=== PATIENT | female | born 1945 | race Caucasian/White ===

== ENCOUNTER 2018-04-24 11:10 | Emergency (ER) | payer MEDICARE, OTHER, SELFPAY ==
[2018-04-24 11:11] VITALS: BP 183/92; PULSE 109; RESP 24; TEMP 36.4; O2SAT 95; BMI 28.0
--- NOTE | 2018-04-24 11:41 | EKG12_ITS ---
Test Reason : ABDOMINAL PAIN Blood Pressure : / mmHG Vent. Rate : 094 BPM Atrial Rate : 094 BPM P-R Int : 154 ms QRS Dur : 078 ms QT Int : 382 ms P-R-T Axes : 061 077 064 degrees QTc Int : 477 ms Normal sinus rhythm Normal ECG Confirmed by TON GAN, ARLETH ([id number]), assistant production editor ANA WITT ([id number]) on 04/28/2018 9:15:44 AM Referred By: Confirmed By:ARLETH CAMILO MD
--- NOTE | 2018-04-24 11:41 | US_ITS ---
STUDY: ABDOMINAL ULTRASOUND - RIGHT UPPER QUADRANT REASON FOR VISIT: Female, 72 years old. Abdominal pain. TECHNIQUE: Ultrasound evaluation of the right upper quadrant was performed with real-time and static alva-scale imaging. TECHNICAL QUALITY: Limited. Examination limited due to obesity. COMPARISON: Comparison is made with prior examination dated February 26, 2012. FINDINGS: Liver: The liver measures 16.4 cm. There is increased echogenicity consistent with fatty infiltration. The bile ducts are within normal limits. There is hepatic color flow. The direction of portal flow is hepatopetal. There is no demonstrated mass lesion. Gallbladder: Normal distended gallbladder. The gallbladder wall measures 4.0 mm. There is a negative sonographic Davila's sign. There is no pericholecystic fluid. There are multiple echogenic structures within the gallbladder, consistent with multiple gallstones. Common Bile Duct (C.B.D.): The common bile duct is not well visualized due to overlying bowel gas. Pancreas: Normal size of the head, body and tail of the pancreas. There is normal echogenicity of the pancreas. There is no demonstrated pancreatic mass or cyst. Right Kidney: Normal size of the right kidney. The right kidney measures 9.8 cm x 5.1 cm x 4.5 cm. Normal renal cortex. The right cortex measures 1.4 cm. There is no demonstrated renal mass or cyst. There is no right hydronephrosis. US/Gallbladder IMPRESSION: Multiple gallstones. Fatty infiltration of the liver. Electronically Signed: Luciano Ferraro, at 14:34 EST , Service support ,
[2018-04-24] MEDS: Ondansetron 4 MG/2 ML Vial IV (12:01)
[2018-04-24] MEDS: Morphine 4 MG/ML Syringe IV (12:01)
[2018-04-24 12:33] LABS: Absolute Lymphocyte Count 1.79 X10^3/ul (0.83-4.51); Absolute Neutrophil Count 8.3 X10^3/uL (2.0-7.7); Basophil# 0.04 X10^3/uL; Basophil% 0.4 % (0-1); Eosinophil# 0.06 X10^3/uL; Eosinophils% 0.6 % (0-5); Hematocrit 48.1 % (37-47); Hemoglobin 15.3 g/dl (12.0-15.0); Lymphocyte # 1.79 X10^3/ul (4.0); Lymphocyte % 16.7 % (19-41); Mean Corp Hgb Conc 31.8 g/gl (32-36); Mean Corpuscular Hgb 28.2 pg (27.0-32.0); Mean Corpuscular Volume 88.6 fL (81-99); Monocyte# 0.55 X10^3/uL; Monocyte% 5.1 % (0-10); Neutrophil # 8.25 X10^3/uL (2.7-7.7); Neutrophil % 77.1 % (47-70); Platelet Count 325 K/mm3 (150-450); RBC Distribution Width CV 13.5 % (11.6-14.6); RBC Distribution Width SD 43.6 fl (35.1-43.9); Red Blood Count 5.43 M/mm3 (4.2-5.4); White Blood Count 10.7 K/mm3 (4.4-11.0)
[2018-04-24 12:41] LABS: POSITIVE COUNT NO; POSITIVE DIFFERENTIAL NO; POSITIVE MORPHOLOGY NO
[2018-04-24 12:43] LABS: AST(SGOT) 28 U/L (15-37); Alanine Aminotransfer ALT/SGPT 47 U/L (13-56); Albumin, Serum 3.8 g/dL (3.2-5.0); Alkaline Phosphatase 73 U/L (45-117); Anion Gap 6 (5-15); BUN 17 mg/dL (7-18); BUN/Creat Ratio 27.3 RATIO (10-20); Calcium,Total 8.3 mg/dL (8.5-10.1); Chloride 103 mmol/L (98-107); Creatinine, Serum 0.62 mg/dL (0.55-1.02); EST Glomerular Filtration Rate 100 mL/min (>60); Est Glom Filt Rate - Afr Amer 121 mL/min (>60); Estimated Creatinine Clearance 42.68 ml/min; Globulin 3.7 g/dL (2.2-4.2); Glucose 122 mg/dL (74-106); Lipase 121 U/L (73-393); Potassium 3.9 mmol/L (3.5-5.1); Protein, Total 7.5 g/dL (6.4-8.2); Sodium Level 137 mmol/L (136-145)
[2018-04-24 13:20] VITALS: BP 153/105; PULSE 88; RESP 17; O2SAT 97
--- NOTE | 2018-04-24 15:06 | ED.VIS.GEN ---
History of Present Illness Chief Complaint: Abd Pain Detail of Chief Complaint: It is my gallbladder Informant: Patient, Family Onset: Today Context: Sudden Onset Timing: Continuous, Waxes and wanes Quality: Crampy Location: Epigastric/right upper quadrant Current Severity: Severe Maximum Severity: Severe Worsened by: Unknown Relieved by: Unknown Associated Symptoms: Nausea and shortness of breath with increased pain Narrative: Patient healthy woman who presents with epigastric upper quadrant pain without radiation. Associate with nausea. She states she has known gallstones. She was seen by Dr. Denilson Garcia. He recommended cholecystectomy. Patient felt since she did not have recurrence of the pain that she did not need surgery. She denies chest pain. She denies diaphoresis. She denies change in bowels, black or maroon stool. She denies urinary symptoms. She has no history of renal ureterolithiasis. There is no history of trauma. She took ibuprofen with no relief. - Past Medical History (1) Cholelithiasis Status: Chronic Past Medical History - Allergies and Home Meds Allergies/Adverse Reactions: Allergies No Known Allergies Allergy (Verified 04/24/18 11:13) Primary Care Physician: Benigno Peguero MD [Primary Care Provider] - Prior records reviewed: Yes Past Medical History: - - Cholelithiasis Surgical History: noncontributory Lives: Alone Smoking Status: Former smoker Alcohol: None Review of Systems General: Denies: Chills, Fever, Malaise, Subjective, Sweats Eyes: Denies: Visual changes - bilaterally, Blurred Vision - bilaterally, Diplopia ENT: Denies: Bilateral ear pain, Rhinorrhea, Sore throat Cardiovascular: Denies: Chest pain, Palpitations, Heart racing Respiratory: Denies: Dyspnea, Cough, Dyspnea on exertion, Orthopnea, Paroxysmal nocturnal dyspnea Gastrointestinal: Reports: Abdominal pain, Nausea. Denies: Vomiting, Diarrhea, Melena, Hematochezia Genitourinary: Denies: Dysuria, Hematuria, Frequency Musculoskeletal: Denies: Myalgias, Arthralgias, Back pain, Extremity Pain Skin: Denies: Rash, Wounds Neurological: Denies: Headache, Weakness, Numbness Hematologic: Denies: Easy bruising, Easy bleeding Allergy: Denies: Uticaria, Swelling of the mouth Physical Exam Vital Signs/Narrative: Vital Signs Temp Pulse Resp BP Pulse Ox 04/24/18 13:20 88 17 153/105 H 97 04/24/18 11:11 97.6 F L 109 H 24 H 183/92 H 95 Inital Vital Signs reviewed: Yes General: Well developed, Acute Distress Head: Normocephalic, Atraumatic Eyes: Perrl, EOMI. Negative for: Pale conjunctiva, Scleral icterus ENT: Moist mucous membranes, No rhinorrhea, TM's clear Neck: Supple, Nontender, No lymphadenopathy, No JVD Cardiovascular: Regular rate, Regular rhythm, No murmurs, Normal S1, Normal S2 Respiratory: CTA bilaterally, Chest nontender, Decreased Air Movement, - Abdomen: Nondistended, No masses, Tender, Guarding, Hypoactive bowel sounds, Davila's sign. Negative for: Soft, Nontender, Normal bowel sounds, Ventral hernia, Inguinal hernia, Umbilical hernia Rectal: Deferred Back: Nontender, Normal Inspection. Negative for: CVA tenderness Extremities: Nontender, No edema. Negative for: Edema, Calf Tenderness Skin: Normal color, No rash. Negative for: Cyanosis, Diaphoresis, Jaundice Neurological: Alert, Oriented x3, Cranial nerves II-XII grossly intact, Normal Strength, Normal Sensation Psychological: Normal affect, Normal Mood Diagnostic/Tx/Re-eval Impressions Gallbladder Ultrasound 04/24/18 11:41 IMPRESSION: Multiple gallstones. Fatty infiltration of the liver. Electronically Signed: Luciano Ferraro, at 14:34 EST , Service support , 04/24/18 11:41 Gallbladder [US] Stat Laboratory Results 04/24/18 04/24/18 12:10 12:10 WBC 10.7 RBC 5.43 H Hgb 15.3 H Hct 48.1 H MCV 88.6 MCH 28.2 MCHC 31.8 L RDW 13.5 RDW Differential 43.6 Plt Count 325 MPV 10.0 Immature Gran % (Auto) 0.100 Neut % (Auto) 77.1 H Lymph % (Auto) 16.7 L [place] % (Auto) 5.1 Eos % (Auto) 0.6 Baso % (Auto) 0.4 Absolute Neuts (auto) 8.3 H Absolute Lymphs (auto) 1.79 Total Counted Not Reportable Sodium 137 Potassium 3.9 Chloride 103 Carbon Dioxide 28.0 Anion Gap 6 BUN 17 Creatinine 0.62 Estim Creat Clear Calc 42.68 Est GFR (MDRD) Af Amer 121 Est GFR (MDRD) Non-Af 100 BUN/Creatinine Ratio 27.3 H Glucose 122 H Calcium 8.3 L Total Bilirubin 1.00 AST 28 ALT 47 Alkaline Phosphatase 73 Total Protein 7.5 Albumin 3.8 Globulin 3.7 Albumin/Globulin Ratio 1.0 Lipase 121 - Medical Decision Making With history of cholelithiasis right upper quadrant pain and a clinical Davila sign will obtain CBC, hepatic, lipase. EKG was obtained to evaluate atypical cardiac presentation as patient tachypnic. Feel tachypnea secondary to discomfort. She was medicated with Zofran and morphine. Her nausea resolved and her pain resolved. Her respiratory rate improved. She has not been hypoxic. With normal labs, resolution of pain and no evidence of cholecystitis on ultrasound. Dr. Garcia was paged to inform him of patient for outpatient follow-up ED Disposition - Plan for ED Patient: Disposition: Home or Assisted Living Diagnosis: Biliary colic symptom, Cholelithiasis Prescriptions: Hydrocodone Bitart/Apap 5-325 [[place] 5MG-325MG] 1 tab PO Q6H PRN PRN 3 Days #10 tab PRN Reason: Pain Referrals: Benigno Peguero MD [Primary Care Provider] - Denilson Garcia MD [STAFF PHYSICIAN] - 3-5 Days Additional Instructions: Do not eat anything that is greasy, fried, or rich. No use of butter or margarine.
--- NOTE | 2018-04-24 15:10 | ED.DCSUM_ITS ---
History of Present Illness Chief Complaint: Abd Pain Detail of Chief Complaint: It is my gallbladder Informant: Patient, Family Onset: Today Context: Sudden Onset Timing: Continuous, Waxes and wanes Quality: Crampy Location: Epigastric/right upper quadrant Current Severity: Severe Maximum Severity: Severe Worsened by: Unknown Relieved by: Unknown Associated Symptoms: Nausea and shortness of breath with increased pain Narrative: Patient healthy woman who presents with epigastric upper quadrant pain without radiation. Associate with nausea. She states she has known gallstones. She was seen by Dr. Denilson Garcia. He recommended cholecystectomy. Patient felt since she did not have recurrence of the pain that she did not need surgery. She denies chest pain. She denies diaphoresis. She denies change in bowels, black or maroon stool. She denies urinary symptoms. She has no history of renal ureterolithiasis. There is no history of trauma. She took ibuprofen with no relief. - Past Medical History (1) Cholelithiasis Status: Chronic Past Medical History - Allergies and Home Meds Allergies/Adverse Reactions: Allergies No Known Allergies Allergy (Verified 04/24/18 11:13) Primary Care Physician: Benigno Peguero MD [Primary Care Provider] - Prior records reviewed: Yes Past Medical History: - - Cholelithiasis Surgical History: noncontributory Lives: Alone Smoking Status: Former smoker Alcohol: None Review of Systems General: Denies: Chills, Fever, Malaise, Subjective, Sweats Eyes: Denies: Visual changes - bilaterally, Blurred Vision - bilaterally, Diplopia ENT: Denies: Bilateral ear pain, Rhinorrhea, Sore throat Cardiovascular: Denies: Chest pain, Palpitations, Heart racing Respiratory: Denies: Dyspnea, Cough, Dyspnea on exertion, Orthopnea, Paroxysmal nocturnal dyspnea Gastrointestinal: Reports: Abdominal pain, Nausea. Denies: Vomiting, Diarrhea, Melena, Hematochezia Genitourinary: Denies: Dysuria, Hematuria, Frequency Musculoskeletal: Denies: Myalgias, Arthralgias, Back pain, Extremity Pain Skin: Denies: Rash, Wounds Neurological: Denies: Headache, Weakness, Numbness Hematologic: Denies: Easy bruising, Easy bleeding Allergy: Denies: Uticaria, Swelling of the mouth Physical Exam Vital Signs/Narrative: Vital Signs Temp Pulse Resp BP Pulse Ox 04/24/18 13:20 88 17 153/105 H 97 04/24/18 11:11 97.6 F L 109 H 24 H 183/92 H 95 Inital Vital Signs reviewed: Yes General: Well developed, Acute Distress Head: Normocephalic, Atraumatic Eyes: Perrl, EOMI. Negative for: Pale conjunctiva, Scleral icterus ENT: Moist mucous membranes, No rhinorrhea, TM's clear Neck: Supple, Nontender, No lymphadenopathy, No JVD Cardiovascular: Regular rate, Regular rhythm, No murmurs, Normal S1, Normal S2 Respiratory: CTA bilaterally, Chest nontender, Decreased Air Movement, - Abdomen: Nondistended, No masses, Tender, Guarding, Hypoactive bowel sounds, Davila's sign. Negative for: Soft, Nontender, Normal bowel sounds, Ventral hernia, Inguinal hernia, Umbilical hernia Rectal: Deferred Back: Nontender, Normal Inspection. Negative for: CVA tenderness Extremities: Nontender, No edema. Negative for: Edema, Calf Tenderness Skin: Normal color, No rash. Negative for: Cyanosis, Diaphoresis, Jaundice Neurological: Alert, Oriented x3, Cranial nerves II-XII grossly intact, Normal Strength, Normal Sensation Psychological: Normal affect, Normal Mood Diagnostic/Tx/Re-eval Impressions Gallbladder Ultrasound 04/24/18 11:41 IMPRESSION: Multiple gallstones. Fatty infiltration of the liver. Electronically Signed: Luciano Ferraro, at 14:34 EST , Service support , 04/24/18 11:41 Gallbladder [US] Stat Laboratory Results 04/24/18 04/24/18 12:10 12:10 WBC 10.7 RBC 5.43 H Hgb 15.3 H Hct 48.1 H MCV 88.6 MCH 28.2 MCHC 31.8 L RDW 13.5 RDW Differential 43.6 Plt Count 325 MPV 10.0 Immature Gran % (Auto) 0.100 Neut % (Auto) 77.1 H Lymph % (Auto) 16.7 L [place] % (Auto) 5.1 Eos % (Auto) 0.6 Baso % (Auto) 0.4 Absolute Neuts (auto) 8.3 H Absolute Lymphs (auto) 1.79 Total Counted Not Reportable Sodium 137 Potassium 3.9 Chloride 103 Carbon Dioxide 28.0 Anion Gap 6 BUN 17 Creatinine 0.62 Estim Creat Clear Calc 42.68 Est GFR (MDRD) Af Amer 121 Est GFR (MDRD) Non-Af 100 BUN/Creatinine Ratio 27.3 H Glucose 122 H Calcium 8.3 L Total Bilirubin 1.00 AST 28 ALT 47 Alkaline Phosphatase 73 Total Protein 7.5 Albumin 3.8 Globulin 3.7 Albumin/Globulin Ratio 1.0 Lipase 121 - Medical Decision Making With history of cholelithiasis right upper quadrant pain and a clinical Davila sign will obtain CBC, hepatic, lipase. EKG was obtained to evaluate atypical cardiac presentation as patient tachypnic. Feel tachypnea secondary to discomfort. She was medicated with Zofran and morphine. Her nausea resolved and her pain resolved. Her respiratory rate improved. She has not been hypoxic. With normal labs, resolution of pain and no evidence of cholecystitis on ultrasound. Dr. Garcia was paged to inform him of patient for outpatient follow- up ED Disposition - Plan for ED Patient: Disposition: Home or Assisted Living Diagnosis: Biliary colic symptom, Cholelithiasis Prescriptions: Hydrocodone Bitart/Apap 5-325 [[place] 5MG-325MG] 1 tab PO Q6H PRN PRN 3 Days #10 tab PRN Reason: Pain Referrals: Benigno Peguero MD [Primary Care Provider] - Denilson Garcia MD [STAFF PHYSICIAN] - 3-5 Days Additional Instructions: Do not eat anything that is greasy, fried, or rich. No use of butter or margarine.
[2018-04-24 15:29] VITALS: BP 159/95; PULSE 80; RESP 14; RESP 16; O2SAT 98
== END 2018-04-24 15:34 | disposition home or self-care (01) ==
PROVIDERS: Emergency Provider Emergency Medicine; Family Provider Family Medicine; PCP Family Medicine
DX: K80.70 Calculus of gallbladder and bile duct without cholecystitis without obstruction (principal); Z87.891 Personal history of nicotine dependence
CPT/HCPCS: 76705; 80053; 83690; 85025; 93005; 96374; 96375; 99283; A4216; J2405

== ENCOUNTER → 2018-04-30 12:34 | Outpatient (CLI) | payer MEDICARE, OTHER, SELFPAY ==
[2018-04-30 08:32] VITALS: BMI 28.0
--- NOTE | 2018-04-30 12:40 | RAD_ITS ---
STUDY: X-RAY CHEST REASON FOR EXAM: Female, 72 years old. Chest pain and cough TECHNIQUE: PA and lateral views of the chest. COMPARISON: 05/02/2014 FINDINGS: Chronic interstitial changes in both lung barrios with stable 2 cm nodule in the lateral mid left lung field. No change since the previous study. There is no demonstrated pleural abnormality. Normal size heart. Normal mediastinum and alfredo. Normal visualized pulmonary arteries. There is atherosclerotic calcification of the aortic arch with tortuosity. Normal visualized thoracic spine. Normal visualized ribs, clavicles, and shoulders. There is no demonstrated abnormality of the visualized soft tissue structures of the upper abdomen. RAD/Chest PA and Lateral IMPRESSION: Acute pulmonary process, no interval change Stable 2 cm nodule in the lateral mid left lung field Electronically Signed: Boris Musa MD at 17:18 EDT , Service support ,
== END ==
PROVIDERS: Family Provider Family Medicine; PCP Family Medicine; Referring Provider Family Medicine; Visit Provider Family Medicine
DX: J44.9 Chronic obstructive pulmonary disease, unspecified (principal)
CPT/HCPCS: 71046

== ENCOUNTER 2018-05-04 05:20 | Day surgery (SDC) | payer MEDICARE, OTHER, SELFPAY ==
[2018-04-30 08:32] VITALS: BMI 28.0
[2018-05-04] VITALS (7 sets, daily range): BP systolic 116–145; BP diastolic 66–122; PULSE 75–83; RESP 16; TEMP 36.3–37.1; O2SAT 93–100; BMI 27.6
--- NOTE | 2018-05-04 06:30 | COLBX_PTH ---
PATIENT: AMANDEEP REYES LOC: EN U#:[id number] AGE/SX: 72/F ROOM: RE05/04/[address]: Dr. Denilson Garcia MD : 1945 BED: DIS: 05/04/2018 SPEC #: [id number] RECD: 05/04/18 11:01 STATUS: PATT KAYLEN #: [id number] VIRAJ: 05/04/18 06:[address]: Denilson Garcia DEPT: SURGICAL PATHOLOGY RECD BY: Garrett Black ENTERED: 05/04/18 12:05 SP TYPE: COLON BX OT DR: Dr. Benigno Peguero MD Tissues: A - POLYP B - SPLENIC FLEXURE C - Sigmoid colon biopsy Procedures: Surgery Specimen Level IV HEADER OPERATION: Colonoscopy (MAC) PRE-OP DIAGNOSIS: History of tubular adenoma TISSUE SUBMITTED: A. Hepatic flexure polyps, B. Splenic flexure polyp biopsy, C. Distal sigmoid polyp biopsies MICROSCOPIC DIAGNOSIS A. Colonic polyps at hepatic flexure, biopsy: Fragments of tubular adenoma. B. Colonic polyp at splenic flexure, biopsy: Fragments of tubular adenoma. C. Distal sigmoid colon polyp, biopsy: Fragments of hyperplastic polyp. AM:mike 05/05/18 MICROSCOPIC DESCRIPTION Slides are reviewed. GROSS DESCRIPTION A - Received in fixative is one container labeled with the patient's name and designated hepatic flexure polyps. The specimen consists of multiple irregular fragments of moseley soft tissue mixed with fecal material that in aggregate measure 2.5 x 0.4 x 0.1 cm. The specimen is totally submitted in one cassette. B - Received in fixative is one container labeled with the patient's name and designated splenic flexure polyp biopsy. The specimen consists of multiple irregular fragments of light mose[place] soft tissue that in aggregate measure 0.8 x 0.6 x 0.2 cm. The specimen is totally submitted in one cassette. C - Received in fixative is one container labeled with the patient's name and designated distal sigmoid polyp biopsy. The specimen consists of multiple irregular fragments of light [place]ose[place] soft tissue that in aggregate measure 1.4 x 0.3 x 0.1 cm. The specimen is totally submitted in one cassette. / SJ:mike 05/04/18 TC:5 CPT: 22060 x3
--- NOTE | 2018-05-04 07:09 | OP.ENDO_ITS ---
05/04/2018 Benigno Peguero [address] [place] [address] Re : Colonoscopy procedure for Aide Martin Dear Dr. Peguero This procedure was performed on Friday, May 04, 2018. My impressions and recommendations are as follows: Impressions : - Preparation of the colon was fair. - Hemorrhoids found on perianal exam. - Diverticulosis in the entire examined colon. - One 11 mm polyp at the hepatic flexure, removed using injection-lift and a hot snare. Resected and retrieved. - One 4 mm polyp at the hepatic flexure, removed with a hot snare. Resected and retrieved. - One 6 mm polyp at the splenic flexure, removed with a cold biopsy forceps. Resected and retrieved. - Three polyps in the distal sigmoid colon, removed with a cold biopsy forceps. Resected and retrieved. Recommendations : - Discharge patient to home. - Resume previous diet. - Continue present medications. - Telephone my office for pathology results in 1 week. - Repeat colonoscopy in 3 years for surveillance. My findings are described in the full procedure note, which is enclosed. If I can be of further assistance, please feel free to contact me at Doctor phone number(s): Work: . Sincerely, Denilson Garcia MD 05/04/2018 7:08:27 AM This report has been signed electronically.
--- NOTE | 2018-06-03 13:24 | HP_ITS ---
HPI HPI Surgical H&P: Yes Details: 72-year-old lady who was seen by me in the hospital after she had had an elective laparoscopic cholecystectomy. She did have respiratory compromise and had to be intubated. Cardiac enzymes were obtained and were noted to be abnormal cardiology was called for evaluation. She did sustain a non-ST elevation myocardial infarction she underwent an echocardiographic evaluation which demonstrated an ejection fraction of 65% with normal wall motion abnormalities. She has had no dizziness or diaphoresis near syncope or syncope since discharge. She is been compliant with her medications. She returns today for routine follow-up visit. Her physical exam demonstrates clear lung barrios regular rate and rhythm no pedal edema her electrocardiogram demonstrates normal sinus rhythm with a rate of 64 bpm. T wave inversion is noted lead V2. Intake Vital Signs 06/03/18 Height 5 ft 3 in 06/03/18 Weight: 153 lb 06/03/18 Body Mass Index (BMI) 27.1 06/03/18 Blood Pressure 133/75 H 06/03/18 Respiratory Rate 18 06/03/18 Pulse Rate 68 06/03/18 Pulse Ox 93 Intake Visit Reasons: s/p 3-23 COPD, per PCP needs cath Allergies No Known Allergies Allergy (Verified 06/03/18 12:10) Medications mecobalamin (vitamin B12) 1,000 mcg disintegrating tablet,sublingual 1,000 mcg SUBLINGUAL DAILY 04/30/18 [History Confirmed 06/03/18] Fluticasone/Umeclidin/Vilanter [Trelegy Ellipta 100-62.5-25] 1 ea IH DAILY 05/08/18 [History Confirmed 06/03/18] Albuterol Inhaler [Ventolin Hfa] 2 puff INHALATION Q4H PRN PRN #1 inhaler 05/11/18 [Rx Confirmed 06/03/18] Aspirin [Aspirin, Baby] 81 mg PO DAILY@0800 #30 tab.chew 05/11/18 [Rx Confirmed 06/03/18] Pantoprazole Sodium [Protonix] 40 mg PO DAILY #30 tab 05/15/18 [Rx Confirmed 06/03/18] atorvastatin 20 mg tablet 20 mg PO QHS #90 tab 06/03/18 [Rx Confirmed 06/03/18] clopidogrel 75 mg tablet 75 mg PO DAILY #60 tab 06/03/18 [Rx Confirmed 06/03/18] metoprolol tartrate 25 mg tablet 25 mg PO BID #60 tab 06/03/18 [Rx Confirmed 06/03/18] [facility] Medical History Non-ST elevation (NSTEMI) myocardial infarction (Resolved 05/09/18) Frostbite of foot, left (Resolved) COPD (chronic obstructive pulmonary disease) (Chronic) Aspiration pneumonia (Resolved) Cholelithiasis with chronic cholecystitis (Resolved) Gallstones (Resolved) Surgical History Status post laparoscopic cholecystectomy (Suspected 04/2018) History of appendectomy (Resolved) History of colonoscopy (Resolved ~2012) History of esophagogastroduodenoscopy (EGD) (Resolved ~2012) History of right oophorectomy (Resolved) History of tonsillectomy (Resolved) Family History Sister Breast cancer Myocardial infarction age 61 Father Myocardial infarction father age 59 Social History Smoking Status: Former smoker quit date: 05/31/13 ROS Const Const: Positive for excessive sweating (C/O feeling over heated); negative for fatigue, weakness, headache(s), frequent falls or difficulty sleeping Eyes Eyes: Negative for loss of peripheral vision, transient loss of vision, blurry vision, double vision or tunnel vision ENT ENT: Negative for headache(s), dizziness, Nosebleed/epistaxis or balance problems Cardio Chest Pain: No Palpitations: No Edema: Left (ankle edema) Muscle aches with walking: None Resp Respiratory: Positive for wheezing (scattered) and other (Diminished lower lobes); negative for SOB with activity, SOB at rest, SOB orthopnea\SOB lying down, Cough or paroxysmal nocturnal dyspnea GI GI: Negative nausea, vomiting, heartburn or black,tarry stools : Negative for hematuria Musc Musc: Negative for muscle aches/ myalgia, muscle weakness, joint pain or balance problems Skin Skin: Negative non-healing lesions, rash or unusual bruising Neuro Neuro: Negative for dizziness, lightheadedness, near syncope, syncope, orthostatic symptoms, frequent falls, headache(s), weakness, blurry vision, double vision or lack of coordination Dandre Hematologic/Lymphatic: Negative for easy bleeding or easy bruising Endo Endo: Positive for excessive sweating (C/O feeling over heated); negative for fatigue or increased thirst/drinking Psych Psych: Negative for anxiety or depression Allergy Allergy/Immunology: Negative for hives, Negative for rash Cardiology Exam Const Appearance: cooperative, healthy appearing, no acute distress, well developed and well groomed Nutritional Appearance: average body habitus and well nourished Orientation: alert, awake and oriented x3 Head Head: normal to inspection, normocephalic and atraumatic Ears: hearing grossly normal bilaterally and external ears normal Nose: external nose normal, nares normal, nasal mucous membranes and turbinates normal, septum normal, no nasal discharge Face and Sinus: face symmetric Mouth: oral mucosae normal, tongue normal, oropharynx normal and moist mucous membranes Teeth and gingiva: dentition normal Throat: posterior oropharynx normal, tonsils normal and uvula midline Eyes General: appearance normal, both eyes and all related structures Eyelids: eyelids normal Conjunctivae: conjunctivae normal Pupils: PERRL, normal by confrontation and accommodation normal EOM: EOM intact bilaterally Neck Neck: normal visual inspection, trachea midline and no JVD JVD: +5 Carotids: normal carotid upstroke and bounding pulses Chest Chest inspection: normal inspection of the chest, symmetric chest movement and normal respiratory effort Auscultation: Bilateral: Clear to Auscultation Cardio Palpation: normal PMI Rate: regular rate Rhythm: regular rhythm Heart sounds: S1 normal, S2 normal and normal, physiologic split S2; negative rub, gallop or murmur GI GI: normal to inspection, soft, no hepatosplenomegaly and bowel sounds present Neuro General: alert, awake, oriented x3, gait normal, moves all extremities and no focal sensory deficit Skin Skin: no rashes or lesions noted Extremities Pulses: Normal: Right Femoral Pulse, Left Femoral Pulse, Right Dorsalis Pedis Pulse, Left Dorsalis Pedis Pulse, Right Posterior Tibial Pulse, Left Posterior Tibial Pulse, Right Radial Pulse, Left Radial Pulse Lower Extremity Edema: None: Bilateral Musculoskel Musculoskeletal: No joint tenderness Psych Psychological: normal affect Assessment & Plan 1. Non-ST elevation (NSTEMI) myocardial infarction I21.4 Plan She did sustain a non-ST elevation myocardial infarction post gallbladder surgery. He does suggest underlying coronary artery disease. I did discuss with her and she is agreeable to undergoing a left heart catheterization. She will remain on the aspirin clopidogrel and beta-noelle as well as high intensity statin until the above is performed. Risk benefits and alternatives have been explained to her she understands and agrees to proceed. Orders Orders: 12 Lead EKG performed by BMS Today Left Heart Cath/COR/LV Percut Today Basic Metabolic Profile (BMP) Today Plan Detail Other Orders Orders: CBC W/Diff, Automated Today R94.31 Other Medications Refilled: clopidogrel 75 mg PO DAILY 30 tabs 2RF metoprolol tartrate 25 mg PO BID 60 tabs 11RF atorvastatin 20 mg PO QHS 90 tabs 0RF clopidogrel 75 mg PO DAILY 60 tabs 2RF metoprolol tartrate 25 mg PO BID 60 tabs 11RF Follow Up 6 Months (mmm) Coding Level of Care Code Off vis,est,level 4 Diagnoses Non-ST elevation (NSTEMI) myocardial infarction I21.4 Coding Level of Care Code Off vis,est,level 4 Diagnoses Non-ST elevation (NSTEMI) myocardial infarction I21.4 Supplemental Info Supplemental Information Labs Triglycerides 92 mg/dL (-199) 05/08/18 Diagnostics Electrocardiogram 06/03/18 Echocardiogram 05/08/18 Chest X-Ray 05/15/18
== END 2018-05-04 07:41 | disposition home or self-care (01) ==
LOC: EN 05:21 → AC 05:22
PROVIDERS: Family Provider Family Medicine; PCP Family Medicine; Referring Provider Surgery; Visit Provider Surgery
PROC: 0DJD8ZZ Inspection of Lower Intestinal Tract, Via Natural or Artificial Opening Endoscopic (ICD-10-PCS; CPT 45378; principal; 2018-05-04 06:25)
DX: Z12.11 Encounter for screening for malignant neoplasm of colon (principal); D12.3 Benign neoplasm of transverse colon; K63.5 Polyp of colon; K57.30 Diverticulosis of large intestine without perforation or abscess without bleeding; K64.9 Unspecified hemorrhoids; Z86.010 Personal history of colon polyps; Z87.891 Personal history of nicotine dependence
CPT/HCPCS: 45380; 88305; J7120; A4216

== ENCOUNTER 2018-05-08 12:38 | Inpatient (IN) | payer MEDICARE, OTHER, SELFPAY ==
[2018-04-30 08:32] VITALS: BMI 28.0
[2018-05-04 05:44] VITALS: BMI 27.6
[2018-05-07 10:15] VITALS: BP 155/72; BP 248/143; PULSE 114; RESP 14; O2SAT 99
[2018-05-07 12:20] VITALS: BP 151/102; BP 155/72; PULSE 94; RESP 16; TEMP 36.8; O2SAT 96
[2018-05-08] VITALS (33 sets, daily range): BP systolic 91–257; BP diastolic 51–140; PULSE 77–133; RESP 4–21; TEMP 35.9–38.5; O2SAT 90–100; BMI 28.3; BMI 30.9
[2018-05-08] MEDS: Cefazolin 2 GM in 0.9% Normal Saline 100 ML IV (08:39)
--- NOTE | 2018-05-08 08:39 | DCINST_ITS ---
Discharge Diet: Light diet - advance as tolerated - if you have questions about your diet instructions, please talk to you doctor. Discharge Activity: May Not Drive - for 3-5 days or while taking narcotic pain medicine. May shower in (days): 1 Lifting Restrictions: 10 pounds Call your doctor if your incision/area has: Continuous Slow Oozing, Sudden Increased Bleeding, Increased Pain/ Swelling, Increased Redness, Foul Smelling Discharge Call your doctor if you observe: Fever of 101 or Higher Suture Line Care: Avoid Pulling/Pushing, Avoid Pinching/Bending Additional Dressing/Incision Instructions:: Change or remove dressing in 4 days. Leave steri-strips in place for 1 week. Allergies/Adverse Reactions: Allergies No Known Allergies Allergy (Verified 05/01/18 12:02) Medications to take at Discharge mecobalamin (vitamin B12) 1,000 mcg disintegrating tablet,sublingual 1,000 mcg SUBLINGUAL DAILY 04/30/18 Fluticasone/Umeclidin/Vilanter [Trelegy Ellipta 100-62.5-25] 1 each IH DAILY 05/08/18 Hydrocodone Bitart/Apap 5-325 [[place] 5MG-325MG] 1 tablet PO Q4H PRN PRN 2 Days #8 tablet 05/08/18 The following prescriptions were given: Hydrocodone Bitart/Apap 5-325 [[place] 5MG-325MG] 1 tablet PO Q4H PRN PRN 2 Days #8 tablet PRN Reason: Pain Primary Care Physician: Benigno Peguero MD [Primary Care Provider] - Test Results: Test results from this visit will be discussed in further detail at your follow- up appointment, if applicable. Please Follow Up With: Denilson Garcia MD - [phone] When: Call to make an appointment to be seen in about 10 days.
[2018-05-08] MEDS: Bupivacaine Mpf 0.5% 30 ML VIAL (09:00)
--- NOTE | 2018-05-08 09:00 | GALL_PTH ---
PATIENT: AMANDEEP REYES LOC: PCU U#:[id number] AGE/SX: 72/F ROOM: [facility] RE05/09/[address]: Dr. Denilson Garcia MD : 1945 BED: 1 DIS: 05/11/2018 SPEC #: [id number] RECD: 05/08/18 11:19 STATUS: PATT ABDULLAHI #: [id number] VIRAJ: 05/08/18 09:[address]: Denilson Garcia DEPT: SURGICAL PATHOLOGY RECD BY: Anirudh Dozier ENTERED: 05/08/18 12:37 SP TYPE: AVA FELDMAN DR: Dr. Benigno Peguero MD Tissues: Gallbladder, NOS Procedures: Surgery Specimen Level III HEADER OPERATION: Laparoscopic cholecystectomy with IOC PRE-OP DIAGNOSIS: Calculus of gallbladder with chronic cholecystitis without obstruction TISSUE SUBMITTED: Gallbladder MICROSCOPIC DIAGNOSIS Gallbladder, cholecystectomy: Chronic cholecystitis and cholelithiasis. AM:mike 05/11/18 MICROSCOPIC DESCRIPTION Slides are reviewed. GROSS DESCRIPTION Received is one container labeled with the patient's name and designated gallbladder. The specimen consists of a gallbladder measuring 11.5 x 4 x 3.2 cm. The external surface is smooth and glistening. Focally, it is granular, hemorrhagic and contains cautery artifact. The lumen of the gallbladder contains yellow-green mucoid bile and multiple black stone ranging in size from 0.1 to 1.2 cm. The mucosa is bile-stained and without any mass lesions. The gallbladder wall averages 0.1 cm in thickness and is free of mass lesions. Supervisor Cell Room sections of the gallbladder and the cystic duct are submitted in one cassette. / AM:mike 05/08/18 TC:3 CPT: 07753
--- NOTE | 2018-05-08 09:00 | RAD_ITS ---
PROCEDURE: INTRAOPERATIVE CHOLANGIOGRAM. REASON FOR EXAM: Female, 72 years old. Cholelithiasis, laparoscopic cholecystectomy. FLUOROSCOPY TIME (if supplied): (0:15) minutes/seconds RADIATION DOSAGE (If Supplied By Facility): ( 13.27 ) mGy TECHNIQUE: Real-time fluoroscopy was provided during intraoperative contrast infusion via the cystic duct. A cine loop comprising 97 fluoroscopic images is submitted. COMPARISON: Right upper quadrant ultrasound April 24, 2018. FINDINGS: Borderline ectasia of the central intra-and extrahepatic bile ducts. No filling defects or strictures seen. Contrast flows to the duodenum. There is minimal extravasation at the injection site. RAD/Cholangiogram/ O R,Initial IMPRESSION: No demonstrated retained common bile duct stone or bile duct obstruction. Electronically Signed: Boris Navarrete MD at 19:57 EDT , Service support ,
--- NOTE | 2018-05-08 09:44 | PCM.OPRPT ---
Problem List (1) Cholelithiasis with chronic cholecystitis Status: Chronic Qualifiers: Biliary obstruction: without biliary obstruction Report of Operation Date of Procedure: 05/08/18 Pre-Operative Diagnosis: Chronic cholecystitis cholelithiasis Post-Operative Diagnosis: Same Surgery/Procedure Performed:: Laparoscopic cholecystectomy with cholangiograms Description of Surgical Findings:: Timeout and informed consent was obtained. 72-year-old female was taken the operating placement table underwent general endotracheal intubation anesthesia. The abdomen sterilely prepped and draped. Ancef 2 g given intravenous preoperatively. 0.5% Marcaine was used as a local anesthetic. Skin sites were pre-anesthetized. A vertical infraumbilical incision was created. There was a previous incision I elliptically excised the skin scar inspected it and discarded to the skin scar. Sharp dissection carried down through the subcu tissues holding sutures of 0 Vicryl placed a varies needle inserted saline drop test performed the abdomen was insufflated with CO2 to a pressure of 10 mmHg pressure to me trocar inserted 10 mm scope inserted no evidence of intraocular injuries there were adhesions of omentum in the pelvis. The liver noted to be quite fat replaced. The gallbladder was distended. Gallbladder was distracted after 5 mm ports were placed in the epigastric mid abdomen right upper quadrant. Blunt dissection was instilled the infundibulum. The critical view was rapidly achieved. The cystic artery was clipped proximally and distally prior to transecting it. The cystic duct was clipped and then a 14-gauge Angiocath cath was inserted and a cholangiocatheter inserted and fluoroscopically controlled clench grams were obtained demonstrating normal ductal anatomy and free flow into the small bowel. The cholangiogram catheter was removed and 2 additional hemo-lock clips were placed on the cystic duct stump prior to transecting it. The gallbladder was dissected free from the liver bed. Hemostasis was intact with electrocautery. The liver bed was very fragile and careful dissection was performed. Liver bed was somewhat brought to completion. The gallbladder was placed in a retrieval bag. Liver bed was inspected a piece of fibular was additionally placed to assure hemostasis. The right upper quadrant was irrigated and aspirated free of excess fluid. The gallbladder was exited at the umbilicus. The remaining trochars were removed under visualization. The fascia at the umbilicus was approximated with a interrupted 0 Vicryl [id number] suture. Skin edges were approximated with interrupted 4 Monocryl subdermal stitches. Steri-Strips and Telfa and OpSite dressings applied. Sponge and instrument and needle counts were reported the surgeon be correct. Blood loss was minimal. Specimens gallbladder. Drains none. Blood loss minimal. Denilson Garcia M.D., F.A.C.S. Type of Anesthesia:: General Anesthesiologist: Ofelia Joyce
--- NOTE | 2018-05-08 10:08 | SUR.PHASEI ---
[id number] PT RECEIVED TO PACU, SKIN MOTTLED, ORAL AIRWAY IN PLACE. NO OBVIOUS CHEST RISE. CNRA PRESENT, STATES RESP SHALLOW AT 4/MIN. NO AIR EXCHANGE HEARD ON AUSCULTATION. JAW THRUST BEING USED TO HELP AIRWAY. O2 ON PER NRB AT 100%, PULSE OX IN 90'S, BP IN 200'S/100'S. MD UNRESPONSIVE TO STERNAL RUB. NO IMPROVEMENT, [id number] [place] AND [place] AT BEDSIDE. NARCAN GIVEN PER DR ORDER. UPON REVIEW NO REVERSAL AGENTS WERE GIVEN, ANESTHESIA ADMINISTERED REVERSAL. PT CONTINUING TO NOT IMPROVE, DECLINING, LMA TRIED, NO IMPROVEMENT, ABGS DRAWN. PT INTUBATED, PLACED ON VENT. LABETOLOL USED TO LOWER BP. AFTER ON VENT, TROPONIN AND EKG OBTAINED. DR BROUSSARD SPOKE WITH FAMILY. DR COLEMAN SPOKE WITH ICU [facility] [employer], AND HOPITALIST AND DR RODRIGUEZ. PT STABLE ONCE ON VENT. HAD DUONEB AND WAS SUCTIONED FOR COPIOUS AMOUNT OF THICK WHITE SPUTUM. 18 FR NG PLACED, CONFIRMED WITH AIR BOLUS, WITH OUTPUT OF YELLOW GASTRIC SECRETIONS. PT ABLE TO OPEN EYES AND OBEY COMMANDS TO COMMUNICATE WITH STAFF. PT TRANSPORTED TO ICU. TIMES OF MEDICATIONS ON POST ANESTHESIA PHYSICIAN ORDERS, VITAL SIGNS ON MONITOR PRINT OUT.
[2018-05-08] MEDS: Ipratropium/Albuterol Sulfate 3 ML AMPUL.NEB INHALATION ×3 (11:00→17:56)
--- NOTE | 2018-05-08 11:08 | RAD_ITS ---
STUDY: X-RAY CHEST REASON FOR EXAM: Female, 72 years old. Respiratory failure TECHNIQUE: Single AP portable view of the chest. COMPARISON: 04/30/2018 FINDINGS: EKG leads overlie the chest. Since the previous study, patient has been intubated, tip of the ET tube is 2 cm above the fozia. Lungs are expanded with diffuse airspace opacifications throughout the right lung field and left upper lung field. Findings are concerning for infiltrates though pulmonary edema can have a similar appearance. No demonstrated effusion. Normal size heart. Normal mediastinum and alfredo. Normal visualized pulmonary arteries. Normal visualized aortic arch and descending thoracic aorta. Normal visualized thoracic spine. Normal visualized ribs, clavicles, and shoulders. There is no demonstrated abnormality of the visualized soft tissue structures of the upper abdomen. RAD/Chest 1 View (Portable) IMPRESSION: Diffuse airspace opacifications throughout the visualized right lung field and left upper lobe suspicious for infiltrates though pulmonary edema can have a similar appearance. ET tube tip 2 cm above the fozia Electronically Signed: Boris Musa MD at 11:50 EDT , Service support ,
--- NOTE | 2018-05-08 11:27 | EKG12_ITS ---
Test Reason : AM EKG Blood Pressure : / mmHG Vent. Rate : 099 BPM Atrial Rate : 099 BPM P-R Int : 144 ms QRS Dur : 070 ms QT Int : 376 ms P-R-T Axes : 061 063 067 degrees QTc Int : 482 ms Sinus Rhythm Abnormal ECG When compared with ECG of 29-MAY-1996 07:44, MANUAL COMPARISON REQUIRED, DATA IS UNCONFIRMED Confirmed by TON GAN, ARLETH ([id number]), editorial assistant HOLLEY GALLAGHER ([id number]) on 05/25/2018 1:41:13 PM Referred By: Denilson Garcia Confirmed By:ARLETH CAMILO MD
[2018-05-08 11:40] LABS: Base Excess -4 mmol/L (-2 to +2); Bicarbonate 28.2 mmol/L (22-26); Blood Gas Specimen Type ART; FI02 100; PO2 63 mmHG (75-100); SITE L Radial; SO2 72 % (95-99); Time Given 1050; Total Carbon Dioxide 32 mmol/L; pCO2 127.7 mmHg (35-45); pH 6.95 (7.35-7.45)
[2018-05-08 11:40] LABS: Base Excess -3 mmol/L (-2 to +2); Bicarbonate 25.2 mmol/L (22-26); Blood Gas Specimen Type ART; FI02 100; Mode A-C; O2 Delivery Device Vent; PEEP 6; PO2 77 mmHG (75-100); RR 12; SITE L Radial; SO2 90 % (95-99); Time Given 1130; Total Carbon Dioxide 27 mmol/L; Vt 500; pH 7.18 (7.35-7.45)
--- NOTE | 2018-05-08 12:15 | RAD_ITS ---
STUDY: X-RAY - ABDOMEN/PELVIS REASON FOR EXAM: Female, 72 years old. NG tube placement TECHNIQUE: Single AP view of the abdomen / pelvis. COMPARISON: None. FINDINGS: NG tube is in place, tip is in the body the stomach Chronic interstitial changes noted in both lung barrios. There is an unremarkable bowel gas pattern. There is no demonstrated free abdominal air. The visualized liver, spleen and kidneys are grossly normal in size and morphology. Normal soft tissue structures. Normal visualized osseous structures. RAD/Abdomen Single View (Portable) IMPRESSION: NG tube tip in the body the stomach Electronically Signed: Boris Musa MD at 12:42 EDT , Service support ,
--- NOTE | 2018-05-08 12:38 | PN_ITS ---
Progress Note Instructed by Dr Parham and Dr Uribe of pts post anesthetic issues and need for re intubation and ventilation Pt will be admitted to ICU I will differ medical care to hospitalist and honing machine operator tool. This is not a post surgical complication Joe
--- NOTE | 2018-05-08 13:23 | NURSING ---
SEE VITAL SIGNS PRINT OUT FOR FURTHER VITAL SIGN RECORDINGS
[2018-05-08] MEDS: Propofol 10MG/Ml 1,000 MG/100 ML Bottle 4.344 MG CONT INF (14:00)
--- NOTE | 2018-05-08 14:08 | PCM.CON.CC ---
Problem List (1) COPD (chronic obstructive pulmonary disease) Status: Chronic Qualifiers: COPD type: unspecified COPD Qualified Code(s): J44.9 - Chronic obstructive pulmonary disease, unspecified (2) Cholelithiasis with chronic cholecystitis Status: Chronic Qualifiers: Biliary obstruction: without biliary obstruction (3) Cholelithiasis Status: Chronic Reason for Consult Date of Consultation: 05/08/18 Reason for Consultation: Acute respiratory failure History of Present Illness: The patient is a 72 year old F, with a reported history of COPD, who presented to [facility] on [facility], 2018 secondary to an elective laparoscopic cholecystectomy. Patient reportedly was seen earlier this month with complaints of epigastric pain without radiation and nausea. Patient did not require admission at that time, but presented today for elective removal of her gallbladder. Patient reportedly tolerated the surgery well. Following operative procedure, patient was reportedly extubated and transported to the PACU. Shortly thereafter, patient started to have respiratory compromise. Anesthesia was made aware. Patient reportedly did receive Narcan without improvement. Patient had an LMA placed with little improvement in respiratory status. Significant respiratory acidosis was noted on multiple ABGs, so patient was intubated and transferred to the intensive care unit for further management. Patient is currently intubated and sedated and unable to provide additional history. Patient does have a history of COPD and reportedly takes Trelegy as an outpatient. No pulmonary function tests are available for review Past Medical History Past Medical History (Chronic Problems): Chronic Problems (Last Updated 04/30/18 @ 08:28 by Beatris Polanco) COPD (chronic obstructive pulmonary disease) (Chronic) Cholelithiasis with chronic cholecystitis (Chronic) Cholelithiasis (Chronic) Medical History: Medical History (Last Updated 04/30/18 @ 08:28 by Beatris Polanco) Cholelithiasis with chronic cholecystitis (Chronic) K80.10 Gallstones K80.20 COPD (chronic obstructive pulmonary disease) J44.9 Allergies No Known Allergies Allergy (Verified 05/01/18 12:02) Home Medications: Ambulatory Orders Medication Instructions Recorded mecobalamin (vitamin B12) 1,000 1,000 mcg SUBLINGUAL DAILY 04/30/18 mcg disintegrating tablet,sublingual Fluticasone/Umeclidin/Vilanter 1 each IH DAILY 05/08/18 [Trelegy Ellipta 100-62.5-25] Hydrocodone Bitart/Apap 5-325 1 tablet PO Q4H PRN PRN 2 Days #8 05/08/18 [[place] 5MG-325MG] tablet Surgical History: Surgical History (Last Updated 04/30/18 @ 08:32 by Beatris Polanco) History of appendectomy Z90.49 History of colonoscopy Onset Date: ~2012 Z98.890 History of esophagogastroduodenoscopy (EGD) Onset Date: ~2012 Z History of right oophorectomy Z90.721 History of tonsillectomy Z.89 Surgical History: noncontributory Smoking Status: Former smoker Review of Systems Unable to obtain accurate/complete ROS d/t: Intubated and sedated Objective: CXR shows right sided infiltrate. OG is high and was advanced. - Physical Exam General: - - RASS -2. Good vent synchrony. HEENT: Atraumatic, PERRLA, EOMI, Normocephalic, - - No scleral icterus or injection. NG in place Oral: Moist Mucosa, No Gingival or Mucosal Lesions/ Ulcerations Neck: Supple, No JVD, No Nodes, Trachea Midline Lungs: No wheeze, No rales, Rhonchi - Right, - - Symmetric expansion Cardiovascular: Regular rate, Regular Rhythm, Normal S1, Normal S2, No murmurs, No rub noted, No Gallop Abdomen: Soft, Non Tender, Hypoactive Bowel Sounds, Distended - Slightly, - - Umbilical dressing saturated. Extremities: No clubbing, No cyanosis, No edema, Capillary Refill Less than 3 Seconds Skin: No breakdown, - - Hives noted in left neck Musculoskeletal: No Tenderness to Palpation of Joints or Extremities Lymphatic: No Cervical, Supraclavicular, or Inguinal Adenopathy Neurological: Cranial nerves II-XII grossly intact, Neuro grossly intact, Motor Exam 5/5 strength throughout Psych/Mental Status: Flat Affect Vital Signs Temp Pulse Resp BP Pulse Ox 36.8 C 98 21 H 140/98 H 90 05/08/18 10:08 05/08/18 10:57 05/08/18 10:57 05/08/18 10:45 05/08/18 10:30 Oxygen Delivery Method Non-Rebreather Weight: 72.4 kg Body Mass Index (BMI) 28.3 Intake and Output for Last 24 Hours 05/06/18 05/07/18 05/08/18 23:59 23:59 23:59 Intake Total 1200 / 1200 Balance 1200 / 1200 Laboratory Tests Past 24 Hrs 05/08/18 05/08/18 05/08/18 10:46 11:28 11:34 Specimen Type ART ART ART Sample Site L Radial L Radial L Radial pH 6.95 L* 7.18 L* 7.17 L* Bicarbonate Actual 28.2 H 25.2 25.7 POC Total CO2 32 27 28 Base Excess -4 L -3 L -3 L O2 Saturation 72 L 90 L 90 L O2 % 100 100 100 ABG pCO2 127.7 H* 68.0 H* 69.7 H* ABG pO2 63 L 77 76 Manjit Test NA NA NA Respiration Rate 12 12 O2 Delivery Device Ambu Vent Vent Minute Volume 5.00 5.00 Vent Mode A-C A-C Tidal Volume 500 500 POC PEEP 6 6 Blood Gas Notified Whom [facility] MD OTHER OTHER Blood Gas Notified Time 1050 1130 1130 Troponin I 05/08/18 11:44 Specimen Type Sample Site pH Bicarbonate Actual POC Total CO2 Base Excess O2 Saturation O2 % ABG pCO2 ABG pO2 Manjit Test Respiration Rate O2 Delivery Device Minute Volume Vent Mode Tidal Volume POC PEEP Blood Gas Notified Whom Blood Gas Notified Time Troponin I 0.239 H Clinical Impression(s) from Imaging Studies Chest X-Ray 05/08/18 11:08 IMPRESSION: Diffuse airspace opacifications throughout the visualized right lung field and left upper lobe suspicious for infiltrates though pulmonary edema can have a similar appearance. ET tube tip 2 cm above the fozia Electronically Signed: Boris Musa MD at 11:50 EDT , Service support , KUB X-Ray 05/08/18 12:15 IMPRESSION: NG tube tip in the body the stomach Electronically Signed: Boris Musa MD at 12:42 EDT , Service support , Assessment/Plan RECOMMENDATIONS: 1. Wean FiO2 and PEEP as tolerated 2. Recheck ABG after 1 hour 3. Keep n.p.o. for now 4. Propofol and fentanyl as needed for sedation/pain control 5. Spontaneous breathing and awakening trials per protocol 6. Cycle troponins IMPRESSIONS: 1. Acute combined respiratory failure Unclear etiology at this time. Patient may have some residual effects from anesthesia versus aspiration pneumonia versus negative pressure pulmonary edema versus acute myocardial infarction. We will continue to monitor. No active diuresis at this time. Patient did have thick secretions on presentation to the ICU, so aspiration would be a concern. Patient will be initiated on steroids and aspiration pneumonia antibiotics. Patient currently requiring high PEEP and FiO2. We will continue to wean this as tolerated over night. Spontaneous breathing and awakening trials per protocol. 2. Reported history of COPD Patient does have a known history of smoking in the past. Patient reportedly does have COPD and is on trelegy at home. No PFTs are available for review. Given obstructive lung disease, patient will be placed on bronchodilators and steroids. Will hold on mucolytic for now. 3. Cholelithiasis with chronic cholecystitis S/P cholecystectomy postop day #0 Surgery is following. No reported complications with minimal blood loss at surgery. TIME: 45 minutes critical care time spent addressing patient's acute combined respiratory failure, review of all data and collaboration with care team (12 PM to 2:30 PM) Code Visit 9xxxx: [id number] Critical care first hour
--- NOTE | 2018-05-08 14:13 | PCM.PN.HOSP ---
Subjective: Medical consult note: 72 y/o with reported PMHx of COPD, history of tubular adenoma of the rectosigmoid colon who is in the immediate postop period status post laparoscopic cholecystectomy for chronic cholecystitis/cholelithiasis. Hospital medicine was called for patient who was said to be hypoxic, in respiratory distress, with shallow breathing at 4/min and lethargic during postoperative period in PACU. Anesthesia reversal agent was then given. A LMA was inserted and patient was still with persistent hypoxia. She was subsequently re-intubated and managed on the mechanical ventilator. She was suctioned for copious amounts of thick white sputum. NG tube was placed and showed yellow gastric secretions. Patient subsequently was said to be able to open her eyes and obey commands. Patient was seen in the ICU, intubated, started on mechanical ventilator, not responsive. Vitals/I&O's: Vital Signs Temp Pulse Resp BP Pulse Ox 98.3 F 98 21 H 140/98 H 90 05/08/18 10:08 05/08/18 10:57 05/08/18 10:57 05/08/18 10:45 05/08/18 10:30 Oxygen Delivery Method Non-Rebreather Weight: 72.4 kg Body Mass Index (BMI) 28.3 Intake and Output for Last 24 Hours 05/06/18 05/07/18 05/08/18 23:59 23:59 23:59 Intake Total 1200 / 1200 Balance 1200 / 1200 General: - - intubated, on mechanical ventilation HEENT: Atraumatic, PERRLA, EOMI, Normocephalic Oral: Dry Mucosa Neck: Supple Lungs: Normal air movement, Diminished Cardiovascular: Regular rate, Regular Rhythm, Normal S1, Normal S2, Tachycardic Abdomen: Bowel Sounds Present, Soft, Non Tender, Non-Distended, - - Umbilical laparoscopic dressings were soaked with blood. BS infrequent Extremities: No edema Skin: No rashes Musculoskeletal: No Tenderness to Palpation of Joints or Extremities Lymphatic: No Cervical, Supraclavicular, or Inguinal Adenopathy Neurological: Cranial nerves II-XII grossly intact, Neuro grossly intact Psych/Mental Status: Normal Affect, Appropriate Laboratory Results 05/08/18 10:46: Specimen Type ART, Sample Site L Radial, pH 6.95 L*, Bicarbonate Actual 28.2 H, POC Total CO2 32, Base Excess -4 L, O2 Saturation 72 L, O2 % 100, ABG pCO2 127.7 H*, ABG pO2 63 L, Manjit Test NA, O2 Delivery Device Ambu, Blood Gas Notified Whom CHRISTIAN GAN, Blood Gas Notified Time 10505/08/18 11:28: Specimen Type ART, Sample Site L Radial, pH 7.18 L*, Bicarbonate Actual 25.2, POC Total CO2 27, Base Excess -3 L, O2 Saturation 90 L, O2 % 100, ABG pCO2 68.0 H*, ABG pO2 77, Manjit Test NA, Respiration Rate 12, O2 Delivery Device Vent, Minute Volume 5.00, Vent Mode A-C, Tidal Volume 500, POC PEEP 6, Blood Gas Notified Whom OTHER, Blood Gas Notified Time 112905/08/18 11:34: Specimen Type ART, Sample Site L Radial, pH 7.17 L*, Bicarbonate Actual 25.7, POC Total CO2 28, Base Excess -3 L, O2 Saturation 90 L, O2 % 100, ABG pCO2 69.7 H*, ABG pO2 76, Manjit Test NA, Respiration Rate 12, O2 Delivery Device Vent, Minute Volume 5.00, Vent Mode A-C, Tidal Volume 500, POC PEEP 6, Blood Gas Notified Whom OTHER, Blood Gas Notified Time 112905/08/18 11:44: Troponin I 0.239 H Current Medications Acetaminophen (Tylenol) 650 mg PO Q6H PRN PRN PRN Reason: PAIN Hydrocodone Bitart/Acetaminophen ([place] 5mg-325mg) 1 - 2 tablet PO Q4H PRN PRN PRN Reason: PAIN Albuterol/Ipratropium (Duoneb) 3 ml INHALATION Q4HWA.RT SANDI Enoxaparin Sodium (Lovenox) 40 mg SC DAILY@0600 SANDI Lactated Ringer's () 1,000 mls @ 50 mls/hr IV .Q20H SANDI Ampicillin Sodium/Sulbactam (Sodium 3 gm/ Sodium Chloride) 112 mls @ 150 mls/hr IV Q6 SANDI Methylprednisolone (Solu-Medrol) 40 mg IV Q8 SANDI Non-Formulary Medication (Fluticasone/Umeclidin/Vilanter [Trelegy Ellipta 100-62.5-25]) 1 each IH DAILY SANDI Non-Formulary Medication (Mecobalamin [B-12]) 1,000 mcg SUBLINGUAL DAILY SANDI Ondansetron HCl (Zofran) 4 mg IV Q8H PRN PRN PRN Reason: NAUSEA Medical Necessity - Tobacco Use Smoking Status: Former smoker Assessment/Plan 72 y/o with reported PMHx of COPD, history of tubular adenoma of the rectosigmoid colon who is in the immediate postop period status post laparoscopic cholecystectomy for chronic cholecystitis/cholelithiasis. 1. Acute hypoxic respiratory failure likely secondary to aspiration pneumonitis, possible COPD exacerbation In a patient with underlying history of COPD Status post intubation in PACU, on mechanical ventilator Continue per platinumsmith recommendations, IV unasyn, IV steroids, breathing treatments 2. Aspiration pneumonitis/pneumonia, status post laparoscopic cholecystectomy, on IV Unasyn 3. Possible COPD exacerbation, known history of COPD, will continue IV steroids and breathing treatments 4. Postop day #0, status post laparoscopic cholecystectomy for chronic cholecystitis and cholelithiasis Wound care instructions per general surgery. 5. DVT PPX - Lovenox 6. GI PPx- famotidine IV BID Code Visit Inpatient E&M: 62389 Subs Hosp L2
--- NOTE | 2018-05-08 14:16 | CON.PCM_ITS ---
Problem List (1) COPD (chronic obstructive pulmonary disease) Status: Chronic Qualifiers: COPD type: unspecified COPD Qualified Code(s): J44.9 - Chronic obstructive pulmonary disease, unspecified (2) Cholelithiasis with chronic cholecystitis Status: Chronic Qualifiers: Biliary obstruction: without biliary obstruction (3) Cholelithiasis Status: Chronic Reason for Consult Date of Consultation: 05/08/18 Reason for Consultation: Acute respiratory failure History of Present Illness: The patient is a 72 year old F, with a reported history of COPD, who presented to [facility] on May 08, 2018 secondary to an elective laparoscopic cholecystectomy. Patient reportedly was seen earlier this month with complaints of epigastric pain without radiation and nausea. Patient did not require admission at that time, but presented today for elective removal of her gallbladder. Patient reportedly tolerated the surgery well. Following operative procedure, patient was reportedly extubated and transported to the PACU. Shortly thereafter, patient started to have respiratory compromise. Anesthesia was made aware. Patient reportedly did receive Narcan without improvement. Patient had an LMA placed with little improvement in respiratory status. Significant respiratory acidosis was noted on multiple ABGs, so patient was intubated and transferred to the intensive care unit for further management. Patient is currently intubated and sedated and unable to provide additional history. Patient does have a history of COPD and reportedly takes Trelegy as an outpatient. No pulmonary function tests are available for review Past Medical History Past Medical History (Chronic Problems): Chronic Problems (Last Updated 04/30/18 @ 08:28 by Beatris Polanco) COPD (chronic obstructive pulmonary disease) (Chronic) Cholelithiasis with chronic cholecystitis (Chronic) Cholelithiasis (Chronic) Medical History: Medical History (Last Updated 04/30/18 @ 08:28 by Beatris Polanco) Cholelithiasis with chronic cholecystitis (Chronic) K80.10 Gallstones K80.20 COPD (chronic obstructive pulmonary disease) J44.9 Allergies No Known Allergies Allergy (Verified 05/01/18 12:02) Home Medications: Ambulatory Orders Medication Instructions Recorded mecobalamin (vitamin B12) 1,000 1,000 mcg SUBLINGUAL DAILY 04/30/18 mcg disintegrating tablet,sublingual Fluticasone/Umeclidin/Vilanter 1 each IH DAILY 05/08/18 [Trelegy Ellipta 100-62.5-25] Hydrocodone Bitart/Apap 5-325 1 tablet PO Q4H PRN PRN 2 Days #8 05/08/18 [[place] 5MG-325MG] tablet Surgical History: Surgical History (Last Updated 04/30/18 @ 08:32 by Beatris Polanco) History of appendectomy Z90.49 History of colonoscopy Onset Date: ~2012 Z98.890 History of esophagogastroduodenoscopy (EGD) Onset Date: ~2012 Z History of right oophorectomy Z90.721 History of tonsillectomy Z. Surgical History: noncontributory Smoking Status: Former smoker Review of Systems Unable to obtain accurate/complete ROS d/t: Intubated and sedated Objective: CXR shows right sided infiltrate. OG is high and was advanced. - Physical Exam General: - - RASS -2. Good vent synchrony. HEENT: Atraumatic, PERRLA, EOMI, Normocephalic, - - No scleral icterus or injection. NG in place Oral: Moist Mucosa, No Gingival or Mucosal Lesions/ Ulcerations Neck: Supple, No JVD, No Nodes, Trachea Midline Lungs: No wheeze, No rales, Rhonchi - Right, - - Symmetric expansion Cardiovascular: Regular rate, Regular Rhythm, Normal S1, Normal S2, No murmurs, No rub noted, No Gallop Abdomen: Soft, Non Tender, Hypoactive Bowel Sounds, Distended - Slightly, - - Umbilical dressing saturated. Extremities: No clubbing, No cyanosis, No edema, Capillary Refill Less than 3 S econds Skin: No breakdown, - - Hives noted in left neck Musculoskeletal: No Tenderness to Palpation of Joints or Extremities Lymphatic: No Cervical, Supraclavicular, or Inguinal Adenopathy Neurological: Cranial nerves II-XII grossly intact, Neuro grossly intact, Motor Exam 5/5 strength throughout Psych/Mental Status: Flat Affect Vital Signs Temp Pulse Resp BP Pulse Ox 36.8 C 98 21 H 140/98 H 90 05/08/18 10:08 05/08/18 10:57 05/08/18 10:57 05/08/18 10:45 05/08/18 10:30 Oxygen Delivery Method Non-Rebreather Weight: 72.4 kg Body Mass Index (BMI) 28.3 Intake and Output for Last 24 Hours 05/06/18 05/07/18 05/08/18 23:59 23:59 23:59 Intake Total 1200 / 1200 Balance 1200 / 1200 Laboratory Tests Past 24 Hrs 05/08/18 05/08/18 05/08/18 10:46 11:28 11:34 Specimen Type ART ART ART Sample Site L Radial L Radial L Radial pH 6.95 L* 7.18 L* 7.17 L* Bicarbonate Actual 28.2 H 25.2 25.7 POC Total CO2 32 27 28 Base Excess -4 L -3 L -3 L O2 Saturation 72 L 90 L 90 L O2 % 100 100 100 ABG pCO2 127.7 H* 68.0 H* 69.7 H* ABG pO2 63 L 77 76 Manjit Test NA NA NA Respiration Rate 12 12 O2 Delivery Device Ambu Vent Vent Minute Volume 5.00 5.00 Vent Mode A-C A-C Tidal Volume 500 500 POC PEEP 6 6 Blood Gas Notified Whom [facility] OTHER OTHER Blood Gas Notified Time 1050 1130 1130 Troponin I 05/08/18 11:44 Specimen Type Sample Site pH Bicarbonate Actual POC Total CO2 Base Excess O2 Saturation O2 % ABG pCO2 ABG pO2 Manjit Test Respiration Rate O2 Delivery Device Minute Volume Vent Mode Tidal Volume POC PEEP Blood Gas Notified Whom Blood Gas Notified Time Troponin I 0.239 H Clinical Impression(s) from Imaging Studies Chest X-Ray 05/08/18 11:08 IMPRESSION: Diffuse airspace opacifications throughout the visualized right lung field and left upper lobe suspicious for infiltrates though pulmonary edema can have a similar appearance. ET tube tip 2 cm above the fozia Electronically Signed: Boris Musa MD at 11:50 EDT , Service support , KUB X-Ray 05/08/18 12:15 IMPRESSION: NG tube tip in the body the stomach Electronically Signed: Boris Musa MD at 12:42 EDT , Service support , Assessment/Plan RECOMMENDATIONS: 1. Wean FiO2 and PEEP as tolerated 2. Recheck ABG after 1 hour 3. Keep n.p.o. for now 4. Propofol and fentanyl as needed for sedation/pain control 5. Spontaneous breathing and awakening trials per protocol 6. Cycle troponins IMPRESSIONS: 1. Acute combined respiratory failure Unclear etiology at this time. Patient may have some residual effects from anesthesia versus aspiration pneumonia versus negative pressure pulmonary edema versus acute myocardial infarction. We will continue to monitor. No active diuresis at this time. Patient did have thick secretions on presentation to the ICU, so aspiration would be a concern. Patient will be initiated on steroids and aspiration pneumonia antibiotics. Patient currently requiring high PEEP and FiO2. We will continue to wean this as tolerated over night. Spontaneous breathing and awakening trials per protocol. 2. Reported history of COPD Patient does have a known history of smoking in the past. Patient reportedly does have COPD and is on trelegy at home. No PFTs are available for review. Given obstructive lung disease, patient will be placed on bronchodilators and steroids. Will hold on mucolytic for now. 3. Cholelithiasis with chronic cholecystitis S/P cholecystectomy postop day #0 Surgery is following. No reported complications with minimal blood loss at surgery. TIME: 45 minutes critical care time spent addressing patient's acute combined respiratory failure, review of all data and collaboration with care team (12 PM to 2:30 PM) Code Visit 9xxxx: [id number] Critical care first hour
[2018-05-08 14:56] LABS: Base Excess -2 mmol/L (-2 to +2); Bicarbonate 24.4 mmol/L (22-26); Blood Gas Specimen Type ART; FI02 60; Mode A-C; O2 Delivery Device Vent; PEEP 10; PO2 87 mmHG (75-100); RR 14; SITE L Radial; SO2 95 % (95-99); Time Given 1430; Total Carbon Dioxide 26 mmol/L; Vt 450; pCO2 51.3 mmHg (35-45); pH 7.29 (7.35-7.45)
[2018-05-08] MEDS: fentaNYL drip 100 ML 2.5 MCG IV (15:20)
--- NOTE | 2018-05-08 17:03 | PCM.PN.BLA ---
Progress Note Pt reviewed Report of bagging in the PACU and gross abdominal distention re: NGT and thick white mucous from ET tube and markedly abnormal bilateral CXR, far worse on the right suggests aspiration in PACU Pt currently on 50% FIO2 and PEEP 8 I very much appreciate all medical care Joe
[2018-05-08 20:42] LABS: CPK Total, Creatine Kinase 71 U/L (26-192); Triglycerides 92 mg/dL
[2018-05-08 21:31] LABS: Absolute Neutrophil Count 19.4 X10^3/uL (2.0-7.7); Basophil# 0.01 X10^3/uL; Hematocrit 44.4 % (37-47); Hemoglobin 14.3 g/dl (12.0-15.0); Mean Corp Hgb Conc 32.2 g/gl (32-36); Mean Corpuscular Hgb 28.4 pg (27.0-32.0); Mean Corpuscular Volume 88.1 fL (81-99); Mean Platelet Vol. 9.9 fl (6.2-12.0); Monocyte# 0.44 X10^3/uL; Monocyte% 2.1 % (0-10); Neutrophil # 19.38 X10^3/uL (2.7-7.7); Neutrophil % 90.6 % (47-70); Platelet Count 344 K/mm3 (150-450); RBC Distribution Width CV 14.1 % (11.6-14.6); RBC Distribution Width SD 45.4 fl (35.1-43.9); Red Blood Count 5.04 M/mm3 (4.2-5.4); White Blood Count 21.4 K/mm3 (4.4-11.0)
[2018-05-08 21:32] LABS: POSITIVE COUNT NO; POSITIVE DIFFERENTIAL NO; POSITIVE MORPHOLOGY NO
[2018-05-08 21:37] LABS: Prothrombin Time (Protime)PT. 13.3 SECONDS (11.7-14.9)
--- NOTE | 2018-05-08 21:39 | PCM.PN.BLA ---
Progress Note Patient is a 72-year-old female with a significant history of COPD and chronic cholecystitis/Megha lithiasis postop day 0 for cholecystectomy with cholangiogram under general anesthesia with reintubation because of respiratory distress and admission to the ICU who nurse reports that her troponin has been trending up. Her initial ABG was significant for severe acidosis with severe hypercapnia and and mild hypoxemia which subsequently improved whiles on endotracheal intubation with ventilation. Her troponin initially was 0.239 and trended up to 1.40 and then 1.50. Chest x-ray showed diffuse opacity more prominent on the right side. Patient was diagnosed with aspiration pneumonia/pneumonitis for which reason patient was started on Unasyn and steroids. BNP, CBC and CMP as well as MRSA ordered. Patient was examined at bedside. On examination patient was alert while on propofol and fentanyl sedation; and on Mechanical Ventilation. Patient was breathing over the vent. Extraocular muscle movement was intact. Patient was following commands. Her lungs sounded clear. Heart sounds S1-S2 was present with no murmur gallops or rubs. Her abdomen had dry and intact incisions if no bowel sounds present. Her legs were not edematous. Elevated troponin. EKG showed QTC prolongation. Will discontinue Zofran prn; and start prn Phenergan Etiology unclear at this time. We will give patient aspirin 300 mg rectally. Case was discussed with pathologist assistant, Dr. Goldstein. Dr. Goldstein will see patient in a.m. Power Barker Operator recommend echocardiogram. Probable aspiration pneumonia Patient noted to have increasing fever. If her fever persists will consider broadening antibiotics. However due to the rapidity of her symptoms aspiration pneumonitis/aspiration pneumonia is more probable.
[2018-05-08 21:44] LABS: ALB/GLOB Ratio 0.9 RATIO (0.9-2.4); AST(SGOT) 60 U/L (15-37); Alanine Aminotransfer ALT/SGPT 84 U/L (13-56); Albumin, Serum 2.9 g/dL (3.2-5.0); Alkaline Phosphatase 67 U/L (45-117); Anion Gap 9 (5-15); BUN 21 mg/dL (7-18); BUN/Creat Ratio 23.4 RATIO (10-20); Calcium,Total 7.8 mg/dL (8.5-10.1); Chloride 107 mmol/L (98-107); EST Glomerular Filtration Rate 66 mL/min (>60); Est Glom Filt Rate - Afr Amer 79 mL/min (>60); Estimated Creatinine Clearance 45.35 ml/min; Globulin 3.1 g/dL (2.2-4.2); Glucose 153 mg/dL (74-106); Magnesium 1.6 mg/dL (1.6-2.6); Potassium 4.1 mmol/L (3.5-5.1); Sodium Level 141 mmol/L (136-145)
--- NOTE | 2018-05-08 21:49 | PN_ITS ---
Progress Note Patient is a 72-year-old female with a significant history of COPD and chronic cholecystitis/Megha lithiasis postop day 0 for cholecystectomy with cholangiogram under general anesthesia with reintubation because of respiratory distress and admission to the ICU who nurse reports that her troponin has been trending up. Her initial ABG was significant for severe acidosis with severe hypercapnia and and mild hypoxemia which subsequently improved whiles on endotracheal intubation with ventilation. Her troponin initially was 0.239 and trended up to 1.40 and then 1.50. Chest x-ray showed diffuse opacity more prominent on the right side. Patient was diagnosed with aspiration pneumonia/pneumonitis for which reason patient was started on Unasyn and steroids. BNP, CBC and CMP as well as MRSA ordered. Patient was examined at bedside. On examination patient was alert while on propofol and fentanyl sedation; and on Mechanical Ventilation. Patient was breathing over the vent. Extraocular muscle movement was intact. Patient was following commands. Her lungs sounded clear. Heart sounds S1-S2 was present with no murmur gallops or rubs. Her abdomen had dry and intact incisions if no bowel sounds present. Her legs were not edematous. Elevated troponin. EKG showed QTC prolongation. Will discontinue Zofran prn; and start prn Phenergan Etiology unclear at this time. We will give patient aspirin 300 mg rectally. Case was discussed with hander in, Dr. Goldstein. Dr. Goldstein will see patient in a.m. Corporation Officer recommend echocardiogram. Probable aspiration pneumonia Patient noted to have increasing fever. If her fever persists will consider broadening antibiotics. However due to the rapidity of her symptoms aspiration pneumonitis/aspiration pneumonia is more probable.
--- NOTE | 2018-05-08 21:50 | ECHOCS_ITS ---
Reason For Study: Dyspnea/SOB Procedure This was a 2D Doppler, Color Flow transthoracic echocardiogram. Contrast injection was performed. Exam performed portable in ICU/CCU. Left Ventricle Normal LV size. Moderate concentric left ventricular hypertrophy. Left ventricular systolic function is normal. The estimated ejection fraction is 65 %. Unable to assess diastolic dysfunction. No regional wall motion abnormalities noted. Right Ventricle Normal RV size. Normal systolic function. Atria Normal left atrium. Normal right atrium. Mitral Valve Normal mitral valve. Tricuspid Valve Normal tricuspid valve. Mild tricuspid valve insufficiency. Pulmonary artery systolic pressure is 30 mmHg. Aortic Valve The aortic valve is not well visualized. Pulmonic Valve The pulmonic valve is not well visualized. Great Vessels Normal aortic root. The pulmonary artery is normal size. Normal inferior vena cava. Pericardium/Pleural No pericardial effusion. Medication Diluted definity 4ml given slow IV push to enhance endocardial definition. MMode/2D Measurements & Calculations LVIDd: 2.9 cm IVSd: 1.6 cm Ao root diam: 3.3 cm LVIDs: 2.0 cm LVPWd: 1.7 cm FS: 30.0 % LAV(MOD-sp4): 15.9 ml LA A4 area: 8.9 cm2 Doppler Measurements & Calculations Lat Peak E' Justice: 14.4 cm/sec Med Peak E' Justice: 15.1 cm/sec Ao V2 max: 270.8 cm/sec Ao max P.6 mmHg LV V1 max: 149.1 cm/sec PA V2 max: 152.2 cm/sec TR max justice: 251.8 cm/sec LV V1 max P.9 mmHg TR max P.4 mmHg Interpretation Summary Normal LV size. Moderate concentric left ventricular hypertrophy. Left ventricular systolic function is normal. The estimated ejection fraction is 65 %. Unable to assess diastolic dysfunction. Mild tricuspid valve insufficiency. Contrast injection was performed. Ordering Physician: Jacky Fernandez Referring Physician: Denilson Garcia Performed By: Hermilo Paredes RCS
[2018-05-08 21:58] LABS: Phosphorus 4.3 mg/dL (2.5-4.9)
[2018-05-08] MEDS: Aspirin 300 MG Suppository RECTAL (22:05)
[2018-05-08 22:09] LABS: BNP,B-Type NATRIURETIC PEPTIDE 189.2 pg/mL (0-100)
[2018-05-08 22:10] LABS: Base Excess 0 mmol/L (-2 to +2); Bicarbonate 24.8 mmol/L (22-26); Blood Gas Specimen Type ART; FI02 50; Mode A-C; O2 Delivery Device Vent; PEEP 5; PO2 93 mmHG (75-100); RR 14; SITE R Radial; SO2 97 % (95-99); Time Given 2155; Total Carbon Dioxide 26 mmol/L; Vt 500; pCO2 42.9 mmHg (35-45); pH 7.37 (7.35-7.45)
[2018-05-08] MEDS: Chlorhexidine 15 ML PO (22:12)
[2018-05-09] VITALS (36 sets, daily range): BP systolic 87–133; BP diastolic 47–97; PULSE 86–123; RESP 13–35; TEMP 37.2–38.3; O2SAT 90–97
[2018-05-09 01:25] LABS: M R Staph aureus DNA By PCR Negative (Negative); Probe Check PASS; Specimen Processing Control PASS
[2018-05-09] MEDS: 0.9% Normal Saline 1,000 ML 999 ML IV ×3 (01:30→03:35)
[2018-05-09 05:18] LABS: Anion Gap 10 (5-15); BUN 24 mg/dL (7-18); BUN/Creat Ratio 28.5 RATIO (10-20); Calcium,Total 7.2 mg/dL (8.5-10.1); Chloride 112 mmol/L (98-107); Creatinine, Serum 0.84 mg/dL (0.55-1.02); EST Glomerular Filtration Rate 71 mL/min (>60); Est Glom Filt Rate - Afr Amer 86 mL/min (>60); Estimated Creatinine Clearance 48.58 ml/min; Glucose 151 mg/dL (74-106); Potassium 3.9 mmol/L (3.5-5.1); Sodium Level 146 mmol/L (136-145)
[2018-05-09 05:22] LABS: Absolute Neutrophil Count 14.6 X10^3/uL (2.0-7.7); Hematocrit 41.6 % (37-47); Hemoglobin 13.5 g/dl (12.0-15.0); Mean Corp Hgb Conc 32.5 g/gl (32-36); Mean Corpuscular Hgb 28.7 pg (27.0-32.0); Mean Corpuscular Volume 88.3 fL (81-99); Mean Platelet Vol. 9.7 fl (6.2-12.0); Monocyte# 0.57 X10^3/uL; Monocyte% 3.4 % (0-10); Neutrophil # 14.56 X10^3/uL (2.7-7.7); Neutrophil % 87.4 % (47-70); Platelet Count 309 K/mm3 (150-450); RBC Distribution Width CV 14.2 % (11.6-14.6); RBC Distribution Width SD 46.1 fl (35.1-43.9); Red Blood Count 4.71 M/mm3 (4.2-5.4); White Blood Count 16.7 K/mm3 (4.4-11.0)
[2018-05-09 05:25] LABS: POSITIVE COUNT NO; POSITIVE DIFFERENTIAL NO; POSITIVE MORPHOLOGY NO
--- NOTE | 2018-05-09 05:55 | RAD_ITS ---
STUDY: X-RAY CHEST REASON FOR EXAM: Female, 72 years old. Shortness of breath TECHNIQUE: 1 view COMPARISON: None. FINDINGS: The area of consolidation in the right lung seen in yesterday's examination has significantly improved. Consolidation is still seen in the right midlung field. An ET tube and NG tube remain in place. Normal visualized thoracic spine. Normal visualized ribs, clavicles, and shoulders. There is no demonstrated abnormality of the visualized soft tissue structures of the upper abdomen. RAD/Chest 1 View (Portable) IMPRESSION: Improvement of right lung consolidation. Remaining area of consolidation is in the right midlung field. The left lung is clear. Electronically Signed: Lawson Kitchen MD at 5:26 EDT Tel , Service support ,
--- NOTE | 2018-05-09 05:55 | EKG12_ITS ---
Test Reason : RESP. DISTRESS Blood Pressure : / mmHG Vent. Rate : 092 BPM Atrial Rate : 092 BPM P-R Int : 174 ms QRS Dur : 074 ms QT Int : 384 ms P-R-T Axes : 063 075 071 degrees QTc Int : 474 ms Normal sinus rhythm Anteroseptal infarct , age undetermined Abnormal ECG Confirmed by TON GAN, ARLETH ([id number]), graphics editor HOLLEY GALLAGHER ([id number]) on 05/11/2018 1:16:14 PM Referred By: Denilson Garcia Confirmed By:ARLETH CAMILO MD
[2018-05-09 06:11] LABS: Allen Test POS; Base Excess -4 mmol/L (-2 to +2); Bicarbonate 21.6 mmol/L (22-26); Blood Gas Specimen Type ART; FI02 40; Mode CPAP PS; O2 Delivery Device Vent; PEEP 5; PO2 74 mmHG (75-100); PS 5; SITE L Radial; SO2 94 % (95-99); Time Given 555; Total Carbon Dioxide 23 mmol/L; pCO2 39.9 mmHg (35-45); pH 7.34 (7.35-7.45)
[2018-05-09] MEDS: Enoxaparin 40 MG/0.4 ML Syringe SC (06:29)
[2018-05-09] MEDS: Ipratropium/Albuterol Sulfate 3 ML AMPUL.NEB INHALATION ×4 (06:43→20:07)
--- NOTE | 2018-05-09 06:45 | PCM.PN.INT ---
Subjective: Patient did okay overnight. Patient did have elevation of troponin, but no malignant rhythms have been noted. Patient did have a fever yesterday, but curve has improved overnight. Patient was able to pass a spontaneous breathing trial and was extubated under my direct supervision. Patient did report some sore throat and hoarseness following extubation. General: Alert, Cooperative, No apparent distress, - - Hoarse voice. HEENT: Atraumatic, PERRLA, EOMI, Normocephalic, - - No scleral icterus or injection noted. Oral: Moist Mucosa, No Gingival or Mucosal Lesions/ Ulcerations Neck: Supple, No JVD, No Nodes, Trachea Midline Lungs: No wheeze, No rales, Diminished, Rhonchi - Improved, right greater than left, - - Symmetric expansion. No dullness to percussion. Cardiovascular: Regular rate, Regular Rhythm, Normal S1, Normal S2, No murmurs, No rub noted, No Gallop Abdomen: Bowel Sounds Present, Soft, Non-Distended, Obese, Tender - Over incisions Extremities: No clubbing, No cyanosis, Edema - Trace Skin: - - All dressings are clean, dry and intact except umbilical has slight line of saturation. Musculoskeletal: No Tenderness to Palpation of Joints or Extremities Lymphatic: No Cervical, Supraclavicular, or Inguinal Adenopathy Neurological: Cranial nerves II-XII grossly intact, Neuro grossly intact, Motor Exam 5/5 strength throughout Psych/Mental Status: Anxious, Restless Vital Signs Temp Pulse Resp BP Pulse Ox 38.1 C H 106 H 22 H 122/63 H 93 05/09/18 06:00 05/09/18 06:35 05/09/18 06:35 05/09/18 06:00 05/09/18 06:35 Oxygen Flow Rate (L/min) 3 Oxygen Delivery Method Nasal Cannula Weight: 77.4 kg Body Mass Index (BMI) 30.9 Intake and Output for Last 24 Hours 05/07/18 05/08/18 05/09/18 23:59 23:59 23:59 Intake Total 1200 / 1200 2634 / 2634 3507.3 / 3507.3 Output Total 200 / 200 425 / 425 Balance 1200 / 1200 2434 / 2434 3082.3 / 3082.3 Labs (Last 48 Hours) 05/08/18 05/08/18 05/08/18 10:46 11:28 11:34 WBC RBC Hgb Hct MCV MCH MCHC RDW RDW Differential Plt Count MPV Immature Gran % (Auto) Neut % (Auto) Lymph % (Auto) Swain % (Auto) Eos % (Auto) Baso % (Auto) Absolute Neuts (auto) Absolute Lymphs (auto) Total Counted PT INR Specimen Type ART ART Cancelled Sample Site L Radial L Radial Cancelled pH 6.95 L* 7.18 L* Cancelled Bicarbonate Actual 28.2 H 25.2 Cancelled POC Total CO2 32 27 Cancelled Base Excess -4 L -3 L Cancelled O2 Saturation 72 L 90 L Cancelled O2 % 100 100 Cancelled ABG pCO2 127.7 H* 68.0 H* Cancelled ABG pO2 63 L 77 Cancelled Manjit Test NA NA Cancelled Respiration Rate 12 Cancelled O2 Delivery Device Ambu Vent Cancelled Liter Flow Cancelled Minute Volume 5.00 Cancelled Vent Mode A-C Cancelled Tidal Volume 500 Cancelled POC PEEP 6 Cancelled POC Pressure Suppt Cancelled Pressure High Cancelled Pressure Low Cancelled Time High Cancelled Time Low Cancelled EPAP Cancelled IPAP Cancelled Blood Gas Notified Whom [facility] OTHER Cancelled Blood Gas Notified Time 1050 1130 Cancelled Sodium Potassium Chloride Carbon Dioxide Anion Gap BUN Creatinine Estim Creat Clear Calc Est GFR (MDRD) Af Amer Est GFR (MDRD) Non-Af BUN/Creatinine Ratio Glucose Calcium Phosphorus Magnesium Total Bilirubin AST ALT Alkaline Phosphatase Total Creatine Kinase Troponin I B-Natriuretic Peptide Total Protein Albumin Globulin Albumin/Globulin Ratio Triglycerides MRSA (PCR) 05/08/18 05/08/18 05/08/18 11:44 14:50 16:00 WBC RBC Hgb Hct MCV MCH MCHC RDW RDW Differential Plt Count MPV Immature Gran % (Auto) Neut % (Auto) Lymph % (Auto) Swain % (Auto) Eos % (Auto) Baso % (Auto) Absolute Neuts (auto) Absolute Lymphs (auto) Total Counted PT INR Specimen Type ART Sample Site L Radial pH 7.29 L Bicarbonate Actual 24.4 POC Total CO2 26 Base Excess -2 O2 Saturation 95 O2 % 60 ABG pCO2 51.3 H ABG pO2 87 Manjit Test NA Respiration Rate 14 O2 Delivery Device Vent Liter Flow Minute Volume 6.00 Vent Mode A-C Tidal Volume 450 POC PEEP 10 POC Pressure Suppt Pressure High Pressure Low Time High Time Low EPAP IPAP Blood Gas Notified Whom ICU MD Blood Gas Notified Time 1430 Sodium Potassium Chloride Carbon Dioxide Anion Gap BUN Creatinine Estim Creat Clear Calc Est GFR (MDRD) Af Amer Est GFR (MDRD) Non-Af BUN/Creatinine Ratio Glucose Calcium Phosphorus Magnesium Total Bilirubin AST ALT Alkaline Phosphatase Total Creatine Kinase Troponin I 0.239 H 1.500 H* B-Natriuretic Peptide Total Protein Albumin Globulin Albumin/Globulin Ratio Triglycerides MRSA (PCR) 05/08/18 05/08/18 05/08/18 19:30 19:30 21:05 WBC 21.4 H RBC 5.04 Hgb 14.3 Hct 44.4 MCV 88.1 MCH 28.4 MCHC 32.2 RDW 14.1 RDW Differential 45.4 H Plt Count 344 MPV 9.9 Immature Gran % (Auto) 0.300 Neut % (Auto) 90.6 H Lymph % (Auto) 7.0 L Swain % (Auto) 2.1 Eos % (Auto) 0.0 Baso % (Auto) 0.0 Absolute Neuts (auto) 19.4 H Absolute Lymphs (auto) 1.50 Total Counted Not Reportable PT INR Specimen Type Sample Site pH Bicarbonate Actual POC Total CO2 Base Excess O2 Saturation O2 % ABG pCO2 ABG pO2 Manjit Test Respiration Rate O2 Delivery Device Liter Flow Minute Volume Vent Mode Tidal Volume POC PEEP POC Pressure Suppt Pressure High Pressure Low Time High Time Low EPAP IPAP Blood Gas Notified Whom Blood Gas Notified Time Sodium Potassium Chloride Carbon Dioxide Anion Gap BUN Creatinine Estim Creat Clear Calc Est GFR (MDRD) Af Amer Est GFR (MDRD) Non-Af BUN/Creatinine Ratio Glucose Calcium Phosphorus Magnesium Total Bilirubin AST ALT Alkaline Phosphatase Total Creatine Kinase 71 Troponin I 1.400 H* B-Natriuretic Peptide Total Protein Albumin Globulin Albumin/Globulin Ratio Triglycerides 92 MRSA (PCR) 05/08/18 05/08/18 05/08/18 21:05 21:05 21:05 WBC RBC Hgb Hct MCV MCH MCHC RDW RDW Differential Plt Count MPV Immature Gran % (Auto) Neut % (Auto) Lymph % (Auto) Swain % (Auto) Eos % (Auto) Baso % (Auto) Absolute Neuts (auto) Absolute Lymphs (auto) Total Counted PT 13.3 INR 1.0 Specimen Type Sample Site pH Bicarbonate Actual POC Total CO2 Base Excess O2 Saturation O2 % ABG pCO2 ABG pO2 Manjit Test Respiration Rate O2 Delivery Device Liter Flow Minute Volume Vent Mode Tidal Volume POC PEEP POC Pressure Suppt Pressure High Pressure Low Time High Time Low EPAP IPAP Blood Gas Notified Whom Blood Gas Notified Time Sodium 141 Potassium 4.1 Chloride 107 Carbon Dioxide 25.0 Anion Gap 9 BUN 21 H Creatinine 0.90 Estim Creat Clear Calc 45.35 Est GFR (MDRD) Af Amer 79 Est GFR (MDRD) Non-Af 66 BUN/Creatinine Ratio 23.4 H Glucose 153 H Calcium 7.8 L Phosphorus Magnesium 1.6 Total Bilirubin 0.60 AST 60 H ALT 84 H Alkaline Phosphatase 67 Total Creatine Kinase Troponin I B-Natriuretic Peptide 189.2 H Total Protein 6.0 L Albumin 2.9 L Globulin 3.1 Albumin/Globulin Ratio 0.9 Triglycerides MRSA (PCR) 05/08/18 05/08/18 05/08/18 21:05 22:00 22:03 WBC RBC Hgb Hct MCV MCH MCHC RDW RDW Differential Plt Count MPV Immature Gran % (Auto) Neut % (Auto) Lymph % (Auto) Swain % (Auto) Eos % (Auto) Baso % (Auto) Absolute Neuts (auto) Absolute Lymphs (auto) Total Counted PT INR Specimen Type ART Sample Site R Radial pH 7.37 Bicarbonate Actual 24.8 POC Total CO2 26 Base Excess 0 O2 Saturation 97 O2 % 50 ABG pCO2 42.9 ABG pO2 93 Manjit Test Respiration Rate 14 O2 Delivery Device Vent Liter Flow Minute Volume 10.00 Vent Mode A-C Tidal Volume 500 POC PEEP 5 POC Pressure Suppt Pressure High Pressure Low Time High Time Low EPAP IPAP Blood Gas Notified Whom [facility] Blood Gas Notified Time 2155 Sodium Potassium Chloride Carbon Dioxide Anion Gap BUN Creatinine Estim Creat Clear Calc Est GFR (MDRD) Af Amer Est GFR (MDRD) Non-Af BUN/Creatinine Ratio Glucose Calcium Phosphorus 4.3 Magnesium Total Bilirubin AST ALT Alkaline Phosphatase Total Creatine Kinase Troponin I B-Natriuretic Peptide Total Protein Albumin Globulin Albumin/Globulin Ratio Triglycerides MRSA (PCR) Negative 05/09/18 05/09/18 05/09/18 04:50 04:50 06:07 WBC 16.7 H RBC 4.71 Hgb 13.5 Hct 41.6 MCV 88.3 MCH 28.7 MCHC 32.5 RDW 14.2 RDW Differential 46.1 H Plt Count 309 MPV 9.7 Immature Gran % (Auto) 0.200 Neut % (Auto) 87.4 H Lymph % (Auto) 9.0 L Swain % (Auto) 3.4 Eos % (Auto) 0.0 Baso % (Auto) 0.0 Absolute Neuts (auto) 14.6 H Absolute Lymphs (auto) 1.50 Total Counted Not Reportable PT INR Specimen Type ART Sample Site L Radial pH 7.34 L Bicarbonate Actual 21.6 L POC Total CO2 23 Base Excess -4 L O2 Saturation 94 L O2 % 40 ABG pCO2 39.9 ABG pO2 74 L Manjit Test POS Respiration Rate O2 Delivery Device Vent Liter Flow Minute Volume Vent Mode CPAP PS Tidal Volume POC PEEP 5 POC Pressure Suppt 5 Pressure High Pressure Low Time High Time Low EPAP IPAP Blood Gas Notified Whom ICU Blood Gas Notified Time 555 Sodium 146 H Potassium 3.9 Chloride 112 H Carbon Dioxide 24.0 Anion Gap 10 BUN 24 H Creatinine 0.84 Estim Creat Clear Calc 48.58 Est GFR (MDRD) Af Amer 86 Est GFR (MDRD) Non-Af 71 BUN/Creatinine Ratio 28.5 H Glucose 151 H Calcium 7.2 L Phosphorus Magnesium Total Bilirubin AST ALT Alkaline Phosphatase Total Creatine Kinase Troponin I B-Natriuretic Peptide Total Protein Albumin Globulin Albumin/Globulin Ratio Triglycerides MRSA (PCR) Microbiology 05/08/18 13:00 Sputum, Induced/Lukens Gram Stain - Final Clinical Impression(s) from Imaging Studies Cholangiogram 05/08/18 09:00 IMPRESSION: No demonstrated retained common bile duct stone or bile duct obstruction. Electronically Signed: Boris Navarrete MD at 19:57 EDT , Service support , Chest X-Ray 05/08/18 11:08 IMPRESSION: Diffuse airspace opacifications throughout the visualized right lung field and left upper lobe suspicious for infiltrates though pulmonary edema can have a similar appearance. ET tube tip 2 cm above the fozia Electronically Signed: Boris Musa MD at 11:50 EDT , Service support , KUB X-Ray 05/08/18 12:15 IMPRESSION: NG tube tip in the body the stomach Electronically Signed: Boris Musa MD at 12:42 EDT , Service support , Chest X-Ray 05/09/18 05:55 IMPRESSION: Improvement of right lung consolidation. Remaining area of consolidation is in the right midlung field. The left lung is clear. Electronically Signed: Lawson Kitchen MD at 5:26 EDT Tel , Service support , Medical Necessity - Tobacco Use Smoking Status: Former smoker Assessment/Plan RECOMMENDATIONS: 1. Aggressive pulmonary toileting 2. Removal of NG per surgery 3. Initiation of diet per surgery 4. Bedside swallow eval, with possible [place] for pain control 5. Discontinue propofol and fentanyl 6. Cycle troponins IMPRESSIONS: 1. Acute combined respiratory failure Unclear etiology at this time. Patient has improved significantly overnight. Clinical course would be consistent with negative pressure pulmonary edema, but patient does have a fever overnight. Cannot exclude aspiration event, so steroids and antibiotics will be continued for now. Aggressive pulmonary toileting. Wean oxygen as tolerated. 2. Reported history of COPD Patient does have a known history of smoking in the past. Patient reportedly does have COPD and is on trelegy at home. No PFTs are available for review. Given obstructive lung disease, patient will continue bronchodilators and steroids. Will hold on mucolytic for now. 3. Cholelithiasis with chronic cholecystitis S/P cholecystectomy postop day #1 Surgery is following. No reported complications with minimal blood loss at surgery. 4. Elevated troponin Cardiology has been consulted. Clinical suspicion for elevation secondary to acute event yesterday. Echocardiogram has been ordered. Await recommendations. Patient currently on DVT prophylactic dosing of Lovenox. TIME: 32 minutes critical care time spent addressing patient's acute combined respiratory failure, troponin elevation, review of all data and collaboration with care team (5:40 AM to 6:50 AM) Code Visit [id number]: [id number] Critical care first hour
--- NOTE | 2018-05-09 06:51 | PN_ITS ---
Subjective: Patient did okay overnight. Patient did have elevation of troponin, but no malignant rhythms have been noted. Patient did have a fever yesterday, but curve has improved overnight. Patient was able to pass a spontaneous breathing trial and was extubated under my direct supervision. Patient did report some sore throat and hoarseness following extubation. General: Alert, Cooperative, No apparent distress, - - Hoarse voice. HEENT: Atraumatic, PERRLA, EOMI, Normocephalic, - - No scleral icterus or injection noted. Oral: Moist Mucosa, No Gingival or Mucosal Lesions/ Ulcerations Neck: Supple, No JVD, No Nodes, Trachea Midline Lungs: No wheeze, No rales, Diminished, Rhonchi - Improved, right greater than left, - - Symmetric expansion. No dullness to percussion. Cardiovascular: Regular rate, Regular Rhythm, Normal S1, Normal S2, No murmurs, No rub noted, No Gallop Abdomen: Bowel Sounds Present, Soft, Non-Distended, Obese, Tender - Over incisions Extremities: No clubbing, No cyanosis, Edema - Trace Skin: - - All dressings are clean, dry and intact except umbilical has slight line of saturation. Musculoskeletal: No Tenderness to Palpation of Joints or Extremities Lymphatic: No Cervical, Supraclavicular, or Inguinal Adenopathy Neurological: Cranial nerves II-XII grossly intact, Neuro grossly intact, Motor Exam 5/5 strength throughout Psych/Mental Status: Anxious, Restless Vital Signs Temp Pulse Resp BP Pulse Ox 38.1 C H 106 H 22 H 122/63 H 93 05/09/18 06:00 05/09/18 06:35 05/09/18 06:35 05/09/18 06:00 05/09/18 06:35 Oxygen Flow Rate (L/min) 3 Oxygen Delivery Method Nasal Cannula Weight: 77.4 kg Body Mass Index (BMI) 30.9 Intake and Output for Last 24 Hours 05/07/18 05/08/18 05/09/18 23:59 23:59 23:59 Intake Total 1200 / 1200 2634 / 2634 3507.3 / 3507.3 Output Total 200 / 200 425 / 425 Balance 1200 / 1200 2434 / 2434 3082.3 / 3082.3 Labs (Last 48 Hours) 05/08/18 05/08/18 05/08/18 10:46 11:28 11:34 WBC RBC Hgb Hct MCV MCH MCHC RDW RDW Differential Plt Count MPV Immature Gran % (Auto) Neut % (Auto) Lymph % (Auto) [place] % (Auto) Eos % (Auto) Baso % (Auto) Absolute Neuts (auto) Absolute Lymphs (auto) Total Counted PT INR Specimen Type ART ART Cancelled Sample Site L Radial L Radial Cancelled pH 6.95 L* 7.18 L* Cancelled Bicarbonate Actual 28.2 H 25.2 Cancelled POC Total CO2 32 27 Cancelled Base Excess -4 L -3 L Cancelled O2 Saturation 72 L 90 L Cancelled O2 % 100 100 Cancelled ABG pCO2 127.7 H* 68.0 H* Cancelled ABG pO2 63 L 77 Cancelled Manjit Test NA NA Cancelled Respiration Rate 12 Cancelled O2 Delivery Device Ambu Vent Cancelled Liter Flow Cancelled Minute Volume 5.00 Cancelled Vent Mode A-C Cancelled Tidal Volume 500 Cancelled POC PEEP 6 Cancelled POC Pressure Suppt Cancelled Pressure High Cancelled Pressure Low Cancelled Time High Cancelled Time Low Cancelled EPAP Cancelled IPAP Cancelled Blood Gas Notified Whom [facility] OTHER Cancelled Blood Gas Notified Time 1050 1130 Cancelled Sodium Potassium Chloride Carbon Dioxide Anion Gap BUN Creatinine Estim Creat Clear Calc Est GFR (MDRD) Af Amer Est GFR (MDRD) Non-Af BUN/Creatinine Ratio Glucose Calcium Phosphorus Magnesium Total Bilirubin AST ALT Alkaline Phosphatase Total Creatine Kinase Troponin I B-Natriuretic Peptide Total Protein Albumin Globulin Albumin/Globulin Ratio Triglycerides MRSA (PCR) 05/08/18 05/08/18 05/08/18 11:44 14:50 16:00 WBC RBC Hgb Hct MCV MCH MCHC RDW RDW Differential Plt Count MPV Immature Gran % (Auto) Neut % (Auto) Lymph % (Auto) [place]ver[place] % (Auto) Eos % (Auto) Baso % (Auto) Absolute Neuts (auto) Absolute Lymphs (auto) Total Counted PT INR Specimen Type ART Sample Site L Radial pH 7.29 L Bicarbonate Actual 24.4 POC Total CO2 26 Base Excess -2 O2 Saturation 95 O2 % 60 ABG pCO2 51.3 H ABG pO2 87 Manjit Test NA Respiration Rate 14 O2 Delivery Device Vent Liter Flow Minute Volume 6.00 Vent Mode A-C Tidal Volume 450 POC PEEP 10 POC Pressure Suppt Pressure High Pressure Low Time High Time Low EPAP IPAP Blood Gas Notified Whom ICU MD Blood Gas Notified Time 1430 Sodium Potassium Chloride Carbon Dioxide Anion Gap BUN Creatinine Estim Creat Clear Calc Est GFR (MDRD) Af Amer Est GFR (MDRD) Non-Af BUN/Creatinine Ratio Glucose Calcium Phosphorus Magnesium Total Bilirubin AST ALT Alkaline Phosphatase Total Creatine Kinase Troponin I 0.239 H 1.500 H* B-Natriuretic Peptide Total Protein Albumin Globulin Albumin/Globulin Ratio Triglycerides MRSA (PCR) 05/08/18 05/08/18 05/08/18 19:30 19:30 21:05 WBC 21.4 H RBC 5.04 Hgb 14.3 Hct 44.4 MCV 88.1 MCH 28.4 MCHC 32.2 RDW 14.1 RDW Differential 45.4 H Plt Count 344 MPV 9.9 Immature Gran % (Auto) 0.300 Neut % (Auto) 90.6 H Lymph % (Auto) 7.0 L [place] % (Auto) 2.1 Eos % (Auto) 0.0 Baso % (Auto) 0.0 Absolute Neuts (auto) 19.4 H Absolute Lymphs (auto) 1.50 Total Counted Not Reportable PT INR Specimen Type Sample Site pH Bicarbonate Actual POC Total CO2 Base Excess O2 Saturation O2 % ABG pCO2 ABG pO2 Manjit Test Respiration Rate O2 Delivery Device Liter Flow Minute Volume Vent Mode Tidal Volume POC PEEP POC Pressure Suppt Pressure High Pressure Low Time High Time Low EPAP IPAP Blood Gas Notified Whom Blood Gas Notified Time Sodium Potassium Chloride Carbon Dioxide Anion Gap BUN Creatinine Estim Creat Clear Calc Est GFR (MDRD) Af Amer Est GFR (MDRD) Non-Af BUN/Creatinine Ratio Glucose Calcium Phosphorus Magnesium Total Bilirubin AST ALT Alkaline Phosphatase Total Creatine Kinase 71 Troponin I 1.400 H* B-Natriuretic Peptide Total Protein Albumin Globulin Albumin/Globulin Ratio Triglycerides 92 MRSA (PCR) 05/08/18 05/08/18 05/08/18 21:05 21:05 21:05 WBC RBC Hgb Hct MCV MCH MCHC RDW RDW Differential Plt Count MPV Immature Gran % (Auto) Neut % (Auto) Lymph % (Auto) [place] % (Auto) Eos % (Auto) Baso % (Auto) Absolute Neuts (auto) Absolute Lymphs (auto) Total Counted PT 13.3 INR 1.0 Specimen Type Sample Site pH Bicarbonate Actual POC Total CO2 Base Excess O2 Saturation O2 % ABG pCO2 ABG pO2 Manjit Test Respiration Rate O2 Delivery Device Liter Flow Minute Volume Vent Mode Tidal Volume POC PEEP POC Pressure Suppt Pressure High Pressure Low Time High Time Low EPAP IPAP Blood Gas Notified Whom Blood Gas Notified Time Sodium 141 Potassium 4.1 Chloride 107 Carbon Dioxide 25.0 Anion Gap 9 BUN 21 H Creatinine 0.90 Estim Creat Clear Calc 45.35 Est GFR (MDRD) Af Amer 79 Est GFR (MDRD) Non-Af 66 BUN/Creatinine Ratio 23.4 H Glucose 153 H Calcium 7.8 L Phosphorus Magnesium 1.6 Total Bilirubin 0.60 AST 60 H ALT 84 H Alkaline Phosphatase 67 Total Creatine Kinase Troponin I B-Natriuretic Peptide 189.2 H Total Protein 6.0 L Albumin 2.9 L Globulin 3.1 Albumin/Globulin Ratio 0.9 Triglycerides MRSA (PCR) 05/08/18 05/08/18 05/08/18 21:05 22:00 22:03 WBC RBC Hgb Hct MCV MCH MCHC RDW RDW Differential Plt Count MPV Immature Gran % (Auto) Neut % (Auto) Lymph % (Auto) [place] % (Auto) Eos % (Auto) Baso % (Auto) Absolute Neuts (auto) Absolute Lymphs (auto) Total Counted PT INR Specimen Type ART Sample Site R Radial pH 7.37 Bicarbonate Actual 24.8 POC Total CO2 26 Base Excess 0 O2 Saturation 97 O2 % 50 ABG pCO2 42.9 ABG pO2 93 Manjit Test Respiration Rate 14 O2 Delivery Device Vent Liter Flow Minute Volume 10.00 Vent Mode A-C Tidal Volume 500 POC PEEP 5 POC Pressure Suppt Pressure High Pressure Low Time High Time Low EPAP IPAP Blood Gas Notified Whom [facility] Blood Gas Notified Time 2155 Sodium Potassium Chloride Carbon Dioxide Anion Gap BUN Creatinine Estim Creat Clear Calc Est GFR (MDRD) Af Amer Est GFR (MDRD) Non-Af BUN/Creatinine Ratio Glucose Calcium Phosphorus 4.3 Magnesium Total Bilirubin AST ALT Alkaline Phosphatase Total Creatine Kinase Troponin I B-Natriuretic Peptide Total Protein Albumin Globulin Albumin/Globulin Ratio Triglycerides MRSA (PCR) Negative 05/09/18 05/09/18 05/09/18 04:50 04:50 06:07 WBC 16.7 H RBC 4.71 Hgb 13.5 Hct 41.6 MCV 88.3 MCH 28.7 MCHC 32.5 RDW 14.2 RDW Differential 46.1 H Plt Count 309 MPV 9.7 Immature Gran % (Auto) 0.200 Neut % (Auto) 87.4 H Lymph % (Auto) 9.0 L [place] % (Auto) 3.4 Eos % (Auto) 0.0 Baso % (Auto) 0.0 Absolute Neuts (auto) 14.6 H Absolute Lymphs (auto) 1.50 Total Counted Not Reportable PT INR Specimen Type ART Sample Site L Radial pH 7.34 L Bicarbonate Actual 21.6 L POC Total CO2 23 Base Excess -4 L O2 Saturation 94 L O2 % 40 ABG pCO2 39.9 ABG pO2 74 L Manjit Test POS Respiration Rate O2 Delivery Device Vent Liter Flow Minute Volume Vent Mode CPAP PS Tidal Volume POC PEEP 5 POC Pressure Suppt 5 Pressure High Pressure Low Time High Time Low EPAP IPAP Blood Gas Notified Whom ICU Blood Gas Notified Time 555 Sodium 146 H Potassium 3.9 Chloride 112 H Carbon Dioxide 24.0 Anion Gap 10 BUN 24 H Creatinine 0.84 Estim Creat Clear Calc 48.58 Est GFR (MDRD) Af Amer 86 Est GFR (MDRD) Non-Af 71 BUN/Creatinine Ratio 28.5 H Glucose 151 H Calcium 7.2 L Phosphorus Magnesium Total Bilirubin AST ALT Alkaline Phosphatase Total Creatine Kinase Troponin I B-Natriuretic Peptide Total Protein Albumin Globulin Albumin/Globulin Ratio Triglycerides MRSA (PCR) Microbiology 05/08/18 13:00 Sputum, Induced/Lukens Gram Stain - Final Clinical Impression(s) from Imaging Studies Cholangiogram 05/08/18 09:00 IMPRESSION: No demonstrated retained common bile duct stone or bile duct obstruction. Electronically Signed: Boris Navarrete MD at 19:57 EDT , Service support , Chest X-Ray 05/08/18 11:08 IMPRESSION: Diffuse airspace opacifications throughout the visualized right lung field and left upper lobe suspicious for infiltrates though pulmonary edema can have a similar appearance. ET tube tip 2 cm above the fozia Electronically Signed: Boris Musa MD at 11:50 EDT , Service support , KUB X-Ray 05/08/18 12:15 IMPRESSION: NG tube tip in the body the stomach Electronically Signed: Boris Musa MD at 12:42 EDT , Service support , Chest X-Ray 05/09/18 05:55 IMPRESSION: Improvement of right lung consolidation. Remaining area of consolidation is in the right midlung field. The left lung is clear. Electronically Signed: Lawson Kitchen MD at 5:26 EDT Tel , Service support , Medical Necessity - Tobacco Use Smoking Status: Former smoker Assessment/Plan RECOMMENDATIONS: 1. Aggressive pulmonary toileting 2. Removal of NG per surgery 3. Initiation of diet per surgery 4. Bedside swallow eval, with possible [place] for pain control 5. Discontinue propofol and fentanyl 6. Cycle troponins IMPRESSIONS: 1. Acute combined respiratory failure Unclear etiology at this time. Patient has improved significantly overnight. Clinical course would be consistent with negative pressure pulmonary edema, but patient does have a fever overnight. Cannot exclude aspiration event, so steroids and antibiotics will be continued for now. Aggressive pulmonary toileting. Wean oxygen as tolerated. 2. Reported history of COPD Patient does have a known history of smoking in the past. Patient reportedly does have COPD and is on trelegy at home. No PFTs are available for review. Given obstructive lung disease, patient will continue bronchodilators and steroids. Will hold on mucolytic for now. 3. Cholelithiasis with chronic cholecystitis S/P cholecystectomy postop day #1 Surgery is following. No reported complications with minimal blood loss at surgery. 4. Elevated troponin Cardiology has been consulted. Clinical suspicion for elevation secondary to acute event yesterday. Echocardiogram has been ordered. Await recommendations. Patient currently on DVT prophylactic dosing of Lovenox. TIME: 32 minutes critical care time spent addressing patient's acute combined respi ratory failure, troponin elevation, review of all data and collaboration with care team (5:40 AM to 6:50 AM) Code Visit [id number]: [id number] Critical care first hour
--- NOTE | 2018-05-09 07:54 | PCM.PN.SRG ---
Subjective: Patient extubated this morning. Breathing without difficulty. Objective: Dressings are dry bowel sounds are present. - Physical Exam Vital Signs Temp Pulse Resp BP Pulse Ox 100.6 F H 106 H 25 H 122/63 H 93 05/09/18 06:00 05/09/18 06:35 05/09/18 06:46 05/09/18 06:00 05/09/18 06:46 Oxygen Flow Rate (L/min) 3 Oxygen Delivery Method Nasal Cannula Weight: 170 lb 10.205 oz Body Mass Index (BMI) 30.9 Intake and Output for Last 24 Hours 05/07/18 05/08/18 05/09/18 23:59 23:59 23:59 Intake Total 1200 / 1200 2634 / 2634 3507.3 / 3507.3 Output Total 200 / 200 425 / 425 Balance 1200 / 1200 2434 / 2434 3082.3 / 3082.3 Microbiology Past 72 Hours 05/08/18 13:00 Gram Stain - Final Sputum, Induced/[place] Laboratory Tests Past 24 Hrs 05/08/18 05/08/18 05/08/18 10:46 11:28 11:34 WBC RBC Hgb Hct MCV MCH MCHC RDW RDW Differential Plt Count MPV Immature Gran % (Auto) Neut % (Auto) Lymph % (Auto) Mathews % (Auto) Eos % (Auto) Baso % (Auto) Absolute Neuts (auto) Absolute Lymphs (auto) Total Counted PT INR Specimen Type ART ART Cancelled Sample Site L Radial L Radial Cancelled pH 6.95 L* 7.18 L* Cancelled Bicarbonate Actual 28.2 H 25.2 Cancelled POC Total CO2 32 27 Cancelled Base Excess -4 L -3 L Cancelled O2 Saturation 72 L 90 L Cancelled O2 % 100 100 Cancelled ABG pCO2 127.7 H* 68.0 H* Cancelled ABG pO2 63 L 77 Cancelled Manjit Test NA NA Cancelled Respiration Rate 12 Cancelled O2 Delivery Device Ambu Vent Cancelled Liter Flow Cancelled Minute Volume 5.00 Cancelled Vent Mode A-C Cancelled Tidal Volume 500 Cancelled POC PEEP 6 Cancelled POC Pressure Suppt Cancelled Pressure High Cancelled Pressure Low Cancelled Time High Cancelled Time Low Cancelled EPAP Cancelled IPAP Cancelled Blood Gas Notified Whom CHRISTIAN GAN OTHER Cancelled Blood Gas Notified Time 1050 1130 Cancelled Sodium Potassium Chloride Carbon Dioxide Anion Gap BUN Creatinine Estim Creat Clear Calc Est GFR (MDRD) Af Amer Est GFR (MDRD) Non-Af BUN/Creatinine Ratio Glucose Calcium Phosphorus Magnesium Total Bilirubin AST ALT Alkaline Phosphatase Total Creatine Kinase Troponin I B-Natriuretic Peptide Total Protein Albumin Globulin Albumin/Globulin Ratio Triglycerides MRSA (PCR) 05/08/18 05/08/18 05/08/18 11:44 14:50 16:00 WBC RBC Hgb Hct MCV MCH MCHC RDW RDW Differential Plt Count MPV Immature Gran % (Auto) Neut % (Auto) Lymph % (Auto) Mathews % (Auto) Eos % (Auto) Baso % (Auto) Absolute Neuts (auto) Absolute Lymphs (auto) Total Counted PT INR Specimen Type ART Sample Site L Radial pH 7.29 L Bicarbonate Actual 24.4 POC Total CO2 26 Base Excess -2 O2 Saturation 95 O2 % 60 ABG pCO2 51.3 H ABG pO2 87 Manjit Test NA Respiration Rate 14 O2 Delivery Device Vent Liter Flow Minute Volume 6.00 Vent Mode A-C Tidal Volume 450 POC PEEP 10 POC Pressure Suppt Pressure High Pressure Low Time High Time Low EPAP IPAP Blood Gas Notified Whom ICU Blood Gas Notified Time 1430 Sodium Potassium Chloride Carbon Dioxide Anion Gap BUN Creatinine Estim Creat Clear Calc Est GFR (MDRD) Af Amer Est GFR (MDRD) Non-Af BUN/Creatinine Ratio Glucose Calcium Phosphorus Magnesium Total Bilirubin AST ALT Alkaline Phosphatase Total Creatine Kinase Troponin I 0.239 H 1.500 H* B-Natriuretic Peptide Total Protein Albumin Globulin Albumin/Globulin Ratio Triglycerides MRSA (PCR) 05/08/18 05/08/18 05/08/18 19:30 19:30 21:05 WBC 21.4 H RBC 5.04 Hgb 14.3 Hct 44.4 MCV 88.1 MCH 28.4 MCHC 32.2 RDW 14.1 RDW Differential 45.4 H Plt Count 344 MPV 9.9 Immature Gran % (Auto) 0.300 Neut % (Auto) 90.6 H Lymph % (Auto) 7.0 L Mathews % (Auto) 2.1 Eos % (Auto) 0.0 Baso % (Auto) 0.0 Absolute Neuts (auto) 19.4 H Absolute Lymphs (auto) 1.50 Total Counted Not Reportable PT INR Specimen Type Sample Site pH Bicarbonate Actual POC Total CO2 Base Excess O2 Saturation O2 % ABG pCO2 ABG pO2 Manjit Test Respiration Rate O2 Delivery Device Liter Flow Minute Volume Vent Mode Tidal Volume POC PEEP POC Pressure Suppt Pressure High Pressure Low Time High Time Low EPAP IPAP Blood Gas Notified Whom Blood Gas Notified Time Sodium Potassium Chloride Carbon Dioxide Anion Gap BUN Creatinine Estim Creat Clear Calc Est GFR (MDRD) Af Amer Est GFR (MDRD) Non-Af BUN/Creatinine Ratio Glucose Calcium Phosphorus Magnesium Total Bilirubin AST ALT Alkaline Phosphatase Total Creatine Kinase 71 Troponin I 1.400 H* B-Natriuretic Peptide Total Protein Albumin Globulin Albumin/Globulin Ratio Triglycerides 92 MRSA (PCR) 05/08/18 05/08/18 05/08/18 21:05 21:05 21:05 WBC RBC Hgb Hct MCV MCH MCHC RDW RDW Differential Plt Count MPV Immature Gran % (Auto) Neut % (Auto) Lymph % (Auto) Mathews % (Auto) Eos % (Auto) Baso % (Auto) Absolute Neuts (auto) Absolute Lymphs (auto) Total Counted PT 13.3 INR 1.0 Specimen Type Sample Site pH Bicarbonate Actual POC Total CO2 Base Excess O2 Saturation O2 % ABG pCO2 ABG pO2 Manjit Test Respiration Rate O2 Delivery Device Liter Flow Minute Volume Vent Mode Tidal Volume POC PEEP POC Pressure Suppt Pressure High Pressure Low Time High Time Low EPAP IPAP Blood Gas Notified Whom Blood Gas Notified Time Sodium 141 Potassium 4.1 Chloride 107 Carbon Dioxide 25.0 Anion Gap 9 BUN 21 H Creatinine 0.90 Estim Creat Clear Calc 45.35 Est GFR (MDRD) Af Amer 79 Est GFR (MDRD) Non-Af 66 BUN/Creatinine Ratio 23.4 H Glucose 153 H Calcium 7.8 L Phosphorus Magnesium 1.6 Total Bilirubin 0.60 AST 60 H ALT 84 H Alkaline Phosphatase 67 Total Creatine Kinase Troponin I B-Natriuretic Peptide 189.2 H Total Protein 6.0 L Albumin 2.9 L Globulin 3.1 Albumin/Globulin Ratio 0.9 Triglycerides MRSA (PCR) 05/08/18 05/08/18 05/08/18 21:05 22:00 22:03 WBC RBC Hgb Hct MCV MCH MCHC RDW RDW Differential Plt Count MPV Immature Gran % (Auto) Neut % (Auto) Lymph % (Auto) Mathews % (Auto) Eos % (Auto) Baso % (Auto) Absolute Neuts (auto) Absolute Lymphs (auto) Total Counted PT INR Specimen Type ART Sample Site R Radial pH 7.37 Bicarbonate Actual 24.8 POC Total CO2 26 Base Excess 0 O2 Saturation 97 O2 % 50 ABG pCO2 42.9 ABG pO2 93 Manjit Test Respiration Rate 14 O2 Delivery Device Vent Liter Flow Minute Volume 10.00 Vent Mode A-C Tidal Volume 500 POC PEEP 5 POC Pressure Suppt Pressure High Pressure Low Time High Time Low EPAP IPAP Blood Gas Notified Whom HOSP MD Blood Gas Notified Time 2155 Sodium Potassium Chloride Carbon Dioxide Anion Gap BUN Creatinine Estim Creat Clear Calc Est GFR (MDRD) Af Amer Est GFR (MDRD) Non-Af BUN/Creatinine Ratio Glucose Calcium Phosphorus 4.3 Magnesium Total Bilirubin AST ALT Alkaline Phosphatase Total Creatine Kinase Troponin I B-Natriuretic Peptide Total Protein Albumin Globulin Albumin/Globulin Ratio Triglycerides MRSA (PCR) Negative 05/09/18 05/09/18 05/09/18 04:50 04:50 06:07 WBC 16.7 H RBC 4.71 Hgb 13.5 Hct 41.6 MCV 88.3 MCH 28.7 MCHC 32.5 RDW 14.2 RDW Differential 46.1 H Plt Count 309 MPV 9.7 Immature Gran % (Auto) 0.200 Neut % (Auto) 87.4 H Lymph % (Auto) 9.0 L Mathews % (Auto) 3.4 Eos % (Auto) 0.0 Baso % (Auto) 0.0 Absolute Neuts (auto) 14.6 H Absolute Lymphs (auto) 1.50 Total Counted Not Reportable PT INR Specimen Type ART Sample Site L Radial pH 7.34 L Bicarbonate Actual 21.6 L POC Total CO2 23 Base Excess -4 L O2 Saturation 94 L O2 % 40 ABG pCO2 39.9 ABG pO2 74 L Manjit Test POS Respiration Rate O2 Delivery Device Vent Liter Flow Minute Volume Vent Mode CPAP PS Tidal Volume POC PEEP 5 POC Pressure Suppt 5 Pressure High Pressure Low Time High Time Low EPAP IPAP Blood Gas Notified Whom ICU MD Blood Gas Notified Time 555 Sodium 146 H Potassium 3.9 Chloride 112 H Carbon Dioxide 24.0 Anion Gap 10 BUN 24 H Creatinine 0.84 Estim Creat Clear Calc 48.58 Est GFR (MDRD) Af Amer 86 Est GFR (MDRD) Non-Af 71 BUN/Creatinine Ratio 28.5 H Glucose 151 H Calcium 7.2 L Phosphorus Magnesium Total Bilirubin AST ALT Alkaline Phosphatase Total Creatine Kinase Troponin I B-Natriuretic Peptide Total Protein Albumin Globulin Albumin/Globulin Ratio Triglycerides MRSA (PCR) Medical Necessity - Tobacco Use Smoking Status: Former smoker Assessment/Plan Okay to remove NG tube at this time. May start clear liquids whenever the patient feels ready. [place] as tolerated.
--- NOTE | 2018-05-09 08:01 | PCM.CONS.C ---
Reason for Consult Date of Consultation: 05/09/18 Reason for Consultation: Abnormal cardiac enzymes History of Present Illness: The patient is a 72 year old F, with a reported history of COPD, who presented to [facility] on May 08, 2018 secondary to an elective laparoscopic cholecystectomy. Patient reportedly was seen earlier this month with complaints of epigastric pain without radiation and nausea. Patient did not require admission at that time, but presented for elective removal of her gallbladder.Patient reportedly tolerated the surgery well. Following operative procedure, patient was reportedly extubated and transported to the PACU. Shortly thereafter, patient started to have respiratory compromise. Anesthesia was made aware. Patient reportedly did receive Narcan without improvement. Patient had an LMA placed with little improvement in respiratory status. Significant respiratory acidosis was noted on multiple ABGs, so patient was intubated and transferred to the intensive care unit for further management. Chest x-ray demonstrated evidence of possible aspiration. Cardiac enzymes were obtained and were noted to be abnormal. No obvious EKG changes other than nonspecific changes were noted. Cardiology was called for further evaluation. Patient has had no previous history of cardiac disease, chest pain or paroxysmal nocturnal dyspnea or pedal edema or cardiac surgery of peripheral vascular surgery. Past Medical History Allergies/Adverse Reactions: Allergies No Known Allergies Allergy (Verified 05/01/18 12:02) Home Medications: Ambulatory Orders Medication Instructions Recorded mecobalamin (vitamin B12) 1,000 1,000 mcg SUBLINGUAL DAILY 04/30/18 mcg disintegrating tablet,sublingual Fluticasone/Umeclidin/Vilanter 1 each IH DAILY 05/08/18 [Trelegy Ellipta 100-62.5-25] Hydrocodone Bitart/Apap 5-325 1 tablet PO Q4H PRN PRN 2 Days #8 05/08/18 [[place] 5MG-325MG] tablet Past Medical History (Chronic Problems): Chronic Problems (Last Updated 04/30/18 @ 08:28 by Beatris Polanco) COPD (chronic obstructive pulmonary disease) (Chronic) Cholelithiasis with chronic cholecystitis (Chronic) Cholelithiasis (Chronic) Surgical History: noncontributory Smoking Status: Former smoker Alcohol: None Drugs: None Review of Systems - Review of Systems General: Denies: Fever, Night Sweats, Fatigue HEENT: Denies: Vision Change Cardiovascular: Denies: Chest Discomfort, Shortness of Breath, Orthopnea, PND, Peripheral Edema, Palpitations, Lightheadedness, Dizziness, Near Syncope, Syncope Respiratory: Denies: Cough, Sputum Production, Hemoptysis Gastrointestinal: Denies: Hematemesis, Hematochezia, Melena Genitourinary: Denies: Dysuria, Hematuria Skin: Denies: Rash Neurological: Denies: Dizziness Psychiatric: Denies: Anxiety Endocrine: Denies: Unexplained Weight Loss Hematologic/ Lymphatic: Denies: Anemia Subjectve: Pleasant lady in no distress with an NG tube in place status post recent extubation Objective: Vital Signs Temp Pulse Resp BP Pulse Ox 100.6 F H 100 25 H 122/63 H 93 05/09/18 06:00 05/09/18 06:45 05/09/18 06:46 05/09/18 06:00 05/09/18 06:46 Oxygen Flow Rate (L/min) 3 Oxygen Delivery Method Nasal Cannula Weight: 170 lb 10.205 oz Body Mass Index (BMI) 30.9 Intake and Output for Last 24 Hours 05/07/18 05/08/18 05/09/18 23:59 23:59 23:59 Intake Total 1200 / 1200 2634 / 2634 3507.3 / 3507.3 Output Total 200 / 200 425 / 425 Balance 1200 / 1200 2434 / 2434 3082.3 / 3082.3 General: Awake, Alert, Oriented x 3 HEENT: PERRL, EOMI, Sclera Non Icteric Neck: Supple, Good ROM, No Lymph Node Enlargement Lungs: Clear to auscultation Cardiovascular: Regular Rhythm, Normal S1, Normal S2, No Murmurs, No Rubs, No Gallops Vascular: No Carotid Bruits, Normal Femoral Pulses, Normal Radial Pulses, Normal Dorsalis Pedal Pulse, Normal Posterior Tibial Pulses Abdomen: Bowel Sounds Present, Soft, Non Tender, No HSM, No Organomegaly Extremities: No Cyanosis, No Clubbing, No edema Skin: No Rashes Lymphatic: No Lymph Node Enlargement Neurological: No Focal Motor or Sensory Deficit Psych/Mental Status: Appropriate 05/08/18 10:46: pH 6.95 L*, Bicarbonate Actual 28.2 H, POC Total CO2 32, Base Excess -4 L, O2 Saturation 72 L, ABG pCO2 127.7 H*, ABG pO2 63 L, Manjit Test NA 05/08/18 11:28: pH 7.18 L*, Bicarbonate Actual 25.2, POC Total CO2 27, Base Excess -3 L, O2 Saturation 90 L, ABG pCO2 68.0 H*, ABG pO2 77, Manjit Test NA 05/08/18 11:34: pH Cancelled, Bicarbonate Actual Cancelled, POC Total CO2 Cancelled, Base Excess Cancelled, O2 Saturation Cancelled, ABG pCO2 Cancelled, ABG pO2 Cancelled, Manjit Test Cancelled 05/08/18 11:44: Troponin I 0.239 H 05/08/18 14:50: pH 7.29 L, Bicarbonate Actual 24.4, POC Total CO2 26, Base Excess -2, O2 Saturation 95, ABG pCO2 51.3 H, ABG pO2 87, Manjit Test NA 05/08/18 16:00: Troponin I 1.500 H* 05/08/18 19:30: Troponin I 1.400 H* 05/08/18 19:30: Triglycerides 92 05/08/18 21:05: WBC 21.4 H, RBC 5.04, Hgb 14.3, Hct 44.4, MCV 88.1, MCH 28.4, MCHC 32.2, RDW 14.1, RDW Differential 45.4 H, Plt Count 344, MPV 9.9, Immature Gran % (Auto) 0.300, Neut % (Auto) 90.6 H, Lymph % (Auto) 7.0 L, [place] % (Auto) 2.1, Eos % (Auto) 0.0, Baso % (Auto) 0.0, Absolute Neuts (auto) 19.4 H, Total Counted Not Reportable 05/08/18 21:05: PT 13.3, INR 1.0 05/08/18 21:05: Sodium 141, Potassium 4.1, Chloride 107, Carbon Dioxide 25.0, Anion Gap 9, BUN 21 H, Creatinine 0.90, Est GFR (MDRD) Af Amer 79, Est GFR (MDRD) Non-Af 66, BUN/Creatinine Ratio 23.4 H, Glucose 153 H, Calcium 7.8 L, Magnesium 1.6, Total Bilirubin 0.60 05/08/18 21:05: B-Natriuretic Peptide 189.2 H 05/08/18 21:05: Phosphorus 4.3 05/08/18 22:03: pH 7.37, Bicarbonate Actual 24.8, POC Total CO2 26, Base Excess 0, O2 Saturation 97, ABG pCO2 42.9, ABG pO2 93 05/09/18 04:50: WBC 16.7 H, RBC 4.71, Hgb 13.5, Hct 41.6, MCV 88.3, MCH 28.7, MCHC 32.5, RDW 14.2, RDW Differential 46.1 H, Plt Count 309, MPV 9.7, Immature Gran % (Auto) 0.200, Neut % (Auto) 87.4 H, Lymph % (Auto) 9.0 L, [place] % (Auto) 3.4, Eos % (Auto) 0.0, Baso % (Auto) 0.0, Absolute Neuts (auto) 14.6 H, Total Counted Not Reportable 05/09/18 04:50: Sodium 146 H, Potassium 3.9, Chloride 112 H, Carbon Dioxide 24.0, Anion Gap 10, BUN 24 H, Creatinine 0.84, Est GFR (MDRD) Af Amer 86, Est GFR (MDRD) Non-Af 71, BUN/Creatinine Ratio 28.5 H, Glucose 151 H, Calcium 7.2 L 05/09/18 06:07: pH 7.34 L, Bicarbonate Actual 21.6 L, POC Total CO2 23, Base Excess -4 L, O2 Saturation 94 L, ABG pCO2 39.9, ABG pO2 74 L, Manjit Test POS Rhythm: EKG: Normal sinus rhythm with nonspecific ST-T wave changes ECHO: Stress Test: Cardiac Cath: PCI: CT Surgery: Holter monitor: EPS: PPM: CXR: Chest CT Scan: Assessment/Plan 1. Non-ST elevation myocardial infarction Patient appears to have had an acute respiratory acidosis and aspiration pneumonia post surgery. This likely resulted in demand ischemia and a non-ST elevation myocardial infarction. Recommendation at this time will be to treat her conservatively Aspirin Statins Low-dose beta-noelle Will consider Plavix prior to discharge and likely outpatient cardiac catheterization. At this time it does not appear that a stress test will be useful as patient has already declared that she likely has underlying coronary artery disease. Her echocardiogram done today demonstrates preserved left ventricular systolic function with concentric left ventricular hypertrophy. Thank you for allowing me to participate in the care of your patient. Please don't hesitate to call if any issues arise
--- NOTE | 2018-05-09 08:06 | CON.PCM_ITS ---
Reason for Consult Date of Consultation: 05/09/18 Reason for Consultation: Abnormal cardiac enzymes History of Present Illness: The patient is a 72 year old F, with a reported history of COPD, who presented to [facility] on May 08, 2018 secondary to an elective lapar oscopic cholecystectomy. Patient reportedly was seen earlier this month with complaints of epigastric pain without radiation and nausea. Patient did not require admission at that time, but presented for elective removal of her gallbladder.Patient reportedly tolerated the surgery well. Following operative procedure, patient was reportedly extubated and transported to the PACU. Shortly thereafter, patient started to have respiratory compromise. Anesthesia was made aware. Patient reportedly did receive Narcan without improvement. Patient had an LMA placed with little improvement in respiratory status. Significant respiratory acidosis was noted on multiple ABGs, so patient was intubated and transferred to the intensive care unit for further management. Chest x-ray demonstrated evidence of possible aspiration. Cardiac enzymes were obtained and were noted to be abnormal. No obvious EKG changes other than nonspecific changes were noted. Cardiology was called for further evaluation. Patient has had no previous history of cardiac disease, chest pain or paroxysmal nocturnal dyspnea or pedal edema or cardiac surgery of peripheral vascular surgery. Past Medical History Allergies/Adverse Reactions: Allergies No Known Allergies Allergy (Verified 05/01/18 12:02) Home Medications: Ambulatory Orders Medication Instructions Recorded mecobalamin (vitamin B12) 1,000 1,000 mcg SUBLINGUAL DAILY 04/30/18 mcg disintegrating tablet,sublingual Fluticasone/Umeclidin/Vilanter 1 each IH DAILY 05/08/18 [Trelegy Ellipta 100-62.5-25] Hydrocodone Bitart/Apap 5-325 1 tablet PO Q4H PRN PRN 2 Days #8 05/08/18 [[place] 5MG-325MG] tablet Past Medical History (Chronic Problems): Chronic Problems (Last Updated 04/30/18 @ 08:28 by Beatris Polanco) COPD (chronic obstructive pulmonary disease) (Chronic) Cholelithiasis with chronic cholecystitis (Chronic) Cholelithiasis (Chronic) Surgical History: noncontributory Smoking Status: Former smoker Alcohol: None Drugs: None Review of Systems - Review of Systems General: Denies: Fever, Night Sweats, Fatigue HEENT: Denies: Vision Change Cardiovascular: Denies: Chest Discomfort, Shortness of Breath, Orthopnea, PND, Peripheral Edema, Palpitations, Lightheadedness, Dizziness, Near Syncope, Syncop e Respiratory: Denies: Cough, Sputum Production, Hemoptysis Gastrointestinal: Denies: Hematemesis, Hematochezia, Melena Genitourinary: Denies: Dysuria, Hematuria Skin: Denies: Rash Neurological: Denies: Dizziness Psychiatric: Denies: Anxiety Endocrine: Denies: Unexplained Weight Loss Hematologic/ Lymphatic: Denies: Anemia Subjectve: Pleasant lady in no distress with an NG tube in place status post recent extubation Objective: Vital Signs Temp Pulse Resp BP Pulse Ox 100.6 F H 100 25 H 122/63 H 93 05/09/18 06:00 05/09/18 06:45 05/09/18 06:46 05/09/18 06:00 05/09/18 06:46 Oxygen Flow Rate (L/min) 3 Oxygen Delivery Method Nasal Cannula Weight: 170 lb 10.205 oz Body Mass Index (BMI) 30.9 Intake and Output for Last 24 Hours 05/07/18 05/08/18 05/09/18 23:59 23:59 23:59 Intake Total 1200 / 1200 2634 / 2634 3507.3 / 3507.3 Output Total 200 / 200 425 / 425 Balance 1200 / 1200 2434 / 2434 3082.3 / 3082.3 General: Awake, Alert, Oriented x 3 HEENT: PERRL, EOMI, Sclera Non Icteric Neck: Supple, Good ROM, No Lymph Node Enlargement Lungs: Clear to auscultation Cardiovascular: Regular Rhythm, Normal S1, Normal S2, No Murmurs, No Rubs, No Gallops Vascular: No Carotid Bruits, Normal Femoral Pulses, Normal Radial Pulses, Normal Dorsalis Pedal Pulse, Normal Posterior Tibial Pulses Abdomen: Bowel Sounds Present, Soft, Non Tender, No HSM, No Organomegaly Extremities: No Cyanosis, No Clubbing, No edema Skin: No Rashes Lymphatic: No Lymph Node Enlargement Neurological: No Focal Motor or Sensory Deficit Psych/Mental Status: Appropriate 05/08/18 10:46: pH 6.95 L*, Bicarbonate Actual 28.2 H, POC Total CO2 32, Base Excess -4 L, O2 Saturation 72 L, ABG pCO2 127.7 H*, ABG pO2 63 L, Manjit Test NA 05/08/18 11:28: pH 7.18 L*, Bicarbonate Actual 25.2, POC Total CO2 27, Base Excess -3 L, O2 Saturation 90 L, ABG pCO2 68.0 H*, ABG pO2 77, Manjit Test NA 05/08/18 11:34: pH Cancelled, Bicarbonate Actual Cancelled, POC Total CO2 Cancelled, Base Excess Cancelled, O2 Saturation Cancelled, ABG pCO2 Cancelled, ABG pO2 Cancelled, Manjit Test Cancelled 05/08/18 11:44: Troponin I 0.239 H 05/08/18 14:50: pH 7.29 L, Bicarbonate Actual 24.4, POC Total CO2 26, Base Excess -2, O2 Saturation 95, ABG pCO2 51.3 H, ABG pO2 87, Manjit Test NA 05/08/18 16:00: Troponin I 1.500 H* 05/08/18 19:30: Troponin I 1.400 H* 05/08/18 19:30: Triglycerides 92 05/08/18 21:05: WBC 21.4 H, RBC 5.04, Hgb 14.3, Hct 44.4, MCV 88.1, MCH 28.4, MCHC 32.2, RDW 14.1, RDW Differential 45.4 H, Plt Count 344, MPV 9.9, Immature Gran % (Auto) 0.300, Neut % (Auto) 90.6 H, Lymph % (Auto) 7.0 L, [place] % (Auto) 2.1, Eos % (Auto) 0.0, Baso % (Auto) 0.0, Absolute Neuts (auto) 19.4 H, Total Counted Not Reportable 05/08/18 21:05: PT 13.3, INR 1.0 05/08/18 21:05: Sodium 141, Potassium 4.1, Chloride 107, Carbon Dioxide 25.0, Anion Gap 9, BUN 21 H, Creatinine 0.90, Est GFR (MDRD) Af Amer 79, Est GFR (MDRD) Non-Af 66, BUN/Creatinine Ratio 23.4 H, Glucose 153 H, Calcium 7.8 L, Magnesium 1.6, Total Bilirubin 0.60 05/08/18 21:05: B-Natriuretic Peptide 189.2 H 05/08/18 21:05: Phosphorus 4.3 05/08/18 22:03: pH 7.37, Bicarbonate Actual 24.8, POC Total CO2 26, Base Excess 0, O2 Saturation 97, ABG pCO2 42.9, ABG pO2 93 05/09/18 04:50: WBC 16.7 H, RBC 4.71, Hgb 13.5, Hct 41.6, MCV 88.3, MCH 28.7, MCHC 32.5, RDW 14.2, RDW Differential 46.1 H, Plt Count 309, MPV 9.7, Immature Gran % (Auto) 0.200, Neut % (Auto) 87.4 H, Lymph % (Auto) 9.0 L, [place] % (Auto) 3.4, Eos % (Auto) 0.0, Baso % (Auto) 0.0, Absolute Neuts (auto) 14.6 H, Total Counted Not Reportable 05/09/18 04:50: Sodium 146 H, Potassium 3.9, Chloride 112 H, Carbon Dioxide 24.0, Anion Gap 10, BUN 24 H, Creatinine 0.84, Est GFR (MDRD) Af Amer 86, Est GFR (MDRD) Non-Af 71, BUN/Creatinine Ratio 28.5 H, Glucose 151 H, Calcium 7.2 L 05/09/18 06:07: pH 7.34 L, Bicarbonate Actual 21.6 L, POC Total CO2 23, Base Excess -4 L, O2 Saturation 94 L, ABG pCO2 39.9, ABG pO2 74 L, Manjit Test POS Rhythm: EKG: Normal sinus rhythm with nonspecific ST-T wave changes ECHO: Stress Test: Cardiac Cath: PCI: CT Surgery: Holter monitor: EPS: PPM: CXR: Chest CT Scan: Assessment/Plan 1. Non-ST elevation myocardial infarction * Patient appears to have had an acute respiratory acidosis and aspiration pneumonia post surgery. This likely resulted in demand ischemia and a non-ST elevation myocardial infarction. * Recommendation at this time will be to treat her conservatively * Aspirin * Statins * Low-dose beta-noelle * Will consider Plavix prior to discharge and likely outpatient cardiac catheterization. At this time it does not appear that a stress test will be useful as patient has already declared that she likely has underlying coronary artery disease. * Her echocardiogram done today demonstrates preserved left ventricular systolic function with concentric left ventricular hypertrophy. * Thank you for allowing me to participate in the care of your patient. Please don't hesitate to call if any issues arise
[2018-05-09] MEDS: Ketorolac 15 MG/ML Vial IV (08:19)
--- NOTE | 2018-05-09 08:19 | NURSING ---
toradol 15mg IV slow push given. verified Jermain Evangelista RN
--- NOTE | 2018-05-09 08:44 | PCM.PN.HOSP ---
Subjective: Patient was extubated today. Denies abdominal pain. She did not pass flatus. Sitting on the chair. T-max 100.9 Fahrenheit. Most recent, 100.6 Fahrenheit. On 3 L of oxygen through nasal cannula Vitals/I&O's: Vital Signs Temp Pulse Resp BP Pulse Ox 100.6 F H 100 25 H 122/63 H 93 05/09/18 06:00 05/09/18 06:45 05/09/18 06:46 05/09/18 06:00 05/09/18 06:46 Oxygen Flow Rate (L/min) 3 Oxygen Delivery Method Nasal Cannula Weight: 170 lb 10.205 oz Body Mass Index (BMI) 30.9 Intake and Output for Last 24 Hours 05/07/18 05/08/18 05/09/18 23:59 23:59 23:59 Intake Total 1200 / 1200 2634 / 2634 3507.3 / 3507.3 Output Total 200 / 200 425 / 425 Balance 1200 / 1200 2434 / 2434 3082.3 / 3082.3 General: Alert, Oriented x3, Cooperative HEENT: Atraumatic, PERRLA, EOMI, Normocephalic Neck: Supple, No JVD, Negative Carotid Bruits Lungs: Diminished - Air entry is diminished on the right basal side, Rhonchi Cardiovascular: Regular rate, Regular Rhythm, Normal S1, Normal S2, No murmurs Abdomen: Soft, Non Tender, Non-Distended, Hypoactive Bowel Sounds, - - Surgical dressing site is dry. Extremities: No edema, Capillary Refill Less than 3 Seconds Skin: No rashes, No breakdown Musculoskeletal: No Tenderness to Palpation of Joints or Extremities, Arthritic Changes Neurological: Cranial nerves II-XII grossly intact, Deep Tendon Reflexes 2+/4 and Symmetrical, Neuro grossly intact Psych/Mental Status: Normal Affect, Appropriate Microbiology Past 72 Hours 05/08/18 13:00 Sputum, Induced/Lukens Gram Stain - Final Laboratory Results 05/08/18 10:46: Specimen Type ART, Sample Site L Radial, pH 6.95 L*, Bicarbonate Actual 28.2 H, POC Total CO2 32, Base Excess -4 L, O2 Saturation 72 L, O2 % 100, ABG pCO2 127.7 H*, ABG pO2 63 L, Manjit Test NA, O2 Delivery Device Ambu, Blood Gas Notified Whom HOSP , Blood Gas Notified Time 1050 05/08/18 11:28: Specimen Type ART, Sample Site L Radial, pH 7.18 L*, Bicarbonate Actual 25.2, POC Total CO2 27, Base Excess -3 L, O2 Saturation 90 L, O2 % 100, ABG pCO2 68.0 H*, ABG pO2 77, Manjit Test NA, Respiration Rate 12, O2 Delivery Device Vent, Minute Volume 5.00, Vent Mode A-C, Tidal Volume 500, POC PEEP 6, Blood Gas Notified Whom OTHER, Blood Gas Notified Time 1130 05/08/18 11:34: Specimen Type Cancelled, Sample Site Cancelled, pH Cancelled, Bicarbonate Actual Cancelled, POC Total CO2 Cancelled, Base Excess Cancelled, O2 Saturation Cancelled, O2 % Cancelled, ABG pCO2 Cancelled, ABG pO2 Cancelled, Manjit Test Cancelled, Respiration Rate Cancelled, O2 Delivery Device Cancelled, Liter Flow Cancelled, Minute Volume Cancelled, Vent Mode Cancelled, Tidal Volume Cancelled, POC PEEP Cancelled, POC Pressure Suppt Cancelled, Pressure High Cancelled, Pressure Low Cancelled, Time High Cancelled, Time Low Cancelled, EPAP Cancelled, IPAP Cancelled, Blood Gas Notified Whom Cancelled, Blood Gas Notified Time Cancelled 05/08/18 11:44: Troponin I 0.239 H 05/08/18 14:50: Specimen Type ART, Sample Site L Radial, pH 7.29 L, Bicarbonate Actual 24.4, POC Total CO2 26, Base Excess -2, O2 Saturation 95, O2 % 60, ABG pCO2 51.3 H, ABG pO2 87, Manjit Test NA, Respiration Rate 14, O2 Delivery Device Vent, Minute Volume 6.00, Vent Mode A-C, Tidal Volume 450, POC PEEP 10, Blood Gas Notified Whom ICU , Blood Gas Notified Time 1430 05/08/18 16:00: Troponin I 1.500 H* 05/08/18 19:30: Troponin I 1.400 H* 05/08/18 19:30: Total Creatine Kinase 71, Triglycerides 92 05/08/18 21:05: WBC 21.4 H, RBC 5.04, Hgb 14.3, Hct 44.4, MCV 88.1, MCH 28.4, MCHC 32.2, RDW 14.1, RDW Differential 45.4 H, Plt Count 344, MPV 9.9, Immature Gran % (Auto) 0.300, Neut % (Auto) 90.6 H, Lymph % (Auto) 7.0 L, [place] % (Auto) 2.1, Eos % (Auto) 0.0, Baso % (Auto) 0.0, Absolute Neuts (auto) 19.4 H, Absolute Lymphs (auto) 1.50, Total Counted Not Reportable 05/08/18 21:05: PT 13.3, INR 1.0 05/08/18 21:05: Sodium 141, Potassium 4.1, Chloride 107, Carbon Dioxide 25.0, Anion Gap 9, BUN 21 H, Creatinine 0.90, Estim Creat Clear Calc 45.35, Est GFR (MDRD) Af Amer 79, Est GFR (MDRD) Non-Af 66, BUN/Creatinine Ratio 23.4 H, Glucose 153 H, Calcium 7.8 L, Magnesium 1.6, Total Bilirubin 0.60, AST 60 H, ALT 84 H, Alkaline Phosphatase 67, Total Protein 6.0 L, Albumin 2.9 L, Globulin 3.1, Albumin/Globulin Ratio 0.9 05/08/18 21:05: B-Natriuretic Peptide 189.2 H 05/08/18 21:05: Phosphorus 4.3 05/08/18 22:00: MRSA (PCR) Negative 05/08/18 22:03: Specimen Type ART, Sample Site R Radial, pH 7.37, Bicarbonate Actual 24.8, POC Total CO2 26, Base Excess 0, O2 Saturation 97, O2 % 50, ABG pCO2 42.9, ABG pO2 93, Respiration Rate 14, O2 Delivery Device Vent, Minute Volume 10.00, Vent Mode A-C, Tidal Volume 500, POC PEEP 5, Blood Gas Notified Whom CHRISTIAN GAN, Blood Gas Notified Time 0708 05/09/18 04:50: WBC 16.7 H, RBC 4.71, Hgb 13.5, Hct 41.6, MCV 88.3, MCH 28.7, MCHC 32.5, RDW 14.2, RDW Differential 46.1 H, Plt Count 309, MPV 9.7, Immature Gran % (Auto) 0.200, Neut % (Auto) 87.4 H, Lymph % (Auto) 9.0 L, [place] % (Auto) 3.4, Eos % (Auto) 0.0, Baso % (Auto) 0.0, Absolute Neuts (auto) 14.6 H, Absolute Lymphs (auto) 1.50, Total Counted Not Reportable 05/09/18 04:50: Sodium 146 H, Potassium 3.9, Chloride 112 H, Carbon Dioxide 24.0, Anion Gap 10, BUN 24 H, Creatinine 0.84, Estim Creat Clear Calc 48.58, Est GFR (MDRD) Af Amer 86, Est GFR (MDRD) Non-Af 71, BUN/Creatinine Ratio 28.5 H, Glucose 151 H, Calcium 7.2 L 05/09/18 06:07: Specimen Type ART, Sample Site L Radial, pH 7.34 L, Bicarbonate Actual 21.6 L, POC Total CO2 23, Base Excess -4 L, O2 Saturation 94 L, O2 % 40, ABG pCO2 39.9, ABG pO2 74 L, Manjit Test POS, O2 Delivery Device Vent, Vent Mode CPAP PS, POC PEEP 5, POC Pressure Suppt 5, Blood Gas Notified Whom ICU MD, Blood Gas Notified Time 555 Current Medications Acetaminophen (Tylenol) 650 mg RECTAL Q6H PRN PRN PRN Reason: FEVER Hydrocodone Bitart/Acetaminophen (Advance 5mg-325mg) 1 - 2 tablet PO Q4H PRN PRN PRN Reason: PAIN Albuterol/Ipratropium (Duoneb) 3 ml INHALATION Q4HWA.RT [facility] Last Admin: 05/09/18 06:43 Dose: 3 ml Bisacodyl (Dulcolax) 10 mg RECTAL DAILY [facility] Chlorhexidine Gluconate () 15 ml PO BID [facility] Last Admin: 05/08/18 22:12 Dose: 15 ml Enoxaparin Sodium (Lovenox) 40 mg SC DAILY@0600 [facility] Last Admin: 05/09/18 06:29 Dose: 40 mg Lactated Ringer's () 1,000 mls @ 50 mls/hr IV .Q20H [facility] Last Admin: 05/08/18 14:23 Dose: Not Given Ampicillin Sodium/Sulbactam (Sodium 3 gm/ Sodium Chloride) 112 mls @ 150 mls/hr IV Q6 [facility] Last Admin: 05/09/18 06:29 Dose: 150 mls/hr Famotidine 20 mg/ Sodium (Chloride) 10 mls @ 300 mls/hr IV Q12 [facility] Last Admin: 05/08/18 22:19 Dose: 300 mls/hr Sodium Chloride () 250 mls @ 15 mls/hr IV .[id number] PRN PRN Reason: SALINE FLUSH Sodium Chloride () 500 mls @ 15 mls/hr IV .[id number] PRN PRN Reason: SALINE FLUSH Influenza Virus Vaccine Quadrival (Fluarix/Fluzone) 0.5 ml IM .ONCE ONE Stop: 05/09/18 12:01 Magnesium Hydroxide (Milk Of Magnesia) 30 ml PO DAILY PRN PRN PRN Reason: Constipation Methylprednisolone (Solu-Medrol) 40 mg IV Q8 [facility] Last Admin: 05/09/18 06:29 Dose: 40 mg Metoprolol Tartrate (Lopressor (Beta Sriram)) 12.5 mg PO BID [facility] Morphine Sulfate () 1 mg IV Q4H PRN PRN PRN Reason: SEVERE PAIN (6-10/10) Promethazine HCl (Phenergan) 6.25 mg IV Q6H PRN PRN PRN Reason: NAUSEA/VOMITING Sodium Chloride () 5 - 15 ml IV UD PRN PRN Reason: SALINE FLUSH Medical Necessity - Tobacco Use Smoking Status: Former smoker Assessment/Plan This is a 72 y/o with reported PMHx of COPD, history of tubular adenoma of the rectosigmoid colon who had laparoscopic cholecystectomy for chronic cholecystitis/cholelithiasis on 05/08/2018 1. Acute hypoxic respiratory failure likely secondary to aspiration pneumonitis, possible COPD exacerbation History of COPD. Patient was intubated and then extubated on 05/09/2018. Discussed with stage settings painter Continue IV unasyn, IV steroids, breathing treatments 2. Aspiration pneumonitis/pneumonia, multifocal/multilobar in the right middle lobe and left upper lobe status post laparoscopic cholecystectomy, on IV Unasyn 3. Possible COPD exacerbation, known history of COPD, continue IV steroids and breathing treatments 4. status post laparoscopic cholecystectomy on 05/08/2018 for chronic cholecystitis and cholelithiasis NG tube was removed. Started on clear liquid. Clinically, follow-up for flatus passage/bowel sound 5. DVT PPX - Lovenox 6. GI PPx- famotidine IV BID Clinical Impression(s) from Imaging Studies Cholangiogram 05/08/18 09:00 IMPRESSION: No demonstrated retained common bile duct stone or bile duct obstruction. Chest X-Ray 05/08/18 11:08 IMPRESSION: Diffuse airspace opacifications throughout the visualized right lung field and left upper lobe suspicious for infiltrates though pulmonary edema can have a similar appearance. ET tube tip 2 cm above the fozia Chest X-Ray 05/09/18 05:55 IMPRESSION: Improvement of right lung consolidation. Remaining area of consolidation is in the right midlung field. The left lung is clear. Code Visit Inpatient E&M: 92053 Subs Hosp L3
--- NOTE | 2018-05-09 09:07 | PN.SURG_ITS ---
Subjective: Pt is extubated and c/o ngt discomfort No flatus No nausea No abdominal pain - Physical Exam Lungs: - - coarse on right Abdomen: Bowel Sounds Present, Soft, Non Tender, - - wounds clean Vital Signs Temp Pulse Resp BP Pulse Ox 100.6 F H 100 25 H 122/63 H 93 05/09/18 06:00 05/09/18 06:45 05/09/18 06:46 05/09/18 06:00 05/09/18 06:46 Oxygen Flow Rate (L/min) 3 Oxygen Delivery Method Nasal Cannula Weight: 170 lb 10.205 oz Body Mass Index (BMI) 30.9 Intake and Output for Last 24 Hours 05/07/18 05/08/18 05/09/18 23:59 23:59 23:59 Intake Total 1200 / 1200 2634 / 2634 3507.3 / 3507.3 Output Total 200 / 200 425 / 425 Balance 1200 / 1200 2434 / 2434 3082.3 / 3082.3 Microbiology Past 72 Hours 05/08/18 13:00 Gram Stain - Final Sputum, Induced/Lukens Laboratory Tests Past 24 Hrs 05/08/18 05/08/18 05/08/18 10:46 11:28 11:34 WBC RBC Hgb Hct MCV MCH MCHC RDW RDW Differential Plt Count MPV Immature Gran % (Auto) Neut % (Auto) Lymph % (Auto) [place] % (Auto) Eos % (Auto) Baso % (Auto) Absolute Neuts (auto) Absolute Lymphs (auto) Total Counted PT INR Specimen Type ART ART Cancelled Sample Site L Radial L Radial Cancelled pH 6.95 L* 7.18 L* Cancelled Bicarbonate Actual 28.2 H 25.2 Cancelled POC Total CO2 32 27 Cancelled Base Excess -4 L -3 L Cancelled O2 Saturation 72 L 90 L Cancelled O2 % 100 100 Cancelled ABG pCO2 127.7 H* 68.0 H* Cancelled ABG pO2 63 L 77 Cancelled Manjit Test NA NA Cancelled Respiration Rate 12 Cancelled O2 Delivery Device Ambu Vent Cancelled Liter Flow Cancelled Minute Volume 5.00 Cancelled Vent Mode A-C Cancelled Tidal Volume 500 Cancelled POC PEEP 6 Cancelled POC Pressure Suppt Cancelled Pressure High Cancelled Pressure Low Cancelled Time High Cancelled Time Low Cancelled EPAP Cancelled IPAP Cancelled Blood Gas Notified Whom CHRISTIAN GAN OTHER Cancelled Blood Gas Notified Time 1050 1130 Cancelled Sodium Potassium Chloride Carbon Dioxide Anion Gap BUN Creatinine Estim Creat Clear Calc Est GFR (MDRD) Af Amer Est GFR (MDRD) Non-Af BUN/Creatinine Ratio Glucose Calcium Phosphorus Magnesium Total Bilirubin AST ALT Alkaline Phosphatase Total Creatine Kinase Troponin I B-Natriuretic Peptide Total Protein Albumin Globulin Albumin/Globulin Ratio Triglycerides MRSA (PCR) 05/08/18 05/08/18 05/08/18 11:44 14:50 16:00 WBC RBC Hgb Hct MCV MCH MCHC RDW RDW Differential Plt Count MPV Immature Gran % (Auto) Neut % (Auto) Lymph % (Auto) [place] % (Auto) Eos % (Auto) Baso % (Auto) Absolute Neuts (auto) Absolute Lymphs (auto) Total Counted PT INR Specimen Type ART Sample Site L Radial pH 7.29 L Bicarbonate Actual 24.4 POC Total CO2 26 Base Excess -2 O2 Saturation 95 O2 % 60 ABG pCO2 51.3 H ABG pO2 87 Manjit Test NA Respiration Rate 14 O2 Delivery Device Vent Liter Flow Minute Volume 6.00 Vent Mode A-C Tidal Volume 450 POC PEEP 10 POC Pressure Suppt Pressure High Pressure Low Time High Time Low EPAP IPAP Blood Gas Notified Whom ICU MD Blood Gas Notified Time 1430 Sodium Potassium Chloride Carbon Dioxide Anion Gap BUN Creatinine Estim Creat Clear Calc Est GFR (MDRD) Af Amer Est GFR (MDRD) Non-Af BUN/Creatinine Ratio Glucose Calcium Phosphorus Magnesium Total Bilirubin AST ALT Alkaline Phosphatase Total Creatine Kinase Troponin I 0.239 H 1.500 H* B-Natriuretic Peptide Total Protein Albumin Globulin Albumin/Globulin Ratio Triglycerides MRSA (PCR) 05/08/18 05/08/18 05/08/18 19:30 19:30 21:05 WBC 21.4 H RBC 5.04 Hgb 14.3 Hct 44.4 MCV 88.1 MCH 28.4 MCHC 32.2 RDW 14.1 RDW Differential 45.4 H Plt Count 344 MPV 9.9 Immature Gran % (Auto) 0.300 Neut % (Auto) 90.6 H Lymph % (Auto) 7.0 L [place] % (Auto) 2.1 Eos % (Auto) 0.0 Baso % (Auto) 0.0 Absolute Neuts (auto) 19.4 H Absolute Lymphs (auto) 1.50 Total Counted Not Reportable PT INR Specimen Type Sample Site pH Bicarbonate Actual POC Total CO2 Base Excess O2 Saturation O2 % ABG pCO2 ABG pO2 Manjit Test Respiration Rate O2 Delivery Device Liter Flow Minute Volume Vent Mode Tidal Volume POC PEEP POC Pressure Suppt Pressure High Pressure Low Time High Time Low EPAP IPAP Blood Gas Notified Whom Blood Gas Notified Time Sodium Potassium Chloride Carbon Dioxide Anion Gap BUN Creatinine Estim Creat Clear Calc Est GFR (MDRD) Af Amer Est GFR (MDRD) Non-Af BUN/Creatinine Ratio Glucose Calcium Phosphorus Magnesium Total Bilirubin AST ALT Alkaline Phosphatase Total Creatine Kinase 71 Troponin I 1.400 H* B-Natriuretic Peptide Total Protein Albumin Globulin Albumin/Globulin Ratio Triglycerides 92 MRSA (PCR) 05/08/18 05/08/18 05/08/18 21:05 21:05 21:05 WBC RBC Hgb Hct MCV MCH MCHC RDW RDW Differential Plt Count MPV Immature Gran % (Auto) Neut % (Auto) Lymph % (Auto) [place] % (Auto) Eos % (Auto) Baso % (Auto) Absolute Neuts (auto) Absolute Lymphs (auto) Total Counted PT 13.3 INR 1.0 Specimen Type Sample Site pH Bicarbonate Actual POC Total CO2 Base Excess O2 Saturation O2 % ABG pCO2 ABG pO2 Manjit Test Respiration Rate O2 Delivery Device Liter Flow Minute Volume Vent Mode Tidal Volume POC PEEP POC Pressure Suppt Pressure High Pressure Low Time High Time Low EPAP IPAP Blood Gas Notified Whom Blood Gas Notified Time Sodium 141 Potassium 4.1 Chloride 107 Carbon Dioxide 25.0 Anion Gap 9 BUN 21 H Creatinine 0.90 Estim Creat Clear Calc 45.35 Est GFR (MDRD) Af Amer 79 Est GFR (MDRD) Non-Af 66 BUN/Creatinine Ratio 23.4 H Glucose 153 H Calcium 7.8 L Phosphorus Magnesium 1.6 Total Bilirubin 0.60 AST 60 H ALT 84 H Alkaline Phosphatase 67 Total Creatine Kinase Troponin I B-Natriuretic Peptide 189.2 H Total Protein 6.0 L Albumin 2.9 L Globulin 3.1 Albumin/Globulin Ratio 0.9 Triglycerides MRSA (PCR) 05/08/18 05/08/18 05/08/18 21:05 22:00 22:03 WBC RBC Hgb Hct MCV MCH MCHC RDW RDW Differential Plt Count MPV Immature Gran % (Auto) Neut % (Auto) Lymph % (Auto) [place] % (Auto) Eos % (Auto) Baso % (Auto) Absolute Neuts (auto) Absolute Lymphs (auto) Total Counted PT INR Specimen Type ART Sample Site R Radial pH 7.37 Bicarbonate Actual 24.8 POC Total CO2 26 Base Excess 0 O2 Saturation 97 O2 % 50 ABG pCO2 42.9 ABG pO2 93 Manjit Test Respiration Rate 14 O2 Delivery Device Vent Liter Flow Minute Volume 10.00 Vent Mode A-C Tidal Volume 500 POC PEEP 5 POC Pressure Suppt Pressure High Pressure Low Time High Time Low EPAP IPAP Blood Gas Notified Whom HOSP MD Blood Gas Notified Time 2155 Sodium Potassium Chloride Carbon Dioxide Anion Gap BUN Creatinine Estim Creat Clear Calc Est GFR (MDRD) Af Amer Est GFR (MDRD) Non-Af BUN/Creatinine Ratio Glucose Calcium Phosphorus 4.3 Magnesium Total Bilirubin AST ALT Alkaline Phosphatase Total Creatine Kinase Troponin I B-Natriuretic Peptide Total Protein Albumin Globulin Albumin/Globulin Ratio Triglycerides MRSA (PCR) Negative 05/09/18 05/09/18 05/09/18 04:50 04:50 06:07 WBC 16.7 H RBC 4.71 Hgb 13.5 Hct 41.6 MCV 88.3 MCH 28.7 MCHC 32.5 RDW 14.2 RDW Differential 46.1 H Plt Count 309 MPV 9.7 Immature Gran % (Auto) 0.200 Neut % (Auto) 87.4 H Lymph % (Auto) 9.0 L [place] % (Auto) 3.4 Eos % (Auto) 0.0 Baso % (Auto) 0.0 Absolute Neuts (auto) 14.6 H Absolute Lymphs (auto) 1.50 Total Counted Not Reportable PT INR Specimen Type ART Sample Site L Radial pH 7.34 L Bicarbonate Actual 21.6 L POC Total CO2 23 Base Excess -4 L O2 Saturation 94 L O2 % 40 ABG pCO2 39.9 ABG pO2 74 L Manjit Test POS Respiration Rate O2 Delivery Device Vent Liter Flow Minute Volume Vent Mode CPAP PS Tidal Volume POC PEEP 5 POC Pressure Suppt 5 Pressure High Pressure Low Time High Time Low EPAP IPAP Blood Gas Notified Whom ICU MD Blood Gas Notified Time 555 Sodium 146 H Potassium 3.9 Chloride 112 H Carbon Dioxide 24.0 Anion Gap 10 BUN 24 H Creatinine 0.84 Estim Creat Clear Calc 48.58 Est GFR (MDRD) Af Amer 86 Est GFR (MDRD) Non-Af 71 BUN/Creatinine Ratio 28.5 H Glucose 151 H Calcium 7.2 L Phosphorus Magnesium Total Bilirubin AST ALT Alkaline Phosphatase Total Creatine Kinase Troponin I B-Natriuretic Peptide Total Protein Albumin Globulin Albumin/Globulin Ratio Triglycerides MRSA (PCR) Medical Necessity - Tobacco Use Smoking Status: Former smoker Assessment/Plan Very much appreciate medical assistance Will dc ngt and cohn and minimize IVF and start clears
--- NOTE | 2018-05-09 09:55 | CM.UR ---
Participated in interdisciplinary rounds this am. Patient was extubated this am. On NC o2. Up in chair with daughter at bedside during rounds. If doing well will transfer out of ICU by the end of the day. Changed to IP status. Dinorah Michel RN, CCM.
--- NOTE | 2018-05-09 10:09 | CM.UR ---
RN CM Assessment Met face to face with patient for initial transition planning/care coordination assessment. Introduced myself and my role. Verb understanding and agreement for assessment. Presentation: Came in for OP rub[place] n[place] PCP: Dr. Benigno Peguero Specialists: None Preferred Pharmacy: [facility] Insurance: [facility] Prescription Benefit: States no RX coverage. Previously wasn't on any medications. LNOK: Daughter Jacquelin Home: 2 story home. one step to enter. first floor master and bathroom. She doesn't go to 2nd floor. ADLs: previously independent Transportation: drives DME: None SNF/HHC: None Passport/waiver welding inspector: NA Advance Directives: none. Booklet given. DC PLAN: Home, no needs anticipated as long as can wean from o2. Dinorah Michel RN, CCM.
[2018-05-09] MEDS: Famotidine 20 MG Tablet PO ×2 (11:15→21:21)
[2018-05-09] MEDS: Metoprolol Tartrate 25 MG Tablet 12.5 MG PO ×2 (11:16→21:21)
[2018-05-09] MEDS: Bisacodyl 10 MG Suppository RECTAL (11:30)
[2018-05-09] MEDS: 0.9% NaCl Peripheral Flush Adult/Peds IV ×2 (13:59→21:21)
[2018-05-09] MEDS: Atorvastatin Calcium 20 MG Tablet PO (21:21)
[2018-05-10] VITALS (19 sets, daily range): BP systolic 130–153; BP diastolic 67–83; PULSE 82–97; RESP 16–20; TEMP 36.7–36.8; O2SAT 86–95
[2018-05-10] MEDS: Enoxaparin 40 MG/0.4 ML Syringe SC (06:42)
[2018-05-10 06:45] LABS: Absolute Lymphocyte Count 1.49 X10^3/ul (0.83-4.51); Absolute Neutrophil Count 15.7 X10^3/uL (2.0-7.7); Hematocrit 37.8 % (37-47); Hemoglobin 12.1 g/dl (12.0-15.0); Lymphocyte # 1.49 X10^3/ul (4.0); Lymphocyte % 8.2 % (19-41); Mean Corpuscular Hgb 28.5 pg (27.0-32.0); Mean Corpuscular Volume 89.2 fL (81-99); Mean Platelet Vol. 9.5 fl (6.2-12.0); Monocyte# 0.98 X10^3/uL; Monocyte% 5.4 % (0-10); Neutrophil # 15.74 X10^3/uL (2.7-7.7); Neutrophil % 86.1 % (47-70); Platelet Count 259 K/mm3 (150-450); RBC Distribution Width CV 14.5 % (11.6-14.6); RBC Distribution Width SD 47.5 fl (35.1-43.9); Red Blood Count 4.24 M/mm3 (4.2-5.4); White Blood Count 18.3 K/mm3 (4.4-11.0)
[2018-05-10 06:58] LABS: POSITIVE COUNT NO; POSITIVE DIFFERENTIAL NO; POSITIVE MORPHOLOGY NO
[2018-05-10] MEDS: Ipratropium/Albuterol Sulfate 3 ML AMPUL.NEB INHALATION ×4 (07:11→19:05)
[2018-05-10 07:14] LABS: Anion Gap 1 (5-15); BUN 23 mg/dL (7-18); BUN/Creat Ratio 47.8 RATIO (10-20); Calcium,Total 7.6 mg/dL (8.5-10.1); Chloride 112 mmol/L (98-107); Creatinine, Serum 0.48 mg/dL (0.55-1.02); EST Glomerular Filtration Rate 135 mL/min (>60); Est Glom Filt Rate - Afr Amer 163 mL/min (>60); Estimated Creatinine Clearance 40.81 ml/min; Glucose 119 mg/dL (74-106); Potassium 4.1 mmol/L (3.5-5.1); Sodium Level 142 mmol/L (136-145)
--- NOTE | 2018-05-10 08:11 | PN_ITS ---
Subjective: Patient feels subjectively improved compared to previous. Patient does report productive cough overnight. Patient feels her dyspnea on exertion and coughing frequency is improving. Patient is still requiring minimal nasal cannula oxygen to maintain saturations. - Physical Exam General: Alert, Oriented x3, Cooperative, No apparent distress, Well developed, Well nourished, - - No conversational dyspnea noted. HEENT: Atraumatic, PERRLA, EOMI, Normocephalic, - - No scleral icterus or injection noted. Oral: Moist Mucosa, No Gingival or Mucosal Lesions/ Ulcerations Neck: Supple, No JVD, No Nodes, Trachea Midline Lungs: No wheeze, Diminished, Rales - Right greater than left, bilateral bases, - - Symmetric expansion. Cardiovascular: Regular rate, Regular Rhythm, Normal S1, Normal S2, No murmurs, No rub noted, No Gallop Abdomen: Bowel Sounds Present, Soft, Non-Distended, Obese, Tender - Minimal at surgical site Extremities: No clubbing, No cyanosis, Edema - Trace lower extremity Skin: Incision - Clean, dry and intact Musculoskeletal: No Tenderness to Palpation of Joints or Extremities Lymphatic: No Cervical, Supraclavicular, or Inguinal Adenopathy Neurological: Cranial nerves II-XII grossly intact, Neuro grossly intact, Motor Exam 5/5 strength throughout Psych/Mental Status: Alert and oriented to time, place, person, mood and affect Vital Signs Temp Pulse Resp BP Pulse Ox 36.8 C 89 16 137/67 H 93 05/10/18 08:02 05/10/18 08:02 05/10/18 08:02 05/10/18 08:02 05/10/18 08:02 Oxygen Flow Rate (L/min) 2 Oxygen Delivery Method Nasal Cannula Weight: 78.5 kg Body Mass Index (BMI) 30.9 Intake and Output for Last 24 Hours 05/08/18 05/09/18 05/10/18 23:59 23:59 23:59 Intake Total 2634 / 2634 3898.3 / 3898.3 679 / 679 Output Total 200 / 200 700 / 700 Balance 2434 / 2434 3198.3 / 3198.3 679 / 679 Microbiology Past 72 Hours 05/08/18 13:00 Gram Stain - Final Sputum, Induced/Lukens Respiratory Culture - Preliminary Culture exhibits no growth. Laboratory Tests Past 24 Hrs 05/10/18 05/10/18 06:30 06:30 WBC 18.3 H RBC 4.24 Hgb 12.1 Hct 37.8 MCV 89.2 MCH 28.5 MCHC 32.0 RDW 14.5 RDW Differential 47.5 H Plt Count 259 MPV 9.5 Immature Gran % (Auto) 0.300 Neut % (Auto) 86.1 H Lymph % (Auto) 8.2 L [place] % (Auto) 5.4 Eos % (Auto) 0.0 Baso % (Auto) 0.0 Absolute Neuts (auto) 15.7 H Absolute Lymphs (auto) 1.49 Total Counted Not Reportable Sodium 142 Potassium 4.1 Chloride 112 H Carbon Dioxide 29.0 Anion Gap 1 L BUN 23 H Creatinine 0.48 L Estim Creat Clear Calc 40.81 Est GFR (MDRD) Af Amer 163 Est GFR (MDRD) Non-Af 135 BUN/Creatinine Ratio 47.8 H Glucose 119 H Calcium 7.6 L Medical Necessity - Tobacco Use Smoking Status: Former smoker Assessment/Plan RECOMMENDATIONS: 1. Aggressive pulmonary toileting 2. Advancement of diet per surgery 3. Wean oxygen as tolerated 4. Likely okay to discharge once off of supplemental oxygen 5. Follow-up in our office in 2 weeks after discharge for PFT and optimization 6. Anticipate 7 days of antibiotics and 14-day taper of prednisone at [facility] IMPRESSIONS: 1. Acute combined respiratory failure Unclear etiology at this time. Patient has improved significantly overnight. Given patient's continued productive cough, right-sided infiltrates and decreased mental status, coverage for aspiration pneumonia is likely indicated. Patient can be transitioned to Augmentin and prednisone therapy if okay with surgery from my perspective. Recommendations above on duration of therapy. Patient can likely be discharged home on supplemental oxygen is no longer required. 2. Reported history of COPD Patient does have a known history of smoking in the past. Patient reportedly does have COPD and is on trelegy at home. No PFTs are available for review. Given obstructive lung disease, patient will continue bronchodilators and steroids. 3. Cholelithiasis with chronic cholecystitis S/P cholecystectomy postop day #2 Surgery is following. No reported complications with minimal blood loss at surgery. 4. Elevated troponin Cardiology has been consulted. Clinical suspicion for elevation secondary to acute event yesterday. Echocardiogram has been ordered. Await recommendations. Patient currently on DVT prophylactic dosing of Lovenox. Code Visit Inpatient E&M: 86103 Subs Hosp L2
[2018-05-10] MEDS: Famotidine 20 MG Tablet PO ×2 (09:02→21:00)
[2018-05-10] MEDS: Metoprolol Tartrate 25 MG Tablet 12.5 MG PO (09:02)
[2018-05-10] MEDS: Aspirin 81 MG TAB.CHEW PO (09:02)
--- NOTE | 2018-05-10 09:20 | PCM.PN.HOSP ---
Subjective: Patient is still has cough and needs oxygen. No fever. Walking pulse oximetry was done. She passed flatus and had bowel movement. Vitals/I&O's: Vital Signs Temp Pulse Resp BP Pulse Ox 98.3 F 95 16 137/67 H 89 05/10/18 08:02 05/10/18 09:02 05/10/18 08:02 05/10/18 08:02 05/10/18 08:49 Oxygen Flow Rate (L/min) [ 2 AMBULATION with Oxygen] Oxygen Flow Rate (L/min) [ 0 AMBULATING on Room Air] Oxygen Flow Rate (L/min) [At 0 REST on Room Air] Oxygen Flow Rate (L/min) 2 Oxygen Delivery Method Nasal Cannula Weight: 173 lb 1.006 oz Body Mass Index (BMI) 30.9 Intake and Output for Last 24 Hours 05/08/18 05/09/18 05/10/18 23:59 23:59 23:59 Intake Total 2634 / 2634 3898.3 / 3898.3 679 / 679 Output Total 200 / 200 700 / 700 Balance 2434 / 2434 3198.3 / 3198.3 679 / 679 General: Alert, Oriented x3, Cooperative HEENT: Atraumatic, PERRLA, EOMI, Normocephalic Neck: Supple, No JVD, Negative Carotid Bruits Lungs: Diminished, Rhonchi, Short of Breath Cardiovascular: Regular rate, Regular Rhythm, Normal S1, Normal S2, No murmurs Abdomen: Bowel Sounds Present, Soft, Non Tender, Non-Distended Extremities: No edema, Capillary Refill Less than 3 Seconds Skin: No rashes, No breakdown Musculoskeletal: No Tenderness to Palpation of Joints or Extremities, Arthritic Changes, Muscle Wasting Neurological: Cranial nerves II-XII grossly intact, Deep Tendon Reflexes 2+/4 and Symmetrical, Neuro grossly intact Psych/Mental Status: Normal Affect, Appropriate Microbiology Past 72 Hours 05/08/18 13:00 Sputum, Induced/Lukens Gram Stain - Final 05/08/18 13:00 Sputum, Induced/Lukens Respiratory Culture - Preliminary Culture exhibits no growth. Laboratory Results 05/10/18 06:30: WBC 18.3 H, RBC 4.24, Hgb 12.1, Hct 37.8, MCV 89.2, MCH 28.5, MCHC 32.0, RDW 14.5, RDW Differential 47.5 H, Plt Count 259, MPV 9.5, Immature Gran % (Auto) 0.300, Neut % (Auto) 86.1 H, Lymph % (Auto) 8.2 L, [place] % (Auto) 5.4, Eos % (Auto) 0.0, Baso % (Auto) 0.0, Absolute Neuts (auto) 15.7 H, Absolute Lymphs (auto) 1.49, Total Counted Not Reportable 05/10/18 06:30: Sodium 142, Potassium 4.1, Chloride 112 H, Carbon Dioxide 29.0, Anion Gap 1 L, BUN 23 H, Creatinine 0.48 L, Estim Creat Clear Calc 40.81, Est GFR (MDRD) Af Amer 163, Est GFR (MDRD) Non-Af 135, BUN/Creatinine Ratio 47.8 H, Glucose 119 H, Calcium 7.6 L Current Medications Acetaminophen (Tylenol) 650 mg RECTAL Q6H PRN PRN PRN Reason: FEVER Albuterol/Ipratropium (Duoneb) 3 ml INHALATION Q4HWA.RT [facility] Last Admin: 05/10/18 07:11 Dose: 3 ml Aspirin (Aspirin, Baby) 81 mg PO DAILY@0800 [facility] Last Admin: 05/10/18 09:02 Dose: 81 mg Atorvastatin Calcium (Lipitor) 20 mg PO QHS [facility] Last Admin: 05/09/18 21:21 Dose: 20 mg Bisacodyl (Dulcolax) 10 mg RECTAL DAILY [facility] Last Admin: 05/10/18 08:16 Dose: Not Given Enoxaparin Sodium (Lovenox) 40 mg SC DAILY@0600 [facility] Last Admin: 05/10/18 06:42 Dose: 40 mg Famotidine (Pepcid) 20 mg PO BID [facility] Last Admin: 05/10/18 09:02 Dose: 20 mg Ampicillin Sodium/Sulbactam (Sodium 3 gm/ Sodium Chloride) 112 mls @ 150 mls/hr IV Q6 [facility] Last Admin: 05/10/18 06:43 Dose: 150 mls/hr Sodium Chloride () 250 mls @ 15 mls/hr IV .[id number] PRN PRN Reason: SALINE FLUSH Sodium Chloride () 500 mls @ 15 mls/hr IV .[id number] PRN PRN Reason: SALINE FLUSH Influenza Virus Vaccine Quadrival (Fluarix/Fluzone) 0.5 ml IM .ONCE ONE Stop: 05/10/18 10:01 Last Admin: 05/10/18 09:04 Dose: 0.5 ml Ketorolac Tromethamine (Toradol) 15 mg IV Q8H PRN PRN Reason: PAIN Stop: 05/14/18 09:31 Magnesium Hydroxide (Milk Of Magnesia) 30 ml PO DAILY PRN PRN PRN Reason: Constipation Methylprednisolone (Solu-Medrol) 40 mg IV Q8 [facility] Last Admin: 05/10/18 06:42 Dose: 40 mg Metoprolol Tartrate (Lopressor (Beta Sriram)) 12.5 mg PO BID [facility] Last Admin: 05/10/18 09:02 Dose: 12.5 mg Promethazine HCl (Phenergan) 6.25 mg IV Q6H PRN PRN PRN Reason: NAUSEA/VOMITING Sodium Chloride () 5 - 15 ml IV UD PRN PRN Reason: SALINE FLUSH Last Admin: 05/09/18 21:21 Dose: 10 ml Medical Necessity - Tobacco Use Smoking Status: Former smoker Assessment/Plan This is a 72 y/o with reported PMHx of COPD, history of tubular adenoma of the rectosigmoid colon who had laparoscopic cholecystectomy for chronic cholecystitis/cholelithiasis on 05/08/2018 1. Acute hypoxic respiratory failure likely secondary to aspiration pneumonitis, possible COPD exacerbation History of COPD. Patient was intubated and then extubated on 05/09/2018. Discussed with industrial therapist Walking pulse oximetry noted. 86% on room air on walking and 91% requires 2 L of oxygen. At rest, 89% on room air Antibiotics Unasyn changed to oral Augmentin and Solu-Medrol changed to prednisone. On Mucinex. 2. Aspiration pneumonitis/pneumonia, multifocal/multilobar in the right middle lobe and left upper lobe status post laparoscopic cholecystectomy. 3. Possible COPD exacerbation, known history of COPD, continue IV steroids and breathing treatments 4. status post laparoscopic cholecystectomy on 05/08/2018 for chronic cholecystitis and cholelithiasis NG tube was removed. Started on clear liquid. Clinically, follow-up for flatus passage/bowel sound 5. DVT PPX - Lovenox 6. GI PPx- famotidine IV BID Possible discharge tomorrow morning Clinical Impression(s) from Imaging Studies Cholangiogram 05/08/18 09:00 IMPRESSION: No demonstrated retained common bile duct stone or bile duct obstruction. Chest X-Ray 05/08/18 11:08 IMPRESSION: Diffuse airspace opacifications throughout the visualized right lung field and left upper lobe suspicious for infiltrates though pulmonary edema can have a similar appearance. ET tube tip 2 cm above the fozia Chest X-Ray 05/09/18 05:55 IMPRESSION: Improvement of right lung consolidation. Remaining area of consolidation is in the right midlung field. The left lung is clear.
--- NOTE | 2018-05-10 09:24 | PN_ITS ---
Subjective: Patient is still has cough and needs oxygen. No fever. Walking pulse oximetry was done. She passed flatus and had bowel movement. Vitals/I&O's: Vital Signs Temp Pulse Resp BP Pulse Ox 98.3 F 95 16 137/67 H 89 05/10/18 08:02 05/10/18 09:02 05/10/18 08:02 05/10/18 08:02 05/10/18 08:49 Oxygen Flow Rate (L/min) [ 2 AMBULATION with Oxygen] Oxygen Flow Rate (L/min) [ 0 AMBULATING on Room Air] Oxygen Flow Rate (L/min) [At 0 REST on Room Air] Oxygen Flow Rate (L/min) 2 Oxygen Delivery Method Nasal Cannula Weight: 173 lb 1.006 oz Body Mass Index (BMI) 30.9 Intake and Output for Last 24 Hours 05/08/18 05/09/18 05/10/18 23:59 23:59 23:59 Intake Total 2634 / 2634 3898.3 / 3898.3 679 / 679 Output Total 200 / 200 700 / 700 Balance 2434 / 2434 3198.3 / 3198.3 679 / 679 General: Alert, Oriented x3, Cooperative HEENT: Atraumatic, PERRLA, EOMI, Normocephalic Neck: Supple, No JVD, Negative Carotid Bruits Lungs: Diminished, Rhonchi, Short of Breath Cardiovascular: Regular rate, Regular Rhythm, Normal S1, Normal S2, No murmurs Abdomen: Bowel Sounds Present, Soft, Non Tender, Non-Distended Extremities: No edema, Capillary Refill Less than 3 Seconds Skin: No rashes, No breakdown Musculoskeletal: No Tenderness to Palpation of Joints or Extremities, Arthritic Changes, Muscle Wasting Neurological: Cranial nerves II-XII grossly intact, Deep Tendon Reflexes 2+/4 and Symmetrical, Neuro grossly intact Psych/Mental Status: Normal Affect, Appropriate Microbiology Past 72 Hours 05/08/18 13:00 Sputum, Induced/Lukens Gram Stain - Final 05/08/18 13:00 Sputum, Induced/Lukens Respiratory Culture - Preliminary Culture exhibits no growth. Laboratory Results 05/10/18 06:30: WBC 18.3 H, RBC 4.24, Hgb 12.1, Hct 37.8, MCV 89.2, MCH 28.5, MCHC 32.0, RDW 14.5, RDW Differential 47.5 H, Plt Count 259, MPV 9.5, Immature Gran % (Auto) 0.300, Neut % (Auto) 86.1 H, Lymph % (Auto) 8.2 L, [place] % (Auto) 5.4, Eos % (Auto) 0.0, Baso % (Auto) 0.0, Absolute Neuts (auto) 15.7 H, Absolute Lymphs (auto) 1.49, Total Counted Not Reportable 05/10/18 06:30: Sodium 142, Potassium 4.1, Chloride 112 H, Carbon Dioxide 29.0, Anion Gap 1 L, BUN 23 H, Creatinine 0.48 L, Estim Creat Clear Calc 40.81, Est GFR (MDRD) Af Amer 163, Est GFR (MDRD) Non-Af 135, BUN/Creatinine Ratio 47.8 H, Glucose 119 H, Calcium 7.6 L Current Medications Acetaminophen (Tylenol) 650 mg RECTAL Q6H PRN PRN PRN Reason: FEVER Albuterol/Ipratropium (Duoneb) 3 ml INHALATION Q4HWA.RT [facility] Last Admin: 05/10/18 07:11 Dose: 3 ml Aspirin (Aspirin, Baby) 81 mg PO DAILY@0800 [facility] Last Admin: 05/10/18 09:02 Dose: 81 mg Atorvastatin Calcium (Lipitor) 20 mg PO QHS [facility] Last Admin: 05/09/18 21:21 Dose: 20 mg Bisacodyl (Dulcolax) 10 mg RECTAL DAILY [facility] Last Admin: 05/10/18 08:16 Dose: Not Given Enoxaparin Sodium (Lovenox) 40 mg SC DAILY@0600 [facility] Last Admin: 05/10/18 06:42 Dose: 40 mg Famotidine (Pepcid) 20 mg PO BID [facility] Last Admin: 05/10/18 09:02 Dose: 20 mg Ampicillin Sodium/Sulbactam (Sodium 3 gm/ Sodium Chloride) 112 mls @ 150 mls/hr IV Q6 [facility] Last Admin: 05/10/18 06:43 Dose: 150 mls/hr Sodium Chloride () 250 mls @ 15 mls/hr IV .[id number] PRN PRN Reason: SALINE FLUSH Sodium Chloride () 500 mls @ 15 mls/hr IV .[id number] PRN PRN Reason: SALINE FLUSH Influenza Virus Vaccine Quadrival (Fluarix/Fluzone) 0.5 ml IM .ONCE ONE Stop: 05/10/18 10:01 Last Admin: 05/10/18 09:04 Dose: 0.5 ml Ketorolac Tromethamine (Toradol) 15 mg IV Q8H PRN PRN Reason: PAIN Stop: 05/14/18 09:31 Magnesium Hydroxide (Milk Of Magnesia) 30 ml PO DAILY PRN PRN PRN Reason: Constipation Methylprednisolone (Solu-Medrol) 40 mg IV Q8 [facility] Last Admin: 05/10/18 06:42 Dose: 40 mg Metoprolol Tartrate (Lopressor (Beta Sriram)) 12.5 mg PO BID [facility] Last Admin: 05/10/18 09:02 Dose: 12.5 mg Promethazine HCl (Phenergan) 6.25 mg IV Q6H PRN PRN PRN Reason: NAUSEA/VOMITING Sodium Chloride () 5 - 15 ml IV UD PRN PRN Reason: SALINE FLUSH Last Admin: 05/09/18 21:21 Dose: 10 ml Medical Necessity - Tobacco Use Smoking Status: Former smoker Assessment/Plan This is a 72 y/o with reported PMHx of COPD, history of tubular adenoma of the rectosigmoid colon who had laparoscopic cholecystectomy for chronic cholecystitis/cholelithiasis on 05/08/2018 1. Acute hypoxic respiratory failure likely secondary to aspiration pneumonitis, possible COPD exacerbation History of COPD. Patient was intubated and then extubated on 05/09/2018. Discussed with wood caulker Walking pulse oximetry noted. 86% on room air on walking and 91% requires 2 L of oxygen. At rest, 89% on room air Antibiotics Unasyn changed to oral Augmentin and Solu-Medrol changed to prednisone. On Mucinex. 2. Aspiration pneumonitis/pneumonia, multifocal/multilobar in the right middle lobe and left upper lobe status post laparoscopic cholecystectomy. 3. Possible COPD exacerbation, known history of COPD, continue IV steroids and breathing treatments 4. status post laparoscopic cholecystectomy on 05/08/2018 for chronic ch olecystitis and cholelithiasis NG tube was removed. Started on clear liquid. Clinically, follow-up for flatus passage/bowel sound 5. DVT PPX - Lovenox 6. GI PPx- famotidine IV BID Possible discharge tomorrow morning Clinical Impression(s) from Imaging Studies Cholangiogram 05/08/18 09:00 IMPRESSION: No demonstrated retained common bile duct stone or bile duct obstruction. Chest X-Ray 05/08/18 11:08 IMPRESSION: Diffuse airspace opacifications throughout the visualized right lung field and left upper lobe suspicious for infiltrates though pulmonary edema can have a similar appearance. ET tube tip 2 cm above the fozia Chest X-Ray 05/09/18 05:55 IMPRESSION: Improvement of right lung consolidation. Remaining area of consolidation is in the right midlung field. The left lung is clear.
--- NOTE | 2018-05-10 09:27 | PN.CARD_ITS ---
Subjectve: Patient seen and evaluated. Looks much better today sitting and eating breakfast Objective: Vital Signs Temp Pulse Resp BP Pulse Ox 98.3 F 95 16 137/67 H 89 05/10/18 08:02 05/10/18 09:02 05/10/18 08:02 05/10/18 08:02 05/10/18 08:49 Oxygen Flow Rate (L/min) [ 2 AMBULATION with Oxygen] Oxygen Flow Rate (L/min) [ 0 AMBULATING on Room Air] Oxygen Flow Rate (L/min) [At 0 REST on Room Air] Oxygen Flow Rate (L/min) 2 Oxygen Delivery Method Nasal Cannula Weight: 173 lb 1.006 oz Body Mass Index (BMI) 30.9 Intake and Output for Last 24 Hours 05/08/18 05/09/18 05/10/18 23:59 23:59 23:59 Intake Total 2634 / 2634 3898.3 / 3898.3 679 / 679 Output Total 200 / 200 700 / 700 Balance 2434 / 2434 3198.3 / 3198.3 679 / 679 General: Awake, Alert, Oriented x 3 HEENT: PERRL, EOMI, Sclera Non Icteric Neck: Supple, Good ROM, No Lymph Node Enlargement Lungs: Diminished Mihir Bases Cardiovascular: Regular Rhythm, Normal S1, Normal S2, No Murmurs, No Rubs, No Gallops Vascular: No Carotid Bruits, Normal Femoral Pulses, Normal Radial Pulses, Normal Dorsalis Pedal Pulse, Normal Posterior Tibial Pulses Abdomen: Bowel Sounds Present, Soft, Non Tender, No HSM, No Organomegaly Extremities: No Cyanosis, No Clubbing, No edema Musculoskeletal: No Erythema Skin: No Rashes Lymphatic: No Lymph Node Enlargement Neurological: No Focal Motor or Sensory Deficit Psych/Mental Status: Appropriate 05/10/18 06:30: WBC 18.3 H, RBC 4.24, Hgb 12.1, Hct 37.8, MCV 89.2, MCH 28.5, MCHC 32.0, RDW 14.5, RDW Differential 47.5 H, Plt Count 259, MPV 9.5, Immature Gran % (Auto) 0.300, Neut % (Auto) 86.1 H, Lymph % (Auto) 8.2 L, [place] % (Auto) 5.4, Eos % (Auto) 0.0, Baso % (Auto) 0.0, Absolute Neuts (auto) 15.7 H, Total Counted Not Reportable 05/10/18 06:30: Sodium 142, Potassium 4.1, Chloride 112 H, Carbon Dioxide 29.0, Anion Gap 1 L, BUN 23 H, Creatinine 0.48 L, Est GFR (MDRD) Af Amer 163, Est GFR (MDRD) Non-Af 135, BUN/Creatinine Ratio 47.8 H, Glucose 119 H, Calcium 7.6 L Rhythm: EKG: ECHO: Stress Test: Cardiac Cath: PCI: CT Surgery: Holter monitor: EPS: PPM: CXR: Chest CT Scan: Medical Necessity - Tobacco Use Smoking Status: Former smoker Assessment/Plan 1. Non-ST elevation myocardial infarction * Patient appears to have had an acute respiratory acidosis and aspiration pneumonia post surgery. This likely resulted in demand ischemia and a non-ST elevation myocardial infarction. * Recommendation at this time will be to treat her conservatively * Aspirin * Statins * Low-dose beta-noelle which will be increased today * Will consider Plavix prior to discharge and likely outpatient cardiac catheterization. At this time it does not appear that a stress test will be useful as patient has already declared that she likely has underlying coronary artery disease. * Her echocardiogram done today demonstrates preserved left ventricular systolic function with concentric left ventricular hypertrophy. * * She will be seen as an outpatient and further recommendations made. * Thank you for allowing me to participate in the care of your patient. Please don't hesitate to call if any issues arise
--- NOTE | 2018-05-10 09:40 | PN.SURG_ITS ---
Subjective: Patient doing remarkably well this morning. She sitting up into a chair she tolerated her diet but stated that it was not very tasty. Objective: Abdomen is soft nondistended nontender except for incisional sites dressings are dry. - Physical Exam Vital Signs Temp Pulse Resp BP Pulse Ox 98.3 F 95 16 137/67 H 89 05/10/18 08:02 05/10/18 09:02 05/10/18 08:02 05/10/18 08:02 05/10/18 08:49 Oxygen Flow Rate (L/min) [ 2 AMBULATION with Oxygen] Oxygen Flow Rate (L/min) [ 0 AMBULATING on Room Air] Oxygen Flow Rate (L/min) [At 0 REST on Room Air] Oxygen Flow Rate (L/min) 2 Oxygen Delivery Method Nasal Cannula Weight: 173 lb 1.006 oz Body Mass Index (BMI) 30.9 Intake and Output for Last 24 Hours 05/08/18 05/09/18 05/10/18 23:59 23:59 23:59 Intake Total 2634 / 2634 3898.3 / 3898.3 679 / 679 Output Total 200 / 200 700 / 700 Balance 2434 / 2434 3198.3 / 3198.3 679 / 679 Microbiology Past 72 Hours 05/08/18 13:00 Gram Stain - Final Sputum, Induced/Lukens Respiratory Culture - Preliminary Culture exhibits no growth. Laboratory Tests Past 24 Hrs 05/10/18 05/10/18 06:30 06:30 WBC 18.3 H RBC 4.24 Hgb 12.1 Hct 37.8 MCV 89.2 MCH 28.5 MCHC 32.0 RDW 14.5 RDW Differential 47.5 H Plt Count 259 MPV 9.5 Immature Gran % (Auto) 0.300 Neut % (Auto) 86.1 H Lymph % (Auto) 8.2 L [place] % (Auto) 5.4 Eos % (Auto) 0.0 Baso % (Auto) 0.0 Absolute Neuts (auto) 15.7 H Absolute Lymphs (auto) 1.49 Total Counted Not Reportable Sodium 142 Potassium 4.1 Chloride 112 H Carbon Dioxide 29.0 Anion Gap 1 L BUN 23 H Creatinine 0.48 L Estim Creat Clear Calc 40.81 Est GFR (MDRD) Af Amer 163 Est GFR (MDRD) Non-Af 135 BUN/Creatinine Ratio 47.8 H Glucose 119 H Calcium 7.6 L Medical Necessity - Tobacco Use Smoking Status: Former smoker Assessment/Plan Postoperative day #2 Son was in with the patient today he asked me questions regarding her lungs and her heart status. I informed him that Dr. Goldstein and Dr. Broussard would be better appropriate to answer these questions. Currently the patient does have some wheezing which they are trying to correct with aerosols and trying to wean her down from oxygen as best they can. Overall significant improvement in the patient however she is not ready for discharge yet.
[2018-05-10] MEDS: Amox/Clavulanate 875 MG Tablet PO ×2 (10:34→21:00)
[2018-05-10] MEDS: guaiFENesin 1,200 MG Tablet 1200 MG PO ×2 (10:34→21:00)
[2018-05-10] MEDS: Metoprolol Tartrate 25 MG Tablet PO ×2 (10:34→21:00)
[2018-05-10] MEDS: Clopidogrel Bisulfate 75 MG Tablet PO (10:35)
[2018-05-10] MEDS: Atorvastatin Calcium 20 MG Tablet PO (21:00)
[2018-05-11] VITALS (13 sets, daily range): BP systolic 117–156; BP diastolic 65–84; PULSE 77–97; RESP 16–28; TEMP 36.6–37.3; O2SAT 87–94
[2018-05-11] MEDS: Ipratropium/Albuterol Sulfate 3 ML AMPUL.NEB INHALATION ×3 (05:23→14:32)
--- NOTE | 2018-05-11 06:31 | PN.SURG_ITS ---
Subjective: Pt denies abdominal pain Loose stools - Physical Exam Lungs: Tachypneic Abdomen: Bowel Sounds Present - wounds clean, Soft, Non Tender Vital Signs Temp Pulse Resp BP Pulse Ox 97.8 F 88 24 H 138/81 H 94 05/11/18 01:40 05/11/18 05:23 05/11/18 05:23 05/11/18 01:40 05/11/18 01:40 Oxygen Flow Rate (L/min) [ 2 AMBULATION with Oxygen] Oxygen Flow Rate (L/min) [ 0 AMBULATING on Room Air] Oxygen Flow Rate (L/min) [At 0 REST on Room Air] Oxygen Flow Rate (L/min) 2 Oxygen Delivery Method Nasal Cannula Weight: 170 lb 3.15 oz Body Mass Index (BMI) 30.9 Intake and Output for Last 24 Hours 05/09/18 05/10/18 05/11/18 23:59 23:59 23:59 Intake Total 3898.3 / 3898.3 679 / 679 240 / 240 Output Total 700 / 700 Balance 3198.3 / 3198.3 679 / 679 240 / 240 Microbiology Past 72 Hours 05/08/18 13:00 Gram Stain - Final Sputum, Induced/Lukens Respiratory Culture - Preliminary GNR Poss Pseudomonas sp Laboratory Tests Past 24 Hrs 05/10/18 05/10/18 06:30 06:30 WBC 18.3 H RBC 4.24 Hgb 12.1 Hct 37.8 MCV 89.2 MCH 28.5 MCHC 32.0 RDW 14.5 RDW Differential 47.5 H Plt Count 259 MPV 9.5 Immature Gran % (Auto) 0.300 Neut % (Auto) 86.1 H Lymph % (Auto) 8.2 L [place] % (Auto) 5.4 Eos % (Auto) 0.0 Baso % (Auto) 0.0 Absolute Neuts (auto) 15.7 H Absolute Lymphs (auto) 1.49 Total Counted Not Reportable Sodium 142 Potassium 4.1 Chloride 112 H Carbon Dioxide 29.0 Anion Gap 1 L BUN 23 H Creatinine 0.48 L Estim Creat Clear Calc 40.81 Est GFR (MDRD) Af Amer 163 Est GFR (MDRD) Non-Af 135 BUN/Creatinine Ratio 47.8 H Glucose 119 H Calcium 7.6 L Medical Necessity - Tobacco Use Smoking Status: Former smoker Assessment/Plan Ongoing medical management
[2018-05-11] MEDS: Enoxaparin 40 MG/0.4 ML Syringe SC (06:42)
--- NOTE | 2018-05-11 06:55 | PCM.PROGNOTE ---
Subjective: The patient was seen and examined at the bedside this morning. Events from the last 24 hours have been reviewed. The patient is currently afebrile, hemodynamically stable and maintaining appropriate oxygen saturations on 2 L/min via nasal cannula. Objective: The patient's most recent lab work, culture data and imaging studies have all been personally reviewed. C. difficile was pending. Blood cultures have revealed no growth to date. Sputum culture is currently growing a gram-negative bri. Surface echocardiogram dated May 09 revealed moderate concentric LVH with an ejection fraction of 65%. Pulmonary artery systolic pressure was estimated to be 30 mmHg. - Physical Exam General: Alert, Cooperative, No apparent distress HEENT: Atraumatic, PERRLA, Normocephalic Oral: No Gingival or Mucosal Lesions/ Ulcerations Neck: Supple, No Nodes, Trachea Midline Lungs: No rhonchi, No wheeze, Diminished, Rales Cardiovascular: Regular rate, Regular Rhythm, Normal S1, Normal S2, No murmurs Abdomen: Bowel Sounds Present, Soft, Non Tender, Obese Extremities: No clubbing, No cyanosis, No edema Skin: Incision - C/D/I Musculoskeletal: No Tenderness to Palpation of Joints or Extremities Lymphatic: No Cervical, Supraclavicular, or Inguinal Adenopathy Neurological: Neuro grossly intact Psych/Mental Status: Normal Affect, Appropriate Vital Signs Temp Pulse Resp BP Pulse Ox 36.8 C 90 20 H 156/72 H 94 05/11/18 06:50 05/11/18 06:50 05/11/18 06:50 05/11/18 06:50 05/11/18 06:50 Oxygen Flow Rate (L/min) [ 2 AMBULATION with Oxygen] Oxygen Flow Rate (L/min) [ 0 AMBULATING on Room Air] Oxygen Flow Rate (L/min) [At 0 REST on Room Air] Oxygen Flow Rate (L/min) 2 Oxygen Delivery Method Nasal Cannula Weight: 170 lb 3.15 oz Body Mass Index (BMI) 30.9 Intake and Output for Last 24 Hours 05/09/18 05/10/18 05/11/18 23:59 23:59 23:59 Intake Total 3898.3 / 3898.3 679 / 679 480 / 480 Output Total 700 / 700 Balance 3198.3 / 3198.3 679 / 679 480 / 480 Microbiology Past 72 Hours 05/08/18 13:00 Gram Stain - Final Sputum, Induced/Lukens Respiratory Culture - Preliminary GNR Poss Pseudomonas sp Laboratory Tests Past 24 Hrs 05/10/18 05/10/18 06:30 06:30 WBC 18.3 H RBC 4.24 Hgb 12.1 Hct 37.8 MCV 89.2 MCH 28.5 MCHC 32.0 RDW 14.5 RDW Differential 47.5 H Plt Count 259 MPV 9.5 Immature Gran % (Auto) 0.300 Neut % (Auto) 86.1 H Lymph % (Auto) 8.2 L [place] % (Auto) 5.4 Eos % (Auto) 0.0 Baso % (Auto) 0.0 Absolute Neuts (auto) 15.7 H Absolute Lymphs (auto) 1.49 Total Counted Not Reportable Sodium 142 Potassium 4.1 Chloride 112 H Carbon Dioxide 29.0 Anion Gap 1 L BUN 23 H Creatinine 0.48 L Estim Creat Clear Calc 40.81 Est GFR (MDRD) Af Amer 163 Est GFR (MDRD) Non-Af 135 BUN/Creatinine Ratio 47.8 H Glucose 119 H Calcium 7.6 L Clinical Impression(s) from Imaging Studies Cholangiogram 05/08/18 09:00 IMPRESSION: No demonstrated retained common bile duct stone or bile duct obstruction. Electronically Signed: Boris Navarrete MD at 19:57 EDT , Service support , Chest X-Ray 05/08/18 11:08 IMPRESSION: Diffuse airspace opacifications throughout the visualized right lung field and left upper lobe suspicious for infiltrates though pulmonary edema can have a similar appearance. ET tube tip 2 cm above the fozia Electronically Signed: Boris Musa MD at 11:50 EDT , Service support , KUB X-Ray 05/08/18 12:15 IMPRESSION: NG tube tip in the body the stomach Electronically Signed: Boris Musa MD at 12:42 EDT , Service support , Chest X-Ray 05/09/18 05:55 IMPRESSION: Improvement of right lung consolidation. Remaining area of consolidation is in the right midlung field. The left lung is clear. Electronically Signed: Lawson Kitchen MD at 5:26 EDT Tel , Service support , Medical Necessity - Tobacco Use Smoking Status: Former smoker Assessment/Plan RECOMMENDATIONS: 1. Continue aggressive bronchopulmonary hygiene. 2. Wean supplemental oxygen to maintain saturations at or above 90%. 3. Continue antibiotics with plans to complete a 7-day treatment course. 4. Continue bronchodilators. 5. Continue prednisone with plans for a prolonged taper at discharge. 6. Perform walking oximetry study prior to consideration for discharge from the hospital. 7. Recommend outpatient pulmonary follow-up within 2 weeks of discharge from the hospital. IMPRESSIONS: 1. Acute combined respiratory failure Likely secondary to underlying gram-negative pneumonia. Recommend continuing antibiotics to complete a 7-day treatment course. Continue bronchodilators as ordered. Would recommend weaning the patient's prednisone by 10 mg every 3 days. Continue to wean supplemental oxygen to maintain saturations at or above 90%. Encourage incentive spirometer use and mobilize patient as tolerated. Perform walking oximetry study prior to consideration for discharge home. I would recommend that the patient follow-up in the pulmonary medicine clinic within 2 weeks of her discharge from the hospital. 2. Self-reported history of COPD of unknown severity Continue scheduled bronchodilators and steroids as above. Recommend outpatient pulmonary follow-up, along with baseline pulmonary function testing. 3. Cholelithiasis with chronic cholecystitis status post cholecystostomy Continue routine postoperative care. 4. Elevated troponin/NSTEMI Cardiology is currently following. Continue medical management per recommendations. This note was generated with [employer] dictation software. It may contain incorrect words, spelling, and punctuation that were not noted in checking the note before signing. Code Visit Inpatient E&M: 94938 Subs Hosp L2
--- NOTE | 2018-05-11 07:00 | PN_ITS ---
Subjective: The patient was seen and examined at the bedside this morning. Events from the last 24 hours have been reviewed. The patient is currently afebrile, hemodynamically stable and maintaining appropriate oxygen saturations on 2 L/min via nasal cannula. Objective: The patient's most recent lab work, culture data and imaging studies have all been personally reviewed. C. difficile was pending. Blood cultures have revealed no growth to date. Sputum culture is currently growing a gram-negative bri. Surface echocardiogram dated May 09 revealed moderate concentric LVH with an ejection fraction of 65%. Pulmonary artery systolic pressure was estimated to be 30 mmHg. - Physical Exam General: Alert, Cooperative, No apparent distress HEENT: Atraumatic, PERRLA, Normocephalic Oral: No Gingival or Mucosal Lesions/ Ulcerations Neck: Supple, No Nodes, Trachea Midline Lungs: No rhonchi, No wheeze, Diminished, Rales Cardiovascular: Regular rate, Regular Rhythm, Normal S1, Normal S2, No murmurs Abdomen: Bowel Sounds Present, Soft, Non Tender, Obese Extremities: No clubbing, No cyanosis, No edema Skin: Incision - C/D/I Musculoskeletal: No Tenderness to Palpation of Joints or Extremities Lymphatic: No Cervical, Supraclavicular, or Inguinal Adenopathy Neurological: Neuro grossly intact Psych/Mental Status: Normal Affect, Appropriate Vital Signs Temp Pulse Resp BP Pulse Ox 36.8 C 90 20 H 156/72 H 94 05/11/18 06:50 05/11/18 06:50 05/11/18 06:50 05/11/18 06:50 05/11/18 06:50 Oxygen Flow Rate (L/min) [ 2 AMBULATION with Oxygen] Oxygen Flow Rate (L/min) [ 0 AMBULATING on Room Air] Oxygen Flow Rate (L/min) [At 0 REST on Room Air] Oxygen Flow Rate (L/min) 2 Oxygen Delivery Method Nasal Cannula Weight: 170 lb 3.15 oz Body Mass Index (BMI) 30.9 Intake and Output for Last 24 Hours 05/09/18 05/10/18 05/11/18 23:59 23:59 23:59 Intake Total 3898.3 / 3898.3 679 / 679 480 / 480 Output Total 700 / 700 Balance 3198.3 / 3198.3 679 / 679 480 / 480 Microbiology Past 72 Hours 05/08/18 13:00 Gram Stain - Final Sputum, Induced/Lukens Respiratory Culture - Preliminary GNR Poss Pseudomonas sp Laboratory Tests Past 24 Hrs 05/10/18 05/10/18 06:30 06:30 WBC 18.3 H RBC 4.24 Hgb 12.1 Hct 37.8 MCV 89.2 MCH 28.5 MCHC 32.0 RDW 14.5 RDW Differential 47.5 H Plt Count 259 MPV 9.5 Immature Gran % (Auto) 0.300 Neut % (Auto) 86.1 H Lymph % (Auto) 8.2 L [place] % (Auto) 5.4 Eos % (Auto) 0.0 Baso % (Auto) 0.0 Absolute Neuts (auto) 15.7 H Absolute Lymphs (auto) 1.49 Total Counted Not Reportable Sodium 142 Potassium 4.1 Chloride 112 H Carbon Dioxide 29.0 Anion Gap 1 L BUN 23 H Creatinine 0.48 L Estim Creat Clear Calc 40.81 Est GFR (MDRD) Af Amer 163 Est GFR (MDRD) Non-Af 135 BUN/Creatinine Ratio 47.8 H Glucose 119 H Calcium 7.6 L Clinical Impression(s) from Imaging Studies Cholangiogram 05/08/18 09:00 IMPRESSION: No demonstrated retained common bile duct stone or bile duct obstruction. Electronically Signed: Boris Navarrete MD at 19:57 EDT , Service support , Chest X-Ray 05/08/18 11:08 IMPRESSION: Diffuse airspace opacifications throughout the visualized right lung field and left upper lobe suspicious for infiltrates though pulmonary edema can have a similar appearance. ET tube tip 2 cm above the fozia Electronically Signed: Boris Musa MD at 11:50 EDT , Service support , KUB X-Ray 05/08/18 12:15 IMPRESSION: NG tube tip in the body the stomach Electronically Signed: Boris Musa MD at 12:42 EDT , Service support , Chest X-Ray 05/09/18 05:55 IMPRESSION: Improvement of right lung consolidation. Remaining area of consolidation is in the right midlung field. The left lung is clear. Electronically Signed: Lawson Kitchen MD at 5:26 EDT Tel , Service support , Medical Necessity - Tobacco Use Smoking Status: Former smoker Assessment/Plan RECOMMENDATIONS: 1. Continue aggressive bronchopulmonary hygiene. 2. Wean supplemental oxygen to maintain saturations at or above 90%. 3. Continue antibiotics with plans to complete a 7-day treatment course. 4. Continue bronchodilators. 5. Continue prednisone with plans for a prolonged taper at discharge. 6. Perform walking oximetry study prior to consideration for discharge from the hospital. 7. Recommend outpatient pulmonary follow-up within 2 weeks of discharge from the hospital. IMPRESSIONS: 1. Acute combined respiratory failure Likely secondary to underlying gram-negative pneumonia. Recommend continuing antibiotics to complete a 7-day treatment course. Continue bronchodilators as ordered. Would recommend weaning the patient's prednisone by 10 mg every 3 days. Continue to wean supplemental oxygen to maintain saturations at or above 90%. Encourage incentive spirometer use and mobilize patient as tolerated. Perform walking oximetry study prior to consideration for discharge home. I would recommend that the patient follow-up in the pulmonary medicine clinic within 2 weeks of her discharge from the hospital. 2. Self-reported history of COPD of unknown severity Continue scheduled bronchodilators and steroids as above. Recommend outpatient pulmonary follow-up, along with baseline pulmonary function testing. 3. Cholelithiasis with chronic cholecystitis status post cholecystostomy Continue routine postoperative care. 4. Elevated troponin/NSTEMI Cardiology is currently following. Continue medical management per recommenda tions. This note was generated with [employer] dictation software. It may contain incorrect words, spelling, and punctuation that were not noted in checking the note before signing. Code Visit Inpatient E&M: 70186 Subs Hosp L2
[2018-05-11] MEDS: predniSONE 20 MG Tablet 40 MG PO (08:58)
[2018-05-11] MEDS: Aspirin 81 MG TAB.CHEW PO (08:58)
[2018-05-11] MEDS: Amox/Clavulanate 875 MG Tablet PO (09:00)
[2018-05-11] MEDS: Famotidine 20 MG Tablet PO (09:00)
[2018-05-11] MEDS: guaiFENesin 1,200 MG Tablet 1200 MG PO (09:00)
[2018-05-11] MEDS: Clopidogrel Bisulfate 75 MG Tablet PO (09:00)
[2018-05-11] MEDS: Metoprolol Tartrate 25 MG Tablet PO (09:02)
--- NOTE | 2018-05-11 09:30 | CASEMGMT ---
SW spoke with patient's son and daughter per their request. They spoke with SW in the hallway. They are concerned with patient's living conditions. Her home is not clean, she has 8-9 cats. They have been trying to get patient to move into patient's daughter's home. She has an apartment attached to her home. Patient would have privacy, but she will not move. SW told them that patient is alert and oriented and she has the right to live the way she wants and where she wants. SW empathized with them that this can be frustrating. SW understands they just want what is best for their mom and they are concerned about her. SW told them staff here could encourage patient to stay with her daughter for a little while since she just had surgery. They thanked SW for listening. Fouzia ZUNIGA
--- NOTE | 2018-05-11 11:30 | CASEMGMT ---
RN WILFREDO BOAT WRAPPER CM to room to meet with patient for initial transition planning/care coordination assessment. SINDI VILLALOBOS introduced self and role at [facility]. Pt voices understanding and consents to assessment at this time. Pt sitting up in chair in no distress at this time. Son sitting beside her. Pt is A/O at this time and answers all questions appropriately. Care providers, pharmacy, and demographics verified/updated at this time. PCP: Sudhir Specialists: None current. Preferred Pharmacy: [facility] Insurance: [place], [employer] Prescription Benefit: Pt unsure if she has prescription coverage. Call placed to [facility]. They stated they do not have any records/info indicating that she has prescription coverage. Pt made aware. is concerned about her [id number] cost for medications. Will notify SW. Living Will/HPOA: States does not have LW or HCPOA . Interested in more information but states does not want to talk with SW at this time to complete paperwork. Provided information on advanced directives and given Social Service rac card with number to call if chooses in the future to utilize [facility] social work for advanced directive completion. Educated patient that, if patient so chooses, can come back to [facility] and meet with a SW as an outpatient to complete health care advanced directives. Patient expresses understanding. LNOK: SonCarrington. Daughter, Jacquelin Living Arrangements: Lives alone in 2-story home. [employer]. 3 steps to enter home. States is independent @ home. 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 Transportation: Pt states drives self and states no transportation concerns at this time. DME: Denies using any DME and denies needs. Has a cane available if she would need it. Denies having Home O2, nebulizer, BIPAP/CPAP. States no preference of DME company. Will need Home Oxygen qualification testing completed prior to d/c. HHC/SNF: Has never used HHC or been to a SNF. Pt states may be interested in HHC. Discussed HHC and MCR criteria for being homebound. Pt is currently not homebound. Discussed Out-pt therapy and pt is agreeable. States prefers [facility]. Script obtained from Dr Canales and faxed to [facility] @ [phone]. Pt states concern of cost of therapy and advised her to contact [facility] to discuss upt-if-[id number] cost. Provided pt with their phone number: [phone]. Pt states she will make her own appts. Pt wishes to return home and states has no concerns with going home at time of discharge. Pt states does not currently smoke or drink ETOH. States used to smoke but quit about 4 yrs ago. CM to follow for home oxygen needs and any further discharge planning/needs. Pt voices no further concerns/needs at this time. Advised pt to ask for CM if any further questions/concerns/needs arise. Voices understanding. Referral made to [facility] Fragoso, re: pt's financial concerns and [id number] cost of medications. PLAN: Home with out-pt therapy: PT/OT. May need Home O2. Florence VILLARREAL RN CM
--- NOTE | 2018-05-11 11:33 | PCM.PN.HOSP ---
Subjective: Patient had 3 loose bowel movements last night and one today. Patient is on Levaquin. C. difficile is ordered. Patient is still on 2 L of oxygen. At rest, patient is not short of breath or tachypneic but on ambulation get short of breath and tachypneic Vitals/I&O's: Vital Signs Temp Pulse Resp BP Pulse Ox 98.8 F 92 17 117/74 94 05/11/18 09:03 05/11/18 09:03 05/11/18 09:03 05/11/18 09:03 05/11/18 09:03 Oxygen Flow Rate (L/min) [ 2 AMBULATION with Oxygen] Oxygen Flow Rate (L/min) [ 0 AMBULATING on Room Air] Oxygen Flow Rate (L/min) [At 0 REST on Room Air] Oxygen Flow Rate (L/min) 2 Oxygen Delivery Method Nasal Cannula Weight: 170 lb 3.15 oz Body Mass Index (BMI) 30.9 Intake and Output for Last 24 Hours 05/09/18 05/10/18 05/11/18 23:59 23:59 23:59 Intake Total 3898.3 / 3898.3 679 / 679 480 / 480 Output Total 700 / 700 Balance 3198.3 / 3198.3 679 / 679 480 / 480 General: Alert, Oriented x3, Cooperative HEENT: Atraumatic, PERRLA, EOMI, Normocephalic Neck: Supple, No JVD, Negative Carotid Bruits Lungs: Diminished - Air entry is diminished., Rhonchi Cardiovascular: Regular rate, Normal S1, Normal S2, No murmurs Abdomen: Bowel Sounds Present, Soft, Non Tender, Non-Distended Extremities: No edema, Capillary Refill Less than 3 Seconds Skin: No rashes, No breakdown Musculoskeletal: No Tenderness to Palpation of Joints or Extremities, Arthritic Changes Lymphatic: No Cervical, Supraclavicular, or Inguinal Adenopathy Neurological: Cranial nerves II-XII grossly intact, Deep Tendon Reflexes 2+/4 and Symmetrical, Neuro grossly intact, Motor Exam 5/5 strength throughout Psych/Mental Status: Normal Affect, Appropriate Microbiology Past 72 Hours 05/08/18 13:00 Sputum, Induced/Lukens Gram Stain - Final 05/08/18 13:00 Sputum, Induced/Lukens Respiratory Culture - Final Pseudomonas aeroginosa Current Medications Acetaminophen (Tylenol) 650 mg RECTAL Q6H PRN PRN PRN Reason: FEVER Albuterol/Ipratropium (Duoneb) 3 ml INHALATION Q4HWA.RT [facility] Last Admin: 05/11/18 10:42 Dose: 3 ml Aspirin (Aspirin, Baby) 81 mg PO DAILY@0800 [facility] Last Admin: 05/11/18 08:58 Dose: 81 mg Atorvastatin Calcium (Lipitor) 20 mg PO QHS [facility] Last Admin: 05/10/18 21:00 Dose: 20 mg Bisacodyl (Dulcolax) 10 mg RECTAL DAILY [facility] Last Admin: 05/11/18 08:56 Dose: Not Given Clopidogrel Bisulfate (Plavix) 75 mg PO DAILY [facility] Last Admin: 05/11/18 09:00 Dose: 75 mg Enoxaparin Sodium (Lovenox) 40 mg SC DAILY@0600 [facility] Last Admin: 05/11/18 06:42 Dose: 40 mg Famotidine (Pepcid) 20 mg PO BID [facility] Last Admin: 05/11/18 09:00 Dose: 20 mg Guaifenesin (Mucinex) 1,200 mg PO BID [facility] Last Admin: 05/11/18 09:00 Dose: 1,200 mg Sodium Chloride () 250 mls @ 15 mls/hr IV .[id number] PRN PRN Reason: SALINE FLUSH Sodium Chloride () 500 mls @ 15 mls/hr IV .[id number] PRN PRN Reason: SALINE FLUSH Ketorolac Tromethamine (Toradol) 15 mg IV Q8H PRN PRN Reason: PAIN Stop: 05/14/18 09:31 Levofloxacin (Levaquin Tablet) 500 mg PO DAILY@0600 [facility] Stop: 05/15/18 06:01 Magnesium Hydroxide (Milk Of Magnesia) 30 ml PO DAILY PRN PRN PRN Reason: Constipation Metoprolol Tartrate (Lopressor (Beta Sriram)) 25 mg PO BID [facility] Last Admin: 05/11/18 09:02 Dose: 25 mg Prednisone () 40 mg PO DAILY@0800 [facility] Last Admin: 05/11/18 08:58 Dose: 40 mg Promethazine HCl (Phenergan) 6.25 mg IV Q6H PRN PRN PRN Reason: NAUSEA/VOMITING Simethicone (Mylicon) 40 mg PO Q6H PRN PRN PRN Reason: BLOATING Last Admin: 05/11/18 03:09 Dose: 40 mg Sodium Chloride () 5 - 15 ml IV UD PRN PRN Reason: SALINE FLUSH Last Admin: 05/09/18 21:21 Dose: 10 ml Medical Necessity - Tobacco Use Smoking Status: Former smoker Assessment/Plan This is a 72 y/o with reported PMHx of COPD, history of tubular adenoma of the rectosigmoid colon who had laparoscopic cholecystectomy for chronic cholecystitis/cholelithiasis on 05/08/2018 1. Acute hypoxic respiratory failure likely secondary to aspiration pneumonitis, possible COPD exacerbation History of COPD. Patient was intubated and then extubated on 05/09/2018. Discussed with television parts tester Walking pulse oximetry noted. 86% on room air on walking and 91% requires 2 L of oxygen. At rest, 89% on room air 2. Aspiration pneumonitis/pneumonia, multifocal/multilobar in the right middle lobe and left upper lobe status post laparoscopic cholecystectomy. Sputum culture shows rare pseudomonas aeruginosa sensitive to Levaquin. Augmentin is discontinued and started on Levaquin. She will need a total of 7 days. 3. COPD exacerbation, known history of COPD, continue breathing treatments. On prednisone and Mucinex. 4. status post laparoscopic cholecystectomy on 05/08/2018 for chronic cholecystitis and cholelithiasis NG tube was removed. Diet was advanced to regular. 5. DVT PPX - Lovenox 6. GI PPx- famotidine IV BID Diarrhea with suspicion for possible C. difficile: C. difficile result which is pending. Clinical Impression(s) from Imaging Studies Cholangiogram 05/08/18 09:00 IMPRESSION: No demonstrated retained common bile duct stone or bile duct obstruction. Chest X-Ray 05/08/18 11:08 IMPRESSION: Diffuse airspace opacifications throughout the visualized right lung field and left upper lobe suspicious for infiltrates though pulmonary edema can have a similar appearance. ET tube tip 2 cm above the fozia Chest X-Ray 05/09/18 05:55 IMPRESSION: Improvement of right lung consolidation. Remaining area of consolidation is in the right midlung field. The left lung is clear. Microbiology Past 72 Hours 05/08/18 13:00 Sputum, Induced/Lukens Gram Stain - Final 05/08/18 13:00 Sputum, Induced/Lukens Respiratory Culture - Final Pseudomonas aeroginosa Code Visit Inpatient E&M: 02149 Subs Hosp L3
--- NOTE | 2018-05-11 11:40 | PN_ITS ---
Subjective: Patient had 3 loose bowel movements last night and one today. Patient is on Levaquin. C. difficile is ordered. Patient is still on 2 L of oxygen. At rest, patient is not short of breath or tachypneic but on ambulation get short of breath and tachypneic Vitals/I&O's: Vital Signs Temp Pulse Resp BP Pulse Ox 98.8 F 92 17 117/74 94 05/11/18 09:03 05/11/18 09:03 05/11/18 09:03 05/11/18 09:03 05/11/18 09:03 Oxygen Flow Rate (L/min) [ 2 AMBULATION with Oxygen] Oxygen Flow Rate (L/min) [ 0 AMBULATING on Room Air] Oxygen Flow Rate (L/min) [At 0 REST on Room Air] Oxygen Flow Rate (L/min) 2 Oxygen Delivery Method Nasal Cannula Weight: 170 lb 3.15 oz Body Mass Index (BMI) 30.9 Intake and Output for Last 24 Hours 05/09/18 05/10/18 05/11/18 23:59 23:59 23:59 Intake Total 3898.3 / 3898.3 679 / 679 480 / 480 Output Total 700 / 700 Balance 3198.3 / 3198.3 679 / 679 480 / 480 General: Alert, Oriented x3, Cooperative HEENT: Atraumatic, PERRLA, EOMI, Normocephalic Neck: Supple, No JVD, Negative Carotid Bruits Lungs: Diminished - Air entry is diminished., Rhonchi Cardiovascular: Regular rate, Normal S1, Normal S2, No murmurs Abdomen: Bowel Sounds Present, Soft, Non Tender, Non-Distended Extremities: No edema, Capillary Refill Less than 3 Seconds Skin: No rashes, No breakdown Musculoskeletal: No Tenderness to Palpation of Joints or Extremities, Arthritic Changes Lymphatic: No Cervical, Supraclavicular, or Inguinal Adenopathy Neurological: Cranial nerves II-XII grossly intact, Deep Tendon Reflexes 2+/4 and Symmetrical, Neuro grossly intact, Motor Exam 5/5 strength throughout Psych/Mental Status: Normal Affect, Appropriate Microbiology Past 72 Hours 05/08/18 13:00 Sputum, Induced/Lukens Gram Stain - Final 05/08/18 13:00 Sputum, Induced/Lukens Respiratory Culture - Final Pseudomonas aeroginosa Current Medications Acetaminophen (Tylenol) 650 mg RECTAL Q6H PRN PRN PRN Reason: FEVER Albuterol/Ipratropium (Duoneb) 3 ml INHALATION Q4HWA.RT [facility] Last Admin: 05/11/18 10:42 Dose: 3 ml Aspirin (Aspirin, Baby) 81 mg PO DAILY@0800 [facility] Last Admin: 05/11/18 08:58 Dose: 81 mg Atorvastatin Calcium (Lipitor) 20 mg PO QHS [facility] Last Admin: 05/10/18 21:00 Dose: 20 mg Bisacodyl (Dulcolax) 10 mg RECTAL DAILY [facility] Last Admin: 05/11/18 08:56 Dose: Not Given Clopidogrel Bisulfate (Plavix) 75 mg PO DAILY [facility] Last Admin: 05/11/18 09:00 Dose: 75 mg Enoxaparin Sodium (Lovenox) 40 mg SC DAILY@0600 [facility] Last Admin: 05/11/18 06:42 Dose: 40 mg Famotidine (Pepcid) 20 mg PO BID [facility] Last Admin: 05/11/18 09:00 Dose: 20 mg Guaifenesin (Mucinex) 1,200 mg PO BID [facility] Last Admin: 05/11/18 09:00 Dose: 1,200 mg Sodium Chloride () 250 mls @ 15 mls/hr IV .[id number] PRN PRN Reason: SALINE FLUSH Sodium Chloride () 500 mls @ 15 mls/hr IV .[id number] PRN PRN Reason: SALINE FLUSH Ketorolac Tromethamine (Toradol) 15 mg IV Q8H PRN PRN Reason: PAIN Stop: 05/14/18 09:31 Levofloxacin (Levaquin Tablet) 500 mg PO DAILY@0600 [facility] Stop: 05/15/18 06:01 Magnesium Hydroxide (Milk Of Magnesia) 30 ml PO DAILY PRN PRN PRN Reason: Constipation Metoprolol Tartrate (Lopressor (Beta Sriram)) 25 mg PO BID [facility] Last Admin: 05/11/18 09:02 Dose: 25 mg Prednisone () 40 mg PO DAILY@0800 [facility] Last Admin: 05/11/18 08:58 Dose: 40 mg Promethazine HCl (Phenergan) 6.25 mg IV Q6H PRN PRN PRN Reason: NAUSEA/VOMITING Simethicone (Mylicon) 40 mg PO Q6H PRN PRN PRN Reason: BLOATING Last Admin: 05/11/18 03:09 Dose: 40 mg Sodium Chloride () 5 - 15 ml IV UD PRN PRN Reason: SALINE FLUSH Last Admin: 05/09/18 21:21 Dose: 10 ml Medical Necessity - Tobacco Use Smoking Status: Former smoker Assessment/Plan This is a 72 y/o with reported PMHx of COPD, history of tubular adenoma of the rectosigmoid colon who had laparoscopic cholecystectomy for chronic cholecystitis/cholelithiasis on 05/08/2018 1. Acute hypoxic respiratory failure likely secondary to aspiration pneumonitis, possible COPD exacerbation History of COPD. Patient was intubated and then extubated on 05/09/2018. Discussed with center sales and service associate Walking pulse oximetry noted. 86% on room air on walking and 91% requires 2 L of oxygen. At rest, 89% on room air 2. Aspiration pneumonitis/pneumonia, multifocal/multilobar in the right middle lobe and left upper lobe status post laparoscopic cholecystectomy. Sputum culture shows rare pseudomonas aeruginosa sensitive to Levaquin. Augmentin is discontinued and started on Levaquin. She will need a total of 7 days. 3. COPD exacerbation, known history of COPD, continue breathing treatments. On prednisone and Mucinex. 4. status post laparoscopic cholecystectomy on 05/08/2018 for chronic cholecystitis and cholelithiasis NG tube was removed. Diet was advanced to regular. 5. DVT PPX - Lovenox 6. GI PPx- famotidine IV BID Diarrhea with suspicion for possible C. difficile: C. difficile result which is pending. Clinical Impression(s) from Imaging Studies Cholangiogram 05/08/18 09:00 IMPRESSION: No demonstrated retained common bile duct stone or bile duct obstruction. Chest X-Ray 05/08/18 11:08 IMPRESSION: Diffuse airspace opacifications throughout the visualized right lung field and left upper lobe suspicious for infiltrates though pulmonary edema can have a similar appearance. ET tube tip 2 cm above the fozia Chest X-Ray 05/09/18 05:55 IMPRESSION: Improvement of right lung consolidation. Remaining area of consolidation is in the right midlung field. The left lung is clear. Microbiology Past 72 Hours 05/08/18 13:00 Sputum, Induced/Lukens Gram Stain - Final 05/08/18 13:00 Sputum, Induced/Lukens Respiratory Culture - Final Pseudomonas aeroginosa Code Visit Inpatient E&M: 13381 Subs Hosp L3
[2018-05-11] MEDS: levoFLOXacin 500 MG Tablet PO (12:03)
--- NOTE | 2018-05-11 13:54 | CASEMGMT ---
Addendum entered by Humaira Shah 05/11/18 14:27: Referral faxed to [facility] and call to Damaris at [facility] at this time, voices understanding. Damaris is aware of pt discharge today, voices understanding. Stefania DELONG CM Original Note: Per Jaylen DELONG, pt now qualifies for home oxygen at this time. Pt states no preference for DME company at this time. Referral to be faxed to [facility] once obtained from Dr. Canales. Stefania DELONG CM
--- NOTE | 2018-05-11 14:16 | CASEMGMT ---
JOI was asked to talk with patient regarding financial concerns. JOI went over Medicare Savings Programs. Patient may qualify for help. JOI gave her the application to apply for help with Medicare costs. JOI also gave her information on help with Medicare D. SW explained this application is only online. She said her son could do it. JOI also told her that because she has a secondary insurance she should not have any co-pays as her secondary picks up what is left over after Medicare pays its share. JOI told patient that if she wants JOI to come back when her son is here to explain these programs to just ask for JOI. She thanked JOI for the information. Fouzia BENJAMIN MSW
--- NOTE | 2018-05-11 15:10 | CHAPLAIN ---
Type of Pastoral Visit _x__ Initial Visit ___ Follow-up Visit ___ On-call Visit ___ General Patient Visit ___ Spiritual Assessment ___ Family Conference ___ Bereavement ___ Rapid Response ___ Code Blue ___ Other (describe below) Pastoral Care Referral From _x__ Patient ___ Family ___ Nurse ___ Physician ___ Manager Account Management ___ Electro Plater ___ Other (describe below) Sacrament/Intervention _x__ Active listening ___ Anointing ___ Sabianism ___ Bereavement ___ Communion ___ Damaris exploration ___ ___ Life review _x__ Prayer ___ Reconciliation ___ Sacrament of Sick _x__ Supportive presence ___ Wedding ___ Other (describe below) Pastoral Comments son is at bedside; pt is alert but curled up in bed; pt is not on O2 at this time which son accounts as test to she how she does without it and if she qualifies to have O2 on discharge; pt has heavy breathing but speaks to me; gave calm presence and offer of support; pt states she does not have a baptism affiliation but is accepting of support through presence and prayer; son states that other family members are coming to see pt today; brief and casual conversation with son with affirmation of support and care availability;
--- NOTE | 2018-05-11 15:15 | PCM.DC.GB ---
Discharge Diet: Light diet - advance as tolerated - if you have questions about your diet instructions, please talk to you doctor. Discharge Activity: May Not Drive - for 3-5 days or while taking narcotic pain medicine. May shower in (days): 1 Call your doctor if your incision/area has: Continuous Slow Oozing, Sudden Increased Bleeding, Increased Pain/ Swelling, Increased Redness, Foul Smelling Discharge Call your doctor if you observe: Fever of 101 or Higher Suture Line Care: Avoid Pulling/Pushing, Avoid Pinching/Bending Additional Dressing/Incision Instructions:: Change or remove dressing in 4 days. Leave steri-strips in place for 1 week. Allergies/Adverse Reactions: Allergies No Known Allergies Allergy (Verified 05/01/18 12:02) Medications to take at Discharge mecobalamin (vitamin B12) 1,000 mcg disintegrating tablet,sublingual 1,000 mcg SUBLINGUAL DAILY 04/30/18 Fluticasone/Umeclidin/Vilanter [Trelegy Ellipta 100-62.5-25] 1 each IH DAILY 05/08/18 Guaifenesin [Mucinex] 1,200 mg PO BID #14 tab.er.12h 05/10/18 Prednisone 10 mg PO UD #33 tablet 05/10/18 Albuterol Inhaler [Ventolin Hfa] 2 puff INHALATION Q4H PRN PRN #1 inhaler 05/11/18 Aspirin [Aspirin, Baby] 81 mg PO DAILY@0800 #30 tab.chew 05/11/18 Atorvastatin Calcium [Lipitor] 20 mg PO QHS #30 tablet 05/11/18 Clopidogrel Bisulfate [Plavix] 75 mg PO DAILY #30 tablet 05/11/18 Metoprolol Tartrate [Lopressor (beta noelle)] 25 mg PO BID #60 tablet 05/11/18 SimETHICONE [Mylicon] 40 mg PO Q6H PRN PRN tablet 05/11/18 levoFLOXacin tablet [Levaquin tablet] 500 mg PO DAILY@0600 #6 tablet 05/11/18 The following prescriptions were given: Albuterol Inhaler [Ventolin Hfa] 2 puff INHALATION Q4H PRN PRN #1 inhaler PRN Reason: Shortness of breath/wheezing Aspirin [Aspirin, Baby] 81 mg PO DAILY@0800 #30 tab.chew Atorvastatin Calcium [Lipitor] 20 mg PO QHS #30 tablet Clopidogrel Bisulfate [Plavix] 75 mg PO DAILY #30 tablet levoFLOXacin tablet [Levaquin tablet] 500 mg PO DAILY@0600 #6 tablet Prednisone 10 mg PO UD #33 tablet Guaifenesin [Mucinex] 1,200 mg PO BID #14 tab.er.12h Metoprolol Tartrate [Lopressor (beta noelle)] 25 mg PO BID #60 tablet Primary Care Physician: Benigno Peguero MD [Primary Care Provider] - Test Results: Test results from this visit will be discussed in further detail at your follow-up appointment, if applicable. Please Follow Up With: Barbara Noonan PA-Abe - [phone] When: 10 days Proposed Discharge Date: 05/11/18
--- NOTE | 2018-05-11 15:18 | DS.PCM_ITS ---
Discharge Date and Diagnosis Date of Admission: 05/08/18 Date of Discharge: 05/11/18 - Primary Discharge Diagnosis S/p laparoscopic cholecystectomy Respiratory distress Aspiration pneumonia Non-ST elevation myocardial infarction - Secondary Discharge Diagnosis Chronic Problems (Last Updated 04/30/18 @ 08:28 by Beatris Polanco) COPD (chronic obstructive pulmonary disease) (Chronic) Cholelithiasis with chronic cholecystitis (Chronic) Cholelithiasis (Chronic) Hospital Course and Treatment Operations: cholecystecomy Procedures: EKG, Intubation Summary of Care Provided: The patient is a 72 year old F who presented for an elective laparoscopic cholecystectomy. Dr. Garcia performed a laparoscopic cholecystectomy with cholangiograms on 05/08. Patient had respiratory compromise following the procedure. Patient was given Narcan without response and anesthesia had to re- intubate the patient. NG tube was also placed. CXR demonstrated infiltrates in the left upper lobe and right lung field. Patient was transferred to ICU post- operatively. [employer] Finisher Helper and Medicine was consulted. Patient was noted to have increased respiratory secretions with concerns for aspiration pneumonia. 05/08- ECHO was completed EF 65%. Unable to assess diastolic dysfunction. Otherwise unremarkable. Cardiology was consulted. Non-ST NV was diagnosed. Initiate Plavix. Cardiac cath was recommended as an outpatient. 05/09- repeat CXR demonstrated improvement in the right lung infiltrate. On 05/09, patient was extubated. 05/10- patient was transferred to the progressive care unit on supplemental oxygen. Patient continued to improve. Upon discharge, patient notes minimal amount of abdominal discomfort. She denies nausea, vomiting. Test for C. difficile is negative. Patient still needs 2 L of oxygen and get short of breath on ambulation. Patient was advised to use Trelegy inhaler daily. Patient is discharged on tapering dose of prednisone for 14 days, Levaquin to complete a total of 7 days, aspirin, Plavix, Mucinex, metoprolol and atorvastatin. Albuterol inhaler as needed for shortness of breath. Patient is to follow-up with agricultural research engineer Dr. mckinney in 3-4 weeks. Follow-up pulmonary clinic, Dr. Broussard in 2 weeks. Follow-up surgeon, Dr. Garcia as instructed. Patient is medically stable to be discharged. Follow-up PCP 1-2 weeks. - Physical Exam General: Alert, Oriented x3, Cooperative Lungs: Clear to auscultation Cardiovascular: Regular rate, No murmurs Abdomen: Bowel Sounds Present, Soft, Distended, Tender - generalized., - - Incisions c/d/i. No erythema or infection noted. Vital Signs Temp Pulse Resp BP Pulse Ox 99.2 F H 81 16 144/65 H 90 05/11/18 12:40 05/11/18 14:32 05/11/18 14:32 05/11/18 12:40 05/11/18 13:29 Oxygen Flow Rate (L/min) [ 2 AMBULATION with Oxygen] Oxygen Flow Rate (L/min) [ 0 AMBULATING on Room Air] Oxygen Flow Rate (L/min) [At 0 REST on Room Air] Oxygen Flow Rate (L/min) 2 Oxygen Delivery Method Room Air Weight: 170 lb 3.15 oz Body Mass Index (BMI) 30.9 Intake and Output for Last 24 Hours 05/09/18 05/10/18 05/11/18 23:59 23:59 23:59 Intake Total 3898.3 / 3898.3 679 / 679 1100 / 1100 Output Total 700 / 700 Balance 3198.3 / 3198.3 679 / 679 1100 / 1100 Microbiology Past 72 Hours 05/08/18 22:00 Blood Culture - Preliminary Blood Culture (Wb) - Right Hand No growth in 48 hours. 05/08/18 21:55 Blood Culture - Preliminary Blood Culture (Wb) - Left Hand No growth in 48 hours. 05/11/18 06:40 C. difficile DNA Amplification - Final Stool 05/08/18 13:00 Gram Stain - Final Sputum, Induced/Lukens Respiratory Culture - Final Pseudomonas aeroginosa Discharge Diet: Light diet - advance as tolerated - if you have questions about your diet instructions, please talk to you doctor. Discharge Activity: May Not Drive - for 3-5 days or while taking narcotic pain medicine. May shower in (days): 1 Call your doctor if your incision/area has: Continuous Slow Oozing, Sudden Increased Bleeding, Increased Pain/ Swelling, Increased Redness, Foul Smelling Discharge Call your doctor if you observe: Fever of 101 or Higher Suture Line Care: Avoid Pulling/Pushing, Avoid Pinching/Bending Additional Dressing/Incision Instructions:: Change or remove dressing in 4 days. Leave steri-strips in place for 1 week. Home Medications: Medications to take at Discharge mecobalamin (vitamin B12) 1,000 mcg disintegrating tablet,sublingual 1,000 mcg SUBLINGUAL DAILY 04/30/18 Fluticasone/Umeclidin/Vilanter [Trelegy Ellipta 100-62.5-25] 1 each IH DAILY 05/08/18 Guaifenesin [Mucinex] 1,200 mg PO BID #14 tab.er.12h 05/10/18 Prednisone 10 mg PO UD #33 tab 05/10/18 Albuterol Inhaler [Ventolin Hfa] 2 puff INHALATION Q4H PRN PRN #1 inhaler 05/11/18 Aspirin [Aspirin, Baby] 81 mg PO DAILY@0800 #30 tab.chew 05/11/18 Atorvastatin Calcium [Lipitor] 20 mg PO QHS #30 tablet 05/11/18 Clopidogrel Bisulfate [Plavix] 75 mg PO DAILY #30 tablet 05/11/18 Metoprolol Tartrate [Lopressor (beta noelle)] 25 mg PO BID #60 tablet 05/11/18 SimETHICONE [Mylicon] 40 mg PO Q6H PRN PRN tablet 05/11/18 levoFLOXacin tablet [Levaquin tablet] 500 mg PO DAILY@0600 #6 tablet 05/11/18 Pantoprazole Sodium [Protonix] 40 mg PO DAILY #30 tablet 05/15/18 Following Prescrptions Were Given to Patient: Albuterol Inhaler [Ventolin Hfa] 2 puff INHALATION Q4H PRN PRN #1 inhaler PRN Reason: Shortness of breath/wheezing Aspirin [Aspirin, Baby] 81 mg PO DAILY@0800 #30 tab.chew Atorvastatin Calcium [Lipitor] 20 mg PO QHS #30 tablet Clopidogrel Bisulfate [Plavix] 75 mg PO DAILY #30 tablet levoFLOXacin tablet [Levaquin tablet] 500 mg PO DAILY@0600 #6 tablet Prednisone 10 mg PO UD #33 tab Guaifenesin [Mucinex] 1,200 mg PO BID #14 tab.er.12h Metoprolol Tartrate [Lopressor (beta noelle)] 25 mg PO BID #60 tablet Primary Care Physician: Benigno Peguero MD [Primary Care Provider] - Please Follow Up With: Barbara Noonan PA-C - [phone] When: 10 days Disposition: Home Patient Condition:: Stable Medical Necessity - Tobacco Use Smoking Status: Former smoker Meaningful Use Info Meaningful Use Diagnoses (Choose all that apply): None applicable Code Visit Inpatient E&M: 25759 Disch Hosp - No charge/ Post-op
== END 2018-05-11 18:16 | disposition home or self-care (01) | DRG 987 ==
LOC: ICU 13:06 → SDC 13:06 → ICU 05-09 10:04 → PCU 05-10 09:25 → ICU 05-11 06:54 → PCU 05-11 06:54
PROVIDERS: Anesthesiology; Hospitalist; Internal Medicine; Internal Medicine Critical Care Medicine; Admitting Provider Surgery; Family Provider Family Medicine; PCP Family Medicine; Referring Provider Surgery; Visit Provider Surgery
PROC: (CPT 47610; principal; 2018-05-08 08:40)
DX: J96.01 Acute respiratory failure with hypoxia (principal); I21.A1 Myocardial infarction type 2; J69.0 Pneumonitis due to inhalation of food and vomit; K80.10 Calculus of gallbladder with chronic cholecystitis without obstruction; J96.02 Acute respiratory failure with hypercapnia; Z87.891 Personal history of nicotine dependence; Z23 Encounter for immunization; J44.9 Chronic obstructive pulmonary disease, unspecified
CPT/HCPCS: 31720; 36415; 36600; 71045; 74018; 74300; 76000; 80048; 80053; 82550; 82803; 83735; 83880; 84100; 84478; 84484; 85025; 85610; 87040; 87070; 87077; 87184; 87186; 87205; 87493; 87641; 88304; 93005; 93306; 94002; 94003; 94640; 94660; 94770; 95831; 97110; 97162; 97166; 97530; 97802; J7030; J7120; Q9957; 90686; A4216; C8929; J0295; J2310; J2405; J3490

== ENCOUNTER 2018-05-15 06:39 | Emergency (ER) | payer MEDICARE, OTHER, SELFPAY ==
[2018-05-08 12:30] VITALS: BMI 30.9
[2018-05-15 06:40] VITALS: BP 189/112; PULSE 65; RESP 27; TEMP 37.2; O2SAT 93; BMI 29.2
[2018-05-15 06:44] VITALS: BP 189/112; PULSE 60; PULSE 65; RESP 26; RESP 27; TEMP 37.2; O2SAT 93; O2SAT 96
--- NOTE | 2018-05-15 07:30 | ED.DCSUM_ITS ---
History of Present Illness Chief Complaint: Abd Pain Informant: Patient Onset: Today - about 3-4 hrs FRONT OFFICE ATTENDANT Context: Sudden Onset - relatively, soon after eating Timing: Continuous Quality: ache Location: upper abd / periumbilical Current Severity: Mild Maximum Severity: Severe Worsened by: nothing Relieved by: nothing -- gradually improved. no treatments FRONT OFFICE ATTENDANT. Associated Symptoms: nausea once she arrived to ED. no vtg. no rad to back. nml BM yest. Narrative: Patient has a history of COPD and had a laparoscopic cholecystectomy last week, she had an extended hospital stay with time in the ICU, the course was complicated by aspiration pneumonitis and some heart damage according to the patient. She was discharged home 3 days ago. She was not on oxygen prior to surgery but she was discharged home on it, and has been using it. She states h er breathing has been good, and there has been no respiratory issues this morning since this abdominal discomfort started. She had a minor nosebleed yesterday but has had no other bleeding. There has been no discharge from any of the abdominal incisions. No fevers since she has been home. - Past Medical History (1) COPD (chronic obstructive pulmonary disease) Status: Chronic Past Medical History - Allergies and Home Meds Allergies/Adverse Reactions: Allergies No Known Allergies Allergy (Verified 05/01/18 12:02) Primary Care Physician: Benigno Peguero MD [Primary Care Provider] - Doctors: Stuart Garcia Surgical History: cholecystectomy Smoking Status: Former smoker Review of Systems General: Denies: Chills, Fever Eyes: Denies: Visual changes - bilaterally, Diplopia ENT: Reports: - - epistaxis - resolved. Denies: Bilateral ear pain, Sore throat Cardiovascular: Denies: Chest pain, Heart racing Respiratory: Reports: Cough. Denies: Dyspnea, Sputum Gastrointestinal: Reports: Abdominal pain, Nausea. Denies: Vomiting, Diarrhea, Melena, Hematochezia Genitourinary: Denies: Dysuria, Hematuria Musculoskeletal: Denies: Back pain, Extremity Pain Skin: Reports: Wounds - surgical. doing well per pt.. Denies: Rash, Abscess Neurological: Denies: Headache, Weakness, Numbness Physical Exam Vital Signs/Narrative: Vital Signs Temp Pulse Resp BP Pulse Ox 05/15/18 06:44 98.9 F 65 27 H 189/112 H 93 05/15/18 06:40 98.9 F 65 27 H 189/112 H 93 Inital Vital Signs reviewed: Yes General: Well nourished, Well developed, No Acute Distress Head: Normocephalic, Atraumatic Eyes: Perrl, EOMI ENT: Moist mucous membranes, No rhinorrhea Neck: Supple, Nontender Cardiovascular: Regular rate, Regular rhythm, No murmurs, Normal S1, Normal S2 Respiratory: No distress, CTA bilaterally, Chest nontender, Diminished - throughout, but clear Abdomen: Soft, Nondistended, Normal bowel sounds, Tender - epigastrium < LUQ. also mildly tender around umbilicus. no tenderness RUQ, lower abd. , Guarding - LUQ only. voluntary.. Negative for: Rebound tenderness Back: Nontender, Normal Inspection. Negative for: CVA tenderness Extremities: Nontender, No edema Skin: Normal color, No rash Neurological: Alert, Oriented x3, Cranial nerves II-XII grossly intact, Normal Strength, Normal Sensation Psychological: Normal affect, Normal Mood Diagnostic/Tx/Re-eval Laboratory Tests 05/15/18 05/15/18 Range/Units 06:50 06:50 WBC 20.7 H (4.4-11.0) K/mm3 RBC 5.00 (4.2-5.4) M/mm3 Hgb 14.3 (12.0-15.0) g/dl Hct 43.9 (37-47) % MCV 87.8 (81-99) fL MCH 28.6 (27.0-32.0) pg MCHC 32.6 (32-36) g/gl RDW 13.8 (11.6-14.6) % RDW Differential 43.6 (35.1-43.9) fl Plt Count 429 (150-450) K/mm3 MPV 10.5 (6.2-12.0) fl Immature Gran % (Auto) 0.600 (0.0-0.9) % Neut % (Auto) 69.7 (47-70) % Lymph % (Auto) 23.7 (19-41) % [place] % (Auto) 5.6 (0-10) % Eos % (Auto) 0.3 (0-5) % Baso % (Auto) 0.1 (0-1) % Absolute Neuts (auto) 14.4 H (2.0-7.7) X10^3/uL Absolute Lymphs (auto) 4.92 H (0.83-4.51) X10^3/ul Total Counted Not Reportable Sodium 138 (136-145) mmol/L Potassium 4.6 (3.5-5.1) mmol/L Chloride 103 (98-107) mmol/L Carbon Dioxide 34.0 H (21.0-32.0) mmol/L Anion Gap 1 L (5-15) BUN 20 H (7-18) mg/dL Creatinine 0.65 (0.55-1.02) mg/dL Estim Creat Clear Calc 42.68 ml/min Est GFR (MDRD) Af Amer 115 (>60) mL/min Est GFR (MDRD) Non-Af 95 (>60) mL/min BUN/Creatinine Ratio 30.6 H (10-20) RATIO Glucose 101 (74-106) mg/dL Calcium 8.8 (8.5-10.1) mg/dL Total Bilirubin 0.80 (0.20-1.00) mg/dL AST 37 (15-37) U/L ALT 73 H (13-56) U/L Alkaline Phosphatase 60 (45-117) U/L Total Protein 7.0 (6.4-8.2) g/dL Albumin 3.6 (3.2-5.0) g/dL Globulin 3.4 (2.2-4.2) g/dL Albumin/Globulin Ratio 1.1 (0.9-2.4) RATIO Lipase 181 (73-393) U/L - Medical Decision Making Given the history, she was treated with a GI cocktail, she states it resolved her pain and she feels much better. I reexamined her abdomen. She is nontender throughout except for minor soreness around incisions that would be expected. I discussed with Dr. Garcia through one of the OR nurses. He said that the cholecystectomy was quick and very straightforward, uncomplicated. However he voiced concern that afterwards, when she aspirated and required reintubation in the PACU, she was extremely ill. Therefore I think it is alvarado to use caution. I will monitor the patient in the ER a little longer, and obtain a 2 view chest x-ray to check on progression of her pneumonia. Her lungs are clear, she has had no respiratory symptoms even while she was in significant abdominal pain, but I think this is reasonable. He stated that we may remove her surgical incisional dressings which were slated to be taken off today. Discussed with the patient and family. Discussed with Dr. Garcia who advises making sure the patient is on an H2 noelle or PPI, she is not on either one. She was given a dose here as well as a prescription to cover her for stress gastritis. No evidence of bleeding at this time. Her dressings were removed and all of her incisions look good, Steri- Strips remain. Given appropriate discharge instructions and follow-up instructions. Patient is comfortable with the overall plan and feels better. ED Disposition - Plan for ED Patient: Disposition: Home or Assisted Living Diagnosis: Acute gastritis without bleeding Instructions: ED Gastritis Prescriptions: Pantoprazole Sodium [Protonix] 40 mg PO DAILY #30 tablet Referrals: Benigno Peguero MD [Primary Care Provider] - 3-5 Days if not improving
[2018-05-15 07:39] LABS: Absolute Lymphocyte Count 4.92 X10^3/ul (0.83-4.51); Absolute Neutrophil Count 14.4 X10^3/uL (2.0-7.7); Basophil# 0.03 X10^3/uL; Basophil% 0.1 % (0-1); Eosinophil# 0.07 X10^3/uL; Eosinophils% 0.3 % (0-5); Hematocrit 43.9 % (37-47); Hemoglobin 14.3 g/dl (12.0-15.0); Lymphocyte # 4.92 X10^3/ul (4.0); Lymphocyte % 23.7 % (19-41); Mean Corp Hgb Conc 32.6 g/gl (32-36); Mean Corpuscular Hgb 28.6 pg (27.0-32.0); Mean Corpuscular Volume 87.8 fL (81-99); Mean Platelet Vol. 10.5 fl (6.2-12.0); Monocyte# 1.17 X10^3/uL; Monocyte% 5.6 % (0-10); Neutrophil # 14.41 X10^3/uL (2.7-7.7); Neutrophil % 69.7 % (47-70); POSITIVE COUNT NO; POSITIVE DIFFERENTIAL NO; POSITIVE MORPHOLOGY NO; Platelet Count 429 K/mm3 (150-450); RBC Distribution Width CV 13.8 % (11.6-14.6); RBC Distribution Width SD 43.6 fl (35.1-43.9); White Blood Count 20.7 K/mm3 (4.4-11.0)
[2018-05-15] MEDS: 0.9% Normal Saline 1,000 ML 100 ML IV (07:42)
[2018-05-15] MEDS: Ondansetron 4 MG/2 ML Vial IV (07:43)
[2018-05-15] MEDS: Mag Hydrox/Al Hydrox/Simeth 30 ML UDC PO (07:43)
[2018-05-15 07:45] VITALS: BP 180/91; PULSE 63; RESP 18; TEMP 37.3; O2SAT 98
[2018-05-15 07:56] LABS: ALB/GLOB Ratio 1.1 RATIO (0.9-2.4); AST(SGOT) 37 U/L (15-37); Alanine Aminotransfer ALT/SGPT 73 U/L (13-56); Albumin, Serum 3.6 g/dL (3.2-5.0); Alkaline Phosphatase 60 U/L (45-117); Anion Gap 1 (5-15); BUN 20 mg/dL (7-18); BUN/Creat Ratio 30.6 RATIO (10-20); Calcium,Total 8.8 mg/dL (8.5-10.1); Chloride 103 mmol/L (98-107); Creatinine, Serum 0.65 mg/dL (0.55-1.02); EST Glomerular Filtration Rate 95 mL/min (>60); Est Glom Filt Rate - Afr Amer 115 mL/min (>60); Estimated Creatinine Clearance 42.68 ml/min; Globulin 3.4 g/dL (2.2-4.2); Glucose 101 mg/dL (74-106); Lipase 181 U/L (73-393); Potassium 4.6 mmol/L (3.5-5.1); Sodium Level 138 mmol/L (136-145)
[2018-05-15 08:10] VITALS: BP 138/72; PULSE 62; RESP 18; TEMP 37.3; O2SAT 97
--- NOTE | 2018-05-15 08:34 | RAD_ITS ---
STUDY: X-RAY CHEST REASON FOR EXAM: Female, 72 years old. Abdominal pain. History of recent pneumonia. TECHNIQUE: PA and lateral views of the chest. COMPARISON: Comparison is made with prior study dated May 09, 2018. FINDINGS: EKG electrodes are seen. The previously seen right upper lobe pneumonia has resolved. There now is evidence of left pleural thickening with underlying atelectasis and/or infiltrate. Stable 2.5 cm x 2.4 cm nodule in the peripheral aspect of the left mid lung. Normal size heart. Normal mediastinum and alfredo. Normal visualized pulmonary arteries. There is atherosclerotic calcification of the aortic arch with tortuosity. Normal visualized thoracic spine. There is degenerative osteoarthritis of the bilateral shoulders. There is no demonstrated abnormality of the visualized soft tissue structures of the upper abdomen. RAD/Chest PA and Lateral IMPRESSION: There has been resolution of the right upper lobe infiltrate. Stable 2.5 cm x 2.4 cm peripheral based nodule in the left midlung. Electronically Signed: Luciano Ferraro, at 9:06 EDT , Service support ,
[2018-05-15 08:41] VITALS: BP 138/72; PULSE 65; RESP 18; TEMP 37.3; O2SAT 97
[2018-05-15 09:05] VITALS: BP 138/72; PULSE 64; RESP 18; TEMP 37.3; O2SAT 98
== END 2018-05-15 09:51 | disposition home or self-care (01) ==
PROVIDERS: Emergency Provider Emergency Medicine; Family Provider Family Medicine; PCP Family Medicine
DX: K29.00 Acute gastritis without bleeding (principal); J44.9 Chronic obstructive pulmonary disease, unspecified; Z99.81 Dependence on supplemental oxygen; Z87.891 Personal history of nicotine dependence; Z79.51 Long term (current) use of inhaled steroids
CPT/HCPCS: 71046; 80053; 83690; 85025; 96361; 96374; 99285; J7030; A4216; J2405

== ENCOUNTER → 2018-06-03 | Outpatient (CLI) | payer MEDICARE, OTHER, SELFPAY ==
[2018-06-03 12:54] VITALS: BMI 27.1
[2018-06-03 15:11] LABS: Absolute Lymphocyte Count 2.85 X10^3/ul (0.83-4.51); Absolute Neutrophil Count 3.2 X10^3/uL (2.0-7.7); Basophil# 0.04 X10^3/uL; Basophil% 0.5 % (0-1); Eosinophils% 7.9 % (0-5); Hematocrit 41.4 % (37-47); Hemoglobin 13.5 g/dl (12.0-15.0); Lymphocyte # 2.85 X10^3/ul (4.0); Lymphocyte % 37.4 % (19-41); Mean Corp Hgb Conc 32.6 g/gl (32-36); Mean Corpuscular Hgb 28.1 pg (27.0-32.0); Mean Corpuscular Volume 86.1 fL (81-99); Mean Platelet Vol. 10.2 fl (6.2-12.0); Monocyte# 0.94 X10^3/uL; Monocyte% 12.3 % (0-10); Neutrophil # 3.18 X10^3/uL (2.7-7.7); Neutrophil % 41.8 % (47-70); Platelet Count 268 K/mm3 (150-450); RBC Distribution Width CV 14.5 % (11.6-14.6); RBC Distribution Width SD 45.8 fl (35.1-43.9); Red Blood Count 4.81 M/mm3 (4.2-5.4); White Blood Count 7.6 K/mm3 (4.4-11.0)
[2018-06-03 15:12] LABS: POSITIVE COUNT NO; POSITIVE DIFFERENTIAL NO; POSITIVE MORPHOLOGY NO
[2018-06-03 15:35] LABS: Anion Gap 4 (5-15); BUN 24 mg/dL (7-18); BUN/Creat Ratio 39.5 RATIO (10-20); Chloride 107 mmol/L (98-107); Creatinine, Serum 0.61 mg/dL (0.55-1.02); EST Glomerular Filtration Rate 103 mL/min (>60); Est Glom Filt Rate - Afr Amer 125 mL/min (>60); Glucose 93 mg/dL (74-106); Potassium 3.9 mmol/L (3.5-5.1); Sodium Level 142 mmol/L (136-145)
== END | disposition home or self-care (01) ==
LOC: LAB 13:42
PROVIDERS: Family Provider Family Medicine; PCP Family Medicine; Referring Provider Internal Medicine Cardiovascular Disease; Visit Provider Internal Medicine Cardiovascular Disease
DX: I21.4 Non-ST elevation (NSTEMI) myocardial infarction (principal); R94.31 Abnormal electrocardiogram [ECG] [EKG]
CPT/HCPCS: 36415; 80048; 85025

== ENCOUNTER 2018-06-30 06:30 | Day surgery (SDC) | payer MEDICARE, OTHER, SELFPAY ==
[2018-06-03 12:54] VITALS: BMI 27.1
--- NOTE | 2018-06-03 13:24 | HP_ITS ---
HPI HPI Surgical H&P: Yes Details: 72-year-old lady who was seen by me in the hospital after she had had an elective laparoscopic cholecystectomy. She did have respiratory compromise and had to be intubated. Cardiac enzymes were obtained and were noted to be abnormal cardiology was called for evaluation. She did sustain a non-ST elevation myocardial infarction she underwent an echocardiographic evaluation which demonstrated an ejection fraction of 65% with normal wall motion abnormalities. She has had no dizziness or diaphoresis near syncope or syncope since discharge. She is been compliant with her medications. She returns today for routine follow-up visit. Her physical exam demonstrates clear lung barrios regular rate and rhythm no pedal edema her electrocardiogram demonstrates normal sinus rhythm with a rate of 64 bpm. T wave inversion is noted lead V2. Intake Vital Signs 06/03/18 Height 5 ft 3 in 06/03/18 Weight: 153 lb 06/03/18 Body Mass Index (BMI) 27.1 06/03/18 Blood Pressure 133/75 H 06/03/18 Respiratory Rate 18 06/03/18 Pulse Rate 68 06/03/18 Pulse Ox 93 Intake Visit Reasons: s/p 3-23 COPD, per PCP needs cath Allergies No Known Allergies Allergy (Verified 06/03/18 12:10) Medications mecobalamin (vitamin B12) 1,000 mcg disintegrating tablet,sublingual 1,000 mcg SUBLINGUAL DAILY 04/30/18 [History Confirmed 06/03/18] Fluticasone/Umeclidin/Vilanter [Trelegy Ellipta 100-62.5-25] 1 ea IH DAILY 05/08/18 [History Confirmed 06/03/18] Albuterol Inhaler [Ventolin Hfa] 2 puff INHALATION Q4H PRN PRN #1 inhaler 05/11/18 [Rx Confirmed 06/03/18] Aspirin [Aspirin, Baby] 81 mg PO DAILY@0800 #30 tab.chew 05/11/18 [Rx Confirmed 06/03/18] Pantoprazole Sodium [Protonix] 40 mg PO DAILY #30 tab 05/15/18 [Rx Confirmed 06/03/18] atorvastatin 20 mg tablet 20 mg PO QHS #90 tab 06/03/18 [Rx Confirmed 06/03/18] clopidogrel 75 mg tablet 75 mg PO DAILY #60 tab 06/03/18 [Rx Confirmed 06/03/18] metoprolol tartrate 25 mg tablet 25 mg PO BID #60 tab 06/03/18 [Rx Confirmed 06/03/18] [facility] Medical History Non-ST elevation (NSTEMI) myocardial infarction (Resolved 05/09/18) Frostbite of foot, left (Resolved) COPD (chronic obstructive pulmonary disease) (Chronic) Aspiration pneumonia (Resolved) Cholelithiasis with chronic cholecystitis (Resolved) Gallstones (Resolved) Surgical History Status post laparoscopic cholecystectomy (Suspected 04/2018) History of appendectomy (Resolved) History of colonoscopy (Resolved ~2012) History of esophagogastroduodenoscopy (EGD) (Resolved ~2012) History of right oophorectomy (Resolved) History of tonsillectomy (Resolved) Family History Sister Breast cancer Myocardial infarction age 61 Father Myocardial infarction father age 59 Social History Smoking Status: Former smoker quit date: 05/31/13 ROS Const Const: Positive for excessive sweating (C/O feeling over heated); negative for fatigue, weakness, headache(s), frequent falls or difficulty sleeping Eyes Eyes: Negative for loss of peripheral vision, transient loss of vision, blurry vision, double vision or tunnel vision ENT ENT: Negative for headache(s), dizziness, Nosebleed/epistaxis or balance problems Cardio Chest Pain: No Palpitations: No Edema: Left (ankle edema) Muscle aches with walking: None Resp Respiratory: Positive for wheezing (scattered) and other (Diminished lower lobes); negative for SOB with activity, SOB at rest, SOB orthopnea\SOB lying down, Cough or paroxysmal nocturnal dyspnea GI GI: Negative nausea, vomiting, heartburn or black,tarry stools : Negative for hematuria Musc Musc: Negative for muscle aches/ myalgia, muscle weakness, joint pain or balance problems Skin Skin: Negative non-healing lesions, rash or unusual bruising Neuro Neuro: Negative for dizziness, lightheadedness, near syncope, syncope, orthostatic symptoms, frequent falls, headache(s), weakness, blurry vision, double vision or lack of coordination Dandre Hematologic/Lymphatic: Negative for easy bleeding or easy bruising Endo Endo: Positive for excessive sweating (C/O feeling over heated); negative for fatigue or increased thirst/drinking Psych Psych: Negative for anxiety or depression Allergy Allergy/Immunology: Negative for hives, Negative for rash Cardiology Exam Const Appearance: cooperative, healthy appearing, no acute distress, well developed and well groomed Nutritional Appearance: average body habitus and well nourished Orientation: alert, awake and oriented x3 Head Head: normal to inspection, normocephalic and atraumatic Ears: hearing grossly normal bilaterally and external ears normal Nose: external nose normal, nares normal, nasal mucous membranes and turbinates normal, septum normal, no nasal discharge Face and Sinus: face symmetric Mouth: oral mucosae normal, tongue normal, oropharynx normal and moist mucous membranes Teeth and gingiva: dentition normal Throat: posterior oropharynx normal, tonsils normal and uvula midline Eyes General: appearance normal, both eyes and all related structures Eyelids: eyelids normal Conjunctivae: conjunctivae normal Pupils: PERRL, normal by confrontation and accommodation normal EOM: EOM intact bilaterally Neck Neck: normal visual inspection, trachea midline and no JVD JVD: +5 Carotids: normal carotid upstroke and bounding pulses Chest Chest inspection: normal inspection of the chest, symmetric chest movement and normal respiratory effort Auscultation: Bilateral: Clear to Auscultation Cardio Palpation: normal PMI Rate: regular rate Rhythm: regular rhythm Heart sounds: S1 normal, S2 normal and normal, physiologic split S2; negative rub, gallop or murmur GI GI: normal to inspection, soft, no hepatosplenomegaly and bowel sounds present Neuro General: alert, awake, oriented x3, gait normal, moves all extremities and no focal sensory deficit Skin Skin: no rashes or lesions noted Extremities Pulses: Normal: Right Femoral Pulse, Left Femoral Pulse, Right Dorsalis Pedis Pulse, Left Dorsalis Pedis Pulse, Right Posterior Tibial Pulse, Left Posterior Tibial Pulse, Right Radial Pulse, Left Radial Pulse Lower Extremity Edema: None: Bilateral Musculoskel Musculoskeletal: No joint tenderness Psych Psychological: normal affect Assessment & Plan 1. Non-ST elevation (NSTEMI) myocardial infarction I21.4 Plan She did sustain a non-ST elevation myocardial infarction post gallbladder surgery. He does suggest underlying coronary artery disease. I did discuss with her and she is agreeable to undergoing a left heart catheterization. She will remain on the aspirin clopidogrel and beta-noelle as well as high intensity statin until the above is performed. Risk benefits and alternatives have been explained to her she understands and agrees to proceed. Orders Orders: 12 Lead EKG performed by [facility] Today Left Heart Cath/COR/LV Percut Today Basic Metabolic Profile (BMP) Today Plan Detail Other Orders Orders: CBC W/Diff, Automated Today R94.31 Other Medications Refilled: clopidogrel 75 mg PO DAILY 30 tabs 2RF metoprolol tartrate 25 mg PO BID 60 tabs 11RF atorvastatin 20 mg PO QHS 90 tabs 0RF clopidogrel 75 mg PO DAILY 60 tabs 2RF metoprolol tartrate 25 mg PO BID 60 tabs 11RF Follow Up 6 Months (mmm) Coding Level of Care Code Off vis,est,level 4 Diagnoses Non-ST elevation (NSTEMI) myocardial infarction I21.4 Coding Level of Care Code Off vis,est,level 4 Diagnoses Non-ST elevation (NSTEMI) myocardial infarction I21.4 Supplemental Info Supplemental Information Labs Triglycerides 92 mg/dL (-199) 05/08/18 Diagnostics Electrocardiogram 06/03/18 Echocardiogram 05/08/18 Chest X-Ray 05/15/18
[2018-06-25 13:13] VITALS: BMI 27.1
--- NOTE | 2018-06-30 08:10 | CL.D_ITS ---
Patient Name: AMANDEEP REYES Study Date: 06/30/2018 Performing: Arie Goldstein MD Ht: 62.99 inches 160 cm : 1945 Wt: 152.12 lbs 69 kg Age: 72 Gender: female BSA: 1.72 PROCEDURE(S) PERFORMED [id number]/LV CLINICAL PROFILE AND INDICATIONS Indications: Suspected CAD Heart Failure: None Stress/Imaging Stress/Image Study Performed: No CONCLUSIONS Non obstructive coronary arteries Normal LV size, wall motion,and systolic function RECOMMENDATIONS Medical therapy DESCRIPTION OF PROCEDURE The patient arrived to the procedure lab. The risks and benefits of the procedure as well as a full d escription of our services here and current unavailability of surgical backup were fully explained to the patient and/or their significant other prior to the catheterization. The Timeout was completed, verifying the correct patient and procedure. The patient's procedural site was prepped and draped in the usual fashion. Local anesthetic was given subcutaneously to right radial region with Lidocaine 2% . Using a modified Seldinger technique, arterial access was obtained via the right radial artery, a 6 Fr sheath was inserted. Left Coronary Artery selective angiography was performed in multiple views u sing a 5 Fr. 4.0 [place] catheter. Right Coronary Artery selective angiography was then performed in mu ltiple views using a 5 Fr. 4.0 [place] catheter. Left Ventriculography was performed in [place]IS projection using a 5 Fr. [place] catheter. LV to AO pullback pressures were then recorded.The arterial sheath was pulled and a TR Band was applied for hemostasis w/12ml air CORONARY ANGIOGRAPHY DOMINANCE: Right Dominant LEFT HEART ASSESSMENT Left Ventricular Ejection Fraction: by LV Gram 70 % Normal LV wall motion Normal Left Ventricular systolic function LEFT MAIN: Mild calcification, No significant disease noted LEFT ANTERIOR DESCENDING ARTERY: PROX LAD: Mild luminal irregularities less than 30% CIRCUMFLEX ARTERY: No significant disease noted RIGHT CORONARY ARTERY: No significant disease noted COMPLICATIONS No Complications PROCEDURE MEDICATIONS Versed 1 mg IV Fentanyl 50 mcg IV Oxygen: 2 L/min via nasal cannula Heparin diluted in 23cc Heparinized saline. Patient given 10cc IA of this solution. 06/30/2018 07:50: 12 Verapamil 2.5mg, Ntg 100mcgs, 2000 units of Heparin diluted in 23cc Heparinized saline. Patient give n 10cc IA of this solution. 06/30/2018 07:50:12 SUMMARY OF HEMODYNAMIC DATA Time AIR REST ECG 07:04:26 AO 121/61 (85) SA 07:51:09 LV 139/0, 6 07:58:17 LV 159/0, 16 07:58:23 LV 126/4, 17 07:59:51 LVp 138/5, 17 08:00:00 AOp 150/61 (96) 08:00:05 Signed By Arie Goldstein MD On 06/30/2018 08:09:21 Arie Goldstein MD
== END 2018-06-30 10:30 | disposition home or self-care (01) ==
LOC: CLSP 06:32
PROVIDERS: Family Provider Family Medicine; PCP Family Medicine; Referring Provider Internal Medicine Cardiovascular Disease; Visit Provider Internal Medicine Cardiovascular Disease
DX: I21.4 Non-ST elevation (NSTEMI) myocardial infarction (principal); J44.9 Chronic obstructive pulmonary disease, unspecified; Z87.891 Personal history of nicotine dependence; Z79.82 Long term (current) use of aspirin
CPT/HCPCS: 93458; 99152; 99153; J7040; Q9967; C1769; C1894

== ENCOUNTER 2021-11-16 00:30 | Emergency (ER) | payer MEDICARE, MEDICAID, SELFPAY ==
[2021-11-16 00:32] VITALS: BP 201/99; PULSE 97; RESP 26; TEMP 36.6; O2SAT 93; BMI 31.8
--- NOTE | 2021-11-16 00:34 | RAD_ITS ---
EXAM: XR CHEST, 1 VIEW CLINICAL INDICATION: Neuro deficit, acute, stroke suspected TECHNIQUE: Frontal view of the chest. This report was created using [employer] report generation technology. COMPARISON: Chest radiographs of 05/15/2018 and 04/30/2018. FINDINGS: LUNGS AND PLEURAL SPACES: The 2.5 cm circumscribed lobulated nodule within the left midlung laterally is again noted, unchanged, consistent with a benign lesion such as pulmonary granuloma or hamartoma. No acute pulmonary infiltrates or pleural effusions are identified. The heart noted left basilar infiltrate and left pleural effusion have resolved. The pulmonary alfredo are stable. There is stable biapical pleural thickening. HEART: Heart size and pulmonary vasculature remain within normal limits. MEDIASTINUM: Stable pulmonary alfredo. Thoracic aorta remains calcific and minimally elongated. BONES/JOINTS: No acute osseous abnormality. SOFT TISSUES: Unremarkable. RAD/Chest 1 View IMPRESSION: No acute cardiopulmonary disease process identified. Electronically Signed: Haim Silverman MD at 1:25 EDT ,
--- NOTE | 2021-11-16 00:34 | CT_ITS ---
EXAM: CT HEAD WITHOUT INTRAVENOUS CONTRAST CLINICAL INDICATION: Neuro deficit, acute, stroke suspected TECHNIQUE: Multiple axial images were obtained of the head without intravenous contrast. This CT exam was performed using one or more of the following dose reduction techniques: automated exposure control, adjustment of the mA and/or kV according to patient size, and/or use of iterative reconstruction technique. This report was created using [employer] report generation technology. RADIATION DOSE: Total DLP: 829.85 mGy-cm. COMPARISON: None. FINDINGS: BRAIN AND EXTRA-AXIAL SPACES: An acute lobulated parenchymal hematoma is seen arising within the left thalamus, with this thalamic hematoma measuring 2 x 1.4 x 1.6 cm in diameter. There is lateral extension of the hematoma into the medial left temporal lobe, with this additional focus of parenchymal hemorrhage measuring 2 x 1.2 x 0.8 cm in diameter. A thin halo of vasogenic edema is noted about these areas of hemorrhage. There is no associated intraventricular extension of the parenchymal hematoma. Minimal age-related cortical atrophy is present, with minimal prominence of the cortical sulci. There is moderate dilatation of the lateral and third ventricles. Moderate patchy diminished attenuation noted within the deep and subcortical white matter tracts due to chronic small vessel ischemic changes and/or transependymal resorption of CSF. Minimal cerebellar atrophy is present. Basal cisterns are patent. BONES/JOINTS: Unremarkable. No discrete lytic or blastic abnormalities. VASCULATURE: Atherosclerotic vascular calcification is present. The middle cerebral arteries are not hyperdense. SINUSES: Unremarkable as visualized. Clear. MASTOID AIR CELLS: Unremarkable. Clear. ORBITS: Visualized globes, extraocular muscles, optic nerves and retrobulbar fat appear unremarkable. CT/STROKE Brain/Head without Cont IMPRESSION: Acute left thalamic parenchymal hematoma with lateral extension of the parenchymal hemorrhage into the medial left temporal lobe. No interventricular extension of the hematoma identified. Disproportionate enlargement of the ventricles in relation to the degree of atrophy, raising the possibility of communicating hydrocephalus. No midline shift. Nonstandard communication protocol initiated and completed. N.B. : The above Results were Read Back by Haim Silverman MD to ANDREA Knowles, and understanding confirmed on 11/16/2021 00:52:13 (ET). Electronically Signed: Haim Silverman MD at 0:58 EDT ,
--- NOTE | 2021-11-16 00:34 | EKG12_ITS ---
Test Reason : DYSRHYTHMIA Blood Pressure : / mmHG Vent. Rate : 094 BPM Atrial Rate : 094 BPM P-R Int : 156 ms QRS Dur : 080 ms QT Int : 400 ms P-R-T Axes : 052 077 066 degrees QTc Int : 500 ms Normal sinus rhythm Prolonged QT Abnormal ECG Confirmed by TON GAN, ARLETH ([id number]), non linear editor HOLLEY GALLAGHER ([id number]) on 11/16/2021 10:40:29 AM Referred By: ELAYNE Confirmed By:ARLETH CAMILO MD
[2021-11-16 00:43] LABS: Absolute Lymphocyte Count 2.76 X10^3/uL (0.83-4.51); Absolute Neutrophil Count 4.5 X10^3/uL (2.0-7.7); Basophil# 0.06 X10^3/uL; Basophil% 0.7 % (0-1); Eosinophil# 0.19 X10^3/uL; Eosinophils% 2.4 % (0-5); Hematocrit 44.1 % (37-47); Hemoglobin 14.8 g/dL (12.0-15.0); Lymphocyte # 2.76 X10^3/ul (0.83-4.51); Lymphocyte % 34.2 % (19-41); Mean Corp Hgb Conc 33.6 g/dL (32-36); Mean Corpuscular Hgb 31.1 pg (27.0-32.0); Mean Corpuscular Volume 92.6 fL (81-99); Mean Platelet Vol. 9.3 fl (6.2-12.0); Monocyte# 0.55 X10^3/uL; Monocyte% 6.8 % (0-10); NRBC Flagged by Analyzer 0 % (0-5); Neutrophil # 4.51 X10^3/uL (2.7-7.7); Neutrophil % 55.8 % (47-70); Platelet Count 197 K/mm3 (150-450); RBC Distribution Width SD 44.6 fl (35.1-43.9); Red Blood Count 4.76 M/mm3 (4.2-5.4); White Blood Count 8.1 K/mm3 (4.4-11.0)
[2021-11-16 00:52] LABS: International Normalized Ratio 1.1; Prothrombin Time (Protime)PT. 14.2 SECONDS (11.7-14.9)
[2021-11-16 00:53] VITALS: BMI 31.8
[2021-11-16 00:53] LABS: Partial Thromboplast Time 29.8 Seconds (24.1-36.2)
[2021-11-16 00:59] VITALS: BP 189/90; PULSE 97; RESP 18
[2021-11-16 01:01] LABS: Anion Gap 7 (5-15); BUN 19 mg/dL (7-18); BUN/Creat Ratio 32.2 RATIO (10-20); Calcium,Total 8.9 mg/dL (8.5-10.1); Chloride 107 mmol/L (98-107); Creatinine, Serum 0.59 mg/dL (0.55-1.02); EST Glomerular Filtration Rate 106 mL/min (>60); Est Glom Filt Rate - Afr Amer 128 mL/min (>60); Estimated Creatinine Clearance 41.97 ml/min; Glucose 134 mg/dL (74-106); Potassium 3.7 mmol/L (3.5-5.1); Sodium Level 143 mmol/L (136-145); Troponin-I HS 14 pg/mL (3.0-54.0)
--- NOTE | 2021-11-16 01:09 | EDS_ITS ---
HPI History of Present Illness Chief Complaint: Neuro S/Sx Narrative Narrative: Is a 76-year-old female with past medical history of CAD and hypertension. She states she was watching TV approximately an hour and a half ago and then suddenly noticed that she had weakness in her right arm and right leg secondary to this EMS was called. EMS states patient's been awake and alert and protecting her airway but has had persistent weakness to the arm and leg. Patient states she is only on a baby aspirin and denies any blood thinner or recent trauma. [facility] Medical History Aspiration pneumonia Cholelithiasis with chronic cholecystitis COPD (chronic obstructive pulmonary disease) Frostbite of foot, left Gallstones Heart attack Non-ST elevation (NSTEMI) myocardial infarction (05/09/18) Nonobstructive atherosclerosis of coronary artery Home Medications aspirin 81 mg chewable tablet 81 mg PO DAILY@0800 ##30 05/11/18 [Rx Last Taken 06/30/18] Allergy/AdvReac Type Severity Reaction Status Date / Time No Known Allergies Allergy Verified 11/16/21 00:49 Family History Sister Breast cancer Myocardial infarction age 61 Father Myocardial infarction father age 59 Surgical History (Updated 06/30/18 @ 17:44 by Sharita Esqueda) History of appendectomy History of colonoscopy (~2012) History of esophagogastroduodenoscopy (EGD) (~2012) History of left heart catheterization (06/30/18) History of right oophorectomy History of tonsillectomy Status post laparoscopic cholecystectomy (04/2018) Social History (Updated 06/03/18 @ 13:[address] Arie Goldstein MD) Smoking Status: Former smoker quit date: 05/31/13 ROS ROS ED Constitutional Constitutional ED: Denies chills or fever(s) Eyes Eyes: Reports change in vision ENT ENT ED: Denies sore throat Cardiovascular Cardiovascular: Denies chest pain Respiratory/Chest Respiratory/Chest: Denies cough or dyspnea Gastrointestinal Gastrointestinal: Denies abdominal pain, diarrhea, nausea or vomiting Genitourinary Genitourinary ED: Denies dysuria Musculoskeletal Musculoskeletal: Reports other Details: Positive right arm and leg weakness ; Denies myalgias Integumentary Denies rash Neurologic Neurologic: Reports weakness; Denies headache(s) Hematologic/Lymphatic Hematologic/Lymphatic: Denies easy bleeding or easy bruising EXAM Physical Exam Const Vital Signs: 11/16/21 00:32 11/16/21 00:56 11/16/21 00:59 Temperature 97.8 F Temperature Source Temporal Pulse Rate 97 97 Respiratory Rate 26 H 18 Blood Pressure 201/99 H 189/90 H Blood Pressure Mean 133 123 Pulse Ox 93 Oxygen Delivery Method Room Air Room Air 11/16/21 01:29 Temperature Temperature Source Pulse Rate 98 Respiratory Rate 26 H Blood Pressure Blood Pressure Mean Pulse Ox 96 Oxygen Delivery Method Room Air Positive well nourished and well developed General Appearance ED: well developed HEENT Reports moist mucous membranes Eyes PERRL and EOMs intact bilaterally Neck supple and no JVD Chest Wall palpation of chest normal Resp normal respiratory effort Resp Narrative: Breath sounds are diminished throughout with faint rhonchi in bilateral bases Cardio regular rate and regular rhythm Rate: other Other Details: Radial pulses are plus 2 out of 4 bilaterally they are equal and symmetric GI normal to inspection, nondistended, normoactive bowel sounds, non-tender and non-distended GI Narrative: No voluntary guarding or rigidity no pulsatile mass Auscultation: normoactive bowel sounds Palpation: soft Extremity normal to inspection Neuro Neuro Narrative: Patient is awake and alert but is unsure of the month. She received an NIH stroke scale score of 10 secondary to right arm and leg drift/weakness, mild dysarthria and dysphagia, hemianopsia of the right, and dysmetria of the right arm and leg. Sensorium / Orientation: alert Psych mental status grossly normal Skin no rashes or lesions noted MDM MDM MDM Narrative Medical decision making narrative: Patient presented to the ER hypertensive she was awake and alert to person and place but disoriented to time. She had focal deficits consistent with an acute stroke. Secondary to this a stroke alert was activated and elected to order a CT and a CTA. The patient CT showed a hemorrhagic stroke in the left thalamus. Therefore there is no need to perform a CTA. Patient was started on a Cardene drip secondary to the hypertension. She reports she is only on a baby aspirin and adamantly denies that she is taking Plavix and therefore there is no need for DDAVP. At this time as she is a hemorrhagic stroke she is not fit to be kept at our facility. [facility] was contacted and agreed to accept the patient. We attempted to [facility] the patient but secondary to weather no one was flying and therefore patient will be transported by ground. The Cardene reduce blood pressure to a systolic of 140. The patient's neurologic exam remained stable throughout her entire ER stay. Lab Data Attestation: I reviewed the patient's lab results. Labs: Laboratory Results - last 24 hr 11/16/21 11/16/21 11/16/21 00:25 00:25 00:25 WBC 8.1 RBC 4.76 Hgb 14.8 Hct 44.1 MCV 92.6 MCH 31.1 MCHC 33.6 RDW Std Deviation 44.6 H RDW Coeff of Tomeka 13.0 Plt Count 197 MPV 9.3 Immature Gran % (Auto) 0.100 Neut % (Auto) 55.8 Lymph % (Auto) 34.2 [place] % (Auto) 6.8 Eos % (Auto) 2.4 Baso % (Auto) 0.7 Absolute Neuts (auto) 4.5 Absolute Lymphs (auto) 2.76 Nucleated RBC % 0 PT 14.2 INR 1.1 APTT 29.8 Sodium 143 Potassium 3.7 Chloride 107 Carbon Dioxide 29.0 Anion Gap 7 BUN 19 H Creatinine 0.59 Estim Creat Clear Calc 41.97 Est GFR (MDRD) Af Amer 128 Est GFR (MDRD) Non-Af 106 BUN/Creatinine Ratio 32.2 H Glucose 134 H Calcium 8.9 Troponin I High Sens 14 Radiography Diagnostic Testing: Clinical Impression(s) from Imaging Studies Brain CT 11/16/21 00:34 IMPRESSION: Acute left thalamic parenchymal hematoma with lateral extension of the parenchymal hemorrhage into the medial left temporal lobe. No interventricular extension of the hematoma identified. Disproportionate enlargement of the ventricles in relation to the degree of atrophy, raising the possibility of communicating hydrocephalus. No midline shift. Nonstandard communication protocol initiated and completed. N.B. : The above Results were Read Back by Haim Silverman MD to ANDREA Knowles, and understanding confirmed on 11/16/2021 00:52:13 (ET). Electronically Signed: Haim Silverman MD at 0:58 EDT , ADDENDUM: 11/16/21 0105 IMPRESSION: Acute left thalamic parenchymal hematoma with lateral extension of the parenchymal hemorrhage into the medial left temporal lobe. No interventricular extension of the hematoma identified. Disproportionate enlargement of the ventricles in relation to the degree of atrophy, raising the possibility of communicating hydrocephalus. No midline shift. Nonstandard communication protocol initiated and completed. N.B. : The above Results were Read Back by Haim Silverman MD to Dr. Rafael Chadwick, AA, and understanding confirmed on 11/16/2021 00:52:13 (ET). Electronically Signed: Haim Silverman MD at 0:58 EDT , Chest X-Ray 11/16/21 00:34 IMPRESSION: No acute cardiopulmonary disease process identified. Electronically Signed: Haim Silverman MD at 1:25 EDT , Chest x-ray as interpreted by the emergency medicine physician reveals no acute infiltrate pneumothorax or pleural effusion Critical Care Time Critical Care Time: Yes Critical care time (excluding procedures): - (Please note critical care time of 33 minutes) Discharge Plan Triage Chief Complaint: Neuro S/Sx ED Provider: Rafael Chadwick Dx/Rx/DC Orders Clinical Impression: Hemorrhagic stroke, Hypertension, CAD (coronary artery disease) Prescriptions: No Action aspirin 81 MG tablet,chewable 81 mg PO DAILY@0800 Qty: 30 0RF Primary Care Provider: Benigno Peguero Referrals: Benigno Peguero MD [Primary Care Provider] - Disposition Disposition: Acute Care Hospital Discharge Location: [facility]
[2021-11-16 01:29] VITALS: PULSE 98; RESP 26; O2SAT 96
--- NOTE | 2021-11-16 01:34 | ED.RN ---
0117 crardene started at 5m/hr or 50cc/hr. [id number]
--- NOTE | 2021-11-16 01:36 | ED.RN ---
[id number], cardene increased to 7.5mg/hr or 75cc/hr.
--- NOTE | 2021-11-16 01:37 | ED.RN ---
0127 [id number], cardene increased to 10mg/hr or 100cc.
--- NOTE | 2021-11-16 01:39 | ED.RN ---
[id number], cardene maintained at 10mg/hr.
--- NOTE | 2021-11-16 01:57 | ED.RN ---
0141 ems at bedside recieving report and preparing pt for transfer.
[2021-11-16 02:00] VITALS: BP 141/60; PULSE 100; RESP 30; TEMP 36.7; O2SAT 96
[2021-11-16 02:04] VITALS: RESP 30
== END 2021-11-16 02:00 | disposition short-term general hospital (02) ==
PROVIDERS: Emergency Provider Emergency Medicine; PCP Family Medicine; Visit Provider Emergency Medicine
DX: I63.9 Cerebral infarction, unspecified (principal); J44.9 Chronic obstructive pulmonary disease, unspecified; R41.0 Disorientation, unspecified; I25.10 Atherosclerotic heart disease of native coronary artery without angina pectoris; I10 Essential (primary) hypertension; Z87.891 Personal history of nicotine dependence; Z79.82 Long term (current) use of aspirin
CPT/HCPCS: 70450; 71045; 80048; 84484; 85025; 85610; 85730; 93005; 99285; A4216

== ENCOUNTER → 2021-11-27 | Outpatient (REF) | payer MEDICARE, MEDICAID, SELFPAY ==
[2021-11-27 08:59] LABS: Cholesterol 89 mg/dL (200); High Density Lipoprotein 46 mg/dL; Triglycerides 56 mg/dL; Very Low Density Lipoprotein 11 mg/dL (5-40)
== END ==
LOC: OLS.SW1020 05:00
PROVIDERS: PCP Family Medicine; Visit Provider Internal Medicine
DX: E78.5 Hyperlipidemia, unspecified (principal); I61.0 Nontraumatic intracerebral hemorrhage in hemisphere, subcortical; J44.9 Chronic obstructive pulmonary disease, unspecified; I25.10 Atherosclerotic heart disease of native coronary artery without angina pectoris
CPT/HCPCS: 36415; 80061

== ENCOUNTER 2021-12-01 16:41 | Emergency (ER) | payer MEDICARE, MEDICAID, SELFPAY ==
[2021-12-01 16:42] VITALS: BP 174/84; PULSE 89; RESP 18; TEMP 36.7; O2SAT 95; BMI 31.8
--- NOTE | 2021-12-01 16:52 | EKG12_ITS ---
Test Reason : CP Blood Pressure : / mmHG Vent. Rate : 088 BPM Atrial Rate : 088 BPM P-R Int : 148 ms QRS Dur : 080 ms QT Int : 388 ms P-R-T Axes : 055 072 062 degrees QTc Int : 469 ms Normal sinus rhythm Normal ECG Confirmed by TANGELA GNA, RAVINDRA ([id number]), supervising editor news reel HOLLEY GALLAGHER ([id number]) on 12/04/2021 8:13:08 AM Referred By: ANDREA/PHILIPPE Confirmed By:RAVINDRA HONEYCUTT MD
--- NOTE | 2021-12-01 16:54 | EDS_ITS ---
HPI History of Present Illness Chief Complaint: Chest Pain Detail of Chief Complaint: Chest pain that started initially 2 days ago but then resolved. Onset/Context/Timing Maximum Severity: 05/27 Narrative Narrative: Patient presents the emergency department with complaint of chest pain that started initially 2 days ago. Patient states the pain initially resolved but then returned about 2 hours ago. Patient describes a aching soreness like a pulled muscle in her left chest. There is no radiation of the pain. She denies shortness of breath. She denies diaphoresis. She denies nausea or vomiting. Patient states she is had similar pain in the past when she is pulled a muscle. Patient denies any injury to her chest although she is currently rehabilitating at a facility after having a stroke 2 weeks ago. Patient currently rates her pain a 4 out of 10. Patient tells me she had a heart attack about 3 years ago after surgery but when she had a heart catheterization there is no evidence of any blockages. Prior Similar Symptoms: Yes PFSH PFS Medical History Aspiration pneumonia Cholelithiasis with chronic cholecystitis COPD (chronic obstructive pulmonary disease) Frostbite of foot, left Gallstones Heart attack Non-ST elevation (NSTEMI) myocardial infarction (05/09/18) Nonobstructive atherosclerosis of coronary artery Home Medications aspirin 81 mg chewable tablet 81 mg PO DAILY@0800 ##30 05/11/18 [Rx Last Taken 06/30/18] Allergy/AdvReac Type Severity Reaction Status Date / Time No Known Allergies Allergy Verified 11/16/21 00:49 Family History Sister Breast cancer Myocardial infarction age 61 Father Myocardial infarction father age 59 Surgical History History of appendectomy History of colonoscopy (~2012) History of esophagogastroduodenoscopy (EGD) (~2012) History of left heart catheterization (06/30/18) History of right oophorectomy History of tonsillectomy Status post laparoscopic cholecystectomy (04/2018) Social History (Updated 06/03/18 @ 13:[address] Arie Goldstein MD) Smoking Status: Former smoker quit date: 05/31/13 ROS ROS ED Review of Systems ROS Unobtainable: other Constitutional Constitutional ED: Reports lethargy; Denies chills, fever(s), sweats or weight loss Eyes Eyes: Denies blurry vision, change in vision or diplopia ENT ENT ED: Denies rhinorrhea or sore throat Cardiovascular Cardiovascular: Reports chest pain; Denies orthopnea or racing heartbeat Respiratory/Chest Respiratory/Chest: Denies cough, dyspnea, dyspnea on exertion, orthopnea or sputum Gastrointestinal Gastrointestinal: Denies abdominal pain, diarrhea, nausea or vomiting Genitourinary Genitourinary ED: Denies dysuria, hematuria or urinary frequency Musculoskeletal Musculoskeletal: Denies arthralgias, back pain, myalgias or neck pain Integumentary Denies abscess, Abrasions or rash Neurologic Neurologic: Denies headache(s) or weakness Psychiatric Psychiatric: Denies anxiety, depression or suicidal thoughts Endocrine Endocrinology: Denies polydipsia, polyphagia or polyuria Hematologic/Lymphatic Hematologic/Lymphatic: Denies easy bleeding, easy bruising or lymphadenopathy Allergic/Immunologic Allergic/Immunologic ED: Denies mouth swelling, tongue swelling or urticaria EXAM Physical Exam Const Vital Signs: 12/01/21 16:42 12/01/21 17:00 12/01/21 18:00 Temperature 98.1 F Temperature Source Oral Pulse Rate 89 85 Respiratory Rate 18 22 H Blood Pressure 174/84 H 130/85 H Blood Pressure Mean 114 100 Pulse Ox 95 97 Oxygen Delivery Method Nasal Cannula Nasal Cannula Nasal Cannula Oxygen Flow Rate (L/min) 4 4 4 12/01/21 19:04 Temperature Temperature Source Pulse Rate 85 Respiratory Rate 22 H Blood Pressure 139/99 H Blood Pressure Mean 112 Pulse Ox 97 Oxygen Delivery Method Nasal Cannula Oxygen Flow Rate (L/min) 4 Positive well nourished and well developed General Appearance ED: well developed and NAD HEENT Reports TM's clear and moist mucous membranes normocephalic and atraumatic; Negative for trauma or tenderness Tympanic Membrane ED: Yes TM's clear Eyes PERRL and EOMs intact bilaterally General Eye ED: Negative for pale conjunctiva or scleral icterus Neck no lymphadenopathy, supple and no JVD General: Negative for tenderness Chest Wall inspection of chest normal and palpation of chest normal Chest: Negative for tenderness Resp normal respiratory effort and clear to auscultation bilaterally Effort and Inspection: Negative for respiratory distress or pain with movement Auscultation: Negative for rhonchi, wheezes or diminished lung sounds Cardio regular rate, regular rhythm, S1 normal heart sound, S2 normal heart sound and no murmurs Peripheral Pulses: pulses 2+ throughout GI normal to inspection, nondistended, normoactive bowel sounds, soft to palpation, non-tender, non-distended and no masses Back/Spine no CVA tenderness and no thoracic nor lumbar tenderness Extremity normal to inspection General Extremety ED: Negative for edema General Extremity: Negative for edema Neuro oriented x3, CN's II-XII intact bilaterally, no sensory deficits noted and gait normal Sensorium / Orientation: awake, alert, oriented to person, oriented to place and oriented to time Motor Exam: strength 5/5 throughout and strength abnormal Psych mental status grossly normal Skin no rashes or lesions noted and no wounds Heart Score History: Slightly/Non-Suspicious ECG: Normal Age: >/= 65 years Risk Factors: >/= 3 Risk Factors or History of CAD Troponin: </= Normal Limit Score: 4 MDM MDM Lab Data Attestation: I reviewed the patient's lab results. Lab results narrative: Patient placed on benefits sales consultant on arrival and IV line established. EKG obtained showed sinus rhythm with a ventricular rate of 88 bpm with no acute ST segment changes. Lab work-up was normal. Initial troponin was normal. D-dimer was elevated 0.[address] of the chest was obtained which was negative for PE or dissection. Patient had a delta troponin that also was normal. At this point I suspect patient likely with musculoskeletal chest pain. Her heart score is a 4 mostly due to the fact that in the records I see she has had a non-STEMI after some sort of surgical procedure but patient has never had any type of intervention. I feel patient is low risk for acute coronary syndrome. She will be discharged back to her rehab facility. She is advised to return if increasing shortness of breath, worsening chest pain, or condition should worsen anyway. Labs: Laboratory Results - last 24 hr 12/01/21 12/01/21 12/01/21 16:46 16:46 16:46 WBC 10.4 RBC 4.73 Hgb 15.0 Hct 44.8 MCV 94.7 MCH 31.7 MCHC 33.5 RDW Std Deviation 45.9 H RDW Coeff of Tomeka 13.2 Plt Count 239 MPV 10.3 Immature Gran % (Auto) 0.400 Neut % (Auto) 57.8 Lymph % (Auto) 26.8 [place] % (Auto) 7.9 Eos % (Auto) 6.3 H Baso % (Auto) 0.8 Absolute Neuts (auto) 6.0 Absolute Lymphs (auto) 2.78 Nucleated RBC % 0 D-Dimer Quant (PE/DVT) 0.82 H* Sodium 141 Potassium 4.0 Chloride 107 Carbon Dioxide 30.0 Anion Gap 4 L BUN 16 Creatinine 0.54 L Estim Creat Clear Calc 40.21 Est GFR (MDRD) Af Amer 140 Est GFR (MDRD) Non-Af 116 BUN/Creatinine Ratio 29.4 H Glucose 82 Calcium 9.4 Troponin I High Sens 9 12/01/21 18:45 WBC RBC Hgb Hct MCV MCH MCHC RDW Std Deviation RDW Coeff of Tomeka Plt Count MPV Immature Gran % (Auto) Neut % (Auto) Lymph % (Auto) [place] % (Auto) Eos % (Auto) Baso % (Auto) Absolute Neuts (auto) Absolute Lymphs (auto) Nucleated RBC % D-Dimer Quant (PE/DVT) Sodium Potassium Chloride Carbon Dioxide Anion Gap BUN Creatinine Estim Creat Clear Calc Est GFR (MDRD) Af Amer Est GFR (MDRD) Non-Af BUN/Creatinine Ratio Glucose Calcium Troponin I High Sens 10 Radiography Diagnostic Testing: Clinical Impression(s) from Imaging Studies Chest X-Ray 12/01/21 17:25 IMPRESSION: Emphysema without pneumonia or atelectasis. Electronically Signed: Mac Raymond MD at 17:46 EDT Reading Location ID and State: [employer] [facility] Tel , Service support , Chest CTA 12/01/21 17:28 IMPRESSION: Normal CTA chest examination, without a demonstrated pulmonary embolism or arterial dissection. Electronically Signed: Mac Raymond MD at 18:06 EDT Reading Location ID and State: [id number] / [facility] Tel , Service support , 1 view chest x-ray obtained interpreted by myself no acute disease process. Radiologist felt there was emphysema without pneumonia or atelectasis. EKG Initial EKG: Attestation: I personally reviewed and interpreted this EKG as follows: Comments: Sinus rhythm with a ventricular rate of 88 bpm with no acute ST segment changes Discharge Plan Triage Chief Complaint: Chest Pain ED Provider: Clau Mancia Dx/Rx/DC Orders Clinical Impression: Chest pain Instructions: ED Chest Pain, Uncertain Cause Prescriptions: No Action aspirin 81 MG tablet,chewable 81 mg PO DAILY@0800 Qty: 30 0RF Primary Care Provider: Benigno Peguero Referrals: Benigno Peguero MD [Primary Care Provider] - 3-5 Days Disposition Disposition: Home, Self Care
[2021-12-01 17:04] LABS: Absolute Lymphocyte Count 2.78 X10^3/uL (0.83-4.51); Basophil# 0.08 X10^3/uL; Basophil% 0.8 % (0-1); Eosinophil# 0.65 X10^3/uL; Eosinophils% 6.3 % (0-5); Hematocrit 44.8 % (37-47); Lymphocyte # 2.78 X10^3/ul (0.83-4.51); Lymphocyte % 26.8 % (19-41); Mean Corp Hgb Conc 33.5 g/dL (32-36); Mean Corpuscular Hgb 31.7 pg (27.0-32.0); Mean Corpuscular Volume 94.7 fL (81-99); Mean Platelet Vol. 10.3 fl (6.2-12.0); Monocyte# 0.82 X10^3/uL; Monocyte% 7.9 % (0-10); NRBC Flagged by Analyzer 0 % (0-5); Neutrophil # 6.02 X10^3/uL (2.7-7.7); Neutrophil % 57.8 % (47-70); Platelet Count 239 K/mm3 (150-450); RBC Distribution Width CV 13.2 % (11.6-14.6); RBC Distribution Width SD 45.9 fl (35.1-43.9); Red Blood Count 4.73 M/mm3 (4.2-5.4); White Blood Count 10.4 K/mm3 (4.4-11.0)
[2021-12-01] MEDS: 0.9% Normal Saline 1,000 ML 150 ML IV (17:04)
[2021-12-01] MEDS: Aspirin 81 MG TAB.CHEW 324 MG PO (17:04)
[2021-12-01 17:12] LABS: D-Dimer Quantitative (DVT/PE) 0.82 FEU/ug/m (0.27-0.49)
[2021-12-01 17:17] LABS: Anion Gap 4 (5-15); BUN 16 mg/dL (7-18); BUN/Creat Ratio 29.4 RATIO (10-20); Calcium,Total 9.4 mg/dL (8.5-10.1); Chloride 107 mmol/L (98-107); Creatinine, Serum 0.54 mg/dL (0.55-1.02); EST Glomerular Filtration Rate 116 mL/min (>60); Est Glom Filt Rate - Afr Amer 140 mL/min (>60); Estimated Creatinine Clearance 40.21 ml/min; Glucose 82 mg/dL (74-106); Sodium Level 141 mmol/L (136-145); Troponin-I HS (w/2H Reflex) 9 pg/mL (3.0-54.0)
--- NOTE | 2021-12-01 17:25 | RAD_ITS ---
STUDY: X-RAY CHEST REASON FOR EXAM: Female, 76 years old. chest pain TECHNIQUE: Single AP portable view of the chest. COMPARISON: 11/16/2021 FINDINGS: There is hyperinflation of the lungs consistent with chronic obstructive lung disease (COPD). No change in a 2 cm dense nodule in the periphery of the left lung. This is unchanged dating back to 05/02/2014 likely consistent with a calcified granuloma. There is no demonstrated pleural abnormality. Normal size heart. Normal mediastinum and alfredo. Normal visualized pulmonary arteries. Normal visualized aortic arch and descending thoracic aorta. Normal visualized thoracic spine. Normal visualized ribs, clavicles, and shoulders. There is no demonstrated abnormality of the visualized soft tissue structures of the upper abdomen. RAD/Chest 1 View (Portable) IMPRESSION: Emphysema without pneumonia or atelectasis. Electronically Signed: Mac Raymond MD at 17:46 EDT ,
--- NOTE | 2021-12-01 17:28 | CT_ITS ---
STUDY: CTA CHEST REASON FOR EXAM: Female, 76 years old. chest pain RADIATION DOSAGE (If Supplied By Facility): CTDIvol = ( 10.55 ) mGy, DLP = ( 398.46 ) mGycm TECHNIQUE: The examination was performed with the intravenous administration of IV 100mL [id number]-370. Post-processing of the angiographic images was performed, with multiplanar reformation and 3D reconstruction. Individualized dose optimization techniques were used for this CT. COMPARISON: 03/18/2012, chest x-ray earlier today FINDINGS: Normal enhancement of the main pulmonary artery and right and left pulmonary arteries. Normal enhancement of the bilateral peripheral pulmonary arteries. There is no demonstrated pulmonary embolism. Normal thoracic aorta and visualized great vessels. There is no demonstrated aortic dissection. Normal heart and pericardium. There are calcifications of the coronary arteries. Normal mediastinum. Normal hilar regions. Normal visualized trachea and bronchi. The lungs are well expanded. Moderate bilateral apical scarring. Mild emphysema. 2 cm calcified granuloma in the periphery the left upper lobe. No noncalcified nodule or mass. Normal pleura. Normal chest wall structures. Normal osseous structures. Irregular contour to the liver consistent with cirrhosis. CT/CTA Chest W/WO Contrast IMPRESSION: Normal CTA chest examination, without a demonstrated pulmonary embolism or arterial dissection. Electronically Signed: Mac Raymond MD at 18:06 EDT ,
[2021-12-01 18:00] VITALS: BP 130/85; PULSE 85; RESP 22; O2SAT 97
[2021-12-01 18:56] LABS: Reflex Troponin-HS? (from REC) Y
[2021-12-01 19:04] VITALS: BP 139/99; PULSE 85; RESP 22; O2SAT 97
[2021-12-01 19:25] LABS: Troponin-I HS 10 pg/mL (3.0-54.0)
== END 2021-12-01 20:15 | disposition home or self-care (01) ==
PROVIDERS: Emergency Provider Emergency Medicine; PCP Family Medicine; Visit Provider Emergency Medicine
DX: R07.9 Chest pain, unspecified (principal); J44.9 Chronic obstructive pulmonary disease, unspecified; I25.10 Atherosclerotic heart disease of native coronary artery without angina pectoris; Z87.891 Personal history of nicotine dependence
CPT/HCPCS: 71045; 71275; 80048; 84484; 85025; 85379; 93005; 96360; 96361; 99285; Q9967; A4216

== ENCOUNTER → 2021-12-24 | Outpatient (REF) | payer MEDICARE, MEDICAID, SELFPAY ==
[2021-12-24 08:28] LABS: Squamous Epithelial Cells - UA 0 SEEN /hpf (5-10)
[2021-12-24 08:58] LABS: Absolute Lymphocyte Count 2.25 X10^3/uL (0.83-4.51); Absolute Neutrophil Count 7.6 X10^3/uL (2.0-7.7); Basophil# 0.03 X10^3/uL; Basophil% 0.3 % (0-1); Eosinophils% 3.5 % (0-5); Hematocrit 40.9 % (37-47); Hemoglobin 13.7 g/dL (12.0-15.0); Lymphocyte # 2.25 X10^3/ul (0.83-4.51); Lymphocyte % 19.8 % (19-41); Mean Corp Hgb Conc 33.5 g/dL (32-36); Mean Corpuscular Hgb 31.6 pg (27.0-32.0); Mean Corpuscular Volume 94.5 fL (81-99); Monocyte# 1.01 X10^3/uL; Monocyte% 8.9 % (0-10); NRBC Flagged by Analyzer 0 % (0-5); Neutrophil # 7.64 X10^3/uL (2.7-7.7); Neutrophil % 67.1 % (47-70); Platelet Count 221 K/mm3 (150-450); RBC Distribution Width CV 14.2 % (11.6-14.6); RBC Distribution Width SD 48.9 fl (35.1-43.9); Red Blood Count 4.33 M/mm3 (4.2-5.4); White Blood Count 11.4 K/mm3 (4.4-11.0)
[2021-12-24 09:02] LABS: Color, Urine Yellow (Yellow); Glucose, Dipstick Normal (Normal); Ketone-Dipstick Negative (Negative); Leukocyte Esterase-Dipstick 500 /ul (Negative); Nitrite-Dipstick Positive (Negative); Occult Blood-Urine 150 /ul (Negative); Protein-Dipstick 100 mg/dl (Negative); Urine Bilirubin Dipstick Negative (Negative); Urine Clarity Sl. Cloudy (Clear); Urine Urobilinogen Normal (Normal)
[2021-12-24 09:09] LABS: Bacteria 3+ /hpf (None Seen); Mucous, Urine 2+ /hpf (<or=2+); Red Blood Cells-Urine 25-50 SEEN /hpf (0-5); White Blood Cells 25-50 SEEN /hpf (0-5)
[2021-12-24 09:34] LABS: Anion Gap 6 (5-15); BUN 31 mg/dL (7-18); BUN/Creat Ratio 51.8 RATIO (10-20); Calcium,Total 8.8 mg/dL (8.5-10.1); Chloride 105 mmol/L (98-107); EST Glomerular Filtration Rate 104 mL/min (>60); Est Glom Filt Rate - Afr Amer 126 mL/min (>60); Glucose 103 mg/dL (74-106); Potassium 3.9 mmol/L (3.5-5.1); Sodium Level 140 mmol/L (136-145)
== END ==
LOC: OLS.SW 05:00
PROVIDERS: PCP Family Medicine; Visit Provider Internal Medicine
DX: U07.1 COVID-19 (principal); I61.0 Nontraumatic intracerebral hemorrhage in hemisphere, subcortical; I25.10 Atherosclerotic heart disease of native coronary artery without angina pectoris; N39.0 Urinary tract infection, site not specified
CPT/HCPCS: 36415; 80048; 81001; 85025; 86140; 87077; 87086; 87088; 87186

== ENCOUNTER → 2021-12-27 | Outpatient (REF) | payer MEDICARE, MEDICAID, SELFPAY ==
[2021-12-27 09:16] LABS: Absolute Neutrophil Count 7.3 X10^3/uL (2.0-7.7); Basophil# 0.04 X10^3/uL; Basophil% 0.4 % (0-1); Eosinophil# 0.39 X10^3/uL; Eosinophils% 3.5 % (0-5); Hematocrit 43.8 % (37-47); Hemoglobin 14.4 g/dL (12.0-15.0); Lymphocyte % 21.8 % (19-41); Mean Corp Hgb Conc 32.9 g/dL (32-36); Mean Corpuscular Hgb 31.5 pg (27.0-32.0); Mean Corpuscular Volume 95.8 fL (81-99); Mean Platelet Vol. 10.9 fl (6.2-12.0); Monocyte% 8.2 % (0-10); NRBC Flagged by Analyzer 0 % (0-5); Neutrophil # 7.25 X10^3/uL (2.7-7.7); Neutrophil % 65.8 % (47-70); Platelet Count 197 K/mm3 (150-450); RBC Distribution Width CV 14.2 % (11.6-14.6); RBC Distribution Width SD 49.9 fl (35.1-43.9); Red Blood Count 4.57 M/mm3 (4.2-5.4)
[2021-12-27 09:54] LABS: Anion Gap 7 (5-15); BUN 21 mg/dL (7-18); BUN/Creat Ratio 33.5 RATIO (10-20); Calcium,Total 9.2 mg/dL (8.5-10.1); Chloride 106 mmol/L (98-107); Creatinine, Serum 0.63 mg/dL (0.55-1.02); EST Glomerular Filtration Rate 98 mL/min (>60); Est Glom Filt Rate - Afr Amer 119 mL/min (>60); Glucose 88 mg/dL (74-106); Magnesium 2.1 mg/dL (1.6-2.6); Potassium 4.8 mmol/L (3.5-5.1); Sodium Level 140 mmol/L (136-145)
== END ==
LOC: OLS.SW 05:00
PROVIDERS: PCP Family Medicine; Visit Provider Internal Medicine
DX: J44.9 Chronic obstructive pulmonary disease, unspecified (principal)
CPT/HCPCS: 36415; 80048; 83735; 85025

== ENCOUNTER → 2022-01-03 | Outpatient (REF) | payer MEDICARE, MEDICAID, SELFPAY ==
[2022-01-03 09:11] LABS: Absolute Lymphocyte Count 1.81 X10^3/uL (0.83-4.51); Absolute Neutrophil Count 5.2 X10^3/uL (2.0-7.7); Basophil# 0.06 X10^3/uL; Basophil% 0.7 % (0-1); Eosinophil# 0.31 X10^3/uL; Eosinophils% 3.9 % (0-5); Hematocrit 39.7 % (37-47); Hemoglobin 13.5 g/dL (12.0-15.0); Lymphocyte # 1.81 X10^3/ul (0.83-4.51); Lymphocyte % 22.5 % (19-41); Mean Corpuscular Hgb 32.7 pg (27.0-32.0); Mean Corpuscular Volume 96.1 fL (81-99); Mean Platelet Vol. 10.7 fl (6.2-12.0); Monocyte# 0.68 X10^3/uL; Monocyte% 8.5 % (0-10); NRBC Flagged by Analyzer 0 % (0-5); Neutrophil # 5.16 X10^3/uL (2.7-7.7); Neutrophil % 64.2 % (47-70); Platelet Count 162 K/mm3 (150-450); RBC Distribution Width CV 14.4 % (11.6-14.6); RBC Distribution Width SD 50.6 fl (35.1-43.9); Red Blood Count 4.13 M/mm3 (4.2-5.4)
[2022-01-03 09:31] LABS: Anion Gap 5 (5-15); BUN 18 mg/dL (7-18); BUN/Creat Ratio 44.4 RATIO (10-20); Calcium,Total 8.8 mg/dL (8.5-10.1); Chloride 108 mmol/L (98-107); EST Glomerular Filtration Rate 163 mL/min (>60); Est Glom Filt Rate - Afr Amer 197 mL/min (>60); Glucose 86 mg/dL (74-106); Potassium 4.2 mmol/L (3.5-5.1); Sodium Level 142 mmol/L (136-145)
== END ==
LOC: OLS.SW 05:00
PROVIDERS: PCP Family Medicine; Visit Provider Internal Medicine
DX: R68.89 Other general symptoms and signs (principal); Z13.228 Encounter for screening for other metabolic disorders
CPT/HCPCS: 36415; 80048; 83735; 85025

== ENCOUNTER → 2022-01-11 | Outpatient (REF) | payer MEDICARE, MEDICAID, SELFPAY ==
[2022-01-11 07:38] LABS: Absolute Lymphocyte Count 2.76 X10^3/uL (0.83-4.51); Absolute Neutrophil Count 4.8 X10^3/uL (2.0-7.7); Basophil# 0.05 X10^3/uL; Basophil% 0.6 % (0-1); Eosinophil# 0.44 X10^3/uL; Lymphocyte # 2.76 X10^3/ul (0.83-4.51); Lymphocyte % 31.4 % (19-41); Mean Corp Hgb Conc 32.5 g/dL (32-36); Mean Corpuscular Hgb 32.3 pg (27.0-32.0); Mean Corpuscular Volume 99.3 fL (81-99); Mean Platelet Vol. 11.2 fl (6.2-12.0); Monocyte# 0.71 X10^3/uL; Monocyte% 8.1 % (0-10); NRBC Flagged by Analyzer 0 % (0-5); Neutrophil # 4.81 X10^3/uL (2.7-7.7); Neutrophil % 54.7 % (47-70); Platelet Count 156 K/mm3 (150-450); RBC Distribution Width CV 15.1 % (11.6-14.6); RBC Distribution Width SD 55.7 fl (35.1-43.9); Red Blood Count 4.03 M/mm3 (4.2-5.4); White Blood Count 8.8 K/mm3 (4.4-11.0)
[2022-01-11 07:47] LABS: Anion Gap 5 (5-15); BUN 16 mg/dL (7-18); BUN/Creat Ratio 32.8 RATIO (10-20); Calcium,Total 8.8 mg/dL (8.5-10.1); Chloride 106 mmol/L (98-107); Creatinine, Serum 0.49 mg/dL (0.55-1.02); EST Glomerular Filtration Rate 131 mL/min (>60); Est Glom Filt Rate - Afr Amer 159 mL/min (>60); Glucose 82 mg/dL (74-106); Sodium Level 141 mmol/L (136-145)
== END ==
LOC: OLS.SW 04:00
PROVIDERS: PCP Family Medicine; Referring Provider Internal Medicine; Visit Provider Internal Medicine
DX: I10 Essential (primary) hypertension (principal); J44.9 Chronic obstructive pulmonary disease, unspecified
CPT/HCPCS: 36415; 80048; 83735; 85025

== ENCOUNTER → 2022-01-17 | Outpatient (REF) | payer MEDICARE, MEDICAID, SELFPAY ==
[2022-01-17 10:02] LABS: Absolute Lymphocyte Count 2.71 X10^3/uL (0.83-4.51); Absolute Neutrophil Count 3.6 X10^3/uL (2.0-7.7); Basophil# 0.06 X10^3/uL; Basophil% 0.8 % (0-1); Eosinophil# 0.39 X10^3/uL; Eosinophils% 5.2 % (0-5); Hematocrit 40.9 % (37-47); Hemoglobin 13.1 g/dL (12.0-15.0); Lymphocyte # 2.71 X10^3/ul (0.83-4.51); Lymphocyte % 36.4 % (19-41); Mean Corpuscular Volume 99.8 fL (81-99); Mean Platelet Vol. 11.8 fl (6.2-12.0); Monocyte# 0.65 X10^3/uL; Monocyte% 8.7 % (0-10); NRBC Flagged by Analyzer 0 % (0-5); Neutrophil # 3.61 X10^3/uL (2.7-7.7); Neutrophil % 48.6 % (47-70); Platelet Count 176 K/mm3 (150-450); RBC Distribution Width CV 15.5 % (11.6-14.6); RBC Distribution Width SD 56.6 fl (35.1-43.9); White Blood Count 7.4 K/mm3 (4.4-11.0)
[2022-01-17 10:15] LABS: Anion Gap 5 (5-15); BUN 23 mg/dL (7-18); BUN/Creat Ratio 37.3 RATIO (10-20); Calcium,Total 9.2 mg/dL (8.5-10.1); Chloride 109 mmol/L (98-107); Creatinine, Serum 0.62 mg/dL (0.55-1.02); EST Glomerular Filtration Rate 100 mL/min (>60); Est Glom Filt Rate - Afr Amer 121 mL/min (>60); Glucose 96 mg/dL (74-106); Magnesium 2.1 mg/dL (1.6-2.6); Potassium 4.2 mmol/L (3.5-5.1); Sodium Level 143 mmol/L (136-145)
== END ==
LOC: OLS.SW 05:00
PROVIDERS: PCP Family Medicine; Visit Provider Internal Medicine
DX: I10 Essential (primary) hypertension (principal)
CPT/HCPCS: 36415; 80048; 83735; 85025

== ENCOUNTER → 2022-01-24 | Outpatient (REF) | payer MEDICARE, MEDICAID, SELFPAY ==
[2022-01-24 09:09] LABS: Absolute Lymphocyte Count 2.58 X10^3/uL (0.83-4.51); Absolute Neutrophil Count 4.3 X10^3/uL (2.0-7.7); Basophil# 0.03 X10^3/uL; Basophil% 0.4 % (0-1); Eosinophil# 0.25 X10^3/uL; Eosinophils% 3.2 % (0-5); Hematocrit 39.1 % (37-47); Hemoglobin 12.8 g/dL (12.0-15.0); Lymphocyte # 2.58 X10^3/ul (0.83-4.51); Lymphocyte % 33.3 % (19-41); Mean Corp Hgb Conc 32.7 g/dL (32-36); Mean Corpuscular Hgb 32.2 pg (27.0-32.0); Mean Corpuscular Volume 98.2 fL (81-99); Mean Platelet Vol. 10.8 fl (6.2-12.0); Monocyte# 0.57 X10^3/uL; Monocyte% 7.4 % (0-10); NRBC Flagged by Analyzer 0 % (0-5); Neutrophil % 55.4 % (47-70); Platelet Count 157 K/mm3 (150-450); RBC Distribution Width CV 14.8 % (11.6-14.6); Red Blood Count 3.98 M/mm3 (4.2-5.4); White Blood Count 7.8 K/mm3 (4.4-11.0)
[2022-01-24 09:14] LABS: Anion Gap 6 (5-15); BUN 16 mg/dL (7-18); BUN/Creat Ratio 31.5 RATIO (10-20); Calcium,Total 8.8 mg/dL (8.5-10.1); Chloride 109 mmol/L (98-107); Creatinine, Serum 0.51 mg/dL (0.55-1.02); EST Glomerular Filtration Rate 125 mL/min (>60); Est Glom Filt Rate - Afr Amer 152 mL/min (>60); Glucose 90 mg/dL (74-106); Sodium Level 143 mmol/L (136-145)
== END ==
LOC: OLS.SW 05:00
PROVIDERS: PCP Family Medicine; Visit Provider Internal Medicine
DX: R68.89 Other general symptoms and signs (principal); Z13.228 Encounter for screening for other metabolic disorders
CPT/HCPCS: 36415; 80048; 83735; 85025

== ENCOUNTER → 2022-01-28 | Outpatient (CLI) | payer MEDICARE, MEDICAID, SELFPAY ==
--- NOTE | 2022-01-28 14:35 | CT_ITS ---
INDICATION: Follow-up nontraumatic thalamic hemorrhage EXAMINATION: CT BRAIN - CT Head or Brain W/O Contrast Injection TECHNIQUE: Multiple axial images were obtained of the head without intravenous contrast. A radiation dose optimization technique was used for this scan. IV Contrast dosage and agent: None. COMPARISON: 11/16/2021 FINDINGS: BRAIN PARENCHYMA: Interval resolution of the acute left thalamic parenchymal hematoma. No acute intracranial hemorrhage present. No evidence of acute infarct. No intracranial mass or mass effect. There is preservation of the alva/white matter interface. Posterior fossa structures are unremarkable. Volume loss with low attenuation of the periventricular white matter typical of chronic small vessel disease. CSF SPACES: Appropriate for age. No hydrocephalus. Basal cisterns are patent. CALVARIUM, SKULL BASE, PARANASAL SINUSES AND MASTOID AIR CELLS: Clear. No discrete lytic or blastic abnormalities. CT/Brain/Head without Contrast IMPRESSION: Volume loss with chronic white matter changes. Interval resolution of the left thalamic hemorrhage. No acute intracranial findings. Electronically Signed: Donovan Berger MD at 15:27 EST ,
== END | disposition home or self-care (01) ==
LOC: CT 14:32
PROVIDERS: PCP Family Medicine; Referring Provider Psychiatry & Neurology Neurology; Visit Provider Psychiatry & Neurology Neurology
DX: I61.9 Nontraumatic intracerebral hemorrhage, unspecified (principal)
CPT/HCPCS: 70450

== ENCOUNTER 2022-03-05 12:09 | Inpatient (IN) | payer MEDICARE, MEDICAID, SELFPAY ==
[2022-03-05 12:10] VITALS: BP 112/67; PULSE 78; RESP 16; TEMP 36.9; O2SAT 91; BMI 28.9
--- NOTE | 2022-03-05 13:36 | RAD_ITS ---
STUDY: X-RAY CHEST REASON FOR EXAM: Female, 76 years old. Chest pain TECHNIQUE: Single AP portable view of the chest. COMPARISON: Comparison is made with prior study dated 12/02/1999 and FINDINGS: EKG electrodes are seen. Hyperinflation. Stable 2.5 cm x 1.9 cm well-defined nodule in the peripheral lateral aspect of the left mid lung. This was demonstrated to be a calcified granuloma on prior CT scanning of the chest. There is no demonstrated pleural abnormality. Normal size heart. Normal mediastinum and alfredo. Normal visualized pulmonary arteries. There is atherosclerotic calcification of the aortic arch with tortuosity. Mild dextroscoliosis with degenerative changes. Normal visualized ribs, clavicles, and shoulders. There is no demonstrated abnormality of the visualized soft tissue structures of the upper abdomen. RAD/Chest 1 View (Portable) IMPRESSION: Hyperinflation. Stable appearance of the nodular density in the peripheral lateral aspect of the left midlung. No acute abnormality is seen. Electronically Signed: Luciano Ferraro MD at 14:16 EST ,
--- NOTE | 2022-03-05 13:36 | EKG12_ITS ---
Test Reason : Blood Pressure : / mmHG Vent. Rate : 078 BPM Atrial Rate : 078 BPM P-R Int : 162 ms QRS Dur : 078 ms QT Int : 400 ms P-R-T Axes : 056 075 063 degrees QTc Int : 456 ms Normal sinus rhythm Normal ECG Confirmed by TON GAN, ARLETH ([id number]), photo editor HOLLEY GALLAGHER ([id number]) on 03/06/2022 2:45:56 PM Referred By: Confirmed By:ARLETH CAMILO MD
--- NOTE | 2022-03-05 13:37 | CT_ITS ---
STUDY: CT BRAIN WITHOUT CONTRAST REASON FOR EXAM: Female, 76 years old. Weakness and frequent falls. History of prior hemorrhagic stroke. RADIATION DOSAGE (If Supplied By Facility): CTDIvol = ( 44.99 ) mGy, DLP = ( 796.11 ) mGycm TECHNIQUE: Transaxial CT imaging of the brain was performed without administration of intravenous contrast material. Individualized dose optimization techniques were used for this CT. COMPARISON: Comparison is made with prior study 01/28/2022. FINDINGS: Normal soft tissue structures. Normal calvarium. There is disproportionate enlargement of the lateral and third ventricles, as compared to the extra-axial spaces. The findings suggest normal pressure hydrocephalus (NPH). There are areas of decreased attenuation within the white matter tracts of the supratentorial brain, consistent with microvascular disease changes. Tiny old lacunar infarcts seen in the basal ganglia. Normal brainstem. Normal cerebellum. There is no intracranial hemorrhage. There are no findings of an acute ischemic infarction. Atherosclerotic calcific plaques of the vertebral arteries and cavernous portions of the internal carotid arteries bilaterally. Normal visualized paranasal sinuses. CT/Brain/Head without Contrast IMPRESSION: Findings suggestive of a normal pressure hydrocephalus. Electronically Signed: Luciano Ferraro MD at 14:22 EST ,
--- NOTE | 2022-03-05 13:38 | EDS_ITS ---
HPI History of Present Illness Chief Complaint: Weakness Narrative Narrative: 76-year-old female presenting with chief complaint of cough. She states she is producing sputum. She states has been ongoing since about Friday. She denies fever, chills, body aches. She denies shortness of breath. She denies nausea or vomiting. She denies chest pain. She does report that she has been falling more frequently. She states that when she bends over she loses her balance. She denies any head injury. She denies injury elsewhere. She does relate that she recently had a nontraumatic hemorrhagic stroke in October. She is currently living at [facility] post rehab from her stroke. [facility] Medical History Aspiration pneumonia Cholelithiasis with chronic cholecystitis COPD (chronic obstructive pulmonary disease) Frostbite of foot, left Gallstones Heart attack Non-ST elevation (NSTEMI) myocardial infarction (05/09/18) Nonobstructive atherosclerosis of coronary artery Home Medications atorvastatin 40 mg tablet 40 mg PO QHS 03/05/22 [History Last Taken Unknown] fluticasone fur. 100 mcg-umeclid 62.5 mcg-vilant 25 mcg inhalat.powder (Trelegy Ellipta) 1 ea inhalation QHS 03/05/22 [History Last Taken Unknown] fluticasone furoate 200 mcg-vilanterol 25 mcg/dose inhalation powder (Breo Ellipta) 1 ea inhalation DAILY 03/05/22 [History Last Taken Unknown] lisinopril 10 mg tablet 10 mg PO DAILY 03/05/22 [History Last Taken Unknown] metoprolol tartrate 25 mg tablet 12.5 mg PO DAILY 03/05/22 [History Last Taken Unknown] potassium chloride 20 mEq tablet,extended release(part/cryst) 20 meq PO DAILY 03/05/22 [History Last Taken Unknown] tiotropium bromide 2.5 mcg/actuation mist for inhalation (Spiriva Respimat) 2 puff inhalation DAILY 03/05/22 [History Last Taken Unknown] Allergy/AdvReac Type Severity Reaction Status Date / Time No Known Allergies Allergy Verified 03/05/22 12:14 Family History Sister Breast cancer Myocardial infarction age 61 Father Myocardial infarction father age 59 Surgical History History of appendectomy History of colonoscopy (~2012) History of esophagogastroduodenoscopy (EGD) (~2012) History of left heart catheterization (06/30/18) History of right oophorectomy History of tonsillectomy Status post laparoscopic cholecystectomy (04/2018) Social History Smoking Status: Former smoker quit date: 05/31/13 ROS ROS ED Constitutional Constitutional ED: Denies chills or fever(s) Eyes Eyes: Denies change in vision or diplopia ENT ENT ED: Denies rhinorrhea or sore throat Cardiovascular Cardiovascular: Denies chest pain or palpitations Respiratory/Chest Respiratory/Chest: Reports cough and sputum Gastrointestinal Gastrointestinal: Denies abdominal pain, melena, nausea or vomiting Genitourinary Genitourinary ED: Denies dysuria or hematuria Musculoskeletal Musculoskeletal: Denies arthralgias Integumentary Denies abscess Neurologic Neurologic: Denies headache(s) or paresthesias Psychiatric Psychiatric: Denies anxiety or depression EXAM Physical Exam Const Vital Signs: 03/05/22 12:10 03/05/22 12:15 03/05/22 13:44 Temperature 98.5 F Temperature Source Oral Pulse Rate 78 Respiratory Rate 16 Respiratory Effort Normal Non-Labored Respiratory Pattern Normal Blood Pressure 112/67 Blood Pressure Mean 82 Pulse Ox 91 91 Oxygen Delivery Method Room Air Room Air 03/05/22 14:12 03/05/22 17:26 Temperature Temperature Source Pulse Rate 84 Respiratory Rate 30 H 33 H Respiratory Effort Respiratory Pattern Blood Pressure Blood Pressure Mean Pulse Ox Oxygen Delivery Method Positive well nourished General Appearance ED: NAD HEENT Reports moist mucous membranes Eyes PERRL and EOMs intact bilaterally Neck no lymphadenopathy Chest Wall inspection of chest normal Resp normal respiratory effort Auscultation: diminished lung sounds right Cardio regular rate and regular rhythm GI normal to inspection, nondistended, normoactive bowel sounds Neuro oriented x3 and CN's II-XII intact bilaterally Sensorium / Orientation: alert Psych mental status grossly normal Skin no rashes or lesions noted and no wounds MDM MDM MDM Narrative Medical decision making narrative: Patient presenting with cough. Initially went into the room her heart rate was reading at 170 and appeared to be sinus. It appeared that the monitor was double counting and this was addressed. Her heart rate is now 78 bpm. I obtained an EKG which on my interpretation shows sinus rhythm at a ventricular to 78 bpm. Parable 160 ms, QRS duration 70 ms, QTC 436 ms. Chest x-rayOff and on my interpretation there is no acute cardiopulmonary process. Radiologist represents and agree. CBC was obtained to assess her H&H and differential. This is essentially normal. No leukocytosis. Renal function electrolytes were obtained and are within normal limits. She did have a CT of the brain due to her history of nontraumatic head bleed. This is interpreted as normal pressure hydrocephalus. It looks like on her previous CT they did not interpret this way but previously she had interpreted dilated ventricles on her CTs. This was discussed with Dr. Benigno Peguero who felt we could not emergently get her a neurologic consult. I did also tell him that it looked like she has a urinary tract infection which would explain her symptoms. He recommended starting the patient on Bactrim. Urine culture was sent. Bactrim was provided. Discussed with the family is initially wanted her to go back to [facility] but there was not any indication that she needed to. Patient discharged in stable condition. Impression: 1. Falls 1. UTI 3. History of Hydrocephalus Lab Data Attestation: I reviewed the patient's lab results. Labs: Laboratory Results - last 24 hr 03/05/22 03/05/22 03/05/22 13:50 13:50 16:20 WBC 9.3 RBC 4.15 L Hgb 13.3 Hct 40.0 MCV 96.4 MCH 32.0 MCHC 33.3 RDW Std Deviation 48.0 H RDW Coeff of Tomeka 13.4 Plt Count 288 MPV 9.3 Immature Gran % (Auto) 0.200 Neut % (Auto) 59.0 Lymph % (Auto) 24.4 [place] % (Auto) 13.3 H Eos % (Auto) 2.5 Baso % (Auto) 0.6 Absolute Neuts (auto) 5.5 Absolute Lymphs (auto) 2.26 Nucleated RBC % 0 Sodium 137 Potassium 4.2 Chloride 103 Carbon Dioxide 30.0 Anion Gap 4 L BUN 22 H Creatinine 0.67 Estim Creat Clear Calc 38.44 Est GFR (MDRD) Af Amer 109 Est GFR (MDRD) Non-Af 91 BUN/Creatinine Ratio 32.6 H Glucose 112 H Calcium 9.5 Troponin I High Sens 7 Urine Color Yellow Urine Clarity Sl. Cloudy Urine pH 5.0 Ur Specific [place] 1.025 Urine Protein Negative Urine Glucose (UA) Normal Urine Ketones Negative Urine Occult Blood Negative Urine Nitrite Positive H Urine Bilirubin Negative Urine Urobilinogen 4 H Ur Leukocyte Esterase 100 H Urine RBC 0 SEEN Urine WBC 5-10 SEEN Ur Squamous Epith Cells 0-5 SEEN Amorphous Sediment 1+ Urine Bacteria 2+ Urine Mucus 0 SEEN Radiography Diagnostic Testing: Clinical Impression(s) from Imaging Studies Chest X-Ray 03/05/22 13:36 IMPRESSION: Hyperinflation. Stable appearance of the nodular density in the peripheral lateral aspect of the left midlung. No acute abnormality is seen. Electronically Signed: Luciano Ferraro MD at 14:16 EST , Brain CT 03/05/22 13:37 IMPRESSION: Findings suggestive of a normal pressure hydrocephalus. Electronically Signed: Luciano Ferraro MD at 14:22 EST , Discharge Plan Triage Chief Complaint: Weakness ED Provider: Julio C Mario Dx/Rx/DC Orders Prescriptions: No Action atorvastatin 40 mg tablet 40 mg PO QHS potassium chloride 20 mEq tablet,ER particles/crystals 20 meq PO DAILY lisinopril 10 mg tablet 10 mg PO DAILY metoprolol tartrate 25 mg tablet 12.5 mg PO DAILY Spiriva Respimat 2.5 mcg/actuation mist 2 puff INHALATION DAILY fluticasone furoate-vilanterol [Breo Ellipta] 200-25 mcg/dose blister with device 1 ea INHALATION DAILY Trelegy Ellipta 100-62.5-25 mcg blister with device 1 ea INHALATION QHS Primary Care Provider: Benigno Peguero Referrals: Benigno Peguero MD [Primary Care Provider] -
[2022-03-05 13:44] VITALS: O2SAT 91
[2022-03-05] MEDS: 0.9% Normal Saline 1,000 ML 1000 ML IV (13:52)
[2022-03-05 13:58] LABS: Absolute Lymphocyte Count 2.26 X10^3/uL (0.83-4.51); Absolute Neutrophil Count 5.5 X10^3/uL (2.0-7.7); Basophil# 0.06 X10^3/uL; Basophil% 0.6 % (0-1); Eosinophil# 0.23 X10^3/uL; Eosinophils% 2.5 % (0-5); Hemoglobin 13.3 g/dL (12.0-15.0); Lymphocyte # 2.26 X10^3/ul (0.83-4.51); Lymphocyte % 24.4 % (19-41); Mean Corp Hgb Conc 33.3 g/dL (32-36); Mean Corpuscular Volume 96.4 fL (81-99); Mean Platelet Vol. 9.3 fl (6.2-12.0); Monocyte# 1.23 X10^3/uL; Monocyte% 13.3 % (0-10); NRBC Flagged by Analyzer 0 % (0-5); Neutrophil # 5.48 X10^3/uL (2.7-7.7); Platelet Count 288 K/mm3 (150-450); RBC Distribution Width CV 13.4 % (11.6-14.6); Red Blood Count 4.15 M/mm3 (4.2-5.4); White Blood Count 9.3 K/mm3 (4.4-11.0)
[2022-03-05 14:12] VITALS: RESP 30
[2022-03-05 14:12] LABS: Anion Gap 4 (5-15); BUN 22 mg/dL (7-18); BUN/Creat Ratio 32.6 RATIO (10-20); Calcium,Total 9.5 mg/dL (8.5-10.1); Chloride 103 mmol/L (98-107); Creatinine, Serum 0.67 mg/dL (0.55-1.02); EST Glomerular Filtration Rate 91 mL/min (>60); Est Glom Filt Rate - Afr Amer 109 mL/min (>60); Estimated Creatinine Clearance 38.44 ml/min; Glucose 112 mg/dL (74-106); Potassium 4.2 mmol/L (3.5-5.1); Sodium Level 137 mmol/L (136-145); Troponin-I HS (w/2H Reflex) 7 pg/mL (3.0-54.0)
--- NOTE | 2022-03-05 15:10 | CASEMGMT ---
SINDI CM: Call received from pt's community health promoter Sonia. Per Sonia, pt has been at [facility] for the past 3 months for rehab and returned to [facility] on Friday03/01/22. Sonia reports pt's daughter to have contacted her with concerns of pt needing further rehabilitation. ED SW notified of communication. Vazquez Villatoro RN CM
--- NOTE | 2022-03-05 15:22 | CM.ED ---
CM Director Courtney Villatoro called this filing writer and said that patient's [facility] [employer] Helper Sonia [phone] called regarding patient. Per Sonia patient is from [facility] but had been at [facility] and recently moved back to [facility]. Daughter called Sonia regarding patient and voiced that patient may need to return to [facility]. JOI updated SINDI Lowe regarding this contact. Mai PATTEN
[2022-03-05 15:52] LABS: Reflex Troponin-HS? (from REC) Y
--- NOTE | 2022-03-05 15:52 | ED.RN ---
[facility] [phone]
[2022-03-05 16:35] LABS: Mucous, Urine 0 SEEN /hpf (<or=2+); Red Blood Cells-Urine 0 SEEN /hpf (0-5)
[2022-03-05 16:39] LABS: Color, Urine Yellow (Yellow); Glucose, Dipstick Normal (Normal); Ketone-Dipstick Negative (Negative); Leukocyte Esterase-Dipstick 100 /ul (Negative); Nitrite-Dipstick Positive (Negative); Occult Blood-Urine Negative /ul (Negative); Protein-Dipstick Negative (Negative); Specific Gravity, Urine 1.025 (1.002-1.030); Urine Bilirubin Dipstick Negative (Negative); Urine Clarity Sl. Cloudy (Clear); Urine Urobilinogen 4 mg/dl (Normal)
[2022-03-05 16:46] LABS: Amorphous Sediment 1+; Bacteria 2+ /hpf (None Seen); Squamous Epithelial Cells - UA 0-5 SEEN /hpf (5-10); White Blood Cells 5-10 SEEN /hpf (0-5)
--- NOTE | 2022-03-05 16:49 | CM.ED ---
Addendum entered by Mai Suh 03/05/22 18:01: JOI met with patient and her children. Son and daughter were explained about patient's medical condition and that her medical condition can cause confusion and weakness. advised that MD Peguero will follow with patient. Son voiced if MD Peguero will follow up with patient and can manage patient's needs will he stay with the patient tonight at her apartment? RN called report to [facility] and spoke to RN. Patient is very adament that she wants to go to [facility] and not return to [facility]. Patient does not want to share room at [facility]. Family voiced concern that patient is not eating and had fallen 6 times and patient said that she fell two times this weekend. JOI updated Abaegal at [facility]. Mai PATTEN Original Note: JOI called patient's son Carrington Stearns [phone]. Carrington stated that he and his are working with [facility] and they want patient to return to [facility] as opposed to go to [facility] upon return. Carrington said that he and his have spoken to [facility] and [facility] has started the process of patient going to [facility]. Carrington said that his mother does not want to return to [facility]. JOI called Johanne at [facility]. She said that patient was out of it and unsteady and oriented x1 today and sent to the ED. JOI called [facility] and sent email to Darline at [facility]. They need referral and PT notes and insurance precertification as well as a PAS. JOI met with patient and patient's daughter, Millie. JOI updated them that patient had a UTI and the MD had spoken to MD Peguero and he will follow up with patient. Patient does not want to return to [facility]. Patient said that she does not have a [facility] family caseworker. JOI left voice mail for Sonia at [facility] [phone]. Mai BENJAMIN
[2022-03-05] MEDS: Smz/Tmp Ds Tablet 1 TABLET PO (16:51)
[2022-03-05 17:26] VITALS: PULSE 84; RESP 33
--- NOTE | 2022-03-05 17:47 | ED.RN ---
REPORT GIVEN TO RAY. [phone]
--- NOTE | 2022-03-05 18:20 | CM.ED ---
Addendum entered by Mai Suh 03/05/22 20:06: JOI was advised by patient's son that patient has agreed to go to [facility]. JOI spoke to patient and she agreed to go to [facility]. JOI called Maxim at [facility] and updated her regarding patient. She agreed that she will do the PASSR for the patient. Maxim said that patient does not need a LOC as she has [facility] insurance and that patient can return to [facility]. JOI confirmed that Patient's PAS is complete. JOI called ED and advised patient can go to [facility]. Room 103. JOI called Johanne at [facility] and advised that patient is not going back to [facility]. Family and patient have been advised that patient is going to [facility] tonight. Mai Patten Original Note: JOI spoke to London at [facility] and she said that since patient was recently discharged from [facility] they can bill through her policy and they do not need a level of care and can get the PT evaluation when patien is seen there and she can do the PASSR. JOI advised that patient's concern is the semi private room and London said that she has a room that is semi private with no one in the room. JOI spoke to patient and updated her about the room without a roommate and patient said that she does not want to go to [facility]. Patient is her own decision maker at this time and thus can make the decision. JOI updated Carlton and she said that she can follow up at [facility] tomorrow but voiced that if patient is her own decision maker she can make this decision. JOI called patient's son and updated him. Plan: Return to [facility] Mai PATTEN
--- NOTE | 2022-03-05 20:12 | CM.ED ---
JOI called Sonia at [facility] and advised her that plan changed and patient was going to [facility]. Mai PATTEN
[2022-03-05 21:10] VITALS: BP 150/104; PULSE 99; RESP 20; O2SAT 86
--- NOTE | 2022-03-05 21:42 | ED.RN ---
CARE FOR PATIENT TAKEN OVER AT 1999. Rosalind SCHWARTZ RN
--- NOTE | 2022-03-05 21:47 | RAD_ITS ---
INDICATION: Hypoxia EXAMINATION/TECHNIQUE: X-RAY - XR Chest 1 View COMPARISON: 11/16/2021, 12/01/2021, 03/05/2022 FINDINGS: LINES/DEVICES: None. LUNGS: No consolidation, edema or effusion. No pneumothorax. Partially calcified lateral left lung mass redemonstrated. Chronically coarsened lung markings MEDIASTINUM AND CARDIOVASCULAR STRUCTURES: Cardiac silhouette not enlarged. Central airways and mediastinal contour are unremarkable. BONES AND SOFT TISSUES: Unremarkable. RAD/Chest 1 View (Portable) IMPRESSION: No radiographic evidence of acute cardiopulmonary disease. Electronically Signed: Attila Nick MD at 22:08 EST ,
--- NOTE | 2022-03-05 21:55 | ED.RN ---
[facility] [phone]
[2022-03-05 22:05] LABS: Allen Test Positive; Base Excess -1 mmol/L (-2 to +2); Bicarbonate 24.2 mmol/L (22-26); Blood Gas Specimen Type ART; O2 Delivery Device Cannula; PO2 68 mmHG (75-100); SITE L Radial; SO2 93 % (95-99); Total Carbon Dioxide 25 mmol/L
--- NOTE | 2022-03-05 22:38 | CT_ITS ---
STUDY: CTA CHEST REASON FOR EXAM: Female, 76 years old. Hypoxia evaluate pulmonary embolus RADIATION DOSAGE (If Supplied By Facility): CTDIvol = ( 12.65 ) mGy, DLP = ( 483.09 ) mGycm TECHNIQUE: The examination was performed with the intravenous administration of IV 100mL Isovue-370. Post-processing of the angiographic images was performed, with multiplanar reformation and 3D reconstruction. Individualized dose optimization techniques were used for this CT. COMPARISON: 12/01/2021 FINDINGS: Normal enhancement of the main pulmonary artery and right and left pulmonary arteries. Suboptimal enhancement of the bilateral peripheral pulmonary arteries. Vague filling defect in the segmental artery to the right middle lobe. There is no demonstrated central or proximal segmental pulmonary embolism. Normal thoracic aorta and visualized great vessels. There is no demonstrated aortic dissection. Normal heart and pericardium. Normal mediastinum. Normal hilar regions. Normal visualized trachea and bronchi. The lungs are well expanded. Posterior left lung base atelectasis/infiltrate. Calcified left upper lobe nodular redemonstrated. Normal pleura. Normal chest wall structures. Degenerative change of the thoracic spine. 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 Liver cirrhosis and portosystemic varices redemonstrated. CT/CTA Chest W/WO Contrast IMPRESSION: Suspect right middle lobe segmental pulmonary artery embolus. Posterior left lung base atelectasis/infiltrate. Electronically Signed: Attila Nick MD at 23:39 EST ,
[2022-03-05 23:19] VITALS: BP 132/66; PULSE 94; RESP 24; O2SAT 97
--- NOTE | 2022-03-05 23:22 | ED.RN ---
O2 placed turned off at dr request. stefano cardona rn [id number]
--- NOTE | 2022-03-05 23:59 | HP.PCM.HOS_ITS ---
HPI - General General Date of Admission: 03/05/22 Date of Service: 03/06/22 Chief Complaint: Weakness HPI Narrative AMANDEEP REYES, is a 76 F with a significant history of hypertension and COPD (previously on oxygen but not currently) and who currently lives at assisted senior living presents emergency department with at least 2-day history of weakness. Reportedly she is too weak that she is unable to stand. Also she reports falling 2 times 4 days before presentation. Her symptoms have been progressively worsening. Of note patient has a history of aspiration pneumonia as well. She reports mild cough. Her cough is occasionally dry; and occasionally productive for green sputum. She reports shortness of breath. At the emergency department patient was treated and she was about to be discharged. However it was noted that she was hypoxic. Patient CTA chest showed infiltrate and pulmonary emboli. [facility] Medical History Aspiration pneumonia Cholelithiasis with chronic cholecystitis COPD (chronic obstructive pulmonary disease) Frostbite of foot, left Gallstones Heart attack Non-ST elevation (NSTEMI) myocardial infarction (05/09/18) Nonobstructive atherosclerosis of coronary artery Home Medications atorvastatin 40 mg tablet 40 mg PO QHS 03/05/22 [History Last Taken Unknown] fluticasone fur. 100 mcg-umeclid 62.5 mcg-vilant 25 mcg inhalat.powder (Trelegy Ellipta) 1 ea inhalation QHS 03/05/22 [History Last Taken Unknown] fluticasone furoate 200 mcg-vilanterol 25 mcg/dose inhalation powder (Breo Ellipta) 1 ea inhalation DAILY 03/05/22 [History Last Taken Unknown] lisinopril 10 mg tablet 10 mg PO DAILY 03/05/22 [History Last Taken Unknown] metoprolol tartrate 25 mg tablet 12.5 mg PO DAILY 03/05/22 [History Last Taken Unknown] potassium chloride 20 mEq tablet,extended release(part/cryst) 20 meq PO DAILY 03/05/22 [History Last Taken Unknown] sulfamethoxazole 800 mg-trimethoprim 160 mg tablet (Bactrim DS) 1 tab PO BID #13 tabs 03/05/22 [Rx Last Taken Unknown] tiotropium bromide 2.5 mcg/actuation mist for inhalation (Spiriva Respimat) 2 puff inhalation DAILY 03/05/22 [History Last Taken Unknown] Allergy/AdvReac Type Severity Reaction Status Date / Time No Known Allergies Allergy Verified 03/05/22 12:14 Family History Sister Breast cancer Myocardial infarction age 61 Father Myocardial infarction father age 59 Surgical History History of appendectomy History of colonoscopy (~2012) History of esophagogastroduodenoscopy (EGD) (~2012) History of left heart catheterization (06/30/18) History of right oophorectomy History of tonsillectomy Status post laparoscopic cholecystectomy (04/2018) Social History Smoking Status: Former smoker quit date: 05/31/13 ROS ROS Narrative Pertinent positives and pertinent negatives as noted in HPI. All other systems were reviewed and are negative Vital Signs Vital Signs Vital Signs: 03/05/22 12:10 03/05/22 12:15 03/05/22 13:44 Temperature 98.5 F Temperature Source Oral Pulse Rate 78 Respiratory Rate 16 Respiratory Effort Normal Non-Labored Respiratory Pattern Normal Blood Pressure 112/67 Blood Pressure Mean 82 Pulse Ox 91 91 Oxygen Delivery Method Room Air Room Air Oxygen Flow Rate (L/min) 03/05/22 14:12 03/05/22 17:26 03/05/22 21:10 Temperature Temperature Source Pulse Rate 84 99 Respiratory Rate 30 H 33 H 20 H Respiratory Effort Respiratory Pattern Blood Pressure 150/104 H Blood Pressure Mean Pulse Ox 86 Oxygen Delivery Method Oxygen Flow Rate (L/min) 03/05/22 23:19 Temperature Temperature Source Pulse Rate 94 Respiratory Rate 24 H Respiratory Effort Respiratory Pattern Blood Pressure 132/66 H Blood Pressure Mean 88 Pulse Ox 97 Oxygen Delivery Method Nasal Cannula Oxygen Flow Rate (L/min) 2 Weight Weight: 71.8 kg Body Mass Index (BMI) 28.9 Physical Exam Narrative Physical exam: General: Well-nourished, well-developed. Head: Normocephalic, atraumatic, no tenderness Eyes: Vision is grossly intact. EOMI ENT, no trauma, moist mucous membranes, no rhinorrhea Neck: Nontender, No thyromegaly. CVS: Regular rate and rhythm. S1-S2 present. No murmur, gallop or rub. Respiratory : clear to auscultation bilaterally, chest wall nontender, no wheezing Abdomen: Soft, nontender, nondistended, normal bowel sounds, no masses : Deferred Back: Nontender, no CVA tenderness, no midline spinal tenderness, deformities, step-offs Extremities: Nontender full range of motion, no trauma Skin: Normal color, no trauma, abrasions Neuro: Alert, oriented, cranial nerves II through XII grossly intact. Psychiatry: Normal mood. Normal affect. Not depressed. Not anxious. Results Lab / Micro Data Result Diagrams: 03/05/22 13:50 03/05/22 13:50 Labs: Laboratory Results - last 24 hr 03/05/22 13:50: WBC 9.3, RBC 4.15 L, Hgb 13.3, Hct 40.0, MCV 96.4, MCH 32.0, MCHC 33.3, RDW Std Deviation 48.0 H, RDW Coeff of [place] 13.4, Plt Count 288, MPV 9.3, Immature Gran % (Auto) 0.200, Neut % (Auto) 59.0, Lymph % (Auto) 24.4, [place] % (Auto) 13.3 H, Eos % (Auto) 2.5, Baso % (Auto) 0.6, Absolute Neuts (auto) 5.5, Absolute Lymphs (auto) 2.26, Nucleated RBC % 0 03/05/22 13:50: Sodium 137, Potassium 4.2, Chloride 103, Carbon Dioxide 30.0, Anion Gap 4 L, BUN 22 H, Creatinine 0.67, Estim Creat Clear Calc 38.44, Est GFR (MDRD) Af Amer 109, Est GFR (MDRD) Non-Af 91, BUN/Creatinine Ratio 32.6 H, Glucose 112 H, Calcium 9.5, Troponin I High Sens 7 03/05/22 16:20: Urine Color Yellow, Urine Clarity Sl. Cloudy, Urine pH 5.0, Ur Specific [place] 1.025, Urine Protein Negative, Urine Glucose (UA) Normal, Urine Ketones Negative, Urine Occult Blood Negative, Urine Nitrite Positive H, Urine Bilirubin Negative, Urine Urobilinogen 4 H, Ur Leukocyte Esterase 100 H, Urine RBC 0 SEEN, Urine WBC 5-10 SEEN, Ur Squamous Epith Cells 0-5 SEEN, Amorphous Sediment 1+, Urine Bacteria 2+, Urine Mucus 0 SEEN Micro: Microbiology 03/05/22 13:49 Nasal Secretion SARS-CoV-2 & FLU Antigen (Rapid) - Final ABG Data ABG results: ABG 03/05/22 21:59 Specimen Type ART Sample Site L Radial pH 7.40 Bicarbonate Actual 24.2 Total CO2 25 Base Excess -1 O2 Saturation 93 L ABG pCO2 39.0 ABG pO2 68 L Manjit Test Positive O2 Delivery Device Cannula Liter Flow 2.0 Radiology Impression Chest X-Ray 03/05/22 13:36 IMPRESSION: Hyperinflation. Stable appearance of the nodular density in the peripheral lateral aspect of the left midlung. No acute abnormality is seen. Electronically Signed: Luciano Ferraro MD at 14:16 EST , Brain CT 03/05/22 13:37 IMPRESSION: Findings suggestive of a normal pressure hydrocephalus. Electronically Signed: Luciano Ferraro MD at 14:22 EST , Chest X-Ray 03/05/22 21:47 IMPRESSION: No radiographic evidence of acute cardiopulmonary disease. Electronically Signed: Attila Nick MD at 22:08 EST , Chest CTA 03/05/22 22:38 IMPRESSION: Suspect right middle lobe segmental pulmonary artery embolus. Posterior left lung base atelectasis/infiltrate. Electronically Signed: Attila Nick MD at 23:39 EST , Assessment & Plan Assessment/Plan (1) Pulmonary embolus: (2) Pneumonia: (3) Debility: PLAN: Plan Acute Pulmonary embolus with hypoxia ABG on 2 L showed PO2 of 68. Chest CTA interpreted by radiologist as: Suspect right middle lobe segmental pulmonary artery embolus. Posterior left lung base atelectasis/infiltrate. Ultra chest CTA was visualized and independently interpreted and I agree with direct interpretation. Patient was not on Eliquis at the emergency department. I agree and will continue. Will get an echocardiogram. Acute pneumonia with hypoxia Gram-positive or gram-negative. Chest x-ray with partially calcified lateral left lung mass which is unchanged. CBC showed normal white count of 9.3, trend. Received Levaquin the emergency department. Start patient on ceftriaxone and azithromycin. Strep pneumonia antigen and Legionella urine antigen ordered COPD Home inhalers continued. Antibiotics as above. Stable. Debility PT and OT to work with patient. Case management consult for disposition. Hypotension Blood pressure is stable Lisinopril and metoprolol continue DVT prophylaxis: Not indicated as patient has been started on therapeutic Eliquis for acute PE. Charges/Coding Visit Charges Inpatient E&M: 98964 Init Hosp L3
[2022-03-06] VITALS (10 sets, daily range): BP systolic 105–150; BP diastolic 42–85; PULSE 78–105; RESP 20–21; TEMP 36.3–37.2; O2SAT 94–97; BMI 27.5
[2022-03-06] MEDS: levoFLOXacin IV 750 MG/150 ML BAG 100 MG IV (00:06)
[2022-03-06] MEDS: APIXABAN 5 MG TABLET 10 MG PO ×2 (00:06→10:52)
--- NOTE | 2022-03-06 00:23 | ECHOCS_ITS ---
Reason For Study: Emboli Procedure This was a 2D Doppler, Color Flow transthoracic echocardiogram. Myocardial strain analysis was performed in this exam to aid in the assessment of cardiac function. The study was technically difficult. Contrast injection was performed. Exam performed portable in patient room. Left Ventricle Normal left ventricle. Left ventricular systolic function is hyperdynamic. The estimated ejection fraction is 70 %. Stage 1 diastolic dysfunction. There appears to be a dynamic gradient in the left ventricular outflow tract of approximately 71 mmHg. No regional wall motion abnormalities noted. Right Ventricle Normal RV size. Normal systolic function. Atria Normal left atrium. Normal right atrium. Mitral Valve Normal mitral valve. Tricuspid Valve Normal tricuspid valve. Mild (1+) tricuspid valve insufficiency. Pulmonary artery systolic pressure is 34 mmHg. Aortic Valve Trisinus/trileaflet aortic valve. Pulmonic Valve Normal pulmonic valve. Great Vessels Normal aortic root. The pulmonary artery is normal size. Normal inferior vena cava. Pericardium/Pleural No pericardial effusion. Medication Diluted definity 2ml given slow IV push to enhance endocardial definition. MMode/2D Measurements & Calculations LVIDd: 4.1 cm IVSd: 1.1 cm Ao root diam: 3.2 cm LVIDs: 2.3 cm LVPWd: 1.1 cm LA dimension: 3.1 cm RVDd: 3.0 cm FS: 43.8 % LAV(MOD-bp): 37.9 ml LVAd ap4: 23.9 cm2 SV(MOD-sp4): 46.2 ml LAV(MOD-bp) Indexed: 22.4 ml/m2 LVLd ap4: 7.5 cm LAV(MOD-sp2): 42.7 ml EDV(MOD-sp4): 62.4 ml LAV(MOD-sp4): 32.0 ml EDV(sp4-el): 64.6 ml LVAs ap4: 10.4 cm2 LVLs ap4: 5.4 cm ESV(MOD-sp4): 16.2 ml ESV(sp4-el): 16.9 ml EF(MOD-sp4): 74.1 % EF(sp4-el): 73.8 % SV(sp4-el): 47.6 ml LA A4 area: 14.4 cm2 RA A4 area: 12.4 cm2 Time Measurements MV dec time: 0.21 sec Doppler Measurements & Calculations MV E max justice: 95.2 cm/sec Lat Peak E' Justice: 8.7 cm/sec Med Peak E' Justice: 8.2 cm/sec MV A max justice: 156.8 cm/sec E/E' lat: 10.9 E/E' med: 11.6 MV E/A: 0.61 MV V2 max: 176.0 cm/sec Ao V2 max: 281.8 cm/sec MV max P.4 mmHg MV dec slope: 455.2 cm/sec2 Ao max P.8 mmHg MV V2 mean: 100.8 cm/sec Ao V2 mean: 206.1 cm/sec MV mean P.7 mmHg Ao mean P.2 mmHg MV V2 VTI: 30.8 cm Ao V2 VTI: 58.7 cm PA V2 max: 148.4 cm/sec TR max justice: 276.7 cm/sec TR max P.6 mmHg ECHO/Echo Complete W/ Contrast Interpretation Summary Left ventricular systolic function is hyperdynamic. Normal left ventricle. The estimated ejection fraction is 70 %. Stage 1 diastolic dysfunction. There appears to be a dynamic gradient in the left ventricular outflow tract of approximately 71 mmHg Pulmonary artery systolic pressure is 34 mmHg. The global longitudinal strain is normal. Ordering Physician: Jacky Fernandez Referring Physician: Benigno Peguero Performed By: Hermilo Paredes RCS
--- NOTE | 2022-03-06 00:33 | NURSING ---
pt states had taken COVID vaccinations unable to provide any administration information
[2022-03-06 06:08] LABS: Absolute Neutrophil Count 4.1 X10^3/uL (2.0-7.7); Basophil# 0.04 X10^3/uL; Basophil% 0.5 % (0-1); Eosinophil# 0.25 X10^3/uL; Eosinophils% 3.3 % (0-5); Hematocrit 36.5 % (37-47); Hemoglobin 11.8 g/dL (12.0-15.0); Mean Corp Hgb Conc 32.3 g/dL (32-36); Mean Corpuscular Hgb 31.8 pg (27.0-32.0); Mean Corpuscular Volume 98.4 fL (81-99); Mean Platelet Vol. 9.3 fl (6.2-12.0); Monocyte% 13.3 % (0-10); NRBC Flagged by Analyzer 0 % (0-5); Neutrophil % 54.6 % (47-70); Platelet Count 220 K/mm3 (150-450); RBC Distribution Width CV 13.3 % (11.6-14.6); RBC Distribution Width SD 47.6 fl (35.1-43.9); Red Blood Count 3.71 M/mm3 (4.2-5.4); White Blood Count 7.5 K/mm3 (4.4-11.0)
[2022-03-06 06:46] LABS: Anion Gap 6 (5-15); BUN 16 mg/dL (7-18); BUN/Creat Ratio 26.4 RATIO (10-20); Calcium,Total 8.2 mg/dL (8.5-10.1); Chloride 106 mmol/L (98-107); Creatinine, Serum 0.61 mg/dL (0.55-1.02); EST Glomerular Filtration Rate 102 mL/min (>60); Est Glom Filt Rate - Afr Amer 124 mL/min (>60); Estimated Creatinine Clearance 38.44 ml/min; Glucose 89 mg/dL (74-106); Potassium 4.3 mmol/L (3.5-5.1); Sodium Level 139 mmol/L (136-145)
[2022-03-06] MEDS: Budesonide Respules 0.5 MG/2 ML AMPUL.NEB. INHALATION (07:05)
[2022-03-06] MEDS: Ipratropium/Albuterol Sulfate 3 ML AMPUL.NEB INHALATION (07:05)
--- NOTE | 2022-03-06 07:42 | PCM.PN.HOSP ---
Subjective Subjective Breathing ok on oxygen. Too weak to get up. Just discharged from [facility] Friday. Objective Data Objective Data Vital Signs: Vital Signs Temp Pulse Resp BP Pulse Ox O2 Del Method O2 Flow Rate 36.9 C 90 20 H 121/42 H 96 Nasal Cannula 2 03/06/22 05:52 03/06/22 05:52 03/06/22 05:52 03/06/22 05:52 03/06/22 05:52 03/06/22 06:38 03/06/22 06:38 Oxygen Flow Rate (L/min) 2 Oxygen Delivery Method Nasal Cannula Weight: 68.2 kg Body Mass Index (BMI) 27.5 Intake & Output: Intake and Output for Last 24 Hours 03/04/22 03/05/22 03/06/22 23:59 23:59 23:59 Intake Total 1000 / 1000 390 / 390 Output Total 150 / 150 Balance 1000 / 1000 240 / 240 Lab / Micro Data Result Diagrams: 03/06/22 05:30 03/06/22 05:30 Labs: Laboratory Results - last 24 hr 03/05/22 13:50: WBC 9.3, RBC 4.15 L, Hgb 13.3, Hct 40.0, MCV 96.4, MCH 32.0, MCHC 33.3, RDW Std Deviation 48.0 H, RDW Coeff of [place] 13.4, Plt Count 288, MPV 9.3, Immature Gran % (Auto) 0.200, Neut % (Auto) 59.0, Lymph % (Auto) 24.4, [place] % (Auto) 13.3 H, Eos % (Auto) 2.5, Baso % (Auto) 0.6, Absolute Neuts (auto) 5.5, Absolute Lymphs (auto) 2.26, Nucleated RBC % 0 03/05/22 13:50: Sodium 137, Potassium 4.2, Chloride 103, Carbon Dioxide 30.0, Anion Gap 4 L, BUN 22 H, Creatinine 0.67, Estim Creat Clear Calc 38.44, Est GFR (MDRD) Af Amer 109, Est GFR (MDRD) Non-Af 91, BUN/Creatinine Ratio 32.6 H, Glucose 112 H, Calcium 9.5, Troponin I High Sens 7 03/05/22 16:20: Urine Color Yellow, Urine Clarity Sl. Cloudy, Urine pH 5.0, Ur Specific [place] 1.025, Urine Protein Negative, Urine Glucose (UA) Normal, Urine Ketones Negative, Urine Occult Blood Negative, Urine Nitrite Positive H, Urine Bilirubin Negative, Urine Urobilinogen 4 H, Ur Leukocyte Esterase 100 H, Urine RBC 0 SEEN, Urine WBC 5-10 SEEN, Ur Squamous Epith Cells 0-5 SEEN, Amorphous Sediment 1+, Urine Bacteria 2+, Urine Mucus 0 SEEN 03/06/22 05:30: WBC 7.5, RBC 3.71 L, Hgb 11.8 L, Hct 36.5 L, MCV 98.4, MCH 31.8, MCHC 32.3, RDW Std Deviation 47.6 H, RDW Coeff of [place] 13.3, Plt Count 220, MPV 9.3, Immature Gran % (Auto) 0.300, Neut % (Auto) 54.6, Lymph % (Auto) 28.0, [place] % (Auto) 13.3 H, Eos % (Auto) 3.3, Baso % (Auto) 0.5, Absolute Neuts (auto) 4.1, Absolute Lymphs (auto) 2.10, Nucleated RBC % 0 03/06/22 05:30: Sodium 139, Potassium 4.3, Chloride 106, Carbon Dioxide 27.0, Anion Gap 6, BUN 16, Creatinine 0.61, Estim Creat Clear Calc 38.44, Est GFR (MDRD) Af Amer 124, Est GFR (MDRD) Non-Af 102, BUN/Creatinine Ratio 26.4 H, Glucose 89, Calcium 8.2 L Micro: Microbiology 03/05/22 16:20 Urine, Random Legionella Antigen - Final 03/05/22 16:20 Urine, Random Streptococcus pneumoniae Antigen (M - Final 03/05/22 13:49 Nasal Secretion SARS-CoV-2 & FLU Antigen (Rapid) - Final ABG Data ABG results: ABG 03/05/22 21:59 Specimen Type ART Sample Site L Radial pH 7.40 Bicarbonate Actual 24.2 Total CO2 25 Base Excess -1 O2 Saturation 93 L ABG pCO2 39.0 ABG pO2 68 L Manjit Test Positive O2 Delivery Device Cannula Liter Flow 2.0 Radiography Diagnostic Testing: Radiology Impression Chest X-Ray 03/05/22 13:36 IMPRESSION: Hyperinflation. Stable appearance of the nodular density in the peripheral lateral aspect of the left midlung. No acute abnormality is seen. Electronically Signed: Luciano Ferraro MD at 14:16 EST , Brain CT 03/05/22 13:37 IMPRESSION: Findings suggestive of a normal pressure hydrocephalus. Electronically Signed: Luciano Ferraro MD at 14:22 EST , Chest X-Ray 03/05/22 21:47 IMPRESSION: No radiographic evidence of acute cardiopulmonary disease. Electronically Signed: Attila Nick MD at 22:08 EST , Chest CTA 03/05/22 22:38 IMPRESSION: Suspect right middle lobe segmental pulmonary artery embolus. Posterior left lung base atelectasis/infiltrate. Electronically Signed: Attila Nick MD at 23:39 EST , Physical Exam Const alert and no apparent distress HEENT head/scalp atraumatic and moist oral mucous membranes Resp normal respiratory effort, no retractions, no use of accessory muscles and clear to auscultation bilaterally Cardio regular rate, regular rhythm, S1 normal heart sound and S2 normal heart sound GI normal to inspection, nondistended, normoactive bowel sounds and soft to palpation Assessment & Plan Assessment/Plan (1) Pulmonary embolus: PLAN: Continue apixaban. Treat for minimum of 6 months. (2) Pneumonia: PLAN: Ruled out. Pt has a rounded area on CT that was present in November. Low suspicion for malignancy, but requires follow up. Follow up with pulmonary. (3) Debility: PLAN: 2 person assist today. To [facility] PLAN: Plan COPD Home inhalers continued. Stable. Hypotension Blood pressure is stable Lisinopril and metoprolol continue DVT prophylaxis: Not indicated as patient has been started on therapeutic Eliquis for acute PE.
[2022-03-06] MEDS: Potassium Chloride Oral Tablet 20 MEQ PO (10:25)
[2022-03-06] MEDS: Lisinopril 10 MG Tablet PO (10:26)
[2022-03-06] MEDS: Metoprolol Tartrate 25 MG Tablet 12.5 MG PO (10:26)
--- NOTE | 2022-03-06 11:48 | CASEMGMT ---
JOI communicated with Dilcia at [facility] via [facility]. Patient is okay to come to them today whenever ready. Dilcia completed the PASRR already. JOI notified physician. Plan: d/c to [facility] under skilled level of care. Fouzia BENJAMIN
--- NOTE | 2022-03-06 12:02 | PCM.TXEXTCAR ---
Diet Diet Order/Speech Therapy: 03/06/22 00:24 Diet: Cardiac - Heart Healthy Food consistency:: Regular Liquid Consistency:: Regular/Thin Routine Orders/Code Status O2 Liters per Minute: 2 O2 Frequency: Continuous Keep PO Greater than or Equal to (%): 90 Code Status: DNRCC-A Therapies Physical Therapy: Eval and Treat Occupational Therapy: Eval and Treat Problem/Diagnosis (1) Pulmonary embolus: Status: Acute Code(s): I26.99 - Other pulmonary embolism without acute cor pulmonale Plan: Continue apixaban. Treat for minimum of 6 months. (2) Pneumonia: Status: Acute Code(s): J18.9 - Pneumonia, unspecified organism Plan: Ruled out. Pt has a rounded area on CT that was present in November. Low suspicion for malignancy, but requires follow up. Follow up with pulmonary. (3) Debility: Status: Acute Code(s): R53.81 - Other malaise Plan: 2 person assist today. To [facility] Plan COPD Home inhalers continued. Stable. Hypotension Blood pressure is stable Lisinopril and metoprolol continue DVT prophylaxis: Not indicated as patient has been started on therapeutic Eliquis for acute PE. Allergies/Procedures Done in Hospital Allergies No Known Allergies Allergy (Verified 03/05/22 12:14) Procedures: None Type of Care/Length of Stay Estimated LOS: Convalescent Care Less Than 30 days Type of Care Needed: Skilled Rehab Potential: Fair Prognosis: Good Additional Orders/Day of Discharge Day of Discharge: 03/06/22 Dietary and Speech Recommendations Dietitian Recommendations/Changes: Continue Cardiac diet to manage medical conditions. RD will order 120mL EPHP 4x with medpass to provide supplemental energy. Discharge Plan Admission Admit Date/Time: 03/05/22 23:50 Primary Reason for Your Visit: pulmonary embolism Attending Provider: Benigno Sullivan Primary Care Provider: Benigno Peguero Consulting Providers: Jacky Fernandez Instructions Patient Instructions: ED Cystitis Female Adult, ED Fall Prevention Additional Instructions / Restrictions: Your CT scan indicated that you might have normal pressure hydrocephalus. Looking at previous CTs this does not appear to be a new issue. Her blood work was otherwise normal except she had to have a urinary tract infection today. I spoke with Dr. Benigno Peguero who recommended starting on antibiotics for home. Discharge Orders/Prescriptions Prescriptions: New Ensure Plus High Protein 0.08 gram-1.5 kcal/mL Liquid 120 ml PO 4X/DAY Qty: 0 0RF benzonatate 100 mg Capsule 100 mg PO Q4H PRN PRN (Reason: COUGH) Qty: 0 0RF apixaban 5 mg tablet 10 mg PO BID Qty: 60 0RF Rx Instructions: 2 tabs BID for 1 weeek, then 1 tab BID Continued atorvastatin 40 mg tablet 40 mg PO QHS potassium chloride 20 mEq tablet,ER particles/crystals 20 meq PO DAILY lisinopril 10 mg tablet 10 mg PO DAILY metoprolol tartrate 25 mg tablet 12.5 mg PO DAILY Spiriva Respimat 2.5 mcg/actuation mist 2 puff INHALATION DAILY fluticasone furoate-vilanterol [Breo Ellipta] 200-25 mcg/dose blister with device 1 ea INHALATION DAILY Trelegy Ellipta 100-62.5-25 mcg blister with device 1 ea INHALATION QHS Referrals / Follow Up: Benigno Peguero MD [Primary Care Provider] - Within 2 Weeks Disposition Disposition (needs filled in before D/C Order can be placed): [facility]
--- NOTE | 2022-03-06 12:11 | DS.PCM_ITS ---
Providers Date of Admission: 03/05/22 Primary Care Physician: Dr. Benigno Peguero MD Reason For Visit: PULMONARY EMBOLISM Diagnosis Discharge Diagnosis (1) Pulmonary embolus: Status: Acute Code(s): I26.99 - Other pulmonary embolism without acute cor pulmonale Plan: Continue apixaban. Treat for minimum of 6 months. (2) Pneumonia: Status: Acute Code(s): J18.9 - Pneumonia, unspecified organism Plan: Ruled out. Pt has a rounded area on CT that was present in November. Low suspicion for malignancy, but requires follow up. Follow up with pulmonary. (3) Debility: Status: Acute Code(s): R53.81 - Other malaise Plan: 2 person assist today. To [facility] Plan COPD Home inhalers continued. Stable. Hypotension Blood pressure is stable Lisinopril and metoprolol continue DVT prophylaxis: Not indicated as patient has been started on therapeutic Eliquis for acute PE. Medications at Discharge Home Medications atorvastatin 40 mg tablet 40 mg PO QHS 03/05/22 fluticasone fur. 100 mcg-umeclid 62.5 mcg-vilant 25 mcg inhalat.powder (Trelegy Ellipta) 1 ea inhalation QHS 03/05/22 fluticasone furoate 200 mcg-vilanterol 25 mcg/dose inhalation powder (Breo Ellipta) 1 ea inhalation DAILY 03/05/22 lisinopril 10 mg tablet 10 mg PO DAILY 03/05/22 metoprolol tartrate 25 mg tablet 12.5 mg PO DAILY 03/05/22 potassium chloride 20 mEq tablet,extended release(part/cryst) 20 meq PO DAILY 03/05/22 tiotropium bromide 2.5 mcg/actuation mist for inhalation (Spiriva Respimat) 2 puff inhalation DAILY 03/05/22 apixaban 5 mg tablet 10 mg PO BID #60 tabs 03/06/22 benzonatate 100 mg capsule 100 mg PO Q4H PRN PRN COUGH #0 caps 03/06/22 food supplemt, lactose-reduced 0.08 gram-1.5 kcal/mL oral liquid (Ensure Plus High Protein) 120 ml PO 4X/DAY #0 mL 03/06/22 Hospital Course Operations None Procedures None Summary of Care Provided Minutes Spent on Discharge: 28 Weight / BMI Weight Weight: 68.2 kg Body Mass Index (BMI) 27.5 ABG / Lab / Microbiology Data Result Diagrams: 03/06/22 05:30 03/06/22 05:30 Laboratory: Laboratory Results - last 24 hr 03/05/22 13:50: WBC 9.3, RBC 4.15 L, Hgb 13.3, Hct 40.0, MCV 96.4, MCH 32.0, MCHC 33.3, RDW Std Deviation 48.0 H, RDW Coeff of [place] 13.4, Plt Count 288, MPV 9.3, Immature Gran % (Auto) 0.200, Neut % (Auto) 59.0, Lymph % (Auto) 24.4, [place] % (Auto) 13.3 H, Eos % (Auto) 2.5, Baso % (Auto) 0.6, Absolute Neuts (auto) 5.5, Absolute Lymphs (auto) 2.26, Nucleated RBC % 0 03/05/22 13:50: Sodium 137, Potassium 4.2, Chloride 103, Carbon Dioxide 30.0, Anion Gap 4 L, BUN 22 H, Creatinine 0.67, Estim Creat Clear Calc 38.44, Est GFR (MDRD) Af Amer 109, Est GFR (MDRD) Non-Af 91, BUN/Creatinine Ratio 32.6 H, Glucose 112 H, Calcium 9.5, Troponin I High Sens 7 03/05/22 16:20: Urine Color Yellow, Urine Clarity Sl. Cloudy, Urine pH 5.0, Ur Specific [place] 1.025, Urine Protein Negative, Urine Glucose (UA) Normal, Urine Ketones Negative, Urine Occult Blood Negative, Urine Nitrite Positive H, Urine Bilirubin Negative, Urine Urobilinogen 4 H, Ur Leukocyte Esterase 100 H, Urine RBC 0 SEEN, Urine WBC 5-10 SEEN, Ur Squamous Epith Cells 0-5 SEEN, Amorphous Sediment 1+, Urine Bacteria 2+, Urine Mucus 0 SEEN 03/06/22 05:30: WBC 7.5, RBC 3.71 L, Hgb 11.8 L, Hct 36.5 L, MCV 98.4, MCH 31.8, MCHC 32.3, RDW Std Deviation 47.6 H, RDW Coeff of [place] 13.3, Plt Count 220, MPV 9.3, Immature Gran % (Auto) 0.300, Neut % (Auto) 54.6, Lymph % (Auto) 28.0, [place] % (Auto) 13.3 H, Eos % (Auto) 3.3, Baso % (Auto) 0.5, Absolute Neuts (auto) 4.1, Absolute Lymphs (auto) 2.10, Nucleated RBC % 0 03/06/22 05:30: Sodium 139, Potassium 4.3, Chloride 106, Carbon Dioxide 27.0, Anion Gap 6, BUN 16, Creatinine 0.61, Estim Creat Clear Calc 38.44, Est GFR (MDRD) Af Amer 124, Est GFR (MDRD) Non-Af 102, BUN/Creatinine Ratio 26.4 H, Glucose 89, Calcium 8.2 L Microbiology: Microbiology 03/05/22 16:20 Urine, Random Urine Culture - Preliminary GNR lactose crime scene evidence technician 03/05/22 16:20 Urine, Random Legionella Antigen - Final 03/05/22 16:20 Urine, Random Streptococcus pneumoniae Antigen (M - Final 03/05/22 13:49 Nasal Secretion SARS-CoV-2 & FLU Antigen (Rapid) - Final ABG: ABG 03/05/22 21:59 Specimen Type ART Sample Site L Radial pH 7.40 Bicarbonate Actual 24.2 Total CO2 25 Base Excess -1 O2 Saturation 93 L ABG pCO2 39.0 ABG pO2 68 L Manjit Test Positive O2 Delivery Device Cannula Liter Flow 2.0 Radiography Diagnostic Testing: Radiology Impression Chest X-Ray 03/05/22 13:36 IMPRESSION: Hyperinflation. Stable appearance of the nodular density in the peripheral lateral aspect of the left midlung. No acute abnormality is seen. Electronically Signed: Luciano Ferraro MD at 14:16 EST , Brain CT 03/05/22 13:37 IMPRESSION: Findings suggestive of a normal pressure hydrocephalus. Electronically Signed: Lucinao Ferraro MD at 14:22 EST , Chest X-Ray 03/05/22 21:47 IMPRESSION: No radiographic evidence of acute cardiopulmonary disease. Electronically Signed: Attila Nick MD at 22:08 EST , Chest CTA 03/05/22 22:38 IMPRESSION: Suspect right middle lobe segmental pulmonary artery embolus. Posterior left lung base atelectasis/infiltrate. Electronically Signed: Attila Nick MD at 23:39 EST , Echocardiogram 03/06/22 00:23 Interpretation Summary Left ventricular systolic function is hyperdynamic. Normal left ventricle. The estimated ejection fraction is 70 %. Stage 1 diastolic dysfunction. There appears to be a dynamic gradient in the left ventricular outflow tract of approximately 71 mmHg Pulmonary artery systolic pressure is 34 mmHg. The global longitudinal strain is normal. Ordering Physician: Jacky Fernandez Referring Physician: Benigno Peguero Performed By: Hermilo Paredes RCS Meaningful Use Info Meaningful Use Diagnoses (Choose all that apply): VTE VTE Anticoag overlap given w/in hospital stay or rx'd at dc?: No Pt receive overlap for 5 days?: No Reason overlap not ordered, prescribed, or given for 5 days: Treatment Not Indicated Discharge Plan Admission Admit Date/Time: 03/05/22 23:50 Primary Reason for Your Visit: pulmonary embolism Attending Provider: Benigno Sullivan Primary Care Provider: Benigno Peguero Consulting Providers: Jacky Fernandez Instructions Patient Instructions: ED Cystitis Female Adult, ED Fall Prevention Additional Instructions / Restrictions: Your CT scan indicated that you might have normal pressure hydrocephalus. Looking at previous CTs this does not appear to be a new issue. Her blood work was otherwise normal except she had to have a urinary tract infection today. I spoke with Dr. Benigno Peguero who recommended starting on antibiotics for home. Discharge Orders/Prescriptions Prescriptions: New Ensure Plus High Protein 0.08 gram-1.5 kcal/mL Liquid 120 ml PO 4X/DAY Qty: 0 0RF benzonatate 100 mg Capsule 100 mg PO Q4H PRN PRN (Reason: COUGH) Qty: 0 0RF apixaban 5 mg tablet 10 mg PO BID Qty: 60 0RF Rx Instructions: 2 tabs BID for 1 weeek, then 1 tab BID Continued atorvastatin 40 mg tablet 40 mg PO QHS potassium chloride 20 mEq tablet,ER particles/crystals 20 meq PO DAILY lisinopril 10 mg tablet 10 mg PO DAILY metoprolol tartrate 25 mg tablet 12.5 mg PO DAILY Spiriva Respimat 2.5 mcg/actuation mist 2 puff INHALATION DAILY fluticasone furoate-vilanterol [Breo Ellipta] 200-25 mcg/dose blister with device 1 ea INHALATION DAILY Trelegy Ellipta 100-62.5-25 mcg blister with device 1 ea INHALATION QHS Referrals / Follow Up: Benigno Peguero MD [Primary Care Provider] - Within 2 Weeks Disposition Disposition (needs filled in before D/C Order can be placed): [facility] Facility Charges/Coding Visit Charges Inpatient E&M: 59094 Disch Hosp
--- NOTE | 2022-03-06 13:19 | PHA.DC.MR ---
Pharmacy Service has performed discharge medication reconciliation for this patient. The patient's discharge medication list was reviewed for discrepancies and discrepancies were resolved. Home Medications atorvastatin 40 mg tablet 40 mg PO QHS 03/05/22 fluticasone fur. 100 mcg-umeclid 62.5 mcg-vilant 25 mcg inhalat.powder (Trelegy Ellipta) 1 ea inhalation QHS 03/05/22 fluticasone furoate 200 mcg-vilanterol 25 mcg/dose inhalation powder (Breo Ellipta) 1 ea inhalation DAILY 03/05/22 lisinopril 10 mg tablet 10 mg PO DAILY 03/05/22 metoprolol tartrate 25 mg tablet 12.5 mg PO DAILY 03/05/22 potassium chloride 20 mEq tablet,extended release(part/cryst) 20 meq PO DAILY 03/05/22 tiotropium bromide 2.5 mcg/actuation mist for inhalation (Spiriva Respimat) 2 puff inhalation DAILY 03/05/22 apixaban 5 mg tablet 10 mg PO BID #60 tabs 03/06/22 benzonatate 100 mg capsule 100 mg PO Q4H PRN PRN COUGH #0 caps 03/06/22 food supplemt, lactose-reduced 0.08 gram-1.5 kcal/mL oral liquid (Ensure Plus High Protein) 120 ml PO 4X/DAY #0 mL 03/06/22
--- NOTE | 2022-03-06 13:22 | CASEMGMT ---
Patient is ready for discharge. JOI sent orders to [facility] via [facility]. JOI called [facility] and spoke with Jacquelin. SW requested wheelchair transport. SW notified Jacquelin patient will need a wheelchair provided as well as 2L of oxygen. JOI also let Jacquelin know that [facility] preferred provider is [facility]. The confirmation number is: [id number]. Await call for transport time. Plan: d/c to [facility] under intermediate level of care. [facility] completed a PASRR. Fouzia BENJAMIN
--- NOTE | 2022-03-06 14:14 | CASEMGMT ---
[facility] called [facility] and [facility] Joh[facility] Patient will be picked up at 3p via wheelchair van. Plan: d/c to [facility] under intermediate level of care. [facility] via [facility] van at 3p. Fouzia BENJAMIN
--- NOTE | 2022-03-06 14:17 | CASEMGMT ---
JOI called patient's son and left him a voice mail letting him know patient will be discharged to [facility] today and picked up at 3p. Fouzia Peralta [employer]
[2022-03-06] MEDS: Ensure Plus High Protein 120 ML LIQUID PO (14:43)
== END 2022-03-06 15:25 | DRG 176 ==
LOC: ED 23:47 → PCU 03-06 00:02
PROVIDERS: Admitting Provider Hospitalist; Emergency Provider Student in an Organized Health Care Education/Training Program; PCP Family Medicine
DX: I26.99 Other pulmonary embolism without acute cor pulmonale (principal); J44.0 Chronic obstructive pulmonary disease with (acute) lower respiratory infection; I95.9 Hypotension, unspecified; I25.10 Atherosclerotic heart disease of native coronary artery without angina pectoris; I25.2 Old myocardial infarction; Z20.822 Contact with and (suspected) exposure to COVID-19; R09.02 Hypoxemia; Z66 Do not resuscitate; Z79.899 Other long term (current) drug therapy; Z87.891 Personal history of nicotine dependence; Z86.73 Personal history of transient ischemic attack (TIA), and cerebral infarction without residual deficits; R29.6 Repeated falls
CPT/HCPCS: 36415; 36600; 70450; 71045; 71275; 80048; 81001; 82803; 84484; 85025; 87077; 87086; 87088; 87186; 87428; 87449; 93005; 93306; 94640; 99285; J7030; Q9957; Q9967; A4216; C8929

== ENCOUNTER → 2022-03-29 | Outpatient (REF) | payer MEDICAID, SELFPAY ==
[2022-03-29 09:35] LABS: Absolute Neutrophil Count 5.2 X10^3/uL (2.0-7.7); Basophil# 0.03 X10^3/uL; Basophil% 0.4 % (0-1); Eosinophil# 0.23 X10^3/uL; Eosinophils% 2.8 % (0-5); Hematocrit 36.5 % (37-47); Hemoglobin 11.8 g/dL (12.0-15.0); Lymphocyte % 24.3 % (19-41); Mean Corp Hgb Conc 32.3 g/dL (32-36); Mean Corpuscular Hgb 31.8 pg (27.0-32.0); Mean Corpuscular Volume 98.4 fL (81-99); Monocyte# 0.74 X10^3/uL; NRBC Flagged by Analyzer 0 % (0-5); Neutrophil # 5.21 X10^3/uL (2.7-7.7); Neutrophil % 63.1 % (47-70); Platelet Count 171 K/mm3 (150-450); RBC Distribution Width CV 13.9 % (11.6-14.6); RBC Distribution Width SD 50.1 fl (35.1-43.9); Red Blood Count 3.71 M/mm3 (4.2-5.4); White Blood Count 8.2 K/mm3 (4.4-11.0)
[2022-03-29 09:52] LABS: Vitamin B12 461 pg/mL (211-911); Vitamin D,25 Hydroxy 51.2 ng/mL
[2022-03-29 10:00] LABS: Thyroid Stim Hormone (TSH) 1.42 uIU/mL (0.358-3.74)
[2022-03-29 10:23] LABS: Hemoglobin A1c 5.2 % (3.8-5.6)
== END | disposition home or self-care (01) ==
LOC: OLS.SW 05:00
PROVIDERS: PCP Family Medicine; Visit Provider Internal Medicine
DX: Z13.228 Encounter for screening for other metabolic disorders (principal)
CPT/HCPCS: 36415; 82306; 82607; 83036; 84443; 85025

== ENCOUNTER → 2022-04-05 | Outpatient (REF) | payer MEDICARE, MEDICAID, SELFPAY ==
[2022-04-05 08:26] LABS: Absolute Lymphocyte Count 1.61 X10^3/uL (0.83-4.51); Absolute Neutrophil Count 5.2 X10^3/uL (2.0-7.7); Basophil# 0.03 X10^3/uL; Basophil% 0.4 % (0-1); Eosinophil# 0.21 X10^3/uL; Eosinophils% 2.7 % (0-5); Hematocrit 36.8 % (37-47); Hemoglobin 12.1 g/dL (12.0-15.0); Lymphocyte # 1.61 X10^3/ul (0.83-4.51); Lymphocyte % 20.9 % (19-41); Mean Corp Hgb Conc 32.9 g/dL (32-36); Mean Corpuscular Hgb 32.5 pg (27.0-32.0); Mean Corpuscular Volume 98.9 fL (81-99); Mean Platelet Vol. 11.1 fl (6.2-12.0); Monocyte# 0.64 X10^3/uL; Monocyte% 8.3 % (0-10); NRBC Flagged by Analyzer 0 % (0-5); Neutrophil # 5.19 X10^3/uL (2.7-7.7); Neutrophil % 67.3 % (47-70); Platelet Count 161 K/mm3 (150-450); RBC Distribution Width CV 13.9 % (11.6-14.6); RBC Distribution Width SD 50.3 fl (35.1-43.9); Red Blood Count 3.72 M/mm3 (4.2-5.4); White Blood Count 7.7 K/mm3 (4.4-11.0)
[2022-04-05 08:39] LABS: Thyroid Stim Hormone (TSH) 1.17 uIU/mL (0.358-3.74)
[2022-04-05 08:59] LABS: Vitamin B12 368 pg/mL (211-911); Vitamin D,25 Hydroxy 47.5 ng/mL
[2022-04-05 09:48] LABS: Hemoglobin A1c 5.2 % (3.8-5.6)
== END ==
LOC: OLS.SW 05:00
PROVIDERS: PCP Family Medicine; Visit Provider Internal Medicine
DX: R68.89 Other general symptoms and signs (principal); Z13.228 Encounter for screening for other metabolic disorders
CPT/HCPCS: 36415; 82306; 82607; 83036; 84443; 85025

== ENCOUNTER → 2022-05-15 | Outpatient (CLI) | payer MEDICARE, MEDICAID, SELFPAY ==
--- NOTE | 2022-05-15 08:08 | CT_ITS ---
INDICATION: Left upper lobe mass, COPD, hypertension EXAMINATION: CT Chest WO/W Contrast Injection TECHNIQUE: Helically acquired images were obtained of the chest with and without IV contrast. 2-D reconstructions reviewed. A radiation dose optimization technique was used for this scan. IV Contrast dosage and agent: 100 cc Isovue-300 COMPARISON: CTA chest from 03/05/2022 FINDINGS: LUNGS, PLEURA AND LARGE AIRWAYS: Slightly hyperexpanded lungs with mild centrilobular emphysematous changes and mild biapical scarring again noted. Ovoid, benign 2.2 cm calcified lesion again noted within lateral left upper lobe. No pulmonary edema or consolidation. No pneumothorax or pleural effusion. HEART AND PERICARDIUM: Normal size heart with coronary arterial calcifications. No significant pericardial effusion. VESSELS: Moderate atherosclerosis. No thoracic aortic aneurysm or dissection. No obvious central pulmonary embolism although this study was not performed with the pulmonary embolism protocol. MEDIASTINUM AND ANTONI: No mediastinal or hilar adenopathy. Esophagus is unremarkable. BONES: Mild chronic L1 superior endplate compression deformity. No acute osseous abnormality. CHEST WALL: No chest wall mass or acute findings. THYROID: Unremarkable as visualized. UPPER ABDOMEN: Nodular and cirrhotic liver morphology again noted with incompletely imaged slightly enlarged spleen. CT/Chest W/WO Contrast IMPRESSION: 1. COPD with stable benign calcified left upper lobe pulmonary nodule. 2. Cirrhosis and splenomegaly again noted. Electronically Signed: Neo Meehan MD at 23:16 EDT ,
[2022-05-15 08:35] LABS: CREATININE FINGERSTICK < 0.9 mg/dL (0.55-1.02); EGFR FINGERSTICK > 60.0000 mL/min (>60)
== END | disposition home or self-care (01) ==
PROVIDERS: PCP Family Medicine; Visit Provider Internal Medicine
DX: R91.8 Other nonspecific abnormal finding of lung field (principal); J44.9 Chronic obstructive pulmonary disease, unspecified; I10 Essential (primary) hypertension
CPT/HCPCS: 71270; Q9967

== ENCOUNTER → 2022-05-28 | Outpatient (REF) | payer MEDICARE, MEDICAID, SELFPAY | LOC: OLS.SW 19:00 | PROVIDERS: PCP Family Medicine; Visit Provider Internal Medicine | DX: J02.9 Acute pharyngitis, unspecified (principal) | CPT/HCPCS: 87070 ==

== ENCOUNTER → 2022-07-10 | Outpatient (REF) | payer MEDICARE, MEDICAID, SELFPAY ==
[2022-07-10 09:13] LABS: Absolute Lymphocyte Count 1.91 X10^3/uL (0.83-4.51); Absolute Neutrophil Count 4.8 X10^3/uL (2.0-7.7); Basophil# 0.04 X10^3/uL; Basophil% 0.5 % (0-1); Eosinophil# 0.28 X10^3/uL; Eosinophils% 3.6 % (0-5); Hematocrit 37.9 % (37-47); Lymphocyte # 1.91 X10^3/ul (0.83-4.51); Lymphocyte % 24.5 % (19-41); Mean Corp Hgb Conc 31.7 g/dL (32-36); Mean Corpuscular Hgb 31.3 pg (27.0-32.0); Mean Platelet Vol. 10.1 fl (6.2-12.0); Monocyte# 0.75 X10^3/uL; Monocyte% 9.6 % (0-10); NRBC Flagged by Analyzer 0 % (0-5); Neutrophil # 4.81 X10^3/uL (2.7-7.7); Neutrophil % 61.5 % (47-70); Platelet Count 121 K/mm3 (150-450); RBC Distribution Width CV 13.5 % (11.6-14.6); RBC Distribution Width SD 48.8 fl (35.1-43.9); Red Blood Count 3.83 M/mm3 (4.2-5.4); White Blood Count 7.8 K/mm3 (4.4-11.0)
[2022-07-10 09:38] LABS: Anion Gap 6 (5-15); BUN 15 mg/dL (7-18); BUN/Creat Ratio 34.3 RATIO (10-20); Calcium,Total 8.8 mg/dL (8.5-10.1); Chloride 109 mmol/L (98-107); Creatinine, Serum 0.44 mg/dL (0.55-1.02); EST Glomerular Filtration Rate 149 mL/min (>60); Est Glom Filt Rate - Afr Amer 180 mL/min (>60); Glucose 86 mg/dL (74-106); Potassium 4.1 mmol/L (3.5-5.1); Sodium Level 142 mmol/L (136-145)
== END ==
LOC: OLS.SW 05:00
PROVIDERS: PCP Family Medicine; Visit Provider Internal Medicine
DX: I10 Essential (primary) hypertension (principal)
CPT/HCPCS: 36415; 80048; 83880; 85025

== ENCOUNTER → 2022-07-24 | Outpatient (REF) | payer MEDICARE, MEDICAID, SELFPAY ==
[2022-07-24 09:10] LABS: Absolute Lymphocyte Count 2.76 X10^3/uL (0.83-4.51); Absolute Neutrophil Count 6.1 X10^3/uL (2.0-7.7); Basophil# 0.06 X10^3/uL; Basophil% 0.6 % (0-1); Eosinophil# 0.26 X10^3/uL; Eosinophils% 2.6 % (0-5); Hematocrit 40.4 % (37-47); Lymphocyte # 2.76 X10^3/ul (0.83-4.51); Mean Corp Hgb Conc 32.2 g/dL (32-36); Mean Corpuscular Hgb 31.6 pg (27.0-32.0); Mean Corpuscular Volume 98.3 fL (81-99); Mean Platelet Vol. 10.4 fl (6.2-12.0); Monocyte# 0.61 X10^3/uL; Monocyte% 6.2 % (0-10); NRBC Flagged by Analyzer 0 % (0-5); Neutrophil # 6.12 X10^3/uL (2.7-7.7); Neutrophil % 62.2 % (47-70); Platelet Count 182 K/mm3 (150-450); RBC Distribution Width CV 13.8 % (11.6-14.6); Red Blood Count 4.11 M/mm3 (4.2-5.4); White Blood Count 9.9 K/mm3 (4.4-11.0)
== END ==
LOC: OLS.SW 05:00
PROVIDERS: PCP Family Medicine; Visit Provider Internal Medicine
DX: I10 Essential (primary) hypertension (principal)
CPT/HCPCS: 36415; 85025

== ENCOUNTER → 2022-08-21 | Outpatient (REF) | payer MEDICARE, MEDICAID, SELFPAY ==
[2022-08-21 09:21] LABS: Absolute Lymphocyte Count 2.41 X10^3/uL (0.83-4.51); Absolute Neutrophil Count 3.2 X10^3/uL (2.0-7.7); Basophil# 0.05 X10^3/uL; Basophil% 0.8 % (0-1); Eosinophil# 0.24 X10^3/uL; Eosinophils% 3.7 % (0-5); Hematocrit 35.9 % (37-47); Hemoglobin 11.7 g/dL (12.0-15.0); Lymphocyte # 2.41 X10^3/ul (0.83-4.51); Lymphocyte % 36.7 % (19-41); Mean Corp Hgb Conc 32.6 g/dL (32-36); Mean Corpuscular Hgb 31.5 pg (27.0-32.0); Mean Corpuscular Volume 96.5 fL (81-99); Mean Platelet Vol. 10.3 fl (6.2-12.0); Monocyte# 0.67 X10^3/uL; Monocyte% 10.2 % (0-10); NRBC Flagged by Analyzer 0 % (0-5); Neutrophil # 3.19 X10^3/uL (2.7-7.7); Neutrophil % 48.4 % (47-70); Platelet Count 162 K/mm3 (150-450); RBC Distribution Width CV 13.9 % (11.6-14.6); RBC Distribution Width SD 49.3 fl (35.1-43.9); Red Blood Count 3.72 M/mm3 (4.2-5.4); White Blood Count 6.6 K/mm3 (4.4-11.0)
[2022-08-21 09:34] LABS: Anion Gap 3 (5-15); BUN 22 mg/dL (7-18); BUN/Creat Ratio 40.8 RATIO (10-20); Calcium,Total 8.9 mg/dL (8.5-10.1); Chloride 110 mmol/L (98-107); Creatinine, Serum 0.54 mg/dL (0.55-1.02); EST Glomerular Filtration Rate 117 mL/min (>60); Est Glom Filt Rate - Afr Amer 142 mL/min (>60); Glucose 75 mg/dL (74-106); Potassium 3.6 mmol/L (3.5-5.1); Sodium Level 143 mmol/L (136-145)
[2022-08-21 09:45] LABS: BNP,B-Type NATRIURETIC PEPTIDE 35.2 pg/mL (0-100)
== END ==
LOC: OLS.SW 05:00
PROVIDERS: PCP Family Medicine; Visit Provider Internal Medicine
DX: I10 Essential (primary) hypertension (principal); R60.9 Edema, unspecified
CPT/HCPCS: 36415; 80048; 83880; 85025

== ENCOUNTER → 2022-08-23 | Outpatient (REF) | payer MEDICARE, MEDICAID, SELFPAY ==
[2022-08-23 08:56] LABS: Anion Gap 7 (5-15); BUN 28 mg/dL (7-18); BUN/Creat Ratio 34.1 RATIO (10-20); Calcium,Total 9.1 mg/dL (8.5-10.1); Chloride 106 mmol/L (98-107); Creatinine, Serum 0.82 mg/dL (0.55-1.02); EST Glomerular Filtration Rate 72 mL/min (>60); Est Glom Filt Rate - Afr Amer 87 mL/min (>60); Glucose 159 mg/dL (74-106); Potassium 4.4 mmol/L (3.5-5.1); Sodium Level 139 mmol/L (136-145)
== END ==
LOC: OLS.SW 05:27
PROVIDERS: PCP Family Medicine; Referring Provider Internal Medicine; Visit Provider Internal Medicine
DX: I10 Essential (primary) hypertension (principal)
CPT/HCPCS: 36415; 80048

== ENCOUNTER → 2022-09-12 | Outpatient (CLI) | payer MEDICAID, MEDICARE, SELFPAY ==
--- NOTE | 2022-09-12 13:46 | ECHOCS_ITS ---
Reason For Study: CHF Procedure This was a 2D Doppler, Color Flow transthoracic echocardiogram. The study was technically difficult. Exam performed in department. Left Ventricle Normal LV size. Left ventricular systolic function is normal. The estimated ejection fraction is 60 %. No regional wall motion abnormalities noted. Right Ventricle Normal RV size. Normal systolic function. Atria Normal left atrium. Normal right atrium. Mitral Valve Normal mitral valve. Tricuspid Valve Normal tricuspid valve. Mild (1+) tricuspid valve insufficiency. Pulmonary artery systolic pressure is 28 mmHg. Aortic Valve Normal aortic valve. Pulmonic Valve Normal pulmonic valve. Great Vessels Normal aortic root. The pulmonary artery is normal size. Normal inferior vena cava. Pericardium/Pleural No pericardial effusion. Medication 22 gauge I.V. with prn adaptor inserted into right arm. Diluted definity 3ml given slow IV push to enhance endocardial definition. MMode/2D Measurements & Calculations LVIDd: 4.4 cm IVSd: 0.83 cm Ao root diam: 3.0 cm LVIDs: 2.9 cm LVPWd: 0.87 cm RVDd: 3.0 cm FS: 35.5 % LAV(MOD-bp): 35.8 ml LVAd ap4: 24.0 cm2 SV(MOD-sp4): 44.2 ml LAV(MOD-bp) Indexed: 20.9 ml/m2 LVLd ap4: 7.2 cm LAV(MOD-sp2): 33.5 ml EDV(MOD-sp4): 66.3 ml LAV(MOD-sp4): 34.4 ml EDV(sp4-el): 68.0 ml LVAs ap4: 12.8 cm2 LVLs ap4: 6.0 cm ESV(MOD-sp4): 22.0 ml ESV(sp4-el): 23.0 ml EF(MOD-sp4): 66.7 % EF(sp4-el): 66.1 % SV(sp4-el): 44.9 ml LA A4 area: 14.2 cm2 LA dimension(2D): 2.9 cm RA A4 area: 12.2 cm2 Time Measurements MV dec time: 0.21 sec Doppler Measurements & Calculations MV E max justice: 118.2 cm/sec Lat Peak E' Justice: 9.0 cm/sec Med Peak E' Justice: 10.0 cm/sec MV A max justice: 117.3 cm/sec E/E' lat: 13.2 E/E' med: 11.8 MV E/A: 1.0 Ao V2 max: 143.2 cm/sec LV V1 max: 128.8 cm/sec PA V2 max: 100.7 cm/sec Ao max P.2 mmHg LV V1 max P.6 mmHg TR max justice: 248.8 cm/sec TR max P.8 mmHg ECHO/Echo Complete W/ Contrast Interpretation Summary Normal LV size. Left ventricular systolic function is normal. The estimated ejection fraction is 60 %. Contrast injection was performed. Structurally normal valves. Ordering Physician: Pricilla Canales Referring Physician: LANG LUGO Performed By: Allyson Pride RDCS
== END | disposition home or self-care (01) ==
PROVIDERS: PCP Family Medicine; Referring Provider Internal Medicine; Visit Provider Internal Medicine
DX: I50.9 Heart failure, unspecified (principal); R60.0 Localized edema
CPT/HCPCS: 93306; Q9957; A4216; C8929

== ENCOUNTER → 2022-09-18 | Outpatient (REF) | payer MEDICARE, MEDICAID, SELFPAY ==
[2022-09-18 09:49] LABS: Absolute Lymphocyte Count 1.98 X10^3/uL (0.83-4.51); Absolute Neutrophil Count 4.9 X10^3/uL (2.0-7.7); Basophil# 0.06 X10^3/uL; Basophil% 0.7 % (0-1); Eosinophil# 0.44 X10^3/uL; Eosinophils% 5.4 % (0-5); Hematocrit 40.2 % (37-47); Hemoglobin 12.7 g/dL (12.0-15.0); Lymphocyte # 1.98 X10^3/ul (0.83-4.51); Lymphocyte % 24.5 % (19-41); Mean Corp Hgb Conc 31.6 g/dL (32-36); Mean Corpuscular Hgb 30.9 pg (27.0-32.0); Mean Corpuscular Volume 97.8 fL (81-99); Mean Platelet Vol. 10.1 fl (6.2-12.0); Monocyte# 0.66 X10^3/uL; Monocyte% 8.2 % (0-10); NRBC Flagged by Analyzer 0 % (0-5); Neutrophil # 4.91 X10^3/uL (2.7-7.7); Neutrophil % 60.8 % (47-70); Platelet Count 185 K/mm3 (150-450); RBC Distribution Width CV 13.5 % (11.6-14.6); RBC Distribution Width SD 48.4 fl (35.1-43.9); Red Blood Count 4.11 M/mm3 (4.2-5.4); White Blood Count 8.1 K/mm3 (4.4-11.0)
[2022-09-18 10:05] LABS: Anion Gap 3 (5-15); BUN 16 mg/dL (7-18); BUN/Creat Ratio 31.2 RATIO (10-20); Calcium,Total 8.8 mg/dL (8.5-10.1); Chloride 109 mmol/L (98-107); Creatinine, Serum 0.51 mg/dL (0.55-1.02); EST Glomerular Filtration Rate 124 mL/min (>60); Est Glom Filt Rate - Afr Amer 150 mL/min (>60); Glucose 103 mg/dL (74-106); Potassium 3.9 mmol/L (3.5-5.1); Sodium Level 142 mmol/L (136-145)
== END ==
LOC: OLS.SW 05:00
PROVIDERS: PCP Family Medicine; Visit Provider Internal Medicine
DX: J44.9 Chronic obstructive pulmonary disease, unspecified (principal); I10 Essential (primary) hypertension
CPT/HCPCS: 36415; 80048; 85025

== ENCOUNTER → 2022-10-02 | Outpatient (REF) | payer MEDICARE, MEDICAID, SELFPAY ==
[2022-10-02 09:23] LABS: Absolute Neutrophil Count 5.9 X10^3/uL (2.0-7.7); Basophil# 0.05 X10^3/uL; Basophil% 0.5 % (0-1); Eosinophil# 0.18 X10^3/uL; Eosinophils% 1.8 % (0-5); Hemoglobin 11.2 g/dL (12.0-15.0); Lymphocyte % 26.3 % (19-41); Mean Corp Hgb Conc 31.1 g/dL (32-36); Mean Corpuscular Hgb 30.8 pg (27.0-32.0); Mean Corpuscular Volume 98.9 fL (81-99); Mean Platelet Vol. 10.3 fl (6.2-12.0); Monocyte# 1.12 X10^3/uL; Monocyte% 11.3 % (0-10); NRBC Flagged by Analyzer 0 % (0-5); Neutrophil # 5.91 X10^3/uL (2.7-7.7); Neutrophil % 59.7 % (47-70); Platelet Count 199 K/mm3 (150-450); RBC Distribution Width CV 13.3 % (11.6-14.6); RBC Distribution Width SD 48.6 fl (35.1-43.9); Red Blood Count 3.64 M/mm3 (4.2-5.4); White Blood Count 9.9 K/mm3 (4.4-11.0)
[2022-10-02 09:39] LABS: Anion Gap 5 (5-15); BUN 20 mg/dL (7-18); BUN/Creat Ratio 38.6 RATIO (10-20); Calcium,Total 8.5 mg/dL (8.5-10.1); Chloride 107 mmol/L (98-107); Creatinine, Serum 0.52 mg/dL (0.55-1.02); EST Glomerular Filtration Rate 122 mL/min (>60); Est Glom Filt Rate - Afr Amer 148 mL/min (>60); Glucose 104 mg/dL (74-106); Potassium 3.6 mmol/L (3.5-5.1); Sodium Level 142 mmol/L (136-145)
== END ==
LOC: OLS.SW 05:00
PROVIDERS: PCP Family Medicine; Visit Provider Internal Medicine
DX: J44.9 Chronic obstructive pulmonary disease, unspecified (principal); I10 Essential (primary) hypertension
CPT/HCPCS: 36415; 80048; 85025

== ENCOUNTER → 2022-11-18 | Outpatient (CLI) | payer MEDICARE, MEDICAID, SELFPAY ==
--- NOTE | 2022-11-18 14:16 | CT_ITS ---
INDICATION: LUNG NODULE EXAMINATION: CT CHEST WITH CONTRAST - CT Chest W/ Contrast Injection TECHNIQUE: Helically acquired images were obtained of the chest following IV contrast. A radiation dose optimization technique was used for this scan. IV Contrast dosage and agent: 100 cc of Isovue-370 RADIATION DOSAGE (If Supplied By Facility): CTDIvol = ( 11.49 ) mGy, DLP = ( 352.67 ) mGycm COMPARISON: Prior study dated: 05/15/2022 and 12/01/2021 FINDINGS: LUNGS, PLEURA AND LARGE AIRWAYS: Calcified benign left upper lobe 2.2 cm nodule unchanged. No new nodules are identified.. Apical pleural fibrotic changes unchanged. Mild centrilobular emphysema. No evidence of pleural effusions or pneumothorax THYROID: No thyroid lesions. HEART AND PERICARDIUM: Heart size is normal. No pericardial effusion. Coronary calcifications. VESSELS: Atherosclerotic calcifications of the thoracic aorta without evidence of aneurysm. No aortic dissection. No obvious central pulmonary embolism although this study was not performed with the pulmonary embolism protocol. MEDIASTINUM AND ANTONI: No mediastinal or hilar adenopathy. Esophagus is unremarkable. No hiatal hernia. UPPER ABDOMEN: Irregular liver which may reflect cirrhosis unchanged. Collateral veins in the splenic hilum which may reflect portal venous hypertension. Partially visualized stent. Cyst in the left kidney for which no further follow-up exam is needed. BONES: No significant change since previous exam. CT/Chest WITH Contrast IMPRESSION: 1. No significant change is previous exam. 2. Calcified mediastinal left upper lobe nodule unchanged. 3. Otherwise no new masses, adenopathy or focal acute pulmonary infiltrate. 4. Cirrhosis of the liver with collateral splenic hilum is which may reflect portal venous hypertension. Electronically Signed: Flex Hopson MD at 12:54 EDT ,
[2022-11-18 14:47] LABS: CREATININE FINGERSTICK < 0.9 mg/dL (0.55-1.02); EGFR FINGERSTICK > 60.0000 mL/min (>60)
== END | disposition home or self-care (01) ==
LOC: CT 14:15
PROVIDERS: PCP Family Medicine; Referring Provider Internal Medicine; Visit Provider Internal Medicine
DX: R91.1 Solitary pulmonary nodule (principal)
CPT/HCPCS: 71260; Q9967; A4216

== ENCOUNTER → 2022-11-20 | Outpatient (REF) | payer MEDICARE, MEDICAID, SELFPAY | LOC: OLS.SW 08:30 | PROVIDERS: PCP Family Medicine; Visit Provider Internal Medicine | DX: J02.9 Acute pharyngitis, unspecified (principal) | CPT/HCPCS: 87880 ==

== ENCOUNTER → 2022-12-18 | Outpatient (REF) | payer MEDICARE, MEDICAID, SELFPAY ==
[2022-12-18 09:40] LABS: Absolute Lymphocyte Count 2.18 X10^3/uL (0.83-4.51); Absolute Neutrophil Count 3.4 X10^3/uL (2.0-7.7); Basophil# 0.03 X10^3/uL; Basophil% 0.5 % (0-1); Eosinophil# 0.27 X10^3/uL; Eosinophils% 4.2 % (0-5); Hematocrit 40.1 % (37-47); Hemoglobin 12.7 g/dL (12.0-15.0); Lymphocyte # 2.18 X10^3/ul (0.83-4.51); Lymphocyte % 34.2 % (19-41); Mean Corp Hgb Conc 31.7 g/dL (32-36); Mean Corpuscular Hgb 29.8 pg (27.0-32.0); Mean Corpuscular Volume 94.1 fL (81-99); Mean Platelet Vol. 11.2 fl (6.2-12.0); Monocyte# 0.49 X10^3/uL; Monocyte% 7.7 % (0-10); NRBC Flagged by Analyzer 0 % (0-5); Neutrophil # 3.39 X10^3/uL (2.7-7.7); Neutrophil % 53.2 % (47-70); Platelet Count 147 K/mm3 (150-450); RBC Distribution Width CV 13.4 % (11.6-14.6); RBC Distribution Width SD 46.1 fl (35.1-43.9); Red Blood Count 4.26 M/mm3 (4.2-5.4); White Blood Count 6.4 K/mm3 (4.4-11.0)
[2022-12-18 10:01] LABS: Anion Gap 4 (5-15); BUN 20 mg/dL (7-18); BUN/Creat Ratio 41.8 RATIO (10-20); Calcium,Total 8.8 mg/dL (8.5-10.1); Chloride 108 mmol/L (98-107); Creatinine, Serum 0.48 mg/dL (0.55-1.02); EST Glomerular Filtration Rate 134 mL/min (>60); Est Glom Filt Rate - Afr Amer 162 mL/min (>60); Glucose 87 mg/dL (74-106); Magnesium 2.2 mg/dL (1.6-2.6); Potassium 3.6 mmol/L (3.5-5.1); Sodium Level 142 mmol/L (136-145)
[2022-12-18 12:44] LABS: Vitamin B12 423 pg/mL (211-911); Vitamin D,25 Hydroxy 48.7 ng/mL
== END ==
LOC: OLS.SW 05:00
PROVIDERS: PCP Family Medicine; Visit Provider Internal Medicine
DX: R53.81 Other malaise (principal); I10 Essential (primary) hypertension; E55.9 Vitamin D deficiency, unspecified
CPT/HCPCS: 36415; 80048; 82306; 82607; 83735; 85025

== ENCOUNTER → 2023-03-10 | Outpatient (REF) | payer MEDICARE, MEDICAID, SELFPAY ==
[2023-03-10 08:58] LABS: Absolute Lymphocyte Count 2.59 X10^3/uL (0.83-4.51); Basophil# 0.05 X10^3/uL; Basophil% 0.6 % (0-1); Eosinophil# 0.39 X10^3/uL; Hematocrit 36.5 % (37-47); Hemoglobin 11.9 g/dL (12.0-15.0); Lymphocyte # 2.59 X10^3/ul (0.83-4.51); Lymphocyte % 33.3 % (19-41); Mean Corp Hgb Conc 32.6 g/dL (32-36); Mean Corpuscular Hgb 30.8 pg (27.0-32.0); Mean Corpuscular Volume 94.6 fL (81-99); Mean Platelet Vol. 10.6 fl (6.2-12.0); Monocyte# 0.75 X10^3/uL; Monocyte% 9.6 % (0-10); NRBC Flagged by Analyzer 0 % (0-5); Neutrophil # 3.97 X10^3/uL (2.7-7.7); Neutrophil % 51.1 % (47-70); Platelet Count 175 K/mm3 (150-450); RBC Distribution Width CV 14.2 % (11.6-14.6); RBC Distribution Width SD 49.1 fl (35.1-43.9); Red Blood Count 3.86 M/mm3 (4.2-5.4); White Blood Count 7.8 K/mm3 (4.4-11.0)
[2023-03-10 09:42] LABS: Anion Gap 4 (5-15); BUN 22 mg/dL (7-18); BUN/Creat Ratio 39.1 RATIO (10-20); Calcium,Total 8.8 mg/dL (8.5-10.1); Chloride 107 mmol/L (98-107); Cholesterol 97 mg/dL (200); Creatinine, Serum 0.56 mg/dL (0.55-1.02); EST Glomerular Filtration Rate 111 mL/min (>60); Est Glom Filt Rate - Afr Amer 134 mL/min (>60); Glucose 79 mg/dL (74-106); High Density Lipoprotein 63 mg/dL; Magnesium 2.1 mg/dL (1.6-2.6); Potassium 3.6 mmol/L (3.5-5.1); Sodium Level 142 mmol/L (136-145); Triglycerides 38 mg/dL; Very Low Density Lipoprotein 8 mg/dL (5-40)
== END ==
LOC: OLS.SW 04:00
PROVIDERS: PCP Family Medicine; Referring Provider Internal Medicine; Visit Provider Internal Medicine
DX: J44.9 Chronic obstructive pulmonary disease, unspecified (principal); I10 Essential (primary) hypertension
CPT/HCPCS: 36415; 80048; 80061; 83735; 85025

== ENCOUNTER → 2023-09-01 | Outpatient (REF) | payer MEDICARE, MEDICAID, SELFPAY ==
[2023-09-01 08:19] LABS: Hematocrit 40.5 % (37-47); Hemoglobin 13.3 g/dL (12.0-15.0); Mean Corp Hgb Conc 32.8 g/dL (32-36); Mean Corpuscular Hgb 31.3 pg (27.0-32.0); Mean Corpuscular Volume 95.3 fL (81-99); Mean Platelet Vol. 10.7 fl (6.2-12.0); Platelet Count 174 K/mm3 (150-450); RBC Distribution Width CV 12.9 % (11.6-14.6); RBC Distribution Width SD 45.2 fl (35.1-43.9); Red Blood Count 4.25 M/mm3 (4.2-5.4); White Blood Count 7.4 K/mm3 (4.4-11.0)
[2023-09-01 08:49] LABS: Anion Gap 5 (5-15); BUN 30 mg/dL (7-18); BUN/Creat Ratio 49.3 RATIO (10-20); Chloride 108 mmol/L (98-107); Creatinine, Serum 0.61 mg/dL (0.55-1.02); EST Glomerular Filtration Rate 101 mL/min (>60); Est Glom Filt Rate - Afr Amer 123 mL/min (>60); Glucose 84 mg/dL (74-106); Magnesium 2.2 mg/dL (1.6-2.6); Potassium 3.7 mmol/L (3.5-5.1); Sodium Level 141 mmol/L (136-145)
== END ==
LOC: OLS.SW 05:30
PROVIDERS: PCP Family Medicine; Referring Provider Internal Medicine; Visit Provider Internal Medicine
DX: J44.9 Chronic obstructive pulmonary disease, unspecified (principal)
CPT/HCPCS: 36415; 80048; 83735; 85027

== ENCOUNTER → 2023-11-10 | Outpatient (REF) | payer MEDICARE, MEDICAID, SELFPAY ==
[2023-11-10 08:47] LABS: Hematocrit 38.5 % (37-47); Hemoglobin 12.3 g/dL (12.0-15.0); Mean Corp Hgb Conc 31.9 g/dL (32-36); Mean Corpuscular Hgb 30.3 pg (27.0-32.0); Mean Corpuscular Volume 94.8 fL (81-99); Mean Platelet Vol. 10.7 fl (6.2-12.0); Platelet Count 159 K/mm3 (150-450); RBC Distribution Width CV 13.1 % (11.6-14.6); Red Blood Count 4.06 M/mm3 (4.2-5.4); White Blood Count 6.6 K/mm3 (4.4-11.0)
[2023-11-10 09:49] LABS: ALB/GLOB Ratio 0.9 RATIO (0.9-2.4); AST(SGOT) 21 U/L (15-37); Alanine Aminotransfer ALT/SGPT 23 U/L (13-56); Albumin, Serum 2.9 g/dL (3.2-5.0); Alkaline Phosphatase 66 U/L (45-117); Anion Gap 6 (5-15); BUN 23 mg/dL (7-18); BUN/Creat Ratio 35.8 RATIO (10-20); Calcium,Total 8.9 mg/dL (8.5-10.1); Chloride 107 mmol/L (98-107); Cholesterol 114 mg/dL (200); Creatinine, Serum 0.64 mg/dL (0.55-1.02); EST Glomerular Filtration Rate 95 mL/min (>60); Est Glom Filt Rate - Afr Amer 115 mL/min (>60); Globulin 3.1 g/dL (2.2-4.2); Glucose 81 mg/dL (74-106); High Density Lipoprotein 71 mg/dL; Magnesium 2.1 mg/dL (1.6-2.6); Potassium 4.1 mmol/L (3.5-5.1); Sodium Level 142 mmol/L (136-145); Triglycerides 53 mg/dL; Very Low Density Lipoprotein 11 mg/dL (5-40)
== END ==
LOC: OLS.SW 05:00
PROVIDERS: PCP Family Medicine; Visit Provider Internal Medicine
DX: I10 Essential (primary) hypertension (principal)
CPT/HCPCS: 36415; 80053; 80061; 83735; 85027

== ENCOUNTER → 2023-12-09 | Outpatient (REF) | payer MEDICARE, MEDICAID, SELFPAY ==
[2023-12-09 08:25] LABS: Hematocrit 38.8 % (37-47); Hemoglobin 12.7 g/dL (12.0-15.0); Mean Corp Hgb Conc 32.7 g/dL (32-36); Mean Corpuscular Hgb 31.3 pg (27.0-32.0); Mean Corpuscular Volume 95.6 fL (81-99); Mean Platelet Vol. 10.8 fl (6.2-12.0); Platelet Count 162 K/mm3 (150-450); RBC Distribution Width SD 46.1 fl (35.1-43.9); Red Blood Count 4.06 M/mm3 (4.2-5.4); White Blood Count 6.5 K/mm3 (4.4-11.0)
[2023-12-09 08:43] LABS: AST(SGOT) 22 U/L (15-37); Alanine Aminotransfer ALT/SGPT 24 U/L (13-56); Alkaline Phosphatase 71 U/L (45-117); Anion Gap 4 (5-15); BUN 23 mg/dL (7-18); BUN/Creat Ratio 36.1 RATIO (10-20); Calcium,Total 8.9 mg/dL (8.5-10.1); Chloride 109 mmol/L (98-107); Creatinine, Serum 0.64 mg/dL (0.55-1.02); EST Glomerular Filtration Rate 96 mL/min (>60); Est Glom Filt Rate - Afr Amer 116 mL/min (>60); Globulin 3.1 g/dL (2.2-4.2); Glucose 85 mg/dL (74-106); Potassium 3.9 mmol/L (3.5-5.1); Protein, Total 6.1 g/dL (6.4-8.2); Sodium Level 143 mmol/L (136-145)
== END ==
LOC: OLS.SW 05:00
PROVIDERS: PCP Family Medicine; Visit Provider Internal Medicine
DX: E80.7 Disorder of bilirubin metabolism, unspecified (principal)
CPT/HCPCS: 36415; 80053; 85027

== ENCOUNTER → 2023-12-18 | Outpatient (REF) | payer MEDICARE, MEDICAID, SELFPAY ==
[2023-12-18 08:42] LABS: AST(SGOT) 25 U/L (15-37); Alanine Aminotransfer ALT/SGPT 25 U/L (13-56); Albumin, Serum 2.9 g/dL (3.2-5.0); Alkaline Phosphatase 76 U/L (45-117); Bilirubin, Direct 0.48 mg/dL (0.00-0.30); Globulin 2.9 g/dL (2.2-4.2); Protein, Total 5.8 g/dL (6.4-8.2)
== END ==
LOC: OLS.SW 07:00
PROVIDERS: PCP Family Medicine; Visit Provider Internal Medicine
DX: E80.7 Disorder of bilirubin metabolism, unspecified (principal)
CPT/HCPCS: 36415; 80076

== ENCOUNTER → 2024-01-05 | Outpatient (REF) | payer MEDICARE, MEDICAID, SELFPAY ==
[2024-01-05 08:17] LABS: AST(SGOT) 20 U/L (15-37); Alanine Aminotransfer ALT/SGPT 22 U/L (13-56); Alkaline Phosphatase 71 U/L (45-117); Anion Gap 2 (5-15); BUN 19 mg/dL (7-18); BUN/Creat Ratio 28.2 RATIO (10-20); Bilirubin, Direct 0.35 mg/dL (0.00-0.30); Calcium,Total 8.8 mg/dL (8.5-10.1); Chloride 107 mmol/L (98-107); Creatinine, Serum 0.67 mg/dL (0.55-1.02); EST Glomerular Filtration Rate 90 mL/min (>60); Est Glom Filt Rate - Afr Amer 109 mL/min (>60); Glucose 91 mg/dL (74-106); Potassium 3.8 mmol/L (3.5-5.1); Sodium Level 143 mmol/L (136-145)
== END ==
LOC: OLS.SW 04:00
PROVIDERS: PCP Family Medicine; Referring Provider Internal Medicine; Visit Provider Internal Medicine
DX: R50.9 Fever, unspecified (principal); I10 Essential (primary) hypertension; R17 Unspecified jaundice
CPT/HCPCS: 36415; 80053; 82248

== ENCOUNTER → 2024-01-21 | Outpatient (CLI) | payer MEDICARE, MEDICAID, SELFPAY ==
--- NOTE | 2024-01-21 14:22 | CT_ITS ---
STUDY: CT CHEST WITH CONTRAST REASON FOR EXAM: Female, 78 years old. SOB/NEW MASS RADIATION DOSAGE (If Supplied By Facility): CTDIvol = ( 10.84 ) mGy, DLP = ( 423.72 ) mGycm TECHNIQUE: Transaxial imaging was performed following intravenous administration of IV 100mL Isovue-300. Multiplanar coronal and sagittal images were reformatted. Individualized dose optimization techniques were used for this CT. COMPARISON: Comparison is made with prior study November 18, 2022. FINDINGS: CHEST Stable 2 cm x 1.8 cm calcified nodule in the peripheral aspect of the left upper lobe. Stable biapical scarring. Stable mild scarring at the lung bases. There is no demonstrated pleural abnormality. There are calcifications of the coronary arteries. Normal mediastinum. Normal hilar regions. Normal unenhanced pulmonary arteries. Normal aorta arch and descending thoracic aorta. There are multi-level degenerative changes of the thoracic spine. Varices are seen in the region of the splenic hilum. This is suggestive of portal venous hypertension. Left renal cyst. CT/Chest WITH Contrast IMPRESSION: Stable examination. Electronically Signed: Luciano Ferraro MD at 12:29 EST ,
[2024-01-21 14:41] LABS: CREATININE FINGERSTICK < 1.0 mg/dL (0.55-1.02); EGFR FINGERSTICK > 60.0000 mL/min (>60)
== END | disposition home or self-care (01) ==
LOC: CT 13:53
PROVIDERS: PCP Family Medicine; Referring Provider Internal Medicine; Visit Provider Internal Medicine
DX: R06.02 Shortness of breath (principal)
CPT/HCPCS: 71260; Q9967

== ENCOUNTER → 2024-06-15 | Outpatient (REF) | payer MEDICARE, MEDICAID, SELFPAY ==
[2024-06-15 08:36] LABS: Hematocrit 37.5 % (37-47); Hemoglobin 12.1 g/dL (12.0-15.0); Mean Corp Hgb Conc 32.3 g/dL (32-36); Mean Corpuscular Hgb 30.8 pg (27.0-32.0); Mean Corpuscular Volume 95.4 fL (81-99); Mean Platelet Vol. 10.5 fl (6.2-12.0); Platelet Count 162 K/mm3 (150-450); RBC Distribution Width CV 12.8 % (11.6-14.6); RBC Distribution Width SD 45.1 fl (35.1-43.9); Red Blood Count 3.93 M/mm3 (4.2-5.4); White Blood Count 6.5 K/mm3 (4.4-11.0)
[2024-06-15 09:04] LABS: Anion Gap 7 (5-15); BUN 18 mg/dL (4-19); BUN/Creat Ratio 24.8 RATIO (10-20); Calcium,Total 8.5 mg/dL (7.6-11.0); Carbon Dioxide 31.8 mmol/L (21.0-32.0); Chloride 102 mmol/L (98-108); Cholesterol 118 mg/dL (<=200); Creatinine, Serum 0.74 mg/dL (0.70-1.20); EST Glomerular Filtration Rate 84 (>60); Glucose 87 mg/dL (70-99); High Density Lipoprotein 57 mg/dL; Low Density Lipoprotein Calc. 52 mg/dL; Potassium 3.9 mmol/L (3.3-5.1); Sodium Level 141 mmol/L (133-145); T4 Total, Thyroxin 5.9 ug/dL (4.8-13.9); Triglycerides 44 mg/dL; Very Low Density Lipoprotein 9 mg/dL (5-40); cholesterol:hdl ratio screen 2.08
== END ==
LOC: OLS.SW 07:00
PROVIDERS: PCP Family Medicine; Visit Provider Family Medicine
DX: J44.9 Chronic obstructive pulmonary disease, unspecified (principal); R53.83 Other fatigue; I25.10 Atherosclerotic heart disease of native coronary artery without angina pectoris; Z79.899 Other long term (current) drug therapy
CPT/HCPCS: 36415; 80048; 80061; 84436; 84443; 85027

== ENCOUNTER → 2024-06-17 | Outpatient (REF) | payer MEDICARE, MEDICAID, SELFPAY ==
[2024-06-17 13:09] LABS: Microalbumin,Random Urine 31.5 mg/L (NO RANGE EST.)
[2024-08-06 08:10] LABS: Microalbumin:Creatinine Ratio 48.8 mg/g CRE
== END ==
LOC: OLS.SW 05:00
PROVIDERS: PCP Family Medicine; Visit Provider Internal Medicine
DX: I10 Essential (primary) hypertension (principal)
CPT/HCPCS: 82043; 82570